=== PATIENT | male | born 1960 | race Caucasian/White ===

== ENCOUNTER → 2017-08-14 10:37 | Outpatient (CLI) | payer MEDICARE, MEDICAID, SELFPAY | PROVIDERS: Family Provider Family Medicine; PCP Family Medicine; Visit Provider Otolaryngology | DX: R05 Cough (principal) ==

== ENCOUNTER → 2017-09-20 09:57 | Outpatient (CLI) | payer MEDICARE, MEDICAID, SELFPAY ==
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
== END ==
PROVIDERS: Family Provider Family Medicine; PCP Family Medicine; Visit Provider Internal Medicine
DX: L98.498 Non-pressure chronic ulcer of skin of other sites with other specified severity (principal); R21 Rash and other nonspecific skin eruption; G82.50 Quadriplegia, unspecified
CPT/HCPCS: 87070; 87075; 87077; 87186; 87205; 99214

== ENCOUNTER → 2017-09-29 09:57 | Outpatient (CLI) | payer MEDICARE, MEDICAID, SELFPAY ==
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
== END ==
PROVIDERS: Family Provider Family Medicine; PCP Family Medicine; Visit Provider Internal Medicine
DX: L98.498 Non-pressure chronic ulcer of skin of other sites with other specified severity (principal); R21 Rash and other nonspecific skin eruption; B96.5 Pseudomonas (aeruginosa) (mallei) (pseudomallei) as the cause of diseases classified elsewhere; G82.50 Quadriplegia, unspecified
CPT/HCPCS: 99213

== ENCOUNTER → 2017-10-19 13:12 | Outpatient (CLI) | payer MEDICARE, MEDICAID, SELFPAY | PROVIDERS: Family Provider Family Medicine; PCP Family Medicine; Visit Provider Physician Assistant | DX: N39.0 Urinary tract infection, site not specified (principal) | CPT/HCPCS: 87086 ==

== ENCOUNTER → 2017-12-15 12:26 | Outpatient (CLI) | payer MEDICARE, MEDICAID, SELFPAY ==
[2017-12-15 13:18] LABS: Add Manual Diff / Slide Review NO; Basophils Percent Auto 0.4 % (0-2); Eosinophils Percent Auto 15.4 % (2-4); Hematocrit 44.5 % (41-53); Hemoglobin 14.8 g/dL (13.5-17.5); Lymphocytes Percent Auto 22.5 % (25-40); Mean Corpuscular HGB Conc 33.3 % (30-36); Mean Corpuscular Hemoglobin 32.2 PG (26-34); Mean Corpuscular Volume 96.4 fL (80-100); Monocytes Percent Auto 12.9 % (3-14); Neutrophils Absolute Auto 3400 /uL (3000-5900); Neutrophils Percent Auto 48.8 % (50-75); Platelet Count 211 X10^3/uL (150-400); Red Blood Cell Count 4.61 X10^6/uL (4.5-5.9); Red Cell Distribution Width 17.8 % (11.6-14.8)
[2017-12-15 13:34] LABS: Alanine Aminotransferase 78 IU/L (21-72); Albumin 4.2 g/dL (3.5-5.0); Albumin Globulin Ratio 1.1 (1.0-2.8); Alkaline Phosphatase 134 U/L (38-126); Aspartate Aminotransferase 58 IU/L (17-59); Bilirubin Total 0.5 mg/dL (0.2-1.3); Blood Urea Nitrogen 15 mg/dL (9-20); Calcium 10.3 mg/dL (8.4-10.2); Carbon Dioxide 34 mmol/L (22-32); Chloride 100 mmol/L (98-107); Cholesterol 191 mg/dL (140-199); Estimated Glomerular Filt Rate > 60.0 mL/min (>60); Glucose 76 mg/dL (70-100); HDL Cholesterol 44 mg/dL (40-60); HEMOLYSIS < 15 (0-50); LDL Cholesterol Calculated 131 mg/dL (<100); Potassium 4.1 mmol/L (3.4-5.1); Sodium 145 mmol/L (137-145); Total Protein 8.2 g/dL (6.3-8.2); Triglycerides 80 mg/dL (35-150)
[2017-12-15 14:03] LABS: Thyroid Stimulating Hormone 1.33 uIU/mL (0.47-4.68)
== END ==
PROVIDERS: Family Provider Family Medicine; PCP Student in an Organized Health Care Education/Training Program; Visit Provider Physician Assistant
DX: R74.9 Abnormal serum enzyme level, unspecified (principal); R79.89 Other specified abnormal findings of blood chemistry; Z13.220 Encounter for screening for lipoid disorders; Z13.6 Encounter for screening for cardiovascular disorders
CPT/HCPCS: 36415; 80053; 80061; 84443; 85025

== ENCOUNTER → 2018-01-15 13:00 | Outpatient (CLI) | payer MEDICARE, MEDICAID, SELFPAY | PROVIDERS: PCP Student in an Organized Health Care Education/Training Program; Visit Provider Family Medicine | DX: G82.50 Quadriplegia, unspecified (principal); L89.323 Pressure ulcer of left buttock, stage 3; L89.612 Pressure ulcer of right heel, stage 2 | CPT/HCPCS: 11042; 97597; 99214 ==

== ENCOUNTER → 2018-01-22 13:08 | Outpatient (CLI) | payer MEDICARE, MEDICAID, SELFPAY | PROVIDERS: Family Provider Family Medicine; PCP Student in an Organized Health Care Education/Training Program; Visit Provider Family Medicine | DX: G82.50 Quadriplegia, unspecified (principal); L89.323 Pressure ulcer of left buttock, stage 3; L89.612 Pressure ulcer of right heel, stage 2 | CPT/HCPCS: 97597 ==

== ENCOUNTER → 2018-01-29 13:18 | Outpatient (CLI) | payer MEDICARE, MEDICAID, SELFPAY | PROVIDERS: Family Provider Family Medicine; PCP Student in an Organized Health Care Education/Training Program; Visit Provider Family Medicine | DX: G82.50 Quadriplegia, unspecified (principal); L89.323 Pressure ulcer of left buttock, stage 3; L89.612 Pressure ulcer of right heel, stage 2 | CPT/HCPCS: 97597 ==

== ENCOUNTER → 2018-02-09 13:00 | Outpatient (CLI) | payer MEDICARE, MEDICAID, SELFPAY | PROVIDERS: Family Provider Family Medicine; PCP Student in an Organized Health Care Education/Training Program; Visit Provider Family Medicine | DX: L89.612 Pressure ulcer of right heel, stage 2 (principal); G82.50 Quadriplegia, unspecified | CPT/HCPCS: 97597 ==

== ENCOUNTER → 2018-02-22 15:40 | Outpatient (CLI) | payer MEDICARE, MEDICAID, SELFPAY | PROVIDERS: Family Provider Family Medicine; PCP Student in an Organized Health Care Education/Training Program; Visit Provider Family Medicine | DX: G82.50 Quadriplegia, unspecified (principal); L89.612 Pressure ulcer of right heel, stage 2; S91.302A Unspecified open wound, left foot, initial encounter | CPT/HCPCS: 97597; 99212; 99214 ==

== ENCOUNTER → 2018-02-28 10:33 | Outpatient (CLI) | payer MEDICARE, MEDICAID, SELFPAY ==
[2018-02-28 11:52] LABS: Add Manual Diff / Slide Review NO; Basophils Percent Auto 0.9 % (0-2); Eosinophils Percent Auto 18.9 % (2-4); Hematocrit 45.8 % (41-53); Lymphocytes Percent Auto 21.5 % (25-40); Mean Corpuscular HGB Conc 32.8 % (30-36); Mean Corpuscular Hemoglobin 31.8 PG (26-34); Monocytes Percent Auto 11.3 % (3-14); Neutrophils Absolute Auto 2600 /uL (3000-5900); Neutrophils Percent Auto 47.4 % (50-75); Platelet Count 341 X10^3/uL (150-400); Red Blood Cell Count 4.72 X10^6/uL (4.5-5.9); White Blood Cell Count 5.4 X10^3/uL (4.5-11.0)
[2018-02-28 12:14] LABS: Alanine Aminotransferase 34 IU/L (21-72); Albumin 4.2 g/dL (3.5-5.0); Alkaline Phosphatase 104 U/L (38-126); Aspartate Aminotransferase 33 IU/L (17-59); Bilirubin Total 0.5 mg/dL (0.2-1.3); Blood Urea Nitrogen 16 mg/dL (9-20); Calcium 9.4 mg/dL (8.4-10.2); Carbon Dioxide 31 mmol/L (22-32); Chloride 97 mmol/L (98-107); Estimated Glomerular Filt Rate > 60.0 mL/min (>60); Globulin 4.1 g/dL (1.7-4.1); Glucose 74 mg/dL (70-100); HEMOLYSIS 42 (0-50); Potassium 4.3 mmol/L (3.4-5.1); Sodium 138 mmol/L (137-145); Total Protein 8.3 g/dL (6.3-8.2)
== END ==
PROVIDERS: PCP Student in an Organized Health Care Education/Training Program; Visit Provider Student in an Organized Health Care Education/Training Program
DX: R41.82 Altered mental status, unspecified (principal)
CPT/HCPCS: 36415; 80053; 82140; 85025

== ENCOUNTER → 2018-03-01 13:36 | Outpatient (CLI) | payer MEDICARE, MEDICAID, SELFPAY | PROVIDERS: Family Provider Family Medicine; PCP Student in an Organized Health Care Education/Training Program; Visit Provider Family Medicine | DX: G82.50 Quadriplegia, unspecified (principal); L89.612 Pressure ulcer of right heel, stage 2; S91.302A Unspecified open wound, left foot, initial encounter | CPT/HCPCS: 97597 ==

== ENCOUNTER → 2018-03-09 13:10 | Outpatient (CLI) | payer MEDICARE, MEDICAID, SELFPAY | PROVIDERS: Family Provider Family Medicine; PCP Student in an Organized Health Care Education/Training Program; Visit Provider Family Medicine | DX: Z48.817 Encounter for surgical aftercare following surgery on the skin and subcutaneous tissue (principal) | CPT/HCPCS: 99212 ==

== ENCOUNTER 2018-09-11 15:55 | Inpatient (IN) | payer MEDICARE, MEDICAID, SELFPAY ==
[2018-09-11] VITALS (11 sets, daily range): BP systolic 106–166; BP diastolic 73–92; PULSE 59–122; RESP 14–19; TEMP 36.2–36.7; O2SAT 96–99; BMI 31.7
--- NOTE | 2018-09-11 15:59 | DI.RAD.S_ITS ---
PROCEDURE: XR CHEST 1V INDICATIONS: tachycardia, short of breath TECHNIQUE: One view of the chest was acquired. COMPARISON: [facility], , CHEST 1 VIEW, 04/26/2017, 13:58. FINDINGS: Surgical changes and devices: Thoracolumbar fusion hardware is present. Lungs and pleura: Mild patchy opacity within the bilateral lung bases. No pleural effusions or pneumothorax. Mediastinum: Mediastinal contours appear normal. Heart size is normal. Bones and chest wall: No suspicious bony lesions. Overlying soft tissues appear unremarkable. IMPRESSION: Mild bibasilar pneumonia. Dictated by: Beth Rosenbaum M.D. on 09/11/2018 at 15:29 Approved by: Beth Rosenbaum M.D. on 09/11/2018 at 15:29
[2018-09-11 16:34] LABS: Add Manual Diff / Slide Review NO; Basophils Absolute Auto 100 /uL (0-100); Basophils Percent Auto 0.7 % (0-2); Eosinophils Absolute Auto 700 /uL (0-450); Eosinophils Percent Auto 9.1 % (2-4); Hematocrit 38.4 % (41-53); Hemoglobin 12.8 g/dL (13.5-17.5); Lymphocytes Absolute Auto 1600 /uL (1100-4500); Lymphocytes Percent Auto 19.8 % (25-40); Mean Corpuscular HGB Conc 33.4 % (30-36); Mean Corpuscular Hemoglobin 29.5 PG (26-34); Mean Corpuscular Volume 88.2 fL (80-100); Monocytes Absolute Auto 900 /uL (0-900); Monocytes Percent Auto 10.8 % (3-14); Neutrophils Absolute Auto 4700 /uL (1500-7000); Neutrophils Percent Auto 59.6 % (50-75); Platelet Count 513 X10^3/uL (150-400); Red Blood Cell Count 4.36 X10^6/uL (4.5-5.9); Red Cell Distribution Width 16.9 % (11.6-14.8); White Blood Cell Count 7.9 X10^3/uL (4.5-11.0)
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
[2018-09-11 16:47] LABS: PTT Partial Thromboplastin Tim 44 SECONDS (26.4-36.2)
[2018-09-11 16:49] LABS: Blood Urea Nitrogen 18 mg/dL (9-20); Calcium 9.7 mg/dL (8.4-10.2); Carbon Dioxide 28 mmol/L (22-32); Chloride 100 mmol/L (98-107); Estimated Glomerular Filt Rate > 60.0 mL/min (>60); Glucose 102 mg/dL (70-100); HEMOLYSIS < 15 (0-50); Potassium 4.6 mmol/L (3.4-5.1); Sodium 136 mmol/L (137-145)
[2018-09-11 17:00] LABS: B Type Natriuretic Peptide 128 (<100); Troponin I < 0.012 ng/mL (0.01-0.034)
--- NOTE | 2018-09-11 17:36 | DI.CT.S_ITS ---
PROCEDURE: CT ANGIO CHEST PE PROTOCOL INDICATIONS: tachycardia, CP, SOB, paraplegic, no anticoagulation TECHNIQUE: After the administration of intravenous contrast, 2 mm thick sections acquired from the pulmonary apices to the posterior costophrenic angles. 3-dimensional maximum intensity projection (MIP) coronal and sagittal reformats were then acquired through the thorax. For radiation dose reduction, the following was used: automated exposure control, adjustment of mA and/or kV according to patient size. COMPARISON: [facility], CT, T-SPINE WITHOUT CONTRAST, 07/06/2017, 11:17. [facility], CR, XR CHEST 1V, 09/11/2018, 16:03. FINDINGS: Image quality: Excellent. Pulmonary arteries: Pulmonary arteries are normal in size, and demonstrate no intraluminal filling defects to suggest central pulmonary embolism. Lungs and pleura: Masslike consolidation is present within the posterior right lower lobe measuring approximately 3 cm. Scattered bibasilar atelectasis. Subpleural presumed consolidation with nodular appearance seen in the left lung base measuring 1 cm. Chronic left upper rib deformities Mediastinum: Heart size is enlarged, without pericardial effusion. No mediastinal or hilar adenopathy. Thoracic aorta is normal in caliber and enhancement. Esophagus is normal in caliber, without hiatal hernia. Bones and chest wall: No suspicious bony lesions. Ribs and thoracic spine appear intact throughout. Partially visualized posterior spinal instrumentation Thyroid gland negative. No axillary or supraclavicular adenopathy. Abdomen: Visualized upper abdominal solid organs appear normal in the early arterial phase of enhancement. IMPRESSION: No evidence of pulmonary embolism or aortic dissection. Subpleural masslike consolidations seen within both lower lobes, right greater than left as above. This could represent aspiration/rounded atelectasis versus pneumonia. Please correlate clinically. Given the absence of any relevant prior studies, followup with noncontrast chest CT after treatment in 3 months to document improvement/resolution and exclude underlying neoplasm. Cardiomegaly. Dictated by: Nima Hoff M.D. on 09/11/2018 at 18:29 Approved by: Nima Hoff M.D. on 09/11/2018 at 18:36
[2018-09-11] MEDS: DILTIAZEM 125 MG/125 ML PIGGYBACK IV (18:27)
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
[2018-09-11 20:40] LABS: Magnesium 1.8 mg/dL (1.6-2.3)
[2018-09-11 21:12] LABS: Thyroid Stimulating Hormone 1.45 uIU/mL (0.47-4.68)
[2018-09-11] MEDS: HEPARIN 5,000 UNIT/ML VIAL 5000 UNIT SUBCUT (21:18)
[2018-09-11] MEDS: SODIUM CHLORIDE 0.9% 1,000 ML 1000 ML IV (21:18)
[2018-09-11 21:31] LABS: Lactate (Lactic Acid) 1.1 mmol/L (0.7-2.1)
--- NOTE | 2018-09-11 21:39 | DI.ECHO.S_ITS ---
[facility]---------+ [facility] +---------+ : : [address] : : : [place], [place] : : : : [id number] : : : : Phone: [phone] Echocardiogram Report + + :Name: NICOLAS WINSTON Study Date: 09/12/2018 Height: 78 in : :[facility] Exam Location: [facility] Weight: 274 lb : : Gender: Male BSA: 2.6 m2 : :: 1960 Age: 58 yrs BP: 131/76 mmHg: :Reason For Study: AFIB : : Performed By: Humberto Martinez : :Referring: SYLVESTER REINA : + + Interpretation Summary Left ventricular systolic function is mild to moderately reduced with the ejection fraction visually estimated to be 45-50% with mild global hypokinesis with a significant dyssynchronous contraction pattern, consistent with a conduction abnormality but no obvious focal wall motion abnormalities. There is mild concentric left ventricular hypertrophy. Diastolic function could not be accurately assessed due to atrial fibrillation. The right ventricle is not well visualized but is likely mildly dilated with mildly reduced systolic function. The right ventricular systolic pressure is estimated to be at least 29 mmHg based on an estimated right atrial pressure of 3 mm Hg. The atria are not well visualized. There is probable mild to moderate mitral regurgitation but no other significant valvular heart disease. The patient was in atrial fibrillation with heart rates between 72-118 bpm during the exam. Procedure: A two-dimensional transthoracic echocardiogram with color flow and Doppler was performed. The study quality was technically difficult. There is no prior echocardiogram noted for this patient. A contrast injection of Definity was performed to improve assessment of LV function. The patient was in atrial fibrillation with heart rates between 72-118 bpm during the exam. Left Ventricle: The left ventricle is normal in size. There is mild concentric left ventricular hypertrophy. Left ventricular systolic function is mild to moderately reduced. The ejection fraction is estimated to be 45-50%. There is mild global hypokinesis of the left ventricle. There is a significant dyssynchronous contraction pattern, consistent with a conduction abnormality. There are no focal wall motion abnormalities. Diastolic function could not be accurately assessed due to atrial fibrillation. Right Ventricle: The right ventricle is not well visualized. The right ventricle is mildly dilated. Right ventricular systolic function is mildly reduced. Atria: The left atrium is not well visualized. Right atrium not well visualized. The interatrial septum is intact with no evidence for an atrial septal defect. Mitral Valve: The mitral valve leaflets appear borderline thickened, but open well. There is mild to moderate mitral regurgitation. Aortic Valve: The aortic valve is trileaflet. The aortic valve opens well. There is trace aortic regurgitation. Tricuspid Valve: The tricuspid valve is normal in structure and function. There is trace tricuspid regurgitation. The right ventricular systolic pressure is estimated to be at least 29 mmHg based on an estimated right atrial pressure of 3 mm Hg. Pulmonic Valve: The pulmonic valve is normal in structure and function. There is trace pulmonic regurgitation. There is no other significant valvular heart disease. Great Vessels: The aortic root is normal size. The dimensions of the ascending aorta are normal. The pulmonary artery is normal size. The IVC is of normal diameter and collapses greater than 50% with a sniff. This suggests a low right atrial pressure of 3 mm Hg. Pericardium/ Pleura There is no pericardial effusion. There is no pleural effusion. MMode/2D Measurements & Calculations LVIDd: 4.3 cm LVOT diam: 2.2 cm LVIDs: 3.5 cm Ao root diam: 3.3 cm FS: 19.2 % Aortic Jxn: 2.4 cm EPSS: 0.50 cm asc Aorta Diam: 3.1 cm IVSd: 1.1 cm LVPWd: 1.1 cm LV ferrera. diameter/BSA (cm/m^2): 1.7 LV sys. diameter/BSA (cm/m^2): 1.4 LA dimension: 2.7 cm IVC diam: 0.92 cm Doppler Measurements & Calculations Ao V2 max: 59.2 cm/sec LVOT Max Cameron: 56.1 cm/sec Ao V2 mean: 42.5 cm/sec LV V1 max P.3 mmHg Ao max P.5 mmHg LV V1 VTI: 11.7 cm Ao mean P.86 mmHg TAINA(I,D): 4.5 cm2 Ao V2 VTI: 9.8 cm TAINA(V,D): 3.5 cm2 sev ratio: 1.2 TAINA indexed to BSA (cm^2/m^2): 1.7 MV E max cameron: 57.2 cm/sec TR max cameron: 254.4 cm/sec MV A max cameron: 0.80 cm/sec TR max P.9 mmHg MV E/A: 71.8 PA V2 max: 40.9 cm/sec Med Peak E' Cameron: 8.9 cm/sec PA V2 mean: 32.3 cm/sec E/E' med: 6.4 PA mean P.44 mmHg Lat Peak E' Cameron: 8.9 cm/sec PA pr(Accel): 46.6 mmHg E/E' lat: 6.4 PA Accel Time: 0.06 sec E/e' average: 6.4 MV dec time: 0.11 sec SV(LVOT): 43.7 ml Reading Physician:KALEIGH
[2018-09-11 21:52] LABS: Procalcitonin < 0.05 ng/mL (<0.5)
[2018-09-11 21:59] LABS: Bacteria Urine None Seen; RBC Urine None Seen (0-5/HPF); WBC Urine None Seen (0-5/HPF)
--- NOTE | 2018-09-11 21:59 | PC.NURSE ---
Patient admitted to room 106. Brought over on stretcher by nursing staff. Transferred to bed using slider board. Alert and oriented with pleasant affect. Denies pain at this time. Diltiazem gtt running at 10 per protocol. RAMP SUPERVISOR in to see patient. Brother at bedside. Patient straight cathed per orders. Brother states that patient's allergy to latex is only a little irritation after prolonged skin contact and that they have used catheters with latex in the past without issues. RAMP SUPERVISOR notified of this and states that it is fine to straight cath with what we have and to have family bring in his own supplies when they come back in. Patient tolerated straight cath very well.
[2018-09-11 22:03] LABS: Appearance Urine UA CLEAR; Bilirubin Urine UA NEGATIVE (NEGATIVE); Color Urine UA YELLOW; Glucose Urine UA NEGATIVE (Negative); Ketones Urine UA NEGATIVE (NEGATIVE); Leukocyte Esterase Urine UA TRACE (NEGATIVE); Nitrite Urine UA NEGATIVE (Negative); Occult Blood Urine UA NEGATIVE (Negative); Protein Urine UA NEGATIVE (Negative)
[2018-09-11 22:12] LABS: Squamous Epithelial Cell Urine 0-1 /HPF (0-5/HPF)
[2018-09-11 22:13] LABS: Culture Indicated Urine Cult Not Indicated
[2018-09-12] VITALS (12 sets, daily range): BP systolic 117–151; BP diastolic 56–85; PULSE 59–118; RESP 11–17; TEMP 36.1–36.7; O2SAT 96–99
[2018-09-12 05:09] LABS: Add Manual Diff / Slide Review NO; Basophils Absolute Auto 0 /uL (0-100); Basophils Percent Auto 0.6 % (0-2); Eosinophils Absolute Auto 700 /uL (0-450); Eosinophils Percent Auto 9.6 % (2-4); Hematocrit 36.9 % (41-53); Hemoglobin 11.9 g/dL (13.5-17.5); Lymphocytes Absolute Auto 1600 /uL (1100-4500); Mean Corpuscular HGB Conc 32.4 % (30-36); Mean Corpuscular Hemoglobin 29.2 PG (26-34); Mean Corpuscular Volume 90.1 fL (80-100); Monocytes Absolute Auto 800 /uL (0-900); Monocytes Percent Auto 11.4 % (3-14); Neutrophils Absolute Auto 3900 /uL (1500-7000); Neutrophils Percent Auto 55.4 % (50-75); Platelet Count 438 X10^3/uL (150-400); Red Cell Distribution Width 16.5 % (11.6-14.8)
[2018-09-12 05:17] LABS: BUN Creatinine Ratio 37.5 (6-22); Blood Urea Nitrogen 15 mg/dL (9-20); Calcium 9.5 mg/dL (8.4-10.2); Carbon Dioxide 30 mmol/L (22-32); Chloride 102 mmol/L (98-107); Estimated Glomerular Filt Rate > 60.0 mL/min (>60); Glucose 100 mg/dL (70-100); HEMOLYSIS < 15 (0-50); Magnesium 1.7 mg/dL (1.6-2.3); Potassium 4.6 mmol/L (3.4-5.1); Sodium 138 mmol/L (137-145)
--- NOTE | 2018-09-12 06:32 | PC.NURSE ---
Diltiazem gtt has remained of since 2299, patient remains in A-flutter with controlled rate 60-80s at rest, briefly becomes tachycardic to 110-120, but resolves quickly, BP stable, see vital trends, denies chest pain, palpitations, or dyspnea, slept with his own C=
--- NOTE | 2018-09-12 06:35 | PC.NURSE ---
Diltiazem gtt has been off since 2299, rhythm remains A-flutter, rate controlled 60s-80s at rest, becomes tachycardic to 110-120s briefly with activity but resolves quickly, denies chest pain, palpitations, or dyspnea. Slept with his own C-pap on, SpO2 >95%, has intermittent non-productive loose cough. Straight cath in am for 650ml clear albina urine, NS bolus started as ordered, awaiting Mg+ sulfate infusion from pharmacy.
[2018-09-12] MEDS: SODIUM CHLORIDE 0.9% 500 ML IV (06:50)
[2018-09-12] MEDS: SODIUM CHLORIDE 0.9% 1,000 ML 100 ML IV (06:51)
[2018-09-12] MEDS: dilTIAZem CD 120 MG CAP PO (08:35)
[2018-09-12] MEDS: DOCUSATE 100 MG CAPSULE PO ×2 (08:35→20:53)
[2018-09-12] MEDS: MAGNESIUM SULFATE 2 GM/50 ML PIGGYBACK IV (08:36)
[2018-09-12] MEDS: NYSTATIN POWDER 30 GM 1 APPLIC TOP (08:36)
[2018-09-12] MEDS: levoFLOXacin 250 MG TABLET 750 MG PO (08:36)
[2018-09-12] MEDS: SENNOSIDES 8.6 MG TABLET 17.2 MG PO ×2 (08:37→20:52)
[2018-09-12] MEDS: HEPARIN 5,000 UNIT/ML VIAL 5000 UNIT SUBCUT ×2 (09:07→20:52)
[2018-09-12] MEDS: SODIUM CHLORIDE 0.9% FLUSH 10 ML IV ×2 (09:09→20:53)
[2018-09-12] MEDS: dilTIAZem 5 MG/ML SDV 10 MG IV (11:00)
[2018-09-12] MEDS: dilTIAZem 30 MG TABLET PO ×2 (13:12→17:27)
--- NOTE | 2018-09-12 13:35 | PC.NURSE ---
Day Shift Note Atrial flutter up to the 110-120s noted at 0820 and sustained for >15 min, pt at rest. Dr. Cardenas updated and and order for PO diltiazem received and administered. HR remained unchanged other than brief periods down to the 80-90s - 10 mg IV diltiazem administered per MD order bringing HR down to 70-80s. New PO diltiazem orders received - see MAY. Duoderm to left buttock is C/D/I, no drainage noted, free of erythema. Per Sid (pt's brother and POA) dressing being changed at home every 2-3 days or when soiled - reviewed with Dr. Cardenas and orders updated to reflect home regimen. Wound clinic called and notified of wound consult order. Pt straight cathed at 1030 with 900 ml out without issue in addition to an unmeasured/incontinent void. Turning every 2 hours to offload pressure. Call light within reach, using appropriately to make needs known.
--- NOTE | 2018-09-12 14:18 | DIET.PN ---
[address] consult for 12 Abdirahman score Ht: 198cm Wt: 122.9kg BMI: 31.3 (obese) Assessment: Consulted c nurse as pt was sleeping. 58y M admitted for A Fib. Pt has two pressure sores, one mostly resolved, one level 2 complicated by paraplegia. Consuming 100% nourishments Regular Diet. Nutrition Diagnosis: Inadequate protein intake r/t increased needs to heal wounds aeb two current pressure sores complicated by paraplegia. Intervention: Recc ONS [place] BID to aid wound healing providing 16.5 g PRO and 95 kcal twice daily. This supp will provide arginine and PRO for wounds w/o excess calories. Monitoring/Evaluation: RD will follow up 09/13/18 to interview pt once awake to assess protein intake at home.
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
--- NOTE | 2018-09-12 17:12 | PC.NURSE ---
Addendum entered by Maura Gamble R.N. 09/14/18 07:40: Patient has a PI Stage 3 not a PI Stage 2. This is a full thickness wound with slough at the base. Dr. Cardenas notified. Original Note: Wound Ostomy Nurse Consult Note Mr. Matthews awake in bed, getting ready to eat dinner. He is not new to me as [facility]. With help from the nursing staff we turned Mr. Matthews to visualize his Stage II Pressure Injury on his Left Buttock which measures 1.3 x 1.5 x 0.2cm. The wound base has slough, the ja-wound is intact without redness or induration. I asked Mr. Matthews how long this PI had been there and he said for months on and off. He had had a hydrocolloid over the wound. After removing the hydrocolloid I cleaned the wound and placed another hydrocolloid. The nursing staff has been turning him and repositioning Mr. Matthews every two hours. I would recommend that they continue with this turning and positioning schedule as his cardiac status will tolerate. If his is unable to be repositioned, I would recommend a low air low mattress. As far as a dressing for the wound, I recommend using a hydrocolloid changing every 7 days or as needed.
[2018-09-12] MEDS: BISACODYL 10 MG SUPP PR (18:52)
--- NOTE | 2018-09-12 20:13 | PC.NURSE ---
1830-Nursing assessment entered by vocational nursing instructor reviewed and I agree with assessment.
[2018-09-12] MEDS: MUPIROCIN 22 GM OINT 1 APPLIC TOP (20:52)
--- NOTE | 2018-09-12 22:48 | PC.NURSE ---
2044 - Straight cath per pt routine. Pericare following rectal disimpaction. Small results. Able to take po meds without difficulty. Intermittent cough. Encouraged I.S. use. Repositioned to right side lying. Duoderm to buttock CDI. RA 93%, pt reports not yet time for C-pap, Call light in reach.
[2018-09-13] VITALS (9 sets, daily range): BP systolic 90–127; BP diastolic 53–90; PULSE 62–116; RESP 14–20; TEMP 36–37.1; O2SAT 94–99
[2018-09-13] MEDS: dilTIAZem 30 MG TABLET PO ×2 (00:01→06:01)
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
--- NOTE | 2018-09-13 08:08 | PC.NURSE ---
Pt is A&Ox3, pt has some aphagia when speaking but he is easily understandable. Pt does have a wound on his L.inner buttocks with duoderm dressing in place. Will turn patient to see wound and get him repositioned every 2 hours. He has heel protectors on that go just below knee. Pt has 2+ edema to lower extremities and pitting. Pt will be straight cathed around 0830 and then turned. VSS.
[2018-09-13] MEDS: levoFLOXacin 250 MG TABLET 750 MG PO (09:31)
[2018-09-13] MEDS: MUPIROCIN 22 GM OINT 1 APPLIC TOP ×2 (09:32→21:00)
[2018-09-13] MEDS: SODIUM CHLORIDE 0.9% FLUSH 10 ML IV ×2 (09:32→21:01)
[2018-09-13] MEDS: DOCUSATE 100 MG CAPSULE PO ×2 (09:33→21:00)
[2018-09-13] MEDS: HEPARIN 5,000 UNIT/ML VIAL 5000 UNIT SUBCUT (09:33)
[2018-09-13] MEDS: RIVAROXABAN 10 MG TABLET 20 MG PO (09:33)
[2018-09-13 10:10] LABS: Blood Urea Nitrogen 14 mg/dL (9-20); Calcium 9.3 mg/dL (8.4-10.2); Carbon Dioxide 30 mmol/L (22-32); Chloride 100 mmol/L (98-107); Estimated Glomerular Filt Rate > 60.0 mL/min (>60); Glucose 103 mg/dL (70-100); HEMOLYSIS < 15 (0-50); Magnesium 1.8 mg/dL (1.6-2.3); Potassium 4.3 mmol/L (3.4-5.1); Sodium 138 mmol/L (137-145)
[2018-09-13] MEDS: SENNOSIDES 8.6 MG TABLET 17.2 MG PO ×2 (10:21→20:59)
--- NOTE | 2018-09-13 11:24 | PM.CHAP ---
patient requested a call from the health system. Called contact at [facility].
--- NOTE | 2018-09-13 11:30 | PM.CHAP ---
[facility] contact called. They will be in on [id number] I will advise patient today.
[2018-09-13] MEDS: METOPROLOL IR 25 MG TABLET PO ×2 (11:59→21:00)
[2018-09-13] MEDS: ACETAMINOPHEN 325 MG TABLET 650 MG PO ×2 (12:40→23:48)
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
--- NOTE | 2018-09-13 15:00 | PC.NURSE ---
Am shift Pt continues with total care, turning to offload pressure to coccyx. HR irregular, Afib on tele, VSS since addition of Beta rivas. Pt has c/o R shoulder pain this shift, APAP given. Duoderm to L buttock intact
--- NOTE | 2018-09-13 15:46 | CM.DPC ---
DCP: continued: met this afternoon with pt and his POA brother Sid Matthews as planned after EMR review and morning discussion of case in Team R[employer]. Introduced self and role. Pt and Sid report that pt has an excellent support situation at home, we feel truly blessed and that his primary caregiver Liana is there Monday through Monday and at times on weekend. She is a [employer] provider and the only pd caregiver for pt. Sasha assists pt with his basic care needs as well as providing supportive care in terms of exercise (he uses his manual w/c for a rehab session daily to increase his upper body abilities. He goes for outings with her in his electric w/c, in the neighborhood. They play word games and have a schedule that pt says he very much enjoys. Pt gets around town and to other destinations in a large bus set up as a w/c van. Pt says we call it the [employer]. It has a large Mermaid painted on the side of it and people often ask to take pictures of themselves in front of it. Pt says he greatly enjoys this. Asked about HH and went over the wound care consult from Maura Gamble as Sid was not present when she was there to do her assessment (see her note: 09/12 at 1712.) Sid says they have been going to the wound care clinc for some time and that it seems to work best if the care is managed at home by himself and Liana in collaboration with the clinic. Sid does say that pt sleeps on his side in bed and that he has a specialized air bed which supports his overall needs. Both say they are hopeful that pt will be ready for d/c in next day or 2 and he will be going home via our [employer] bus. Will check in tomorrow and follow prn.
[2018-09-13] MEDS: MAGNESIUM CHLORIDE 64 MG TABLET PO (16:48)
--- NOTE | 2018-09-13 17:19 | RT ---
Called [facility] and left message with Debbi to call us about cough assist set up.
--- NOTE | 2018-09-13 17:54 | PC.NURSE ---
Addendum entered by Sabina Lora R.N. 09/13/18 22:48: 2245 - Review persistent mild tachycardia with [employer] MAKERCali. Reviewed current medications. Monitor. Addendum entered by Sabina Lora R.N. 09/13/18 21:20: 2100 - Able to take po meds without difficulty, HS care, teeth brushed. No results from suppository, No stool present in rectal vault. Brief changed. Reposition. Nystatin to folds. Call light in reach. Addendum entered by Sabina Lora R.N. 09/13/18 20:28: 1830 - Dr. Cardenas notified of increased tachycardia, Monitor, notify [facility]PN if persistent. 1930 - Pt inc of urine, pericare and brief changed. Suppository given as ordered. Straight cath for 650cc. Pt declines to lay right side lying r/t rib pain pt experienced during the night I didn't sleep at all. He reports the pain resolved at this time, but is fearful of pain returning with right side lying. Educated to pain control and alternative therapies, pt verbalized understanding and declines need for intervention at this time. Call light in reach. Original Note: 1600 - Pt bp 90/53 at rest, hr 71, at time of telemetery reading HR 58, Reviewed VS with Dr. Cardenas, also reviewed Metoprolol orders. New orders obtained. 1730 - Pt sitting in high amlonte's for meal. Hr tachycardic while eating 110's. Intermittent weak, moist cough. Reinforced aspiration precautions. Sats 97% on RA. Monitor.
[2018-09-13] MEDS: BISACODYL 10 MG SUPP PR (19:33)
[2018-09-13] MEDS: NYSTATIN POWDER 30 GM 1 APPLIC TOP (20:59)
[2018-09-14] VITALS (10 sets, daily range): BP systolic 98–132; BP diastolic 55–82; PULSE 83–123; RESP 12–23; TEMP 36.3–37.2; O2SAT 96–98
--- NOTE | 2018-09-14 03:18 | PC.NURSE ---
When awake and moving has more elevated HR in 90's to 110's of more A-fib, with sats in the high 90's on RA. When sleeping tonight HR drops to 60's to 80's in a controlled A-flutter with sats in again the high 90's. However intermittently having bursts of A-fib to low 100's and dropping sats into mid 80's with a rapid recovery within a minute, and dropping HR down.
[2018-09-14 05:13] LABS: BUN Creatinine Ratio 47.5 (6-22); Blood Urea Nitrogen 19 mg/dL (9-20); Calcium 9.5 mg/dL (8.4-10.2); Carbon Dioxide 28 mmol/L (22-32); Chloride 104 mmol/L (98-107); Estimated Glomerular Filt Rate > 60.0 mL/min (>60); Glucose 88 mg/dL (70-100); HEMOLYSIS < 15 (0-50); Magnesium 1.8 mg/dL (1.6-2.3); Potassium 4.2 mmol/L (3.4-5.1); Sodium 138 mmol/L (137-145)
[2018-09-14] MEDS: DOCUSATE 100 MG CAPSULE PO ×2 (09:19→20:08)
[2018-09-14] MEDS: levoFLOXacin 250 MG TABLET 750 MG PO (09:20)
[2018-09-14] MEDS: MAGNESIUM CHLORIDE 64 MG TABLET 128 MG PO (09:20)
[2018-09-14] MEDS: MUPIROCIN 22 GM OINT 1 APPLIC TOP ×2 (09:21→20:10)
[2018-09-14] MEDS: METOPROLOL ER 50 MG TABLET PO (09:21)
[2018-09-14] MEDS: SENNOSIDES 8.6 MG TABLET 17.2 MG PO ×2 (09:22→20:07)
[2018-09-14] MEDS: RIVAROXABAN 10 MG TABLET 20 MG PO (09:22)
[2018-09-14] MEDS: SODIUM CHLORIDE 0.9% FLUSH 10 ML IV ×2 (09:23→20:09)
[2018-09-14] MEDS: METOPROLOL ER 25 MG TABLET PO ×2 (10:51→20:07)
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
[2018-09-14] MEDS: METOPROLOL TARTRATE 5 MG/5 ML INJ IV (15:35)
[2018-09-14] MEDS: BISACODYL 10 MG SUPP PR (19:18)
--- NOTE | 2018-09-14 21:59 | PC.NURSE ---
2100- Extra dose of antiarrythmic given per MD order. Patient will increase dose with AM medication. MD aware of uncontrolled AFlutter. No further orders to address rate tonight.
--- NOTE | 2018-09-14 22:30 | PC.NURSE ---
2200- Assessment reviewed and I agree with what is charted.
[2018-09-15] VITALS (7 sets, daily range): BP systolic 101–121; BP diastolic 60–80; PULSE 68–121; RESP 15–18; TEMP 36.3–36.7; O2SAT 92–97
[2018-09-15 05:39] LABS: Add Manual Diff / Slide Review NO; Basophils Absolute Auto 100 /uL (0-100); Basophils Percent Auto 0.8 % (0-2); Eosinophils Absolute Auto 700 /uL (0-450); Eosinophils Percent Auto 10.1 % (2-4); Hematocrit 39.4 % (41-53); Hemoglobin 12.7 g/dL (13.5-17.5); Lymphocytes Absolute Auto 1600 /uL (1100-4500); Lymphocytes Percent Auto 22.4 % (25-40); Mean Corpuscular HGB Conc 32.4 % (30-36); Mean Corpuscular Volume 89.7 fL (80-100); Monocytes Absolute Auto 1000 /uL (0-900); Monocytes Percent Auto 13.7 % (3-14); Neutrophils Absolute Auto 3800 /uL (1500-7000); Platelet Count 496 X10^3/uL (150-400); Red Blood Cell Count 4.39 X10^6/uL (4.5-5.9); Red Cell Distribution Width 17.3 % (11.6-14.8); White Blood Cell Count 7.2 X10^3/uL (4.5-11.0)
[2018-09-15 06:00] LABS: Alanine Aminotransferase 30 IU/L (21-72); Albumin 3.4 g/dL (3.5-5.0); Albumin Globulin Ratio 0.9 (1.0-2.8); Alkaline Phosphatase 143 U/L (38-126); Aspartate Aminotransferase 22 IU/L (17-59); Bilirubin Total 0.5 mg/dL (0.2-1.3); Blood Urea Nitrogen 26 mg/dL (9-20); Calcium 9.6 mg/dL (8.4-10.2); Carbon Dioxide 27 mmol/L (22-32); Chloride 104 mmol/L (98-107); Estimated Glomerular Filt Rate > 60.0 mL/min (>60); Globulin 3.8 g/dL (1.7-4.1); Glucose 88 mg/dL (70-100); HEMOLYSIS < 15 (0-50); Potassium 4.7 mmol/L (3.4-5.1); Sodium 139 mmol/L (137-145); Total Protein 7.2 g/dL (6.3-8.2)
[2018-09-15 06:11] LABS: Magnesium 1.8 mg/dL (1.6-2.3)
--- NOTE | 2018-09-15 06:30 | PC.NURSE ---
At midnight patient's HR 110-120s A-flutter, decreased to 80s average when asleep and maintained under 100 except during activity. Slept with his own C-pap on, SpO2 97%, minimal coughing. Incontinent large amounts of urine with smears of loose stool. Straight cath done at 0500 for 100ml clear albina urine.
[2018-09-15] MEDS: RIVAROXABAN 10 MG TABLET 20 MG PO (08:17)
[2018-09-15] MEDS: MUPIROCIN 22 GM OINT 1 APPLIC TOP ×2 (08:17→19:45)
[2018-09-15] MEDS: levoFLOXacin 250 MG TABLET 750 MG PO (08:17)
[2018-09-15] MEDS: MAGNESIUM SULFATE 2 GM/50 ML PIGGYBACK IV (08:18)
[2018-09-15] MEDS: DOCUSATE 100 MG CAPSULE PO ×2 (08:18→19:45)
[2018-09-15] MEDS: SENNOSIDES 8.6 MG TABLET 17.2 MG PO ×2 (08:19→19:45)
[2018-09-15] MEDS: SODIUM CHLORIDE 0.9% FLUSH 10 ML IV ×2 (08:19→19:46)
[2018-09-15] MEDS: METOPROLOL ER 50 MG TABLET PO (09:11)
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
[2018-09-15] MEDS: METOPROLOL IR 25 MG TABLET PO (12:54)
--- NOTE | 2018-09-15 14:47 | CM.DPC ---
DCP Cont: Patient will be here another day, his Metropolol will be changing, and will see how he does. Confirmed with Bianka in ICU that brother, primary caregiver, was here visiting earlier. Patient also has BALWINDER caregiver that comes in to the home. Patient alert and oriented, and compliant with care. P: DCP to continue to follow closely. Patient could be discharged tomorrow home, if he is medically stable. Has transportation with his van. Josiane Harkins RN/[employer]
[2018-09-15] MEDS: METOPROLOL IR 50 MG TABLET PO ×2 (17:19→23:48)
[2018-09-15] MEDS: BISACODYL 10 MG SUPP PR (19:45)
[2018-09-16] VITALS (7 sets, daily range): BP systolic 92–115; BP diastolic 50–72; PULSE 58–94; RESP 13–19; TEMP 35.7–36.7; O2SAT 94–99
[2018-09-16 05:51] LABS: Blood Urea Nitrogen 18 mg/dL (9-20); Calcium 7.3 mg/dL (8.4-10.2); Carbon Dioxide 22 mmol/L (22-32); Chloride 111 mmol/L (98-107); Estimated Glomerular Filt Rate > 60.0 mL/min (>60); Glucose 65 mg/dL (70-100); HEMOLYSIS 16 (0-50); Magnesium 1.4 mg/dL (1.6-2.3); Potassium 3.6 mmol/L (3.4-5.1); Sodium 139 mmol/L (137-145)
[2018-09-16] MEDS: METOPROLOL IR 50 MG TABLET PO (06:34)
--- NOTE | 2018-09-16 07:14 | PC.NURSE ---
NOC shift: Pt paraplegic with Afib RVR. Currently responding to Metroprolol dose. Heart rate 59 to 60's when asleep, as high as 94 when awake w/activity. Pleasant, w/o complaint. VSS, blood pressure also stable. Using home CPAP at bedside. No loose stools overnight, straight cathed x2 per home routine.
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
[2018-09-16] MEDS: NYSTATIN POWDER 30 GM 1 APPLIC TOP (09:02)
[2018-09-16] MEDS: MUPIROCIN 22 GM OINT 1 APPLIC TOP ×2 (09:02→20:21)
[2018-09-16] MEDS: RIVAROXABAN 10 MG TABLET 20 MG PO (09:02)
[2018-09-16] MEDS: SENNOSIDES 8.6 MG TABLET 17.2 MG PO ×2 (09:03→20:19)
[2018-09-16] MEDS: DOCUSATE 100 MG CAPSULE PO ×2 (09:03→20:19)
[2018-09-16] MEDS: SODIUM CHLORIDE 0.9% FLUSH 10 ML IV ×2 (09:03→20:21)
[2018-09-16] MEDS: METOPROLOL IR 50 MG TABLET 75 MG PO ×2 (09:04→20:20)
[2018-09-16] MEDS: MAGNESIUM SULFATE 2 GM/50 ML PIGGYBACK IV (09:04)
[2018-09-16] MEDS: POTASSIUM CHLORIDE 20 MEQ TAB 40 MEQ PO (09:04)
--- NOTE | 2018-09-16 15:14 | PC.NURSE ---
Addendum entered by Adrianna Ambrocio R.N. 09/16/18 15:24: prepared pt for transfer to [facility] and full report given to robin mattson Original Note: pt denies pain continues to have intermittent incontinent episode with q 4-6 hour I/O cath - full bath given and brushed his teeth- turned q 2h and duoderm changed yesterday and remains intact with no noted drainage- rx changed to 75mg metoprolol xl bid and this has maintained his atrial flutter rate i nthe 80s
[2018-09-16] MEDS: BISACODYL 10 MG SUPP PR (20:24)
[2018-09-17 04:24] VITALS: BP 122/78; PULSE 63; RESP 18; TEMP 35.7; O2SAT 97
[2018-09-17 05:37] LABS: Add Manual Diff / Slide Review NO; Basophils Absolute Auto 100 /uL (0-100); Eosinophils Absolute Auto 700 /uL (0-450); Eosinophils Percent Auto 9.7 % (2-4); Hematocrit 39.8 % (41-53); Hemoglobin 13.1 g/dL (13.5-17.5); Lymphocytes Absolute Auto 1700 /uL (1100-4500); Lymphocytes Percent Auto 22.7 % (25-40); Mean Corpuscular HGB Conc 32.9 % (30-36); Mean Corpuscular Hemoglobin 29.4 PG (26-34); Mean Corpuscular Volume 89.5 fL (80-100); Monocytes Absolute Auto 900 /uL (0-900); Monocytes Percent Auto 11.9 % (3-14); Neutrophils Absolute Auto 4200 /uL (1500-7000); Neutrophils Percent Auto 54.7 % (50-75); Platelet Count 457 X10^3/uL (150-400); Red Blood Cell Count 4.44 X10^6/uL (4.5-5.9); Red Cell Distribution Width 17.8 % (11.6-14.8); White Blood Cell Count 7.7 X10^3/uL (4.5-11.0)
[2018-09-17 05:43] LABS: Blood Urea Nitrogen 24 mg/dL (9-20); Calcium 9.4 mg/dL (8.4-10.2); Carbon Dioxide 29 mmol/L (22-32); Chloride 102 mmol/L (98-107); Estimated Glomerular Filt Rate > 60.0 mL/min (>60); Glucose 87 mg/dL (70-100); HEMOLYSIS < 15 (0-50); Potassium 4.5 mmol/L (3.4-5.1); Sodium 138 mmol/L (137-145)
[2018-09-17 07:20] VITALS: BP 122/70; PULSE 59; RESP 16; TEMP 36.3; O2SAT 98
[2018-09-17] MEDS: SENNOSIDES 8.6 MG TABLET 17.2 MG PO (08:48)
[2018-09-17] MEDS: MUPIROCIN 22 GM OINT 1 APPLIC TOP (08:48)
[2018-09-17] MEDS: RIVAROXABAN 10 MG TABLET 20 MG PO (08:49)
[2018-09-17] MEDS: SODIUM CHLORIDE 0.9% FLUSH 10 ML IV (08:49)
[2018-09-17] MEDS: DOCUSATE 100 MG CAPSULE PO (08:49)
[2018-09-17] MEDS: METOPROLOL IR 50 MG TABLET 75 MG PO (08:49)
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
--- NOTE | 2018-09-17 11:41 | PC.NURSE ---
Discharge Pt denies pain. Did have smear of stool this AM. 450 ml of yellow urine from straight cath. d/c instructions provided to pt, pt's brother and caregiver. aware to f/u with pcp and cardiology and pulmonology. rx faxed to [facility] per family request. PIV removed without issue prior to d/c. pt left in his w/c with BARGAIN TABLE CLERK escort. pt took all belongings with him including computer and CPAP.
--- NOTE | 2018-09-17 11:55 | CM.DPC ---
DCP: continued: case again received, discussed in Team Rounds. Dr. Jackson noted that pt was stable today for d/c to his home setting. Checked in with pt, his brother and his caregiver now. They were just getting pt settled with help of lift into his chair. All are smiling and say they are eager to get home. Pt's specialized bus is waiting for him at the ER entrance. Pt left for home as per his plan and with services to resume as per prior notes.
--- NOTE | 2018-09-17 14:17 | PM.PFT.1 ---
Pulmonary Function Test Referral & Results Date Patient Seen: 09/14/18 Requesting provider: Sarah Kaba Indication: Bedside spirometry Results: The spirometry demonstrates an FVC of 2.21 L which is 35% of predicted. The FEV1 was measured at 1.58 L which is 33% of predicted. The FEV1/FVC ratio was 72 which is 92% of predicted. Interpretation: Patient's bedside spirometry indicates severe obstructive lung disease with an FEV1 of only 33% of predicted, although his total long volumes appear to be decreased as well and his ratio (FEV1/FVC) is actually at 92% of predicted. Clinical correlation suggested
== END 2018-09-17 11:40 | disposition home or self-care (01) | DRG 308 ==
LOC: ED 16:23 → AC 19:05 → ICU 09-12 06:59 → AC 09-17 10:05 → ICU 09-17 10:05
PROVIDERS: Internal Medicine; Nurse Practitioner Gerontology; Admitting Provider Internal Medicine; Emergency Provider Emergency Medicine; Family Provider Family Medicine; PCP Family Medicine; Visit Provider Internal Medicine
DX: I48.91 Unspecified atrial fibrillation (principal); L89.323 Pressure ulcer of left buttock, stage 3; G82.50 Quadriplegia, unspecified; K59.2 Neurogenic bowel, not elsewhere classified; N39.0 Urinary tract infection, site not specified; I48.92 Unspecified atrial flutter; N31.9 Neuromuscular dysfunction of bladder, unspecified; B96.89 Other specified bacterial agents as the cause of diseases classified elsewhere; Z99.3 Dependence on wheelchair; Z22.322 Carrier or suspected carrier of Methicillin resistant Staphylococcus aureus; I42.8 Other cardiomyopathies; G47.33 Obstructive sleep apnea (adult) (pediatric); R91.8 Other nonspecific abnormal finding of lung field
CPT/HCPCS: 36415; 71045; 71275; 80048; 80053; 81001; 83605; 83735; 83880; 84145; 84443; 84484; 85025; 85730; 87040; 87797; 93005; 93041; 93306; 94010; 94760; 94762; 96365; 99284; J1644; Q9957

== ENCOUNTER → 2018-10-18 14:45 | Outpatient (CLI) | payer MEDICARE, MEDICAID, SELFPAY ==
[2018-09-11 19:43] VITALS: BMI 31.7
== END ==
PROVIDERS: Family Provider Family Medicine; PCP Family Medicine; Visit Provider Family Medicine
DX: L89.323 Pressure ulcer of left buttock, stage 3 (principal); G82.50 Quadriplegia, unspecified
CPT/HCPCS: 11042; 99212; 99214

== ENCOUNTER → 2018-11-01 14:19 | Outpatient (CLI) | payer MEDICARE, MEDICAID, SELFPAY ==
[2018-09-11 19:43] VITALS: BMI 31.7
== END ==
PROVIDERS: Family Provider Family Medicine; PCP Family Medicine; Visit Provider Family Medicine
DX: L89.323 Pressure ulcer of left buttock, stage 3 (principal); G82.50 Quadriplegia, unspecified
CPT/HCPCS: 11042

== ENCOUNTER → 2018-11-08 11:30 | Outpatient (CLI) | payer MEDICARE, MEDICAID, SELFPAY ==
[2018-09-11 19:43] VITALS: BMI 31.7
== END ==
PROVIDERS: Family Provider Family Medicine; PCP Family Medicine; Visit Provider Family Medicine
DX: L89.323 Pressure ulcer of left buttock, stage 3 (principal); G82.50 Quadriplegia, unspecified
CPT/HCPCS: 11042

== ENCOUNTER → 2018-11-14 14:57 | Outpatient (CLI) | payer MEDICARE, MEDICAID, SELFPAY ==
[2018-09-11 19:43] VITALS: BMI 31.7
== END ==
PROVIDERS: Family Provider Family Medicine; PCP Family Medicine; Visit Provider Family Medicine
DX: L89.323 Pressure ulcer of left buttock, stage 3 (principal); G82.50 Quadriplegia, unspecified
CPT/HCPCS: 11042; 99213

== ENCOUNTER → 2018-11-22 12:58 | Outpatient (CLI) | payer MEDICARE, MEDICAID, SELFPAY ==
[2018-09-11 19:43] VITALS: BMI 31.7
== END ==
PROVIDERS: Family Provider Family Medicine; PCP Family Medicine; Visit Provider Family Medicine
DX: L89.323 Pressure ulcer of left buttock, stage 3 (principal); G82.50 Quadriplegia, unspecified
CPT/HCPCS: 97597

== ENCOUNTER → 2018-12-13 12:58 | Outpatient (CLI) | payer MEDICARE, MEDICAID, SELFPAY ==
[2018-09-11 19:43] VITALS: BMI 31.7
== END ==
PROVIDERS: Family Provider Family Medicine; PCP Family Medicine; Visit Provider Family Medicine
DX: L89.323 Pressure ulcer of left buttock, stage 3 (principal); G82.50 Quadriplegia, unspecified
CPT/HCPCS: 99212; 99213

== ENCOUNTER 2019-09-25 14:36 | Emergency (ER) | payer MEDICARE, MEDICAID, SELFPAY ==
[2018-09-11 19:43] VITALS: BMI 31.7
[2019-09-25 14:45] VITALS: BP 145/71; PULSE 70; RESP 15; TEMP 36.4; O2SAT 97; BMI 32.3
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
[2019-09-25 15:08] LABS: Appearance Urine UA CLEAR; Bilirubin Urine UA NEGATIVE (NEGATIVE); Color Urine UA YELLOW; Glucose Urine UA NEGATIVE (Negative); Ketones Urine UA NEGATIVE (NEGATIVE); Leukocyte Esterase Urine UA TRACE (NEGATIVE); Nitrite Urine UA NEGATIVE (Negative); Occult Blood Urine UA 3+ (Negative); Protein Urine UA NEGATIVE (Negative); Specific Gravity Urine UA <=1.005 (1.000-1.035); Urobilinogen Urine UA 0.2 E.U./dL (0.2)
[2019-09-25 15:24] LABS: Bacteria Urine Occasional (0-1); Culture Indicated Urine Specimen Cultured; RBC Urine 10-30/HPF (0-5/HPF); Squamous Epithelial Cell Urine 0-1 /HPF (0-5/HPF); WBC Urine 1-5/HPF (0-5/HPF)
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
[2019-09-25 15:57] VITALS: BP 148/74; PULSE 72; RESP 16; O2SAT 97
== END 2019-09-25 15:59 | disposition home or self-care (01) ==
PROVIDERS: Emergency Provider Nurse Practitioner; Family Provider Family Medicine; PCP Student in an Organized Health Care Education/Training Program
DX: N39.0 Urinary tract infection, site not specified (principal); R33.9 Retention of urine, unspecified
CPT/HCPCS: 81001; 87077; 87086; 87186; 99282

== ENCOUNTER 2020-07-18 10:50 | Emergency (ER) | payer MEDICARE, MEDICAID, SELFPAY ==
[2018-09-11 19:43] VITALS: BMI 31.7
[2020-07-18 11:06] VITALS: BP 150/69; PULSE 71; RESP 14; O2SAT 99; BMI 32.9
[2020-07-18] MEDS: SODIUM CHLORIDE 0.9% 1,000 ML 1000 ML IV (11:45)
[2020-07-18 12:06] LABS: INR 1.5 (0.9-1.3); Prothrombin Time 17.2 SECONDS (10.1-12.7)
--- NOTE | 2020-07-18 12:06 | PC.NURSE ---
Pt is a quad/ has frequent catheterizations w/ indwelling at night. Caregivers c/o urinary tract infection. Has had frequent UTIs w/ frequent abx. Pt is at baseline mentation, pink/ w/ slightly delayed skin turger.
[2020-07-18 12:07] LABS: Add Manual Diff / Slide Review NO; Basophils Absolute Auto 0 /uL (0-100); Basophils Percent Auto 0.7 % (0-2); Eosinophils Absolute Auto 900 /uL (0-450); Eosinophils Percent Auto 15.2 % (2-4); Hematocrit 34.6 % (41-53); Hemoglobin 11.5 g/dL (13.5-17.5); Lymphocytes Absolute Auto 800 /uL (1100-4500); Lymphocytes Percent Auto 12.5 % (25-40); Mean Corpuscular HGB Conc 33.3 % (30-36); Mean Corpuscular Hemoglobin 31.4 PG (26-34); Mean Corpuscular Volume 94.2 fL (80-100); Monocytes Absolute Auto 600 /uL (0-900); Monocytes Percent Auto 10.2 % (3-14); Neutrophils Absolute Auto 3800 /uL (1500-7000); Neutrophils Percent Auto 61.4 % (50-75); Platelet Count 242 X10^3/uL (150-400); Red Blood Cell Count 3.67 X10^6/uL (4.5-5.9); White Blood Cell Count 6.1 X10^3/uL (4.5-11.0)
[2020-07-18 12:08] LABS: Lactate (Lactic Acid) 1.1 mmol/L (0.7-2.1)
[2020-07-18 12:09] LABS: Alanine Aminotransferase 24 IU/L (<50); Albumin 3.7 g/dL (3.5-5.0); Alkaline Phosphatase 104 U/L (38-126); Aspartate Aminotransferase 41 IU/L (17-59); BUN Creatinine Ratio 53.6 (6-22); Bilirubin Total 0.4 mg/dL (0.2-1.3); Blood Urea Nitrogen 15 mg/dL (9-20); Calcium 9.6 mg/dL (8.4-10.2); Carbon Dioxide 28 mmol/L (22-32); Chloride 90 mmol/L (98-107); Estimated Glomerular Filt Rate > 60.0 mL/min (>60); Globulin 3.6 g/dL (1.7-4.1); Glucose 97 mg/dL (70-100); Lipase 121 U/L (23-300); PTT Partial Thromboplastin Tim 53 SECONDS (26.4-36.2); Potassium 4.3 mmol/L (3.4-5.1); Sodium 126 mmol/L (137-145); Total Protein 7.3 g/dL (6.3-8.2)
[2020-07-18 12:10] LABS: HEMOLYSIS 81 (0-50)
[2020-07-18 12:11] LABS: Appearance Urine UA SL CLOUDY; Bilirubin Urine UA NEGATIVE (NEGATIVE); Color Urine UA YELLOW; Glucose Urine UA NEGATIVE (Negative); Ketones Urine UA NEGATIVE (NEGATIVE); Leukocyte Esterase Urine UA 2+ (NEGATIVE); Nitrite Urine UA NEGATIVE (Negative); Occult Blood Urine UA 2+ (Negative); Protein Urine UA 1+ (Negative); Urobilinogen Urine UA 0.2 E.U./dL (0.2); pH Urine UA 6.5 (4.5-8.0)
[2020-07-18 12:26] LABS: Procalcitonin 0.04 ng/mL (<0.5)
[2020-07-18 12:29] LABS: Bacteria Urine Occasional (0-1); Culture Indicated Urine Specimen Cultured; RBC Urine 1-5/HPF (0-5/HPF); WBC Urine >100/HPF (0-5/HPF)
[2020-07-18 13:22] VITALS: PULSE 55; O2SAT 99
[2020-07-18 13:24] VITALS: BP 106/73; PULSE 59; O2SAT 99
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
== END 2020-07-18 14:46 | disposition home or self-care (01) ==
PROVIDERS: Emergency Provider Emergency Medicine; Family Provider Family Medicine; PCP Family Medicine
DX: N39.0 Urinary tract infection, site not specified (principal); E87.1 Hypo-osmolality and hyponatremia
CPT/HCPCS: 36415; 51705; 80053; 81001; 83605; 83690; 84145; 85025; 85610; 85730; 87077; 87086; 87186; 96365; 96366; 99284

== ENCOUNTER → 2020-07-22 14:37 | Outpatient (CLI) | payer MEDICARE, MEDICAID, SELFPAY ==
[2018-09-11 19:43] VITALS: BMI 31.7
--- NOTE | 2020-07-22 14:40 | DI.CT.S_ITS ---
PROCEDURE: CT KIDNEY URETER BLADDER (KUB) INDICATIONS: Urinary tract infection, site not specified TECHNIQUE: Noncontrast 5 mm thick sections acquired from the diaphragms to the symphysis. 5 mm thick coronal and sagittal reformats were then performed. For radiation dose reduction, the following was used: automated exposure control, adjustment of mA and/or kV according to patient size. COMPARISON: [facility], CT, L-SPINE WITHOUT CONTRAST, 07/06/2017, 11:17. FINDINGS: ABDOMEN: Lung bases: Partially visualized small to moderate bilateral pleural effusions with adjacent atelectasis, right greater than left. Heart: Pericardial calcification incidentally noted. Liver: Normal. Gallbladder: Grossly unremarkable although partially obscured by streak artifact from spinal fixation hardware. Bile ducts: Normal. Pancreas: Normal. Spleen: Normal. Adrenals: Normal. Kidneys: Bilateral renal cortical scarring . Bilateral renal cysts are seen although there is an exophytic lesion arising off the posterior right renal cortex with greater attenuation than expected for simple cyst. This measures 2.0 cm is seen on image 52/2. There are left parapelvic cysts. No urolithiasis. The ureters appear decompressed. Stomach: Normal. Bowel: Moderate stool. No specific transition point. Other: No free fluid or air. Normal appendix. Abdominal nodes: Normal. Aorta and IVC: Normal in size. Ventral wall: There is diffuse anterior abdominal wall skin thickening and underlying subcutaneous stranding. PELVIS: Bladder: Bladder is largely decompressed. A Patel catheter is present. There is question of circumferential bladder wall thickening raising the possibility of cystitis. Inguinal: No hernia. Pelvic nodes: Shotty bilateral inguinal lymph nodes. Large heterogeneous fluid collection extending from the right anterior superior iliac spine to the subtrochanteric femur, with internal calcification and thick-walled appearance. Similar appearing structure seen on the left , much smaller in size Bones: Diffuse osteopenia which limits evaluation of the osseous structures. There is extensive thoracolumbar spinal fixation hardware with interbody cage grafts at L5-S1, L3-L4 and L2-L3. There is diffuse muscle atrophy. IMPRESSION: No urolithiasis. No evidence of urinary obstruction. Bilateral renal cysts although one of these on the right (as described above) is greater than expected attenuation. This could represent hyperdense or proteinaceous cyst although technically indeterminate and recommend further evaluation with dedicated renal ultrasound, potentially long-term surveillance to exclude solid neoplasm. Circumferential bladder wall thickening suggestive of cystitis. Please correlate clinically and with urinalysis data. Small bilateral pleural effusions with adjacent atelectasis, right greater than left. Left anterior abdominal wall skin thickening and subcutaneous inflammation. Please correlate clinically Diffuse muscle atrophy. Heterotopic ossification and thick-walled fluid collection extending from the right (and left) anterior superior iliac spine to the subtrochanteric femur, technically unknown although given symmetric appearance and chronic calcifications is probably incidental degenerative bursitis or hematoma, technically nonspecific. Dictated by: Nima Hoff M.D. on 07/22/2020 at 15:50 Approved by: Nmia Hoff M.D. on 07/22/2020 at 16:05
== END ==
PROVIDERS: Family Provider Family Medicine; PCP Family Medicine; Referring Provider Urology; Visit Provider Urology
DX: N28.1 Cyst of kidney, acquired (principal); J90 Pleural effusion, not elsewhere classified; J98.11 Atelectasis
CPT/HCPCS: 74176

== ENCOUNTER → 2020-08-05 12:13 | Outpatient (CLI) | payer MEDICARE, MEDICAID, SELFPAY ==
[2018-09-11 19:43] VITALS: BMI 31.7
[2020-08-05] MEDS: COVID-19 VACC #1, MRNA(MOD) 100 MCG/0.5 ML VIAL IM (12:21)
== END ==
PROVIDERS: Family Provider Family Medicine; PCP Family Medicine; Visit Provider Internal Medicine
DX: Z23 Encounter for immunization (principal)
CPT/HCPCS: 0011A; 91301

== ENCOUNTER → 2020-09-04 12:16 | Outpatient (CLI) | payer MEDICARE, SELFPAY ==
[2018-09-11 19:43] VITALS: BMI 31.7
[2020-09-04] MEDS: COVID-19 VACC #2, MRNA(MOD) 100 MCG/0.5 ML VIAL IM (12:23)
== END ==
PROVIDERS: Family Provider Family Medicine; PCP Family Medicine; Visit Provider Internal Medicine
DX: Z23 Encounter for immunization (principal)
CPT/HCPCS: 0012A; 91301

== ENCOUNTER → 2020-10-23 17:49 | Outpatient (CLI) | payer MEDICARE, MEDICAID, SELFPAY ==
[2018-09-11 19:43] VITALS: BMI 31.7
--- NOTE | 2020-10-23 | DI.MRI.S_ITS ---
PROCEDURE: MR HEAD/BRAIN WO CON INDICATIONS: COGNITIVE IMPAIRMENT TECHNIQUE: Non-contrast axial T1 spin echo, axial T2 fast spin echo, sagittal and axial FLAIR, coronal T2 fast spin echo, axial gradient echo, axial diffusion and ADC through the brain. COMPARISON: None. FINDINGS: Image quality: Excellent. CSF spaces: Ventricles appear symmetric in size and shape. Basal cisterns are patent. No extra-axial fluid collections. Brain: The pituitary gland is enlarged, with abnormal signal intensity extending from the pituitary gland parenchyma into the medial aspect of the right cavernous sinus. Findings are suspicious for a pituitary adenoma. Appearance is suggestive of a pituitary adenoma. No intracranial bleeds or mass effects. There is cerebral volume loss for age. There are periventricular and deep white matter chronic small vessel ischemic changes. Brainstem appears normal. Diffusion-weighted images show no acute ischemic insults. No chronic ischemic insults. Normal intravascular flow voids are present. Skull and face: Calvarial bone marrow is normal in signal. Orbits are normal. Sinuses: Sinuses and mastoids are clear. IMPRESSION: Suspected pituitary adenoma with possible invasion of the right cavernous sinus. A repeat study with IV contrast and utilizing pituitary protocol is recommended. Global cerebral volume loss and chronic microvascular ischemic changes. No definite regional or lobar predilection to the volume loss to suggest a specific neuro degenerative diagnosis. Dictated by: Antony Maurer M.D. on 10/24/2020 at 18:52 Approved by: Antony Maurer M.D. on 10/24/2020 at 18:54
== END ==
PROVIDERS: Family Provider Family Medicine; PCP Family Medicine; Referring Provider Specialist; Visit Provider Specialist
DX: R41.89 Other symptoms and signs involving cognitive functions and awareness (principal)
CPT/HCPCS: 70551

== ENCOUNTER → 2020-11-24 16:41 | Outpatient (CLI) | payer MEDICARE, MEDICAID, SELFPAY ==
[2018-09-11 19:43] VITALS: BMI 31.7
[2020-11-24 18:43] LABS: COVID19 -Nasal RAPID POSITIVE (Negative)
== END ==
PROVIDERS: Family Provider Family Medicine; PCP Family Medicine; Visit Provider Physician Assistant
DX: U07.1 COVID-19 (principal)
CPT/HCPCS: 87635; C9803

== ENCOUNTER → 2020-12-04 15:02 | Outpatient (CLI) | payer MEDICARE, MEDICAID, SELFPAY ==
[2018-09-11 19:43] VITALS: BMI 31.7
--- NOTE | 2020-12-04 | DI.MRI.S_ITS ---
PROCEDURE: MR BRAIN (PITUITARY) WWO CON INDICATIONS: PITUITARY MASS TECHNIQUE: Noncontrast sagittal and axial FLAIR, axial gradient echo, axial diffusion and ADC through the brain. Thin-slice sagittal and coronal T1 spin echo, coronal T2 fast spin echo through the pituitary. After the administration contrast, optional dynamic coronal T1 spin echo, thin-slice coronal and sagittal T1 spin echo images through the pituitary fossa; axial T1 spin echo with fat saturation through the brain. COMPARISON: [facility], MR, MR HEAD/BRAIN WO CON, 10/23/2020, 18:35. FINDINGS: Image quality: Excellent. Pituitary Gland: There is again seen an abnormal pituitary mass, which is relatively poorly enhancing. This mass measures 14 mm craniocaudal by 12 mm transversely, with an AP extent of 12 mm. This mass is eccentric to the right, with invasion into the right cavernous sinus, between the distal right internal carotid siphon, as on series 23, image 7. There is a mild degree of mass effect upon the right internal carotid artery itself, deviating it laterally. There is also mild mass effect upon the optic chiasm. On precontrast imaging, the normal T1 hyperintense bright spot can be seen posteriorly. The mass demonstrates restricted diffusion signal, with low signal on ADC map, which is suggestive of a highly cellular focus. CSF Spaces: Ventricles are normal in size and shape. Basal cisterns are patent. No extra-axial fluid collections. Brain: No intracranial mass effects. Note is made of abnormal semen center deposition along the surface of the brain, particularly inferiorly. No abnormal intracranial enhancement. [place]-white matter interface is intact. Diffusion weighted images demonstrate no acute ischemic insults. Brainstem is normal. Normal intravascular flow voids are present. Note is made of age-appropriate brain parenchymal volume loss and chronic small vessel ischemic changes. Skull and face: Calvarial marrow is normal in signal. Orbits appear normal. Sinuses: At least moderate mucosal thickening can be seen involving the maxillary sinuses. Moderate mucosal thickening is seen involving the ethmoid air cells. No abnormal fluid is seen within the mastoid air cells. IMPRESSION: 14 mm mass seen involving the pituitary, which is attributed to a pituitary adenoma. The mass invades into the right cavernous sinus, with lateral deviation of the right cavernous internal carotid artery. There is also mass effect upon the optic chiasm. Please correlate with visual symptoms. There is also hemosiderin deposition seen along the surface of the brain, particularly inferiorly. This is attributed to superficial siderosis. Please correlate with potential causes. Dictated by: Tamir Porter M.D. on 12/04/2020 at 15:57 Approved by: Tamir Porter M.D. on 12/04/2020 at 16:04
[2020-12-04 16:16] LABS: Follicle Stimulating Hormone 6.34 mIU/mL; Luteinizing Hormone 2.95 mIU/mL
[2020-12-04 16:19] LABS: Prolactin 16.3 ng/mL (3.7-17.9)
[2020-12-04 16:20] LABS: Free T3, Triiodothyronine Free 4.11 pg/mL (2.77-5.27)
[2020-12-04 16:34] LABS: Cortisol Random 7.03 ug/dL
[2020-12-05 10:20] LABS: Adrenocorticotropic Hormone 15.5 pg/mL (7.2-63.3)
[2020-12-06 20:10] LABS: IGF-1 110 ng/mL (68-247)
[2020-12-10 08:14] LABS: Percent Free Testosterone 2.24 % (1.50-4.20); Testosterone Free 6.77 ng/dL (5.00-21.00); Testosterone Total 302.1 ng/dL (264.0-916.0)
== END ==
PROVIDERS: Family Provider Family Medicine; PCP Family Medicine; Referring Provider Specialist; Visit Provider Specialist
DX: E23.6 Other disorders of pituitary gland (principal); R41.89 Other symptoms and signs involving cognitive functions and awareness
CPT/HCPCS: 36415; 70553; 82024; 82533; 83001; 83002; 84146; 84305; 84402; 84403; 84481; A9579

== ENCOUNTER → 2021-01-01 09:53 | Outpatient (CLI) | payer MEDICARE, MEDICAID, SELFPAY ==
[2018-09-11 19:43] VITALS: BMI 31.7
== END ==
PROVIDERS: Family Provider Family Medicine; PCP Family Medicine; Referring Provider Family Medicine; Visit Provider Nurse Practitioner Family
DX: L89.322 Pressure ulcer of left buttock, stage 2 (principal); G82.20 Paraplegia, unspecified; Z79.01 Long term (current) use of anticoagulants
CPT/HCPCS: 97597; 99214

== ENCOUNTER → 2021-01-08 11:28 | Outpatient (CLI) | payer MEDICARE, MEDICAID, SELFPAY ==
[2018-09-11 19:43] VITALS: BMI 31.7
== END ==
PROVIDERS: Family Provider Family Medicine; PCP Family Medicine; Referring Provider Family Medicine; Visit Provider Nurse Practitioner Family
DX: L89.322 Pressure ulcer of left buttock, stage 2 (principal); G82.20 Paraplegia, unspecified; Z79.01 Long term (current) use of anticoagulants
CPT/HCPCS: 99213

== ENCOUNTER → 2021-06-25 09:33 | Outpatient (CLI) | payer MEDICARE, MEDICAID, SELFPAY ==
[2018-09-11 19:43] VITALS: BMI 31.7
--- NOTE | 2021-06-25 09:48 | DI.CT.S_ITS ---
PROCEDURE: CT ABDOMEN PELVIS WO CON INDICATIONS: Calculus of kidney TECHNIQUE: Axial sections were acquired from the lung bases to the pubic symphysis. Coronal and sagittal reformats were performed. For radiation dose reduction, the following was used: automated exposure control, adjustment of mA and/or kV according to patient size. COMPARISON: [facility], CT, L-SPINE WITHOUT CONTRAST, 07/06/2017, 11:17. [facility], CT, CT KIDNEY URETER BLADDER (KUB), 07/22/2020, 14:44. FINDINGS: Image quality: There is artifact associated with the metallic hardware. Artifact from the metallic hardware is reduced by metal reconstruction algorithm. Lung bases: Small bilateral pleural effusions are seen, with overlying presumed atelectasis. Heart: No significant findings. URINARY: Right Kidney: Nonobstructing right-sided kidney stones are seen that measure up to 3 mm. There is no hydronephrosis. Along the posterior aspect of the right kidney, there is a water density cyst seen that measures 2.8 cm. Right Ureter: No hydroureter. Left Kidney: A 6 mm nonobstructing left-sided kidney stone is seen. There is no hydronephrosis. Mild fatty stranding and irregularity can be seen along the lateral aspect of the left kidney. Left Ureter: No hydroureter. Bladder: Normal wall thickness. No stones. The bladder demonstrates a and elongated appearance AP. ABDOMEN: Liver: Unremarkable. Gallbladder: Unremarkable. Biliary ducts: Unremarkable. Pancreas: Unremarkable. Spleen: Unremarkable. Incidental note is made of an accessory splenule along the lateral aspect of the primary spleen. Adrenal Glands: Unremarkable. Stomach and Bowel: Stomach, small bowel loops, and colon are unremarkable. A normal appendix is incidentally noted. Peritoneum: No abnormal intraperitoneal fluid. No free air. Ventral Wall: No hernia. Body wall edema can be seen. Abdominal Nodes: No enlarged retroperitoneal or mesenteric lymph nodes. Vessels: Aorta and inferior vena cava are normal in size. PELVIS: Pelvic Organs: Unremarkable. Pelvic Nodes: Unremarkable. Miscellaneous: A right anterior hip thick-walled fluid collection is again seen, with internal calcification. This measures 8.9 x 9.6 cm in greatest axial dimension, with a craniocaudal extent of 15.6 cm. A similar appearing, smaller fluid collection can be seen involving the left anterior hip. Measuring approximately 2.3 x 2.3 cm in greatest axial dimension. Bones: Extensive spinal hardware is seen from the lower thoracic spine through the sacrum. Mild pectus excavatum deformity can be seen. Bony excrescences can be seen involving the regions of the hips. Extensive bony degenerative changes are seen. IMPRESSION: Nonobstructing bilateral renal stones are seen. No hydronephrosis. Small bilateral pleural effusions are seen. Bilateral anterior hip fluid collections are seen, right larger than left, which are similar to the prior examination. A chronic inflammatory process is considered most likely. Mild apparent inflammatory change can be seen along the lateral aspect of the left kidney. Attention should be paid to this focus on any future follow-up studies. Incidental note is made of: Accessory splenule Simple appearing right renal cyst Extensive spinal fixation hardware. Normal appendix Heterotopic calcification Dictated by: Tamir Porter M.D. on 06/25/2021 at 9:08 Approved by: Tamir Porter M.D. on 06/25/2021 at 9:20
== END ==
PROVIDERS: Family Provider Family Medicine; PCP Family Medicine; Referring Provider Urology; Visit Provider Urology
DX: N20.0 Calculus of kidney (principal); J90 Pleural effusion, not elsewhere classified; N28.1 Cyst of kidney, acquired; D73.9 Disease of spleen, unspecified
CPT/HCPCS: 74176

== ENCOUNTER 2021-08-05 10:40 | Emergency (ER) | payer MEDICARE, MEDICAID, SELFPAY ==
[2018-09-11 19:43] VITALS: BMI 31.7
[2021-08-05] VITALS (50 sets, daily range): BP systolic 79–132; BP diastolic 46–68; PULSE 45–101; RESP 10–22; TEMP 33.1–35.4; O2SAT 85–97
--- NOTE | 2021-08-05 | DI.RAD.S_ITS ---
PROCEDURE: XR CHEST 1V INDICATIONS: INTUBATION TECHNIQUE: One view of the chest was acquired. COMPARISON: [facility], CT, CT CHEST W CON, 08/05/2021, 16:01. [facility], CR, XR CHEST 1V, 08/05/2021, 14:34. FINDINGS: Surgical changes and devices: The endotracheal tube tip is 4.2 cm above brannon. There is a right side central line with the tip projecting to the area of SVC. Surgical fusion of the lower thoracic spine. Lungs and pleura: There is large right pleural effusion. Bilateral pulmonary interstitial and airspace infiltrates are present. No pleural effusions or pneumothorax. Mediastinum: Mediastinal contours appear normal. Heart size is normal. Bones and chest wall: No suspicious bony lesions. Overlying soft tissues appear unremarkable. IMPRESSION: 1. The tip of the endotracheal tube is 4.2 cm above brannon. 2. There is a right side central line with the tip in the area of SVC. 3. Large right pleural effusion. 4. Bilateral pulmonary infiltrates compatible with pulmonary edema or pneumonia. Dictated by: Julius Kohler M.D. on 08/05/2021 at 17:19 Approved by: Julius Kohler M.D. on 08/05/2021 at 17:22
--- NOTE | 2021-08-05 11:20 | DI.RAD.S_ITS ---
PROCEDURE: XR CHEST 1V INDICATIONS: suspected sepsis TECHNIQUE: One view of the chest was acquired. COMPARISON: [facility], CR, XR CHEST 1V, 09/11/2018, 16:03. [facility], CT, CT ANGIO CHEST PE PROTOCOL, 09/11/2018, 17:37. FINDINGS: Surgical changes and devices: Postoperative clips are seen adjacent to the aortic arch. Thoracolumbar fixation hardware can be seen. Lungs and pleura: There is a moderate right-sided pleural effusion. A trace left-sided pleural effusion is seen. On the upright image, no pneumothorax is seen. Generalized interstitial prominence can be seen. Mediastinum: Mediastinal contours appear normal. Heart size is moderately enlarged. Bones and chest wall: No suspicious bony lesions. Age-appropriate bony degenerative changes are seen. Overlying soft tissues appear unremarkable. IMPRESSION: There is moderate cardiomegaly and generalized interstitial prominence. Moderate right-sided pleural effusion with a trace left-sided pleural effusion. Please correlate with patient presentation, physical examination findings, and laboratory values for congestive heart failure. Postoperative and degenerative changes are seen. Dictated by: Tamir Porter M.D. on 08/05/2021 at 11:57 Approved by: Tamir Porter M.D. on 08/05/2021 at 11:59
[2021-08-05] MEDS: SODIUM CHLORIDE 0.9% 1,000 ML 1000 ML IV ×3 (11:58→18:45)
[2021-08-05 11:59] LABS: Add Manual Diff / Slide Review NO; Basophils Absolute Auto 0 /uL (0-100); Basophils Percent Auto 0.2 % (0-2); Eosinophils Absolute Auto 200 /uL (0-450); Eosinophils Percent Auto 2.2 % (2-4); Hematocrit 35.2 % (41-53); Hemoglobin 11.6 g/dL (13.5-17.5); Lymphocytes Absolute Auto 400 /uL (1100-4500); Lymphocytes Percent Auto 5.1 % (25-40); Mean Corpuscular HGB Conc 32.9 % (30-36); Mean Corpuscular Volume 88.1 fL (80-100); Monocytes Absolute Auto 500 /uL (0-900); Monocytes Percent Auto 6.6 % (3-14); Neutrophils Absolute Auto 6400 /uL (1500-7000); Neutrophils Percent Auto 85.9 % (50-75); Platelet Count 239 X10^3/uL (150-400); Red Cell Distribution Width 17.7 % (11.6-14.8); White Blood Cell Count 7.4 X10^3/uL (4.5-11.0)
[2021-08-05 12:09] LABS: INR 2.1 (0.9-1.3); Prothrombin Time 23.6 SECONDS (10.1-12.7)
[2021-08-05 12:11] LABS: PTT Partial Thromboplastin Tim 55 SECONDS (26.4-36.2)
--- NOTE | 2021-08-05 12:12 | ED.AMS ---
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 examination findings and patient history.? ? No acute intracranial process is seen.? ? 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 ? ? Dictated by: Tamir Porter M.D. on 08/05/2021 at 12:08 ? ? Chest x-ray: Radiologist's Impression: Nadir mcintyre MR#: [id number] : 1960 Acct:[id number] Age/Sex: 61 / M Date of Service: 08/05/21 Loc: ED Accession Number: [id number] ?? Procedure: XR chest 1V Ordering Provider: Tamar Hunter MD PROCEDURE:? XR CHEST 1V ? INDICATIONS:? suspected sepsis ? TECHNIQUE:? One view of the chest was acquired.? ? COMPARISON:? Merged With [facility], CR, XR CHEST 1V, 09/11/2018, 16:03.? Merged With [facility], CT, CT ANGIO CHEST PE PROTOCOL, 09/11/2018, 17:37. ? FINDINGS:? ? Surgical changes and devices:? Postoperative clips are seen adjacent to the aortic arch.? Thoracolumbar fixation hardware can be seen. ? Lungs and pleura:? There is a moderate right-sided pleural effusion.? A trace left-sided pleural effusion is seen.? On the upright image, no pneumothorax is seen.? Generalized interstitial prominence can be seen. ? Mediastinum:? Mediastinal contours appear normal.? Heart size is moderately enlarged.? ? Bones and chest wall:? No suspicious bony lesions.? Age-appropriate bony degenerative changes are seen. ? Overlying soft tissues appear unremarkable.? ? ? IMPRESSION:? There is moderate cardiomegaly and generalized interstitial prominence.? Moderate right-sided pleural effusion with a trace left-sided pleural effusion.? Please correlate with patient presentation, physical examination findings, and laboratory values for congestive heart failure. ? ? Postoperative and degenerative changes are seen.? ? ? Dictated by: Tamir Porter M.D. on 08/05/2021 at 11:57? CT scan - chest: Radiologist's Impression: Signed Patient: Nadir Matthews MR#: [id number] : 1960 Acct:[id number] Age/Sex: 61 / M Date of Service: 08/05/21 Loc: ED Accession Number: [id number] ?? Procedure: CT chest w con Ordering Provider: Fatmata Gonzalez D.O. PROCEDURE:? CT CHEST W CON ? INDICATIONS:? pleural effusion ? TECHNIQUE:? After the administration of intravenous contrast, 5 mm thick sections acquired from the pulmonary apices to the posterior costophrenic angles.? 1 mm axial lung, 5 mm thick coronal and sagittal reformats and 7 mm axial MIP were acquired.? For radiation dose reduction, the following was used:? automated exposure control, adjustment of mA and/or kV according to patient size.? ? COMPARISON:? Merged With [facility], CT, CT ANGIO CHEST PE PROTOCOL, 09/11/2018, 17:37.? Merged With [facility], CT, CT KIDNEY URETER BLADDER (KUB), 07/22/2020, 14:44.? Merged With [facility], CT, CT ABDOMEN PELVIS WO CON, 06/25/2021, 9:52.? Merged With [facility], CR, XR CHEST 1V, 08/05/2021, 12:37.? Merged With [facility], CR, XR CHEST 1V, 08/05/2021, 14:34. ? FINDINGS:? Image quality:? Excellent.? ? Lungs and pleura:? There is a large right pleural effusion and ycaov-hi-nflvknaf left pleural effusion.? ? There are nodular and ground-glass infiltrates in lungs bilaterally.? Bibasilar compression atelectasis.? No pneumothorax.? Central and peripheral airways are patent and normal in caliber.? ? Mediastinum:? Heart size is normal.? No pericardial effusion.? No mediastinal or hilar adenopathy by size criteria.? Pulmonary arteries are mildly enlarged with the pulmonary outflow tract measures 3.7 cm. Thoracic aorta is normal in size.? Esophagus is normal in caliber.? No hiatal hernia.? ? Bones and chest wall:? No suspicious bony lesions.? No vertebral body compression fractures.? There are postsurgical changes in lower thoracic spine and lumbar spine.? No axillary or supraclavicular adenopathy by size criteria.? Thyroid gland is normal.? Note is made of a central venous catheter with the tip in SVC. ? Abdomen:? Visualized upper abdominal solid organs appear normal.? Upper abdominal bowel loops are normal in caliber.? ? IMPRESSION:? ? 1. Bilateral pleural effusions, large on the right and flvdz-bd-mgutllih on the left. 2. Bilateral nodular and ground-glass infiltrates, suspicious for atypical infection. 3. Bibasilar opacities are most likely compression atelectasis. 4. Enlargement of pulmonary arteries with the main pulmonary outflow tract measures 3.7 cm in diameter.? No definitive central pulmonary emboli, but the examination was not performed is in pulmonary angiogram protocol, therefore, small pulmonary emboli cannot be excluded.? ? ? Dictated by: Julius Kohler M.D. on 08/05/2021 at 16:08 ? ? CXR #2 line placement: Radiologist's Impression: Signed Patient: Nadir Matthews MR#: [id number] : 1960 Acct:[id number] Age/Sex: 61 / M Date of Service: 08/05/21 Loc: 90C-1 Accession Number: [id number] ?? Procedure: XR chest 1V Ordering Provider: Fatmata Gonzalez D.O. PROCEDURE:? XR CHEST 1V ? INDICATIONS:? central line confirmation ? TECHNIQUE:? One view of the chest was acquired.? ? COMPARISON:? [facility], XR CHEST 1V, 08/05/2021, 12:37. ? FINDINGS:? ? Surgical changes and devices:? Right IJ central line.? Left mediastinal region clips. ? Lungs and pleura:? Continued probable large right pleural effusion.? Bilateral infiltrates likely represents pulmonary edema.? Bibasilar atelectasis. ? Mediastinum:? Mediastinal contours appear normal.? Heart size is normal.? ? Bones and chest wall:? No suspicious bony lesions.? Overlying soft tissues appear unremarkable.? ? IMPRESSION:? ? 1. Interval placement of a right IJ line with no evidence of pneumothorax. ? 2. A right pleural effusion is likely large. ? 3. Bilateral pulmonary infiltrates likely represent pulmonary edema. ? ? Dictated by: Aj Rosado M.D. on 08/05/2021 at 14:58 ?? cx #3: Radiologist's Impression: XRay Report Signed Patient: Nadir Matthews MR#: [id number] : 1960 Acct:[id number] Age/Sex: 61 / M Date of Service: 08/05/21 Loc: Accession Number: [id number] ?? Procedure: XR chest 1V Ordering Provider: Fatmata Gonzalez D.O. PROCEDURE:? XR CHEST 1V ? INDICATIONS:? OG confirmation ? TECHNIQUE:? One view of the chest was acquired.? ? COMPARISON:? [facility], XR CHEST 1V, 08/05/2021, 17:49. ? FINDINGS:? ? Surgical changes and devices:? Endotracheal tube and right-sided central venous catheter are unchanged.? There is a new linear opacity overlying the superior esophagus.? Surgical fusion is present partially visualized overlying the thoracic ? Lungs and pleura:? Unchanged opacity of the right hemithorax.? Spine.? Patchy opacities are present within the left lobe. ? Mediastinum:? Mediastinal contours appear normal.? Heart size is enlarged. ? Bones and chest wall:? No suspicious bony lesions.? Overlying soft tissues appear unremarkable.? ? IMPRESSION:? ? Endotracheal tube and right-sided central venous catheter are unchanged.? There is a linear opacity overlying the expected region of the upper esophagus.? This could represent a nasogastric tube which would require further advancement.? Otherwise nasogastric tube is not definitively identified.? Multiple overlying wires and tubes possibly oxygen tubing is present.? Recommend removal of overlying tubes and repeat chest x-ray for further evaluation. ? Unchanged appearance of bilateral pulmonary opacities likely related to prominent right effusion and bilateral pneumonia. ? ? Dictated by: Felicity Mercado M.D. on 08/05/2021 at 19:02 ? ? Approved by: Felicity Mercado M.D. on 08/05/2021 at 19:06 ? ECG Data Interpretation: ATRIAL FLUTTER RATE [address] CHANGES MDM Narrative Medical decision making narrative: CONCERNING FOR SEPTIC SHOCK INITIALLY HYPOTENSIVE WITH PROBABLE UTI he is started on IV fluids normal saline that. Concern for intracranial hemorrhage with patient on Xarelto. Fortunately head CT is negative. Sodium returns at 111. 12:15 Dr. Ellis, school examiner is consult in regards to fluid resuscitation and hyponatremia. Does not recommend hypertonic saline at this time. Recommends hydrating patient with either LR or normal saline. The patient is a started on a fluid resuscitation for septic shock. Records from you would of have been reviewed. Antibiotics vancomycin meropenem and Levaquin or started based on previous culture is which actually mostly pansensitive (see print out) Reflexed from urinalysis.Culture?Abnormal?>100,000 Col/mL Escherichia coli ?Abnormal?>100,000 Col/mL Proteus species ?Abnormal?1,000 to 10,000 Col/mL Citrobacter koseri(diversus) Susceptibility test(s) performed by physician request.- Previously issued as a Final Report on: 05/20/21 Providers, see link for important guidelines regarding the interpretation of susceptibility reports: http://[email or web address].[email or web address].edu/[email or web address] test was developed and its performance characteristics determined by the [facility] Department of Laboratory Medicine and Pathology. It has not been cleared or approved by the US Food and Drug Administration. This laboratory is certified under the Clinical Laboratory Improvement Amendments (CLIA) as qualified to perform high complexity clinical laboratory testing. This test is used for clinical purposes. It should not be regarded as investigational or for research. [facility] Dept of Lab [email or web address] Soto the hospitalist here at [facility] who did agree to admission but wanted CT chest 1st worried about pleural effusion. CT shows bilateral pleural effusions large on the right and small on the left. Patient's mental status continues to decrease. Sleeping more difficult to arouse. Concern for airway protection. Patient is intubated for airway protection. Patient is becoming were complicated needs higher level of care. Sodium is measured every 2-3 hours. Initially was stable around 111 and now seems to be increasing to 114. Baseline sodium is 125-126. He was maintaining pressure and map however after intubation needed Levophed. Patient is complicated with septic shock with UTI, hyponatremia, pleural effusion. Brother is at bedside and continues to say he is full code. Multiple hospitals called 7:30 Dr. Benavidez school examiner at [facility], has been updated patient's symptoms test results and kindly accepts patient Patient will be air lifted brother in agreeance. Critical Care Time Critical Care Time Critical Care Time: Yes Total Critical Care Time: 77 Attestation: The high probability of a clinically significant, sudden or life threatening deterioration of the [cardiovascular] system(s) required my full and direct attention, intervention and personal management. The aggregate critical care time was 77 minutes. This time is in addition to time spent performing reported procedures but includes the following: [x] Data Review and interpretation [x] Patient assessment and monitoring of vital signs [x] Documentation [x] Medication orders and management Discharge Plan Departure Patient Disposition: [facility] Clinical Impression: Septic shock, Acute hyponatremia, Pleural effusion Prescriptions: No Action Overnight oximetry See Rx Instructions .ROUTE .COMPLEX Qty: 1 0RF Rx Instructions: Diagnostic overnight oximetry testing for home O2 use. albuterol sulfate [Ventolin HFA] 90 MCG/PUFF HFA aerosol inhaler 2 puff INH Q4HP PRNQty: 1 5RF Label Comments: not on home med list provided 09/11 (DME) [14 romanian bautista cath] 0 .Route .MEDSUPPLY Qty: 1 3RF Dose Instruction: As directed Rx Instructions: As directed, 2 Bautista's per month, 12 Czech silicone, 100 in and out caths per month, 2 bedside bags per month, 2 leg bags per month, 2 Bautista cath kits per month loratadine-pseudoephedrine 10-240 mg tablet extended release 24 hr 1 tab PO DAILY PRN (Reason: Allergy Symptoms) 0RF coenzyme Q10 [CoQ-10] 100 mg Capsule 100 - 200 mg PO DAILY 0RF Beef Gelatin 4 cap PO QAM 0RF Beef Gelatin 2 cap PO 1400 0RF Cider Vinegar 30 ml PO QAM 0RF Fish Oil 1,400 MG 1 cap PO DAILY 0RF Probiotic 1 dose PO DAILY 0RF Rx Instructions: PRESCRIBED Stool Softener 1 cap PO DAILY PRN (Reason: Constipation) 0RF Rx Instructions: may take more if needed. flaxseed oil 1,400 MG 1 cap PO DAILY 0RF Aero Chamber 1 / INH SEE INSTRUCTIONS 0RF [CPAP Machine] 1 / miscellaneous HS 0RF [compression stocking] 1 / miscellaneous SEE INSTRUCTIONS 0RF [electric wheelchair] 1 ea miscellaneous PRN PRN (Reason: DIRECTED) 0RF [bautista collection bag] 1 ea miscellaneous SEE INSTRUCTIONS 0RF [wheelchair repairs] 1 ea miscellaneous PRN PRN (Reason: DIRECTED) 0RF nystatin 100,000 unit/gram powder 1 applictn TOP DAILY PRN (Reason: DIRECTED) 0RF Label Comments: not on home medication list provided. mecobalamin (vitamin B12) 1,000 mcg tablet,disintegrating 1,000 mcg SL DAILY 0RF vitamin E (dl, acetate) 400 unit capsule 400 unit PO DAILY 0RF Prostrate + Health Complex 1 tab PO DAILY 0RF cranberry extract 300 mg tablet 600 mg PO DAILY 0RF Chlorofresh 2 cap PO DAILY 0RF Referrals: Bandar Mckay MD [Primary Care Provider] -
[2021-08-05 12:13] LABS: Alanine Aminotransferase 25 IU/L (<50); Albumin 3.7 g/dL (3.5-5.0); Albumin Globulin Ratio 0.9 (1.0-2.8); Alkaline Phosphatase 137 U/L (38-126); Aspartate Aminotransferase 37 IU/L (17-59); BUN Creatinine Ratio 41.9 (6-22); Bilirubin Total 0.6 mg/dL (0.2-1.3); Blood Urea Nitrogen 18 mg/dL (9-20); Calcium 8.6 mg/dL (8.4-10.2); Carbon Dioxide 27 mmol/L (22-32); Chloride 79 mmol/L (98-107); Estimated Glomerular Filt Rate > 60 mL/min (>60); Glucose 78 mg/dL (80-110); HEMOLYSIS 16 (0-50); Lipase 48 U/L (23-300); Total Protein 7.7 g/dL (6.3-8.2)
[2021-08-05 12:14] LABS: Lactate (Lactic Acid) 1.3 mmol/L (0.7-2.1)
[2021-08-05 12:15] LABS: Sodium 111 mmol/L (137-145)
[2021-08-05 12:30] LABS: Procalcitonin 1.36 ng/mL (<0.5)
--- NOTE | 2021-08-05 12:39 | PC.NURSE ---
Javan lift utilized to transfer pt from wheelchair to stretcher.
--- NOTE | 2021-08-05 12:43 | DI.CT.S_ITS ---
PROCEDURE: CT HEAD/BRAIN WO CON INDICATIONS: decreased mental status on xeralto and low Na TECHNIQUE: Noncontrast 4.5 mm thick angled axial sections acquired from the foramen magnum to the vertex, with coronal and sagittal reformats. For radiation dose reduction, the following was used: automated exposure control, adjustment of mA and/or kV according to patient size. COMPARISON: [facility], MR, MR HEAD/BRAIN WO CON, 10/23/2020, 18:35. [facility], MR, MR BRAIN (PITUITARY) WWO CON, 12/04/2020, 15:34. FINDINGS: Image quality: Excellent. CSF spaces: Basal cisterns are patent. No extra-axial fluid collections. The ventricles are symmetric in size and shape. Brain: No intracranial bleeds or masses. There is cerebral volume loss for age, with resultant ventricular and sulcal prominence. There are periventricular and deep white matter chronic small vessel ischemic changes. There is intracranial internal carotid artery atherosclerosis. 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 Skull and face: Focal high density can be seen involving the right parietal scalp, without an associated fracture, as on series 6, image 20 and on series 4, image 39. Calvarium and visualized facial bones appear intact, without suspicious lesions. Sinuses: Visualized sinuses and mastoids are clear. IMPRESSION: No acute intracranial hemorrhage is seen. Focal high density seen involving the right parietal scalp, which may be related to hematoma. Please correlate with physical examination findings and patient history. No acute intracranial process is seen. 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 Dictated by: Tamir Porter M.D. on 08/05/2021 at 12:08 Approved by: Tamir Porter M.D. on 08/05/2021 at 12:12
[2021-08-05] MEDS: VANCOMYCIN 2,000 MG/400 ML PIGGYBACK 200 MG IV (12:53)
--- NOTE | 2021-08-05 13:17 | PC.NURSE ---
Dr. Gonzalez asked me to get her in touch with the [facility] physician. I immediately placed a call at [address] Guillermo Moulton and connected him with Dr. Gonzalez.
[2021-08-05 13:36] LABS: Appearance Urine UA CLOUDY; Bilirubin Urine UA NEGATIVE (NEGATIVE); Color Urine UA YELLOW; Glucose Urine UA NEGATIVE (Negative); Ketones Urine UA NEGATIVE (NEGATIVE); Leukocyte Esterase Urine UA 3+ (NEGATIVE); Nitrite Urine UA NEGATIVE (Negative); Occult Blood Urine UA 3+ (Negative); Protein Urine UA 2+ (Negative); Specific Gravity Urine UA 1.015 (1.000-1.035)
[2021-08-05 13:40] LABS: RBC Urine 5-10/HPF (0-5/HPF); WBC Urine 30-100/HPF (0-5/HPF)
[2021-08-05 13:41] LABS: Bacteria Urine Many (>30); Culture Indicated Urine Specimen Cultured; Squamous Epithelial Cell Urine 1-5 /HPF (0-5/HPF)
[2021-08-05] MEDS: MEROPENEM 1,000 MG in SODIUM CHLORIDE 0.9% 100 ML 200 MG IV (13:42)
[2021-08-05] MEDS: LACTATED RINGERS 1,000 ML 1000 ML IV (13:43)
--- NOTE | 2021-08-05 13:54 | PC.NURSE ---
Unable to obtain temperature on pt r/t unable to close mouth on command and thermometer not picking up axillary. Temperature sensing catheter attached to monitor and temperature 91.6, Dr. Gonzalez notified and orders received to put Tashi Cansecoer on pt. Tashi Hugger set up at approximately 1340.
[2021-08-05 13:55] LABS: Sodium Urine Random 7 mmol/L (30-90)
--- NOTE | 2021-08-05 14:01 | PC.NURSE ---
Pt stuck multiple times, difficult stick, only able to obtain documented PIV. DI Nurse notified and unable to place verbally ordered PICC r/t time constraint. Dr. Gonzalez aware of single access.
[2021-08-05 14:20] LABS: Carbon Dioxide 25 mmol/L (22-32); Chloride 80 mmol/L (98-107)
[2021-08-05 14:21] LABS: HEMOLYSIS 109 (0-50)
[2021-08-05 14:22] LABS: Sodium 110 mmol/L (137-145)
--- NOTE | 2021-08-05 14:29 | DI.RAD.S_ITS ---
PROCEDURE: XR CHEST 1V INDICATIONS: central line confirmation TECHNIQUE: One view of the chest was acquired. COMPARISON: [facility], CR, XR CHEST 1V, 08/05/2021, 12:37. FINDINGS: Surgical changes and devices: Right IJ central line. Left mediastinal region clips. Lungs and pleura: Continued probable large right pleural effusion. Bilateral infiltrates likely represents pulmonary edema. Bibasilar atelectasis. Mediastinum: Mediastinal contours appear normal. Heart size is normal. Bones and chest wall: No suspicious bony lesions. Overlying soft tissues appear unremarkable. IMPRESSION: 1. Interval placement of a right IJ line with no evidence of pneumothorax. 2. A right pleural effusion is likely large. 3. Bilateral pulmonary infiltrates likely represent pulmonary edema. Dictated by: Aj Rosado M.D. on 08/05/2021 at 14:58 Approved by: Aj Rosado M.D. on 08/05/2021 at 15:00
[2021-08-05] MEDS: levoFLOXacin 750 MG/150 ML PIGGYBACK 100 MG IV (14:38)
[2021-08-05 14:54] LABS: Thyroid Stimulating Hormone 1.43 uIU/mL (0.47-4.68)
[2021-08-05 15:10] LABS: COVID19 -Nasal RAPID Negative (Negative)
[2021-08-05] MEDS: SODIUM CHLORIDE 0.9% 1,000 ML 150 ML IV (15:35)
--- NOTE | 2021-08-05 15:35 | DI.CT.S_ITS ---
PROCEDURE: CT CHEST W CON INDICATIONS: pleural effusion TECHNIQUE: After the administration of intravenous contrast, 5 mm thick sections acquired from the pulmonary apices to the posterior costophrenic angles. 1 mm axial lung, 5 mm thick coronal and sagittal reformats and 7 mm axial MIP were acquired. For radiation dose reduction, the following was used: automated exposure control, adjustment of mA and/or kV according to patient size. COMPARISON: [facility], CT, CT ANGIO CHEST PE PROTOCOL, 09/11/2018, 17:37. [facility], CT, CT KIDNEY URETER BLADDER (KUB), 07/22/2020, 14:44. [facility], CT, CT ABDOMEN PELVIS WO CON, 06/25/2021, 9:52. [facility], CR, XR CHEST 1V, 08/05/2021, 12:37. [facility], CR, XR CHEST 1V, 08/05/2021, 14:34. FINDINGS: Image quality: Excellent. Lungs and pleura: There is a large right pleural effusion and vxzlt-lo-uuramhqg left pleural effusion. There are nodular and ground-glass infiltrates in lungs bilaterally. Bibasilar compression atelectasis. No pneumothorax. Central and peripheral airways are patent and normal in caliber. Mediastinum: Heart size is normal. No pericardial effusion. No mediastinal or hilar adenopathy by size criteria. Pulmonary arteries are mildly enlarged with the pulmonary outflow tract measures 3.7 cm. Thoracic aorta is normal in size. Esophagus is normal in caliber. No hiatal hernia. Bones and chest wall: No suspicious bony lesions. No vertebral body compression fractures. There are postsurgical changes in lower thoracic spine and lumbar spine. No axillary or supraclavicular adenopathy by size criteria. Thyroid gland is normal. Note is made of a central venous catheter with the tip in SVC. Abdomen: Visualized upper abdominal solid organs appear normal. Upper abdominal bowel loops are normal in caliber. IMPRESSION: 1. Bilateral pleural effusions, large on the right and ibjac-om-dnosujvj on the left. 2. Bilateral nodular and ground-glass infiltrates, suspicious for atypical infection. 3. Bibasilar opacities are most likely compression atelectasis. 4. Enlargement of pulmonary arteries with the main pulmonary outflow tract measures 3.7 cm in diameter. No definitive central pulmonary emboli, but the examination was not performed is in pulmonary angiogram protocol, therefore, small pulmonary emboli cannot be excluded. Dictated by: Julius Kohler M.D. on 08/05/2021 at 16:08 Approved by: Julius Kohler M.D. on 08/05/2021 at 16:16
[2021-08-05 16:45] LABS: Carbon Dioxide 26 mmol/L (22-32); Chloride 80 mmol/L (98-107); HEMOLYSIS < 15 (0-50); Lactate (Lactic Acid) 0.7 mmol/L (0.7-2.1); Potassium 4.3 mmol/L (3.4-5.1)
[2021-08-05 16:48] LABS: Potassium 5.4 mmol/L (3.4-5.1)
[2021-08-05 16:50] LABS: Sodium 111 mmol/L (137-145)
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
[2021-08-05] MEDS: NOREPINEPHRINE BITARTRATE/D5W 4 MG/250 ML PLAST..BAG 30 MG IV (18:06)
--- NOTE | 2021-08-05 18:10 | PC.NURSE ---
1755 etomidate 15mg iv and kwame 150mg iv for intubation, ett 8 at 27 teeth line. RT x 2 at bedside. verified with portable cxr.
[2021-08-05] MEDS: propofoL 1,000 MG/100 ML VIAL 8.301 MG IV ×2 (18:20→21:08)
[2021-08-05] MEDS: ETOMIDATE 2 MG/ML 10 ML VIAL 15 MG IV (18:29)
[2021-08-05] MEDS: ROCURONIUM 100 MG/10 ML VIAL 150 MG IV (18:34)
--- NOTE | 2021-08-05 18:40 | DI.RAD.S_ITS ---
PROCEDURE: XR CHEST 1V INDICATIONS: OG confirmation TECHNIQUE: One view of the chest was acquired. COMPARISON: [facility], CR, XR CHEST 1V, 08/05/2021, 17:49. FINDINGS: Surgical changes and devices: Endotracheal tube and right-sided central venous catheter are unchanged. There is a new linear opacity overlying the superior esophagus. Surgical fusion is present partially visualized overlying the thoracic Lungs and pleura: Unchanged opacity of the right hemithorax. Spine. Patchy opacities are present within the left lobe. Mediastinum: Mediastinal contours appear normal. Heart size is enlarged. Bones and chest wall: No suspicious bony lesions. Overlying soft tissues appear unremarkable. IMPRESSION: Endotracheal tube and right-sided central venous catheter are unchanged. There is a linear opacity overlying the expected region of the upper esophagus. This could represent a nasogastric tube which would require further advancement. Otherwise nasogastric tube is not definitively identified. Multiple overlying wires and tubes possibly oxygen tubing is present. Recommend removal of overlying tubes and repeat chest x-ray for further evaluation. Unchanged appearance of bilateral pulmonary opacities likely related to prominent right effusion and bilateral pneumonia. Dictated by: Felicity Mercado M.D. on 08/05/2021 at 19:02 Approved by: Felicity Mercado M.D. on 08/05/2021 at 19:06
[2021-08-05] MEDS: fentaNYL 1,000 MCG in DEXTROSE 5% IN WATER 230 ML 24.211 MCG IV (18:41)
--- NOTE | 2021-08-05 19:10 | PC.NURSE ---
Provider Dr. Gonzalez asked me to try to find this patient a place to transfer. I called [facility] at [address] this patient on their transfer list. I called [facility] at [address] this patient on their list and they denied placing any patient on the list due to the current list being too long. I called [facility] at 1836 and placed this patient on their list. I called [facility] at 1841 and placed this patient on their list. I called [facility] at 1842 and placed this patient on their list. I called [facility] at 1856 and placed this patient on their list.
--- NOTE | 2021-08-05 19:29 | DI.RAD.S_ITS ---
PROCEDURE: XR CHEST 1V INDICATIONS: og placement TECHNIQUE: One view of the chest was acquired. COMPARISON: [facility], CR, XR CHEST 1V, 08/05/2021, 18:40. FINDINGS: Surgical changes and devices: Presumed nasogastric tube is present projecting below the left hemidiaphragm in appropriate position. Endotracheal tube and right-sided central venous catheter are unchanged. Lungs and pleura: Bilateral pulmonary opacities as well as retrocardiac opacities are present, unchanged, right greater than left. Mediastinum: Mediastinal contours appear normal. Heart size is normal. Bones and chest wall: No suspicious bony lesions. Overlying soft tissues appear unremarkable. IMPRESSION: Nasogastric tube placement as above. Dictated by: Felicity Mercado M.D. on 08/05/2021 at 19:49 Approved by: Felicity Mercado M.D. on 08/05/2021 at 19:50
[2021-08-05 19:32] LABS: Carbon Dioxide 24 mmol/L (22-32); Chloride 84 mmol/L (98-107); HEMOLYSIS < 15 (0-50)
[2021-08-05 19:35] LABS: Sodium 114 mmol/L (137-145)
[2021-08-05 19:37] LABS: Fractionated Inspired Oxygen 60; HCO3 ABG 26 mmol/L (22-26); Oxygen Saturation ABG 99 % (95-100); PCO2 ABG 32.2 mmHg (35-45); PO2 ABG 106 mmHg (80-100); TCO2 ABG 26 mmol/L (21-31); pH ABG 7.51 (7.35-7.45)
[2021-08-05] MEDS: LACTATED RINGERS 1,000 ML 150 ML IV (19:53)
--- NOTE | 2021-08-05 21:10 | PC.NURSE ---
Patient leaving with propfol, fentanyl, and levophed drip infusing.
--- NOTE | 2021-08-05 21:23 | PC.NURSE ---
OG tube inserted at [address] and confirmed by CXR.
--- NOTE | 2021-08-05 21:44 | PC.NURSE ---
Report called to Antonio L[facility] at [facility], .
[2021-08-06 15:44] LABS: Osmolality, Serum 242 mOsmol/kg (275-295)
[2021-08-06 15:44] LABS: Osmolality Urine 327 mOsmol/kg (.)
== END 2021-08-05 21:19 | disposition short-term general hospital (02) ==
LOC: ED 11:59 → AC 14:51 → ED 20:18
PROVIDERS: Family Medicine; Emergency Provider Emergency Medicine; Family Provider Family Medicine; PCP Family Medicine; Referring Provider Emergency Medicine
DX: A41.9 Sepsis, unspecified organism (principal); R65.21 Severe sepsis with septic shock; N39.0 Urinary tract infection, site not specified; E87.1 Hypo-osmolality and hyponatremia; J90 Pleural effusion, not elsewhere classified; I95.9 Hypotension, unspecified; Z20.822 Contact with and (suspected) exposure to COVID-19; Z79.01 Long term (current) use of anticoagulants
CPT/HCPCS: 31500; 36415; 36569; 36600; 70450; 71045; 71260; 80051; 80053; 81001; 82805; 83605; 83690; 83930; 83935; 84145; 84300; 84443; 85025; 85610; 85730; 87040; 87077; 87086; 87186; 87635; 93005; 94799; 96361; 96365; 96366; 96367; 96368; 96375; 99285; 99291; 99292; C9803; J1956; J2185; J2704; J3010; Q9967

== ENCOUNTER → 2021-08-20 11:48 | Outpatient (CLI) | payer MEDICARE, MEDICAID, SELFPAY ==
[2018-09-11 19:43] VITALS: BMI 31.7
[2021-08-05 19:24] VITALS: PULSE 49; RESP 16; O2SAT 92
[2021-08-20 13:45] LABS: Albumin 3.8 g/dL (3.5-5.0); BUN Creatinine Ratio 35.8 (6-22); Blood Urea Nitrogen 19 mg/dL (9-20); Calcium 9.6 mg/dL (8.4-10.2); Carbon Dioxide 33 mmol/L (22-32); Chloride 97 mmol/L (98-107); Estimated Glomerular Filt Rate > 60 mL/min (>60); Glucose 74 mg/dL (80-110); HEMOLYSIS < 15 (0-50); Phosphorous 3.8 mg/dL (2.3-3.7); Potassium 4.4 mmol/L (3.4-5.1); Sodium 136 mmol/L (137-145)
== END ==
PROVIDERS: Family Provider Family Medicine; PCP Family Medicine; Referring Provider Internal Medicine Endocrinology, Diabetes & Metabolism; Visit Provider Internal Medicine Endocrinology, Diabetes & Metabolism
DX: E22.2 Syndrome of inappropriate secretion of antidiuretic hormone (principal)
CPT/HCPCS: 36415; 80069

== ENCOUNTER 2021-08-25 14:00 | Emergency (ER) | payer MEDICARE, MEDICAID, SELFPAY ==
[2018-09-11 19:43] VITALS: BMI 31.7
[2021-08-05 19:24] VITALS: PULSE 49; RESP 16; O2SAT 92
[2021-08-25] VITALS (15 sets, daily range): BP systolic 113–144; BP diastolic 64–87; PULSE 65–107; RESP 18; TEMP 36.6; O2SAT 91–100; BMI 32.9
--- NOTE | 2021-08-25 14:43 | DI.RAD.S_ITS ---
PROCEDURE: XR CHEST 1V INDICATIONS: shortness of breath TECHNIQUE: One view of the chest was acquired. COMPARISON: [facility], CR, XR CHEST 1V, 08/05/2021, 19:26. FINDINGS: Surgical changes and devices: Surgical clips are seen in left hilar region. Surgical hardware is seen in visualized lower thoracic and upper lumbar spine. Lungs and pleura: There is pulmonary edema and pulmonary vascular congestion. Right greater than left bilateral pleural effusion and bilateral mid to lower lung field infiltrate/atelectasis is seen. No gross pneumothorax. Mediastinum: Mediastinal contours appear normal. Heart size is enlarged. Bones and chest wall: No suspicious bony lesions. Overlying soft tissues appear unremarkable. IMPRESSION: CHF changes, cannot rule out underlying bilateral lower lobe infiltrates. No gross pneumothorax. Right greater than left bilateral pleural effusion. Dictated by: Jean-Claude Joyner M.D. on 08/25/2021 at 15:13 Approved by: Jean-Claude Joyner M.D. on 08/25/2021 at 15:19
[2021-08-25 16:04] LABS: Add Manual Diff / Slide Review NO; Basophils Absolute Auto 0 /uL (0-100); Basophils Percent Auto 1.3 % (0-2); Eosinophils Absolute Auto 600 /uL (0-450); Eosinophils Percent Auto 17.3 % (2-4); Hematocrit 33.9 % (41-53); Hemoglobin 11.1 g/dL (13.5-17.5); Lymphocytes Absolute Auto 700 /uL (1100-4500); Lymphocytes Percent Auto 19.8 % (25-40); Mean Corpuscular HGB Conc 32.8 % (30-36); Mean Corpuscular Hemoglobin 29.1 PG (26-34); Mean Corpuscular Volume 88.7 fL (80-100); Monocytes Absolute Auto 600 /uL (0-900); Monocytes Percent Auto 17.9 % (3-14); Neutrophils Absolute Auto 1500 /uL (1500-7000); Neutrophils Percent Auto 43.7 % (50-75); Platelet Count 289 X10^3/uL (150-400); Red Blood Cell Count 3.83 X10^6/uL (4.5-5.9); Red Cell Distribution Width 18.7 % (11.6-14.8); White Blood Cell Count 3.3 X10^3/uL (4.5-11.0)
[2021-08-25 16:50] LABS: Lactate (Lactic Acid) 1.7 mmol/L (0.7-2.1)
[2021-08-25 16:51] LABS: Alanine Aminotransferase 25 IU/L (<50); Albumin 3.7 g/dL (3.5-5.0); Albumin Globulin Ratio 0.9 (1.0-2.8); Alkaline Phosphatase 120 U/L (38-126); Aspartate Aminotransferase 28 IU/L (17-59); BUN Creatinine Ratio 34.4 (6-22); Bilirubin Total 0.3 mg/dL (0.2-1.3); Blood Urea Nitrogen 22 mg/dL (9-20); Calcium 9.1 mg/dL (8.4-10.2); Carbon Dioxide 33 mmol/L (22-32); Chloride 98 mmol/L (98-107); Estimated Glomerular Filt Rate > 60 mL/min (>60); Glucose 72 mg/dL (80-110); HEMOLYSIS < 15 (0-50); Potassium 4.4 mmol/L (3.4-5.1); Sodium 134 mmol/L (137-145); Total Protein 7.7 g/dL (6.3-8.2)
[2021-08-25 16:58] LABS: NT-proBNP (BNP-Adult 18+) 1140 pg/mL (<125)
[2021-08-25 17:27] LABS: Appearance Urine UA CLEAR; Bilirubin Urine UA NEGATIVE (NEGATIVE); Color Urine UA YELLOW; Glucose Urine UA NEGATIVE (Negative); Ketones Urine UA NEGATIVE (NEGATIVE); Leukocyte Esterase Urine UA NEGATIVE (NEGATIVE); Nitrite Urine UA NEGATIVE (Negative); Occult Blood Urine UA TRACE-INTACT (Negative); Protein Urine UA 2+ (Negative); Specific Gravity Urine UA 1.015 (1.000-1.035); Urobilinogen Urine UA 0.2 E.U./dL (0.2); pH Urine UA 5.5 (4.5-8.0)
[2021-08-25 17:35] LABS: INR 2.8 (0.9-1.3); Prothrombin Time 32.6 SECONDS (10.1-12.7)
[2021-08-25 17:41] LABS: RBC Urine 0-1/HPF (0-5/HPF); WBC Urine 0-1/HPF (0-5/HPF)
[2021-08-25 17:42] LABS: Bacteria Urine Occasional (0-1); Culture Indicated Urine Cult Not Indicated; Squamous Epithelial Cell Urine 0-1 /HPF (0-5/HPF)
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
[2021-08-25 18:27] LABS: Creatine Kinase < 20 U/L (55-170)
[2021-08-25 18:39] LABS: Troponin I < 0.012 ng/mL (0.01-0.034)
[2021-08-25 18:46] LABS: COVID19 -Nasal RAPID Negative (Negative)
[2021-08-25] MEDS: FUROSEMIDE 40 MG/4 ML VIAL IV (19:47)
== END 2021-08-25 20:06 | disposition home or self-care (01) ==
PROVIDERS: Emergency Medicine; Emergency Provider Emergency Medicine; Family Provider Family Medicine; PCP Family Medicine
DX: R06.00 Dyspnea, unspecified (principal); I50.33 Acute on chronic diastolic (congestive) heart failure; G82.50 Quadriplegia, unspecified; G82.20 Paraplegia, unspecified; Z20.822 Contact with and (suspected) exposure to COVID-19
CPT/HCPCS: 36415; 71045; 80053; 81001; 82550; 83605; 83880; 84484; 85025; 85610; 87635; 93005; 96374; 99284; C9803; J1940

== ENCOUNTER → 2021-08-26 11:50 | Outpatient (CLI) | payer MEDICARE, MEDICAID, SELFPAY ==
[2018-09-11 19:43] VITALS: BMI 31.7
[2021-08-05 19:24] VITALS: PULSE 49; RESP 16; O2SAT 92
== END ==
PROVIDERS: Family Provider Family Medicine; PCP Family Medicine; Referring Provider Internal Medicine Endocrinology, Diabetes & Metabolism; Visit Provider Internal Medicine Endocrinology, Diabetes & Metabolism
DX: D35.2 Benign neoplasm of pituitary gland (principal)

== ENCOUNTER → 2021-09-21 15:55 | Outpatient (CLI) | payer MEDICARE, MEDICAID, SELFPAY ==
[2021-09-16 08:50] VITALS: PULSE 49; RESP 16; O2SAT 92; BMI 31.7
--- NOTE | 2021-09-21 | DI.MRI.S_ITS ---
PROCEDURE: MR BRAIN (PITUITARY) O CON INDICATIONS: Benign neoplasm of pituitary gland TECHNIQUE: Noncontrast sagittal and axial FLAIR, axial gradient echo, axial diffusion and ADC through the brain. Thin-slice sagittal and coronal T1 spin echo, coronal T2 fast spin echo through the pituitary. After the administration contrast, optional dynamic coronal T1 spin echo, thin-slice coronal and sagittal T1 spin echo images through the pituitary fossa; axial and coronal and sagittal T1 spin echo with fat saturation through the brain. COMPARISON: [facility], MR, MR BRAIN (PITUITARY) O CON, 12/04/2020, 15:34. [facility], MR, MR HEAD/BRAIN WO CON, 10/23/2020, 18:35. FINDINGS: Image quality: Excellent. Pituitary Gland: Enhancing sellar/suprasellar mass is stable in size and contour compared to December 04, 2020. Mass extends into the right cavernous sinus with surrounding approximately 50% of the cavernous segment of the right internal carotid artery. Suprasellar spine portion of the mass abuts and displaces the optic chiasm. CSF Spaces: Ventricles are normal in size and shape. Basal cisterns are patent. No extra-axial fluid collections. Brain: No intracranial bleeds or mass effects. There is diffuse, cerebral volume loss. There is mild periventricular and subcortical white matter chronic microvascular ischemic change. Small areas of encephalomalacia with surrounding gliosis noted in the medial aspect of the occipital lobes bilaterally which are stable compared to the prior exam. No abnormal intracranial enhancement. [place]-white matter interface is intact. Diffusion weighted images demonstrate no acute ischemic insults. Brainstem is normal. Hemosiderin deposition at the surface of the cerebellar hemispheres hemispheres, the brainstem and the cerebral hemispheres particularly along the sylvian fissures is stable compared to the prior examination. Normal intravascular flow voids are present. Skull and face: Calvarial marrow is normal in signal. Orbits appear normal. Sinuses: Sinuses and mastoids are clear. IMPRESSION: 1. 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 2. Superficial siderosis is stable compared to the prior exam. 3. Small areas of encephalomalacia with surrounding gliosis involving the occipital lobes are stable compared to the prior examination. Dictated by: Naima Riddle MD, PhD on 09/22/2021 at 11:19 Approved by: Naima Riddle MD, PhD on 09/22/2021 at 11:27
== END ==
PROVIDERS: Family Provider Family Medicine; PCP Family Medicine; Referring Provider Internal Medicine Endocrinology, Diabetes & Metabolism; Visit Provider Internal Medicine Endocrinology, Diabetes & Metabolism
DX: D35.2 Benign neoplasm of pituitary gland (principal); E87.1 Hypo-osmolality and hyponatremia; G93.89 Other specified disorders of brain
CPT/HCPCS: 70553; A9579

== ENCOUNTER → 2021-10-06 09:39 | Outpatient (CLI) | payer MEDICARE, MEDICAID, SELFPAY ==
[2021-09-16 08:50] VITALS: PULSE 49; RESP 16; O2SAT 92; BMI 31.7
== END ==
PROVIDERS: Family Provider Family Medicine; PCP Family Medicine; Referring Provider Family Medicine; Visit Provider Family Medicine
DX: L89.524 Pressure ulcer of left ankle, stage 4 (principal); G82.20 Paraplegia, unspecified; R60.0 Localized edema; I50.9 Heart failure, unspecified; I27.20 Pulmonary hypertension, unspecified; Z79.01 Long term (current) use of anticoagulants; Z99.3 Dependence on wheelchair
CPT/HCPCS: 11043; 99213; 99214

== ENCOUNTER → 2021-10-12 10:39 | Outpatient (CLI) | payer MEDICARE, MEDICAID, SELFPAY ==
[2021-09-16 08:50] VITALS: PULSE 49; RESP 16; O2SAT 92; BMI 31.7
== END ==
PROVIDERS: Family Provider Family Medicine; PCP Family Medicine; Visit Provider Urology
DX: K59.2 Neurogenic bowel, not elsewhere classified (principal); N20.0 Calculus of kidney; I50.9 Heart failure, unspecified; R30.0 Dysuria; N39.0 Urinary tract infection, site not specified; R33.9 Retention of urine, unspecified; N31.2 Flaccid neuropathic bladder, not elsewhere classified; G82.50 Quadriplegia, unspecified; G82.20 Paraplegia, unspecified; Z98.1 Arthrodesis status; Z86.74 Personal history of sudden cardiac arrest; Z86.79 Personal history of other diseases of the circulatory system; Z86.69 Personal history of other diseases of the nervous system and sense organs
CPT/HCPCS: 81002; 87077; 87086; 87147; 87185; 87186; 99215

== ENCOUNTER → 2021-10-25 11:46 | Outpatient (CLI) | payer MEDICARE, MEDICAID, SELFPAY ==
[2021-09-16 08:50] VITALS: PULSE 49; RESP 16; O2SAT 92; BMI 31.7
== END ==
PROVIDERS: Family Provider Family Medicine; PCP Family Medicine; Referring Provider Family Medicine; Visit Provider Family Medicine
DX: L89.524 Pressure ulcer of left ankle, stage 4 (principal); G82.21 Paraplegia, complete; Z79.01 Long term (current) use of anticoagulants
CPT/HCPCS: 11042

== ENCOUNTER → 2021-11-01 12:57 | Outpatient (CLI) | payer MEDICARE, MEDICAID, SELFPAY ==
[2021-09-16 08:50] VITALS: PULSE 49; RESP 16; O2SAT 92; BMI 31.7
== END ==
PROVIDERS: Family Provider Family Medicine; PCP Family Medicine; Referring Provider Family Medicine; Visit Provider Family Medicine
DX: L89.524 Pressure ulcer of left ankle, stage 4 (principal); G82.21 Paraplegia, complete; Z79.01 Long term (current) use of anticoagulants; L08.9 Local infection of the skin and subcutaneous tissue, unspecified
CPT/HCPCS: 87070; 87075; 87077; 87186; 87205; 99213

== ENCOUNTER → 2021-11-15 14:03 | Outpatient (CLI) | payer MEDICARE, MEDICAID, SELFPAY ==
[2021-09-16 08:50] VITALS: PULSE 49; RESP 16; O2SAT 92; BMI 31.7
== END ==
PROVIDERS: Family Provider Family Medicine; PCP Family Medicine; Referring Provider Family Medicine; Visit Provider Family Medicine
DX: S81.011A Laceration without foreign body, right knee, initial encounter (principal); B95.2 Enterococcus as the cause of diseases classified elsewhere; G82.21 Paraplegia, complete; Z79.01 Long term (current) use of anticoagulants; R00.0 Tachycardia, unspecified; F41.0 Panic disorder [episodic paroxysmal anxiety]; R31.9 Hematuria, unspecified
CPT/HCPCS: 11042; 99214

== ENCOUNTER → 2021-11-25 14:36 | Outpatient (CLI) | payer MEDICARE, MEDICAID, SELFPAY ==
[2021-09-16 08:50] VITALS: PULSE 49; RESP 16; O2SAT 92; BMI 31.7
== END ==
PROVIDERS: Family Provider Family Medicine; PCP Family Medicine; Referring Provider Family Medicine; Visit Provider Family Medicine
DX: S81.011A Laceration without foreign body, right knee, initial encounter (principal)
CPT/HCPCS: 99213

== ENCOUNTER → 2021-12-06 11:19 | Outpatient (CLI) | payer MEDICARE, MEDICAID, SELFPAY ==
[2021-09-16 08:50] VITALS: PULSE 49; RESP 16; O2SAT 92; BMI 31.7
== END ==
PROVIDERS: Family Provider Family Medicine; PCP Family Medicine; Referring Provider Family Medicine; Visit Provider Family Medicine
DX: L89.524 Pressure ulcer of left ankle, stage 4 (principal); S81.011A Laceration without foreign body, right knee, initial encounter; G82.21 Paraplegia, complete; Z79.01 Long term (current) use of anticoagulants; I27.0 Primary pulmonary hypertension
CPT/HCPCS: 99212; 99213

== ENCOUNTER → 2021-12-16 15:30 | Outpatient (CLI) | payer MEDICARE, MEDICAID, SELFPAY ==
[2021-09-16 08:50] VITALS: PULSE 49; RESP 16; O2SAT 92; BMI 31.7
[2021-12-16 16:28] LABS: Hematocrit 37.1 % (41-53); Hemoglobin 12.1 g/dL (13.5-17.5); Mean Corpuscular HGB Conc 32.6 % (30-36); Mean Corpuscular Hemoglobin 29.3 PG (26-34); Mean Corpuscular Volume 89.8 fL (80-100); Platelet Count 251 X10^3/uL (150-400); Red Blood Cell Count 4.14 X10^6/uL (4.5-5.9); White Blood Cell Count 7.5 X10^3/uL (4.5-11.0)
[2021-12-16 16:48] LABS: Alanine Aminotransferase 53 IU/L (<50); Albumin Globulin Ratio 0.9 (1.0-2.8); Alkaline Phosphatase 162 U/L (38-126); Aspartate Aminotransferase 43 IU/L (17-59); Bilirubin Total 0.3 mg/dL (0.2-1.3); Blood Urea Nitrogen 30 mg/dL (9-20); Calcium 9.6 mg/dL (8.4-10.2); Carbon Dioxide 28 mmol/L (22-32); Chloride 102 mmol/L (98-107); Cholesterol 175 mg/dL (140-199); Estimated Glomerular Filt Rate > 60 mL/min (>60); Globulin 4.5 g/dL (1.7-4.1); Glucose 66 mg/dL (80-110); HDL Cholesterol 41 mg/dL (40-60); HEMOLYSIS < 15 (0-50); LDL Cholesterol Calculated 115 mg/dL (<100); Sodium 139 mmol/L (137-145); Total Protein 8.5 g/dL (6.3-8.2); Triglycerides 93 mg/dL (35-150)
[2021-12-16 18:17] LABS: Red Cell Distribution Width 22.8 % (11.6-14.8)
== END ==
PROVIDERS: Family Provider Family Medicine; PCP Internal Medicine; Referring Provider Internal Medicine; Visit Provider Internal Medicine
DX: E78.2 Mixed hyperlipidemia (principal); E87.1 Hypo-osmolality and hyponatremia; I48.20 Chronic atrial fibrillation, unspecified
CPT/HCPCS: 36415; 80053; 80061; 84443; 85027

== ENCOUNTER → 2021-12-21 11:06 | Outpatient (CLI) | payer MEDICARE, MEDICAID, SELFPAY ==
[2021-09-16 08:50] VITALS: PULSE 49; RESP 16; O2SAT 92; BMI 31.7
== END ==
PROVIDERS: Family Provider Family Medicine; PCP Internal Medicine; Referring Provider Internal Medicine; Visit Provider Family Medicine
DX: L89.524 Pressure ulcer of left ankle, stage 4 (principal); G82.21 Paraplegia, complete; Z79.01 Long term (current) use of anticoagulants; I27.20 Pulmonary hypertension, unspecified; S81.001D Unspecified open wound, right knee, subsequent encounter
CPT/HCPCS: 97597

== ENCOUNTER → 2022-01-04 13:22 | Outpatient (CLI) | payer MEDICARE, MEDICAID, SELFPAY ==
[2021-09-16 08:50] VITALS: PULSE 49; RESP 16; O2SAT 92; BMI 31.7
== END ==
PROVIDERS: Family Provider Family Medicine; PCP Internal Medicine; Referring Provider Internal Medicine; Visit Provider Family Medicine
DX: L89.524 Pressure ulcer of left ankle, stage 4 (principal); G82.21 Paraplegia, complete; Z79.01 Long term (current) use of anticoagulants
CPT/HCPCS: 99212; 99213

== ENCOUNTER → 2022-01-14 12:52 | Outpatient (CLI) | payer MEDICARE, MEDICAID, SELFPAY ==
[2021-09-16 08:50] VITALS: PULSE 49; RESP 16; O2SAT 92; BMI 31.7
[2022-01-14 13:16] LABS: Appearance Urine UA CLOUDY; Bilirubin Urine UA NEGATIVE (NEGATIVE); Color Urine UA YELLOW; Glucose Urine UA NEGATIVE (Negative); Ketones Urine UA NEGATIVE (NEGATIVE); Leukocyte Esterase Urine UA 3+ (NEGATIVE); Nitrite Urine UA NEGATIVE (Negative); Occult Blood Urine UA 2+ (Negative); Protein Urine UA 2+ (Negative); Urobilinogen Urine UA 0.2 E.U./dL (0.2); pH Urine UA 7.5 (4.5-8.0)
[2022-01-14 13:29] LABS: RBC Urine 5-10/HPF (0-5/HPF); Squamous Epithelial Cell Urine 0-1 /HPF (0-5/HPF); WBC Urine 10-30/HPF (0-5/HPF)
[2022-01-14 13:30] LABS: Amorphous Sediment Urine 1+; Bacteria Urine Moderate (10-30); Culture Indicated Urine Specimen Cultured
[2022-01-14 13:51] LABS: BUN Creatinine Ratio 39.7 (6-22); Blood Urea Nitrogen 25 mg/dL (9-20); Calcium 9.7 mg/dL (8.4-10.2); Carbon Dioxide 34 mmol/L (22-32); Chloride 100 mmol/L (98-107); Estimated Glomerular Filt Rate > 60 mL/min (>60); Glucose 84 mg/dL (80-110); HEMOLYSIS < 15 (0-50); Potassium 4.9 mmol/L (3.4-5.1); Sodium 141 mmol/L (137-145)
== END ==
PROVIDERS: Family Provider Family Medicine; PCP Internal Medicine; Referring Provider Internal Medicine; Visit Provider Internal Medicine
DX: N39.0 Urinary tract infection, site not specified (principal); E87.1 Hypo-osmolality and hyponatremia
CPT/HCPCS: 36415; 80048; 81001; 87077; 87086; 87185; 87186

== ENCOUNTER → 2022-01-18 13:06 | Outpatient (CLI) | payer MEDICARE, MEDICAID, SELFPAY ==
[2021-09-16 08:50] VITALS: PULSE 49; RESP 16; O2SAT 92; BMI 31.7
== END ==
PROVIDERS: Family Provider Family Medicine; PCP Internal Medicine; Referring Provider Internal Medicine; Visit Provider Family Medicine
DX: L89.524 Pressure ulcer of left ankle, stage 4 (principal); G82.21 Paraplegia, complete; Z79.01 Long term (current) use of anticoagulants
CPT/HCPCS: 99212; 99213

== ENCOUNTER 2022-02-04 12:13 | Emergency (ER) | payer MEDICARE, MEDICAID, SELFPAY ==
[2021-09-16 08:50] VITALS: PULSE 49; RESP 16; O2SAT 92; BMI 31.7
[2022-02-04 12:19] VITALS: BP 100/53; PULSE 98; RESP 16; O2SAT 92; BMI 32.9
--- NOTE | 2022-02-04 12:32 | DI.RAD.S_ITS ---
PROCEDURE: XR CHEST 1V INDICATIONS: suspected sepsis TECHNIQUE: One view of the chest was acquired. COMPARISON: [facility], CR, XR CHEST 1V, 08/25/2021, 14:48. [facility], CR, XR CHEST 1V, 08/05/2021, 19:26. FINDINGS: Surgical changes and devices: Surgical clips near the aortic arch, spine fusion surgery at the low thoracic spine extending below the imaging margin. Lungs and pleura: Lungs are mildly edematous, chronically. No pleural effusions or pneumothorax. Mediastinum: Mediastinal contours appear normal. Heart size is at or just above the upper limits of normal. Bones and chest wall: No suspicious bony lesions. Overlying soft tissues appear unremarkable. IMPRESSION: No definite focal pneumonia, chronic CHF pattern. Postsurgical change as discussed. Dictated by: Jose Raul Grimes M.D. on 02/04/2022 at 13:08 Approved by: Jose Raul Grimes M.D. on 02/04/2022 at 13:09
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
[2022-02-04 13:06] LABS: Add Manual Diff / Slide Review NO; Basophils Absolute Auto 0 /uL (0-100); Basophils Percent Auto 0.7 % (0-2); Eosinophils Absolute Auto 700 /uL (0-450); Eosinophils Percent Auto 13.9 % (2-4); Hematocrit 34.5 % (41-53); Hemoglobin 11.3 g/dL (13.5-17.5); Lymphocytes Absolute Auto 700 /uL (1100-4500); Lymphocytes Percent Auto 13.8 % (25-40); Mean Corpuscular HGB Conc 32.6 % (30-36); Mean Corpuscular Hemoglobin 29.3 PG (26-34); Mean Corpuscular Volume 89.9 fL (80-100); Monocytes Absolute Auto 500 /uL (0-900); Monocytes Percent Auto 9.6 % (3-14); Neutrophils Absolute Auto 3300 /uL (1500-7000); Platelet Count 213 X10^3/uL (150-400); Red Blood Cell Count 3.84 X10^6/uL (4.5-5.9); Red Cell Distribution Width 21.4 % (11.6-14.8); White Blood Cell Count 5.4 X10^3/uL (4.5-11.0)
[2022-02-04] MEDS: SODIUM CHLORIDE 0.9% 1,000 ML 1000 ML IV ×2 (13:07→14:57)
[2022-02-04 13:12] LABS: INR 2.9 (0.9-1.3); Prothrombin Time 33.9 SECONDS (10.1-12.7)
[2022-02-04 13:29] LABS: Alanine Aminotransferase 55 IU/L (<50); Albumin 3.8 g/dL (3.5-5.0); Albumin Globulin Ratio 0.8 (1.0-2.8); Alkaline Phosphatase 204 U/L (38-126); Aspartate Aminotransferase 57 IU/L (17-59); Bilirubin Total 0.7 mg/dL (0.2-1.3); Blood Urea Nitrogen 33 mg/dL (9-20); Calcium 9.3 mg/dL (8.4-10.2); Carbon Dioxide 30 mmol/L (22-32); Chloride 101 mmol/L (98-107); Estimated Glomerular Filt Rate > 60 mL/min (>60); Globulin 4.7 g/dL (1.7-4.1); Glucose 77 mg/dL (80-110); Lipase 137 U/L (23-300); Sodium 138 mmol/L (137-145); Total Protein 8.5 g/dL (6.3-8.2)
[2022-02-04 13:30] LABS: Lactate (Lactic Acid) 1.6 mmol/L (0.7-2.1); PTT Partial Thromboplastin Tim 72 SECONDS (26-36)
[2022-02-04 13:31] LABS: HEMOLYSIS 113 (0-50); Potassium 4.8 mmol/L (3.4-5.1)
[2022-02-04 13:46] LABS: Procalcitonin 0.06 ng/mL (<0.5)
[2022-02-04 13:49] VITALS: BP 105/56
[2022-02-04 14:06] LABS: Anisocytosis 1+; Target Cells 1+
[2022-02-04] MEDS: CIPROFLOXACIN 250 MG TABLET 750 MG PO (14:57)
[2022-02-04 14:59] LABS: Appearance Urine UA SL CLOUDY; Bilirubin Urine UA NEGATIVE (NEGATIVE); Color Urine UA YELLOW; Glucose Urine UA NEGATIVE (Negative); Ketones Urine UA NEGATIVE (NEGATIVE); Leukocyte Esterase Urine UA 2+ (NEGATIVE); Nitrite Urine UA POSITIVE (Negative); Occult Blood Urine UA 1+ (Negative); Protein Urine UA NEGATIVE (Negative); Specific Gravity Urine UA 1.015 (1.000-1.035); Urobilinogen Urine UA 0.2 E.U./dL (0.2); pH Urine UA 5.5 (4.5-8.0)
[2022-02-04 15:05] VITALS: BP 110/57; PULSE 90; RESP 16; O2SAT 97
[2022-02-04 15:30] LABS: Amorphous Sediment Urine 1+; Bacteria Urine Moderate (10-30); Mucus Urine 1+ (Negative); RBC Urine 1-5/HPF (0-5/HPF); Squamous Epithelial Cell Urine 1-5 /HPF (0-5/HPF); WBC Urine 30-100/HPF (0-5/HPF)
[2022-02-04 15:31] LABS: Culture Indicated Urine Specimen Cultured
--- NOTE | 2022-02-04 16:06 | PC.NURSE ---
Patient reports frequent urinary infections/colonizations. Sees urology for this and he is instructed to not be treated with antibiotics unless his caregivers notice decline in cognition and/or blood pressure.
[2022-02-04 16:13] VITALS: BP 91/63; PULSE 88; RESP 18; O2SAT 98
[2022-02-04 18:10] VITALS: BP 148/67; PULSE 82; RESP 18; O2SAT 100
== END 2022-02-04 18:11 | disposition home or self-care (01) ==
PROVIDERS: Emergency Provider Emergency Medicine; Family Provider Family Medicine; PCP Internal Medicine
DX: N39.0 Urinary tract infection, site not specified (principal); G82.50 Quadriplegia, unspecified; E86.0 Dehydration; R21 Rash and other nonspecific skin eruption
CPT/HCPCS: 36415; 71045; 80053; 81001; 83605; 83690; 84145; 85025; 85610; 85730; 87040; 87077; 87086; 87186; 96360; 96361; 99284

== ENCOUNTER → 2022-03-07 13:34 | Outpatient (CLI) | payer MEDICARE, MEDICAID, SELFPAY ==
[2021-09-16 08:50] VITALS: PULSE 49; RESP 16; O2SAT 92; BMI 31.7
[2022-03-07 14:34] LABS: BUN Creatinine Ratio 40.6 (6-22); Blood Urea Nitrogen 28 mg/dL (9-20); Calcium 9.9 mg/dL (8.4-10.2); Carbon Dioxide 34 mmol/L (22-32); Chloride 99 mmol/L (98-107); Estimated Glomerular Filt Rate > 60 mL/min (>60); Glucose 91 mg/dL (80-110); HEMOLYSIS < 15 (0-50); Potassium 4.1 mmol/L (3.4-5.1); Sodium 140 mmol/L (137-145)
== END ==
PROVIDERS: Family Provider Family Medicine; PCP Internal Medicine; Referring Provider Internal Medicine; Visit Provider Internal Medicine
DX: E87.1 Hypo-osmolality and hyponatremia (principal)
CPT/HCPCS: 36415; 80048

== ENCOUNTER → 2022-03-16 17:09 | Outpatient (CLI) | payer MEDICARE, MEDICAID, SELFPAY ==
[2021-09-16 08:50] VITALS: PULSE 49; RESP 16; O2SAT 92; BMI 31.7
[2022-03-16 19:04] LABS: Bilirubin Urine UA NEGATIVE (NEGATIVE); Color Urine UA YELLOW; Glucose Urine UA NEGATIVE (Negative); Ketones Urine UA NEGATIVE (NEGATIVE); Leukocyte Esterase Urine UA 3+ (NEGATIVE); Nitrite Urine UA NEGATIVE (Negative); Occult Blood Urine UA 3+ (Negative); Protein Urine UA TRACE (Negative); Specific Gravity Urine UA 1.015 (1.000-1.035); Urobilinogen Urine UA 0.2 E.U./dL (0.2)
[2022-03-16 19:08] LABS: Appearance Urine UA Slightly Cloudy
[2022-03-16 19:24] LABS: Amorphous Sediment Urine 1+; Bacteria Urine Moderate (10-30); Culture Indicated Urine Specimen Cultured; RBC Urine 10-30/HPF (0-5/HPF); Squamous Epithelial Cell Urine 1-5 /HPF (0-5/HPF); WBC Urine 30-100/HPF (0-5/HPF)
== END ==
PROVIDERS: Family Provider Family Medicine; PCP Internal Medicine; Referring Provider Internal Medicine; Visit Provider Internal Medicine
DX: N39.0 Urinary tract infection, site not specified (principal)
CPT/HCPCS: 81001; 87077; 87086; 87147; 87185; 87186

== ENCOUNTER → 2022-03-31 13:15 | Outpatient (CLI) | payer MEDICARE, MEDICAID, SELFPAY ==
[2021-09-16 08:50] VITALS: PULSE 49; RESP 16; O2SAT 92; BMI 31.7
== END ==
PROVIDERS: Family Provider Family Medicine; PCP Internal Medicine; Referring Provider Family Medicine; Visit Provider Surgery
DX: L89.523 Pressure ulcer of left ankle, stage 3 (principal); G82.50 Quadriplegia, unspecified
CPT/HCPCS: 99213

== ENCOUNTER → 2022-07-06 15:59 | Outpatient (CLI) | payer MEDICARE, MEDICAID, SELFPAY ==
[2022-06-24 11:54] VITALS: PULSE 49; RESP 16; O2SAT 92; BMI 31.7
[2022-07-06 17:19] LABS: Appearance Urine UA CLEAR; Bilirubin Urine UA NEGATIVE (NEGATIVE); Color Urine UA YELLOW; Glucose Urine UA NEGATIVE (Negative); Ketones Urine UA NEGATIVE (NEGATIVE); Leukocyte Esterase Urine UA 1+ (NEGATIVE); Nitrite Urine UA NEGATIVE (Negative); Occult Blood Urine UA NEGATIVE (Negative); Protein Urine UA NEGATIVE (Negative); Urobilinogen Urine UA 0.2 E.U./dL (0.2)
[2022-07-06 17:31] LABS: Bacteria Urine Occasional (0-1); Culture Indicated Urine Cult Not Indicated; RBC Urine 0-1/HPF (0-5/HPF); Squamous Epithelial Cell Urine None Seen (0-5/HPF); WBC Urine 0-1/HPF (0-5/HPF)
[2022-07-06 17:57] LABS: Hematocrit 41.1 % (41-53); Hemoglobin 13.7 g/dL (13.5-17.5); Mean Corpuscular HGB Conc 33.4 % (30-36); Mean Corpuscular Hemoglobin 31.8 PG (26-34); Mean Corpuscular Volume 95.2 fL (80-100); Platelet Count 158 X10^3/uL (150-400); Red Blood Cell Count 4.32 X10^6/uL (4.5-5.9); Red Cell Distribution Width 19.8 % (11.6-14.8); White Blood Cell Count 4.7 X10^3/uL (4.5-11.0)
[2022-07-06 18:56] LABS: HEMOLYSIS 445 (0-50)
== END ==
PROVIDERS: Family Provider Family Medicine; PCP Internal Medicine; Referring Provider Internal Medicine; Visit Provider Internal Medicine
DX: R31.9 Hematuria, unspecified (principal); R39.9 Unspecified symptoms and signs involving the genitourinary system; E87.1 Hypo-osmolality and hyponatremia; R41.82 Altered mental status, unspecified
CPT/HCPCS: 36415; 80048; 81001; 85027

== ENCOUNTER → 2022-07-07 10:00 | Outpatient (CLI) | payer MEDICARE, MEDICAID, SELFPAY ==
[2022-06-24 11:54] VITALS: PULSE 49; RESP 16; O2SAT 92; BMI 31.7
[2022-07-07 11:23] LABS: BUN Creatinine Ratio 49.3 (6-22); Blood Urea Nitrogen 35 mg/dL (9-20); Calcium 10.2 mg/dL (8.4-10.2); Carbon Dioxide 33 mmol/L (22-32); Chloride 100 mmol/L (98-107); Estimated Glomerular Filt Rate > 60 mL/min (>60); Glucose 74 mg/dL (80-110); HEMOLYSIS < 15 (0-50); Potassium 4.3 mmol/L (3.4-5.1); Sodium 140 mmol/L (137-145)
== END ==
PROVIDERS: Family Provider Family Medicine; PCP Internal Medicine; Referring Provider Internal Medicine; Visit Provider Internal Medicine
DX: D72.829 Elevated white blood cell count, unspecified (principal); E87.1 Hypo-osmolality and hyponatremia
CPT/HCPCS: 36415; 80048

== ENCOUNTER → 2022-09-21 11:42 | Outpatient (CLI) | payer MEDICARE, MEDICAID, SELFPAY ==
[2022-06-24 11:54] VITALS: PULSE 49; RESP 16; O2SAT 92; BMI 31.7
[2022-09-21 11:56] LABS: Appearance Urine UA CLEAR; Bilirubin Urine UA NEGATIVE (NEGATIVE); Color Urine UA YELLOW; Glucose Urine UA NEGATIVE (Negative); Ketones Urine UA NEGATIVE (NEGATIVE); Leukocyte Esterase Urine UA 3+ (NEGATIVE); Nitrite Urine UA NEGATIVE (Negative); Occult Blood Urine UA 3+ (Negative); Protein Urine UA 2+ (Negative)
[2022-09-21 12:05] LABS: Bacteria Urine Moderate (10-30); RBC Urine 10-30/HPF (0-5/HPF); Squamous Epithelial Cell Urine 5-10 /HPF (0-5/HPF); WBC Urine >100/HPF (0-5/HPF)
[2022-09-21 12:06] LABS: Culture Indicated Urine Specimen Cultured
== END ==
PROVIDERS: Family Provider Family Medicine; PCP Internal Medicine; Referring Provider Internal Medicine; Visit Provider Internal Medicine
DX: R30.0 Dysuria (principal)
CPT/HCPCS: 81001; 87077; 87086; 87186

== ENCOUNTER → 2022-11-08 09:13 | Outpatient (CLI) | payer MEDICARE, MEDICAID, SELFPAY ==
[2022-11-07 17:53] VITALS: PULSE 49; RESP 16; O2SAT 92; BMI 31.7
[2022-11-08 11:08] LABS: Appearance Urine UA CLOUDY; Bilirubin Urine UA NEGATIVE (NEGATIVE); Color Urine UA YELLOW; Glucose Urine UA NEGATIVE (Negative); Ketones Urine UA NEGATIVE (NEGATIVE); Leukocyte Esterase Urine UA 3+ (NEGATIVE); Nitrite Urine UA NEGATIVE (Negative); Occult Blood Urine UA 3+ (Negative); Protein Urine UA 1+ (Negative)
[2022-11-08 11:23] LABS: Bacteria Urine Moderate (10-30); Culture Indicated Urine Specimen Cultured; RBC Urine 10-30/HPF (0-5/HPF); Squamous Epithelial Cell Urine 5-10 /HPF (0-5/HPF); Transitional Epi Cells Urine 1-5/HPF (0-5/HPF); WBC Urine 30-100/HPF (0-5/HPF)
== END ==
PROVIDERS: Family Provider Family Medicine; PCP Internal Medicine; Referring Provider Internal Medicine; Visit Provider Internal Medicine
DX: N39.0 Urinary tract infection, site not specified (principal); R33.9 Retention of urine, unspecified
CPT/HCPCS: 81001; 87077; 87086; 87186

== ENCOUNTER → 2022-11-17 09:29 | Outpatient (CLI) | payer MEDICARE, MEDICAID, SELFPAY ==
[2022-11-07 17:53] VITALS: PULSE 49; RESP 16; O2SAT 92; BMI 31.7
[2022-11-17 09:39] LABS: Appearance Urine UA CLEAR; Bilirubin Urine UA NEGATIVE (NEGATIVE); Color Urine UA YELLOW; Glucose Urine UA NEGATIVE (Negative); Ketones Urine UA NEGATIVE (NEGATIVE); Leukocyte Esterase Urine UA 3+ (NEGATIVE); Nitrite Urine UA NEGATIVE (Negative); Occult Blood Urine UA 2+ (Negative); Protein Urine UA TRACE (Negative); Urobilinogen Urine UA 0.2 E.U./dL (0.2)
[2022-11-17 09:53] LABS: Bacteria Urine Moderate (10-30); RBC Urine 5-10/HPF (0-5/HPF); Squamous Epithelial Cell Urine 5-10 /HPF (0-5/HPF); Transitional Epi Cells Urine 1-5/HPF (0-5/HPF); WBC Urine >100/HPF (0-5/HPF); White Blood Cell Casts Urine 5-10/LPF
[2022-11-17 09:54] LABS: Culture Indicated Urine Specimen Cultured
== END ==
PROVIDERS: Family Provider Family Medicine; PCP Internal Medicine; Referring Provider Internal Medicine; Visit Provider Internal Medicine
DX: N39.0 Urinary tract infection, site not specified (principal); R82.90 Unspecified abnormal findings in urine
CPT/HCPCS: 81001; 87077; 87086; 87186

== ENCOUNTER → 2022-12-13 12:02 | Outpatient (CLI) | payer MEDICARE, MEDICAID, SELFPAY ==
[2022-11-07 17:53] VITALS: PULSE 49; RESP 16; O2SAT 92; BMI 31.7
--- NOTE | 2022-12-13 | DI.US.S_ITS ---
PROCEDURE: US RENAL COMPLETE INDICATIONS: urinary calculi TECHNIQUE: Real-time scanning was performed of the kidneys and bladder, with image documentation. COMPARISON: None. FINDINGS: Kidneys: Kidneys are normal in size. Right kidney measures 9.0 cm long; left kidney measures 11.2 cm long. Right renal cortical thickness is 1.5 cm; left renal cortical thickness is 1.4 cm. Nonobstructing right renal calculi measures up to 8 mm. No hydronephrosis. Small right renal cortical cysts measures to 1.8 cm. Several left renal calculi are also noted without hydronephrosis, largest measures 5 mm. No suspicious solid mass lesions. Bladder: Unremarkable. Miscellaneous: No free pelvic fluid. IMPRESSION: Nonobstructing bilateral renal calculi without hydronephrosis. Approved by: Finn Gutierrez M.D. on 12/13/2022 at 17:02
== END ==
PROVIDERS: Family Provider Family Medicine; PCP Internal Medicine; Referring Provider Urology; Visit Provider Urology
DX: Z87.442 Personal history of urinary calculi (principal); N20.0 Calculus of kidney
CPT/HCPCS: 76770

== ENCOUNTER → 2022-12-28 16:05 | Outpatient (CLI) | payer MEDICARE, MEDICAID, SELFPAY ==
[2022-11-07 17:53] VITALS: PULSE 49; RESP 16; O2SAT 92; BMI 31.7
[2022-12-28 16:49] LABS: Hematocrit 43.1 % (41-53); Hemoglobin 14.4 g/dL (13.5-17.5); Mean Corpuscular HGB Conc 33.5 % (30-36); Mean Corpuscular Hemoglobin 33.3 PG (26-34); Mean Corpuscular Volume 99.3 fL (80-100); Platelet Count 257 X10^3/uL (150-400); Red Blood Cell Count 4.33 X10^6/uL (4.5-5.9); Red Cell Distribution Width 16.3 % (11.6-14.8); White Blood Cell Count 5.1 X10^3/uL (4.5-11.0)
[2022-12-28 17:26] LABS: Alanine Aminotransferase 43 IU/L (<50); Albumin 4.1 g/dL (3.5-5.0); Alkaline Phosphatase 104 U/L (38-126); Aspartate Aminotransferase 37 IU/L (17-59); BUN Creatinine Ratio 49.3 (6-22); Bilirubin Total 0.5 mg/dL (0.2-1.3); Blood Urea Nitrogen 35 mg/dL (9-20); Calcium 9.9 mg/dL (8.4-10.2); Carbon Dioxide 26 mmol/L (22-32); Chloride 104 mmol/L (98-107); Cholesterol 188 mg/dL (140-199); Estimated Glomerular Filt Rate > 60 mL/min (>60); Globulin 4.2 g/dL (1.7-4.1); Glucose 136 mg/dL (80-110); HDL Cholesterol 43 mg/dL (40-60); HEMOLYSIS < 15 (0-50); LDL Cholesterol Calculated 120 mg/dL (<100); Potassium 3.5 mmol/L (3.4-5.1); Sodium 141 mmol/L (137-145); Total Protein 8.3 g/dL (6.3-8.2); Triglycerides 126 mg/dL (35-150)
[2022-12-28 17:56] LABS: Prostate Specific Antigen Scrn 1.24 ng/mL (0.1-4.0)
== END ==
PROVIDERS: Family Provider Family Medicine; PCP Internal Medicine; Referring Provider Internal Medicine; Visit Provider Internal Medicine
DX: E78.2 Mixed hyperlipidemia (principal); I10 Essential (primary) hypertension; Z12.5 Encounter for screening for malignant neoplasm of prostate
CPT/HCPCS: 80053; 80061; 85027; G0103

== ENCOUNTER → 2022-12-29 09:39 | Outpatient (CLI) | payer MEDICARE, MEDICAID, SELFPAY ==
[2022-11-07 17:53] VITALS: PULSE 49; RESP 16; O2SAT 92; BMI 31.7
[2022-12-29 11:04] LABS: Appearance Urine UA SL CLOUDY; Bilirubin Urine UA NEGATIVE (NEGATIVE); Color Urine UA YELLOW; Glucose Urine UA NEGATIVE (Negative); Ketones Urine UA NEGATIVE (NEGATIVE); Leukocyte Esterase Urine UA 3+ (NEGATIVE); Nitrite Urine UA POSITIVE (Negative); Occult Blood Urine UA 2+ (Negative); Protein Urine UA 2+ (Negative)
[2022-12-29 11:15] LABS: Bacteria Urine Many (>30); Culture Indicated Urine Specimen Cultured; RBC Urine 30-100/HPF (0-5/HPF); Squamous Epithelial Cell Urine 1-5 /HPF (0-5/HPF); Transitional Epi Cells Urine 1-5/HPF (0-5/HPF); Urine Comments Low Volume (<10mL); WBC Urine >100/HPF (0-5/HPF)
== END ==
PROVIDERS: Family Provider Family Medicine; PCP Internal Medicine; Referring Provider Internal Medicine; Visit Provider Internal Medicine
DX: N39.0 Urinary tract infection, site not specified (principal)
CPT/HCPCS: 81001; 87077; 87086; 87186

== ENCOUNTER 2023-01-23 10:13 | Inpatient (IN) | payer MEDICARE, MEDICAID, SELFPAY ==
[2022-11-07 17:53] VITALS: PULSE 49; RESP 16; O2SAT 92; BMI 31.7
[2023-01-23] VITALS (97 sets, daily range): BP systolic 69–185; BP diastolic 36–114; PULSE 91–109; RESP 16–29; TEMP 34.6–36.8; O2SAT 92–98; BMI 35.6
--- NOTE | 2023-01-23 10:47 | DI.RAD.S_ITS ---
PROCEDURE: XR CHEST 1V INDICATIONS: sepsis TECHNIQUE: One view of the chest was acquired. COMPARISON: [facility], CR, XR CHEST 1V, 02/04/2022, 12:46. FINDINGS: Surgical changes and devices: Thoracolumbar fixation rods are partially visualized. Lungs and pleura: Hazy appearance of bibasilar opacities with blunting of the costophrenic angles, left greater than right. Mediastinum: Mediastinal contours appear normal. Heart size is enlarged. Bones and chest wall: No suspicious bony lesions. Overlying soft tissues appear unremarkable. IMPRESSION: Hazy appearance of bibasilar opacities suggestive of mild effusions. Underlying areas of edema and/or atelectasis or developing pneumonia cannot be definitively excluded. Dictated by: Felicity Mercado M.D. on 01/23/2023 at 11:47 Approved by: Felicity Mercado M.D. on 01/23/2023 at 11:49
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
[2023-01-23] MEDS: SODIUM CHLORIDE 0.9% 1,000 ML 1000 ML IV ×3 (11:30→15:05)
[2023-01-23 11:41] LABS: Add Manual Diff / Slide Review NO; Basophils Absolute Auto 0 /uL (0-100); Basophils Percent Auto 0.1 % (0-2); Eosinophils Absolute Auto 0 /uL (0-450); Eosinophils Percent Auto 0.2 % (2-4); Hematocrit 42.6 % (41-53); Lymphocytes Absolute Auto 100 /uL (1100-4500); Lymphocytes Percent Auto 1.4 % (25-40); Mean Corpuscular HGB Conc 32.9 % (30-36); Mean Corpuscular Hemoglobin 33.3 PG (26-34); Monocytes Absolute Auto 200 /uL (0-900); Monocytes Percent Auto 1.6 % (3-14); Neutrophils Absolute Auto 9400 /uL (1500-7000); Neutrophils Percent Auto 96.7 % (50-75); Platelet Count 196 X10^3/uL (150-400); Red Blood Cell Count 4.22 X10^6/uL (4.5-5.9); Red Cell Distribution Width 16.2 % (11.6-14.8); White Blood Cell Count 9.8 X10^3/uL (4.5-11.0)
--- NOTE | 2023-01-23 11:46 | PC.NURSE ---
Addendum entered by Beto Velasco R.N. 01/23/23 12:05: Provider asked this RN to pressure bag last bag and it was completed and patient blood pressure dropped. This RN informed provider and received another 1000ml bag order to pressure bag. Second bag started 1203. 1st bag stopped 1158. Original Note: Due to patient low blood pressures provider asked for 1000ml bag at 1000ml/hr. Unable to record in MAR at this time due to computer error. Fluid started at 1130.
[2023-01-23 11:48] LABS: INR 2.6 (0.9-1.3); Prothrombin Time 30.4 SECONDS (10.1-12.7)
[2023-01-23 11:54] LABS: Alanine Aminotransferase 47 IU/L (<50); Albumin 3.7 g/dL (3.5-5.0); Alkaline Phosphatase 94 U/L (38-126); Aspartate Aminotransferase 46 IU/L (17-59); BUN Creatinine Ratio 31.7 (6-22); Bilirubin Total 0.8 mg/dL (0.2-1.3); Blood Urea Nitrogen 33 mg/dL (9-20); Calcium 10.1 mg/dL (8.4-10.2); Carbon Dioxide 25 mmol/L (22-32); Chloride 102 mmol/L (98-107); Creatine Kinase 20 U/L (55-170); Estimated Glomerular Filt Rate > 60 mL/min (>60); Globulin 3.8 g/dL (1.7-4.1); Glucose 87 mg/dL (80-110); HEMOLYSIS < 15 (0-50); Potassium 3.4 mmol/L (3.4-5.1); Sodium 135 mmol/L (137-145); Total Protein 7.5 g/dL (6.3-8.2)
[2023-01-23 11:56] LABS: Lactate (Lactic Acid) 3.3 mmol/L (0.7-2.1)
[2023-01-23 12:04] LABS: PTT Partial Thromboplastin Tim 49 SECONDS (26-36)
[2023-01-23 12:06] LABS: NT-proBNP (BNP-Adult 18+) 1050 pg/mL (<125); Troponin I < 0.012 ng/mL (0.01-0.034)
[2023-01-23 12:09] LABS: COVID19 -Nasal RAPID Negative (Negative)
[2023-01-23 12:11] LABS: Procalcitonin 10.4 ng/mL (<0.5)
--- NOTE | 2023-01-23 12:44 | PC.NURSE ---
Patient moved rooms to Room one at 1235.
[2023-01-23] MEDS: HYDROCORTISONE 100 MG/2 ML VIAL IV (12:45)
[2023-01-23] MEDS: NOREPINEPHRINE BITARTRATE/D5W 4 MG/250 ML PLAST..BAG 52.56 MG IV (12:45)
[2023-01-23] MEDS: levoFLOXacin 750 MG/150 ML PIGGYBACK 100 MG IV (12:45)
--- NOTE | 2023-01-23 13:21 | PC.NURSE ---
Patient blood pressure was 131/98 due to the norepinephrine. Discussed with provider and titrated down to 0.08mcg/kg/min. Patient rate changed to 42ml/hr and changed in the MAR.
[2023-01-23 13:35] LABS: Amorphous Sediment Urine 2+; Appearance Urine UA CLOUDY; Bacteria Urine Moderate (10-30); Color Urine UA YELLOW; RBC Urine 5-10/HPF (0-5/HPF); Renal Epithelial Cells Urine 0-1/HPF (0-1/HPF); Squamous Epithelial Cell Urine 5-10 /HPF (0-5/HPF); Transitional Epi Cells Urine 5-10/HPF (0-5/HPF); WBC Urine >100/HPF (0-5/HPF); White Blood Cell Casts Urine 5-10/LPF
[2023-01-23 13:35] LABS: Reflexed Lactate in 2 Hours Y
[2023-01-23 13:36] LABS: Culture Indicated Urine Specimen Cultured
[2023-01-23 13:37] LABS: Urine Comments Low Volume (<10mL)
--- NOTE | 2023-01-23 13:42 | DI.CT.S_ITS ---
PROCEDURE: CT ABDOMEN PELVIS WO CON (CT KUB) INDICATIONS: DECREASED URINE, HX RENAL STONES TECHNIQUE: Noncontrast 5 mm thick sections acquired from the diaphragms to the symphysis. 5 mm coronal and sagittal reformats were then performed. For radiation dose reduction, the following was used: automated exposure control, adjustment of mA and/or kV according to patient size. COMPARISON: [facility], CT, CT KUB, 01/03/2023, 14:25. , CT, CT ABDOMEN PELVIS WO CON, 06/25/2021, 9:52. FINDINGS: Image quality: Excellent. ABDOMEN: Lung bases: [id number] bilateral pleural effusions and compressive bibasilar atelectasis. Heart size is normal. Right kidney: 3 mm nonobstructing right renal stone. No hydronephrosis. Right ureter: Unremarkable. Left kidney: 3 mm nonobstructing renal stone. No hydronephrosis. Left ureter: Unremarkable. Bladder: A Patel is in place, decompressing the bladder. Other solid organs: Liver is normal in size. Gallbladder is unremarkable. . Pancreas is normal in contours. Question remote splenectomy with splenosis. No adrenal nodules. Peritoneum and bowel: Unenhanced bowel loops demonstrate normal wall thickness and caliber. No free fluid or air. Nodes and vessels: No retroperitoneal or mesenteric adenopathy by size criteria. Aorta and inferior vena cava are normal in caliber. Miscellaneous: No ventral hernias. PELVIS: Genitourinary: A Patel catheter decompresses the bladder. Miscellaneous: No inguinal hernias or adenopathy. Again noted is a large thick-walled fluid collection extending from the inferior aspect of the top of the right iliac bone down anterior to the proximal shaft of right femur. It has some calcification within it. 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 It is unchanged over an extended period of time. Bones: Extensive orthopedic fixation of the thoracolumbar spine, with fixation screws extending from T9 through the sacrum as well as SI joint screws. No obvious evidence of hardware failure or loosening. No suspicious bony lesions. No vertebral body compression fractures. Calcifications or ossifications within the thecal sac. This is not significantly changed. IMPRESSION: 1. There are small bilateral nonobstructing renal stones. There is no hydronephrosis. 2. No acute abdominal process identified. 3. [id number] bilateral pleural effusions and compressive bibasilar atelectasis. 4. Incidental longstanding tubular thick-walled fluid collection extending from the right iliac wing to the right hip, likely representing sequelae of remote trauma or bursitis. Dictated by: Aj Rosado M.D. on 01/23/2023 at 15:04 Approved by: Aj Rosado M.D. on 01/23/2023 at 15:18
--- NOTE | 2023-01-23 14:07 | DI.RAD.S_ITS ---
PROCEDURE: XR CHEST FOR PICC 1V INDICATIONS: line placement COMPARISON: [facility], CR, XR CHEST 1V, 01/23/2023, 11:11. FINDINGS: PICC was placed by the intravenous therapy team from the left side. Fluoroscopic spot film demonstrates the tip of PICC projecting to the area of distal SVC. Extensive bilateral pulmonary infiltrates are unchanged. IMPRESSION: Tip of PICC projects to the area of distal SVC. Dictated by: Aj Rosado M.D. on 01/23/2023 at 15:03 Approved by: Aj Rosado M.D. on 01/23/2023 at 15:03
[2023-01-23 14:20] LABS: Lactate 2HR (Lactic Acid Rflx) 3.6 mmol/L (0.7-2.1)
--- NOTE | 2023-01-23 14:54 | PC.NURSE ---
Patient has had 40 years of straight catheter by caregivers. 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 Caregiver informed us that it is known and has been that way for years. Provider informed.
--- NOTE | 2023-01-23 15:14 | PC.NURSE ---
This nurse informed provider of low urinary output since catheter placement. Provider ordered abdomen and pelvis CT. Strict I&O have been recorded thus far for this patient.
[2023-01-23 16:05] LABS: Lactate (Lactic Acid) 3.1 mmol/L (0.7-2.1)
[2023-01-23 17:53] LABS: Reflexed Lactate in 2 Hours Y
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
[2023-01-23] MEDS: NOREPINEPHRINE BITARTRATE/D5W 4 MG/250 ML PLAST..BAG 36.792 MG IV (18:41)
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
[2023-01-23 18:45] LABS: Lactate 2HR (Lactic Acid Rflx) 1.8 mmol/L (0.7-2.1)
[2023-01-23] MEDS: VANCOMYCIN 1,250 MG/250 ML PIGGYBACK 250 MG IV (18:55)
--- NOTE | 2023-01-23 19:49 | PC.NURSE ---
Admit: Pt admitted to room 228 at approximately 1715, norepineprine drip as documented (See MAR). Pt alert to self, situation, unsure of date or year. Admission assessment completed with help of caregiver and sister in law. Tachycardic, BP stable on norepi. Call light within reach and pt able to use. Alarm active. Care ongoing.
[2023-01-23] MEDS: AMIODARONE 150 MG/100 ML PIGGYBACK 600 MG IV (20:29)
[2023-01-23] MEDS: AMIODARONE 360 MG/200 ML PIGGYBACK 33.333 MG IV (20:31)
--- NOTE | 2023-01-23 20:44 | PC.NURSE ---
Addendum entered by Hannah Baltazar R.N. 01/23/23 20:45: sacral skin tear; surrounding skin blanchable; allevyn dressing applied Original Note:
[2023-01-23] MEDS: PIPERACILLIN/TAZO 3.375 GM in SODIUM CHLORIDE 0.9% 100 ML IV (21:43)
[2023-01-24] VITALS (122 sets, daily range): BP systolic 78–138; BP diastolic 46–97; PULSE 88–174; RESP 13–31; TEMP 35.1–37; O2SAT 90–96
[2023-01-24] MEDS: NOREPINEPHRINE BITARTRATE/D5W 4 MG/250 ML PLAST..BAG 31.536 MG IV (01:22)
[2023-01-24 01:23] LABS: MRSA (Nasal) PCR Not Detected (Not Detect)
[2023-01-24] MEDS: AMIODARONE 360 MG/200 ML PIGGYBACK 16.667 MG IV ×2 (02:11→13:44)
[2023-01-24] MEDS: VANCOMYCIN 1,250 MG/250 ML PIGGYBACK 250 MG IV ×3 (03:02→18:23)
[2023-01-24] MEDS: PIPERACILLIN/TAZO 3.375 GM in SODIUM CHLORIDE 0.9% 100 ML IV ×3 (05:21→20:40)
[2023-01-24 05:44] LABS: INR 2.7 (0.9-1.3); Prothrombin Time 30.9 SECONDS (10.1-12.7)
[2023-01-24 05:48] LABS: Blood Urea Nitrogen 32 mg/dL (9-20); Calcium 9.5 mg/dL (8.4-10.2); Carbon Dioxide 23 mmol/L (22-32); Chloride 102 mmol/L (98-107); Estimated Glomerular Filt Rate > 60 mL/min (>60); Glucose 97 mg/dL (80-110); HEMOLYSIS < 15 (0-50); Potassium 3.9 mmol/L (3.4-5.1); Sodium 134 mmol/L (137-145)
[2023-01-24 05:57] LABS: NT-proBNP (BNP-Adult 18+) 1600 pg/mL (<125)
--- NOTE | 2023-01-24 06:58 | PC.NURSE ---
Pt has had a restful night; he has been on his home cpap which he tolerates well; he is currently on norepinephrine at 0.06mcg/kg/min and amiodarone at 16.7ml/hr
[2023-01-24 08:53] LABS: Magnesium 1.7 mg/dL (1.6-2.3)
[2023-01-24] MEDS: NOREPINEPHRINE BITARTRATE/D5W 4 MG/250 ML PLAST..BAG 21.024 MG IV (09:03)
[2023-01-24] MEDS: FUROSEMIDE 40 MG/4 ML VIAL IV ×2 (09:08→15:24)
[2023-01-24] MEDS: AMIODARONE 150 MG/100 ML PIGGYBACK 600 MG IV (09:08)
--- NOTE | 2023-01-24 09:15 | CM.DANOTE ---
Patient is a 62 yo male who was admitted on 01/23/23 for confusion/fever. Pt has [facility] for [facility] and his PCP is Dr. Arnie Gomez. EMR was reviewed. Per MD, pt has a hx of paraplegia and w/c bound at baseline and admitted for UTI, sepsis, bilateral PEs. Pt has home CPAP at baseline. Pt currently getting IV-Abx and seems to be improving. SW met bedside with pt and explained role and pt somewhat difficult to understand due to a slight slurring of words at baseline but pt able to confirm he lives in [place] with brother/KASHMIR Ponce and has [facility] CGs each day for breakfast time and dinner time to assist him by preparing meals and pt is able to feed himself. Pt states he is able to do transfers to and from his w/c by himself as well and they use a bus for transportation to appointments. Pt denies any current HH services in place and cannot remember his [facility] CM name. SW called [facility] office [phone] and confirmed pt's [facility] CM is Wen Paul and faxed H&P to [facility] to review for pt's admission to the hospital. Plan: SW to follow closely to confirm safe plan of d/c back home with brother support and [facility] CGs and any further identified discharge planning needs. ITALO Ford Discharge Planning/Care Management CM Discharge Assessment Start: 01/24/23 09:12 Freq: Status: Active Protocol: Document 01/24/23 09:12 BF (Rec: 01/24/23 09:14 [id number]) Discharge Planning Assessment Assigned Car Electronics Installer ITALO Mercado/Assigned Designee Name brother Kris Contact Information [phone] Advance Directives? No Advance Directives on File No History Provided By Patient,Family Member,Medical Record Has Patient been admitted in last 30 No days? Prior Living Arrangements House Household Members family Type of transporation used prior to Relies on Others admit Independent with ADL's No: paraplegia Is patient alert and oriented? Yes Needs Assistance With Bathing,Meal Prep,Managing Medications,Home Chores / Shopping Caregiver for Another No Comment Has [facility] C[facility] DME Already Rented / Owned Wheelchair Patient/Family Preference Home with Home Health Comment r/o HH Barriers to Discharge No Discharge Plan Home Transportation Arrangement Likely brother or CG Additional Comment r/o HH Whiteboard Updated in Patient Room with Yes name and ext. # of Car Electronics Installer Review Status In Process Please Provide Date Initial DC 01/24/23 Assessment Was Performed Next Review Type Continued Stay Review
[2023-01-24] MEDS: MAGNESIUM SULFATE 2 GM/50 ML PIGGYBACK IV (10:17)
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
--- NOTE | 2023-01-24 14:32 | PC.NURSE ---
Addendum entered by Ana Giang R.N. 01/24/23 16:55: Called tele-ICU provider mid-afternoon due to no labs ordered for tomorrow am except PT/INR. Tele-ICU provider gave verbal orders for CBC, BMP, and Mg. Also ordered another 40mg lasix IV dose since pt was still edematous, has good urine output and appropriate kidney function. After reading tele-mule spinner note which included TTE and checking orders, clarified that provider wanted TTE (non had been ordered). Original Note: In am, pt went into Afib RVR, HR up to 170s, Pt asymptomatic. Tele ICU provider ordered amio bolus, which brought HR back to 90s SR. Called tele mule spinner about continuing the amio infusion 16.7ml/hr around 1230 and ICU provider said to keep it going for another 24h.
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
--- NOTE | 2023-01-24 16:48 | DI.ECHO.S_ITS ---
[facility] +---------+ Hospital +---------+ : : [address] : [place] : : : : [id number] : : : : Phone: [phone] Echocardiogram Report + + :Name: NICOLAS WINSTON Study Date: 01/25/2023 Height: 78 in : :[facility] ReadingLocation: Weight: 309 lb : : Gender: Male BSA: 2.7 m2 : :: 1960 Age: 62 yrs BP: 131/61 mmHg: :Reason For Study: ATRIAL FIBRILLATION : :Ordering Physician: LYNN, : :RICHARD Performed By: Mayra Nagel : :Referring: RICHARD BAILEY : + + Interpretation Summary The ejection fraction is estimated to be 60-65%. Diastolic function could not be accurately assessed due to unobtainable data. The left atrium is small. Suspect external compression of the left atrium. The right ventricle is not well visualized. There is mild tricuspid regurgitation. The right ventricular systolic pressure is estimated to be at least 38 mmHg based on an estimated right atrial pressure of 8 mm Hg. Result discussed with Dr. Wang. Procedure: A two-dimensional transthoracic echocardiogram with color flow and Doppler was performed. Comparison is made with the echocardiogram of 09/12/2018. The study quality was technically difficult. A contrast injection of Definity was performed to improve assessment of LV function. The heart rate ranged between 90-91 bpm during the study. Left Ventricle: The left ventricle is normal in size and wall thickness. The ejection fraction is estimated to be 60-65%. Diastolic function could not be accurately assessed due to unobtainable data. Right Ventricle: The right ventricle is not well visualized. Atria: The left atrium is not well visualized. The left atrium is small. Echo lucency near the left atrium. Right atrium not well visualized. Mitral Valve: The mitral valve leaflets appear borderline thickened, but open well. There is trace mitral regurgitation. Aortic Valve: The aortic valve is trileaflet. The aortic valve opens well. There is no aortic valve stenosis. No aortic regurgitation is present. Tricuspid Valve: The tricuspid valve is not well visualized, but is grossly normal. There is mild tricuspid regurgitation. The right ventricular systolic pressure is estimated to be at least 38 mmHg based on an estimated right atrial pressure of 8 mm Hg. Pulmonic Valve: The pulmonic valve is not well seen, but is grossly normal. There is no pulmonic valvular regurgitation. Great Vessels: The aortic root is normal size. The ascending aorta could not be visualized. The IVC is of normal diameter and collapses less than 50% with a sniff. This suggests a right atrial pressure of 8 mm Hg. Pericardium/ Pleura There is no pericardial effusion. There is no pleural effusion. MMode/2D Measurements & Calculations LVIDd: 4.5 cm LVOT diam: 2.2 cm LVIDs: 3.1 cm Ao root diam: 3.3 cm FS: 31.5 % IVSd: 1.2 cm LVPWd: 1.0 cm LV ferrera. diameter/BSA (cm/m^2): 1.6 LV sys. diameter/BSA (cm/m^2): 1.1 IVC diam: 1.8 cm Doppler Measurements & Calculations Ao V2 max: 82.3 cm/sec LVOT Max Cameron: 61.7 cm/sec Ao V2 mean: 60.1 cm/sec LV V1 max P.5 mmHg Ao max P.7 mmHg LV V1 VTI: 9.7 cm Ao mean P.6 mmHg TAINA(I,D): 2.4 cm2 Ao V2 VTI: 15.3 cm TAINA(V,D): 2.8 cm2 sev ratio: 0.63 TAINA indexed to BSA (cm^2/m^2): 0.87 Med Peak E' Cameron: 8.5 cm/sec TR max cameron: 274.1 cm/sec Lat Peak E' Cameron: 9.1 cm/sec TR max P.0 mmHg MVA(VTI): 1.9 cm2 PA V2 max: 74.1 cm/sec PA V2 mean: 51.7 cm/sec PA mean P.2 mmHg PA pr(Accel): 51.6 mmHg MV V2 mean: 65.1 cm/sec SV(LVOT): 35.9 ml MV mean P.1 mmHg MV V2 VTI: 18.6 cm Reading Physician:11:57 AM
--- NOTE | 2023-01-24 19:42 | PM.ICURNDS ---
- :: This patient was seen via real time interactive two-way audiovisual telecommunication. Note: Off levo since 4 pm, comfortable in bed, on amio drip with HR controlled, good UOP, on RA. No changes in the plan of care.
[2023-01-24 19:47] LABS: Vancomycin Trough 20.7 ug/mL (10-20)
[2023-01-24 21:22] LABS: Vancomycin Peak 32.3 ug/mL (20-40)
[2023-01-25] VITALS (26 sets, daily range): BP systolic 62–138; BP diastolic 43–87; PULSE 89–96; RESP 13–22; TEMP 34.6–36.1; O2SAT 90–99
[2023-01-25] MEDS: AMIODARONE 360 MG/200 ML PIGGYBACK 16.667 MG IV (01:11)
[2023-01-25] MEDS: VANCOMYCIN 1,250 MG/250 ML PIGGYBACK 250 MG IV (03:15)
[2023-01-25] MEDS: PIPERACILLIN/TAZO 3.375 GM in SODIUM CHLORIDE 0.9% 100 ML IV (05:22)
[2023-01-25 05:40] LABS: Blood Urea Nitrogen 37 mg/dL (9-20); Calcium 9.3 mg/dL (8.4-10.2); Carbon Dioxide 23 mmol/L (22-32); Chloride 102 mmol/L (98-107); Estimated Glomerular Filt Rate > 60 mL/min (>60); Glucose 83 mg/dL (80-110); HEMOLYSIS 41 (0-50); Magnesium 1.9 mg/dL (1.6-2.3); Potassium 3.1 mmol/L (3.4-5.1); Sodium 134 mmol/L (137-145)
[2023-01-25 06:42] LABS: Add Manual Diff / Slide Review NO; Basophils Absolute Auto 0 /uL (0-100); Eosinophils Absolute Auto 200 /uL (0-450); Eosinophils Percent Auto 1.1 % (2-4); Hematocrit 36.6 % (41-53); Hemoglobin 12.3 g/dL (13.5-17.5); Lymphocytes Absolute Auto 500 /uL (1100-4500); Lymphocytes Percent Auto 3.5 % (25-40); Mean Corpuscular HGB Conc 33.6 % (30-36); Mean Corpuscular Hemoglobin 33.1 PG (26-34); Mean Corpuscular Volume 98.5 fL (80-100); Monocytes Absolute Auto 500 /uL (0-900); Monocytes Percent Auto 3.4 % (3-14); Neutrophils Absolute Auto 14000 /uL (1500-7000); Platelet Count 159 X10^3/uL (150-400); Red Blood Cell Count 3.71 X10^6/uL (4.5-5.9); White Blood Cell Count 15.2 X10^3/uL (4.5-11.0)
[2023-01-25] MEDS: FUROSEMIDE 40 MG/4 ML VIAL IV (09:22)
[2023-01-25] MEDS: cefTRIAXone 2,000 MG in SODIUM CHLORIDE 0.9% 100 ML 200 MG IV (09:22)
[2023-01-25] MEDS: POTASSIUM CHLORIDE 20 MEQ TAB 40 MEQ PO ×2 (09:24→17:09)
--- NOTE | 2023-01-25 09:36 | PM.PN.EICU ---
Subjective Subjective IF CAMERA ACTIVATED, patient seen via real-time interactive audiovisual communication: Camera activated Consent obtained for tele-senior quality manager care: Yes Patient Location: ICU Provider location (State): [place] Other participants/roles: Bedside RN Interval history: No acute issues overnight Off levophed Converted back to SR On amiodarone gtt Current Medications Current Medications Medications: Home Medications [14 maldivian bautista cath] #1 ea 12/21/17 [Rx Confirmed 01/23/23] Overnight oximetry See Rx Instructions .Route .COMPLEX #1 day 01/04/18 [Rx Confirmed 01/23/23] Chlorofresh 2 cap PO DAILY 07/04/18 [History Confirmed 01/23/23] Prostrate + Health Complex 1 tab PO DAILY 07/04/18 [History Confirmed 01/23/23] cranberry extract 300 mg tablet 600 mg PO DAILY 07/04/18 [History Confirmed 01/23/23] mecobalamin (vitamin B12) 1,000 mcg disintegrating tablet,sublingual 1,000 mcg sublingual DAILY 07/04/18 [History Confirmed 01/23/23] vitamin E (dl, acetate) 180 mg (400 unit) capsule 400 unit PO DAILY 07/04/18 [History Confirmed 01/23/23] Cider Vinegar 30 ml PO QAM 09/11/18 [History Confirmed 01/23/23] Fish Oil 1 cap PO DAILY 09/11/18 [History Confirmed 01/23/23] Probiotic 1 dose PO DAILY 09/11/18 [History Confirmed 01/23/23] [CPAP Machine] 1 / miscellaneous HS 09/11/18 [History Confirmed 01/23/23] [compression stocking] 1 / miscellaneous SEE INSTRUCTIONS 09/11/18 [History Confirmed 01/23/23] [electric wheelchair] 1 ea miscellaneous PRN PRN DIRECTED 09/11/18 [History Confirmed 01/23/23] [bautista collection bag] 1 ea miscellaneous SEE INSTRUCTIONS 09/11/18 [History Confirmed 01/23/23] [wheelchair repairs] 1 ea miscellaneous PRN PRN DIRECTED 09/11/18 [History Confirmed 01/23/23] coenzyme Q10 100 mg capsule (CoQ-10) 100 - 200 mg PO DAILY 09/11/18 [History Confirmed 01/23/23] flaxseed oil 1 cap PO DAILY 09/11/18 [History Confirmed 01/23/23] triamcinolone acetonide 0.1 % topical cream 1 applic topical BID 10/11/21 [History Confirmed 01/23/23] furosemide 20 mg tablet 20 mg PO DAILY 12/16/21 [History Confirmed 01/23/23] Hospital Bed #1 ea 02/21/22 [Rx Confirmed 01/23/23] metoprolol succinate 50 mg tablet,extended release 24 hr 50 mg PO BID 05/19/22 [History Confirmed 01/23/23] Wheelchair Height Adjustment #1 ea 06/29/22 [Rx Confirmed 01/23/23] loratadine-pseudoephedrine ER 10 mg-240 mg tablet,extended [id number] 1 tab PO DAILY PRN Allergy Symptoms #30 tabs 08/01/22 [Rx Confirmed 01/23/23] Low Air Loss Mattress with a pump supplies #1 ea 08/12/22 [Rx Confirmed 01/23/23] rivaroxaban 20 mg tablet (Xarelto) 20 mg PO DAILY #90 tabs 12/14/22 [Rx Confirmed 01/23/23] hydrocortisone 2.5 % topical cream 1 applic topical DAILY 12/28/22 [History Confirmed 01/23/23] ketoconazole 2 % topical cream 1 applic topical DAILY 12/28/22 [History Confirmed 01/23/23] sennosides 8.6 mg tablet (senna) 8.6 mg PO BEDTIME PRN Constipation 01/23/23 [History Confirmed 01/23/23] Visit Medications (administered) Generic Name Dose Route Start Last Admin Trade Name Heather PRN Reason Stop Dose Admin Furosemide 40 mg 01/24/23 09:00 01/25/23 09:22 Furosemide 40 Mg/4 Ml Vial IV 40 mg DAILY LAMBERTO Administration Amiodarone HCl/Dextrose 360 mg in 200 mls @ 16.7 mls/hr 01/24/23 01:30 01/25/23 01:11 Nexterone IV 01/25/23 14:00 0.5 mg/min CONT LAMBERTO 16.667 mls/hr Administration Protocol Ceftriaxone Sodium 2,000 mg/ 100 mls @ 200 mls/hr 01/25/23 09:00 01/25/23 09:22 Sodium Chloride IV 200 mls/hr Q24H LAMBERTO Administration Potassium Chloride 40 meq 11/01/23 09:15 01/25/23 09:24 Potassium Chloride 20 Meq Tab PO 01/25/23 15:16 40 meq Q6H LAMBERTO Administration Objective Labs 01/25/23 05:15 01/25/23 05:15 Labs: Laboratory Results - last 24 hr 01/24/23 01/24/23 01/25/23 18:45 20:45 05:15 WBC 15.2 H D RBC 3.71 L Hgb 12.3 L Hct 36.6 L MCV 98.5 MCH 33.1 MCHC 33.6 RDW 16.0 H Plt Count 159 Neut % (Auto) 92.0 H Lymph % (Auto) 3.5 L [place] % (Auto) 3.4 Eos % (Auto) 1.1 L Baso % (Auto) 0.0 Neut # (Auto) 05513 H Lymph # (Auto) 500 L [place] # (Auto) 500 Eos # (Auto) 200 Baso # (Auto) 0 Sodium 134 L Potassium 3.1 L Chloride 102 Carbon Dioxide 23 BUN 37 H Creatinine 0.86 Estimated GFR > 60 BUN/Creatinine Ratio 43.0 H Glucose 83 Calcium 9.3 Magnesium 1.9 Vancomycin Peak 32.3 Vancomycin Trough 20.7 H* Exam Vital Signs (past 8 hours): - 01/25/23 02:00 01/25/23 02:00 01/25/23 03:00 Temperature 94.8 F L 94.8 F L Pulse Rate 91 H 90 Respiratory Rate 15 17 Blood Pressure 103/56 L Pulse Oximetry 96 96 Oxygen Flow Rate 0 0 01/25/23 03:01 01/25/23 03:01 01/25/23 03:02 Temperature 94.6 F L 94.6 F L Pulse Rate 90 90 Respiratory Rate 18 16 Blood Pressure 62/43 L Pulse Oximetry 96 97 Oxygen Flow Rate 01/25/23 03:02 01/25/23 04:00 01/25/23 04:01 Temperature 94.6 F L 94.5 F L Pulse Rate 89 89 Respiratory Rate 16 13 Blood Pressure 104/61 Pulse Oximetry 95 95 Oxygen Flow Rate 0 01/25/23 04:01 01/25/23 05:00 01/25/23 05:01 Temperature 94.5 F L Pulse Rate 90 Respiratory Rate 20 Blood Pressure 118/55 L 96/57 L Pulse Oximetry 94 Oxygen Flow Rate 0 01/25/23 05:01 01/25/23 06:00 01/25/23 06:00 Temperature 96.3 F L 94.6 F L Pulse Rate 90 90 Respiratory Rate 18 14 Blood Pressure 91/70 Pulse Oximetry 94 98 Oxygen Flow Rate 0 0 0 01/25/23 07:01 01/25/23 08:00 01/25/23 09:00 Temperature 94.6 F L 94.6 F L 96.5 F L Pulse Rate 90 89 Respiratory Rate 17 15 Blood Pressure 109/62 107/60 Pulse Oximetry 97 98 Oxygen Flow Rate Oxygen Delivery Method Room Air Oxygen Flow Rate 0 Narrative Exam Narrative: NAD Assessment & Plan Assessment & Plan narrative: NEURO: -- Seek PT/OT and OOB as tolerated RESP: -- On room air -- Encourage IS -- Seek early mobility CVS: # A fib w/ RVR -- Converted back to SR -- On amidoarone gtt -- Recommend stopping amio gtt -- Restart oral metoprolol once BP stable -- Need systemic AC # Shock -- REsolved -- MAP goal > 65 ID: # Proteus/E.coli UTI -- On ceftriaxone ENDO: -- Goal BS < 180 Okay to DG to med surg tele once off amiodarone gtt Time Spent With Patient Time with patient: 30 to 49 minutes with 50% spent counseling/coordinating care
[2023-01-25 11:38] LABS: INR 1.8 (0.9-1.3); Prothrombin Time 20.2 SECONDS (10.1-12.7)
--- NOTE | 2023-01-25 12:12 | DI.CT.S_ITS ---
PROCEDURE: CT CHEST W CON INDICATIONS: echo with possible compresion of atrium TECHNIQUE: After the administration of intravenous contrast, 5 mm thick sections acquired from the pulmonary apices to the posterior costophrenic angles. 1 mm axial lung, 5 mm thick coronal and sagittal reformats and 7 mm axial MIP were acquired. For radiation dose reduction, the following was used: automated exposure control, adjustment of mA and/or kV according to patient size. COMPARISON: [facility], CT, CT ANGIO CHEST PE, 05/13/2022, 16:10. [facility], CR, XR CHEST FOR PICC 1V, 01/23/2023, 14:04. [facility], CT, CT CHEST W CON, 08/05/2021, 16:01. FINDINGS: Image quality: Excellent. Lungs and pleura: Small nodular ground-glass opacities are present within the upper lobes unchanged compared to 05/13/2022. Bibasilar atelectasis and moderate-sized bilateral pleural effusions. Central and peripheral airways are patent and normal in caliber. Mediastinum: Heart size is normal. Pectus excavatum is noted with a Kassandra index of 5.4 (transverse diameter 29.6 cm and narrowest AP length 5.5 cm). Significant pectus excavatum is considered patient's within index greater than 3.25. No pericardial effusion. No mediastinal adenopathy by size criteria. Thoracic aorta and central pulmonary arteries are normal in size. Esophagus is normal in caliber. No hiatal hernia. Bones and chest wall: No suspicious bony lesions. Multilevel pedicular screw and stefanie fixation of the thoracolumbar spine. No axillary or supraclavicular adenopathy by size criteria. Thyroid gland is normal. Abdomen: Limited visualization of the upper abdomen shows no acute abnormality. IMPRESSION: 1. Severe pectus excavatum, likely responsible for compression of the atrium on echocardiogram. 2. Bibasilar atelectasis and moderate pleural effusions. Dictated by: Noam Higuera M.D. on 01/25/2023 at 14:40 Approved by: Noam Higuera M.D. on 01/25/2023 at 14:51
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
[2023-01-25] MEDS: AMIODARONE 200 MG TABLET PO (17:09)
[2023-01-25] MEDS: METOPROLOL ER 50 MG TABLET PO ×2 (18:10→20:21)
[2023-01-26] VITALS (23 sets, daily range): BP systolic 100–129; BP diastolic 61–81; PULSE 93–97; RESP 13–22; TEMP 35.6–36.4; O2SAT 92–96
[2023-01-26 05:15] LABS: Hematocrit 37.8 % (41-53); Hemoglobin 12.8 g/dL (13.5-17.5); Mean Corpuscular HGB Conc 33.8 % (30-36); Mean Corpuscular Volume 97.7 fL (80-100); Platelet Count 201 X10^3/uL (150-400); Red Blood Cell Count 3.87 X10^6/uL (4.5-5.9); Red Cell Distribution Width 16.4 % (11.6-14.8); White Blood Cell Count 13.3 X10^3/uL (4.5-11.0)
[2023-01-26 05:24] LABS: BUN Creatinine Ratio 47.5 (6-22); Blood Urea Nitrogen 38 mg/dL (9-20); Calcium 9.8 mg/dL (8.4-10.2); Carbon Dioxide 27 mmol/L (22-32); Chloride 104 mmol/L (98-107); Estimated Glomerular Filt Rate > 60 mL/min (>60); Glucose 82 mg/dL (80-110); HEMOLYSIS < 15 (0-50); Potassium 3.5 mmol/L (3.4-5.1); Sodium 138 mmol/L (137-145)
[2023-01-26 05:29] LABS: Magnesium 1.9 mg/dL (1.6-2.3)
[2023-01-26] MEDS: FUROSEMIDE 40 MG/4 ML VIAL IV (08:49)
[2023-01-26] MEDS: cefTRIAXone 2,000 MG in SODIUM CHLORIDE 0.9% 100 ML 200 MG IV (08:55)
[2023-01-26] MEDS: METOPROLOL ER 50 MG TABLET PO (08:57)
[2023-01-26] MEDS: RIVAROXABAN 10 MG TABLET 20 MG PO (08:58)
[2023-01-26] MEDS: AMIODARONE 200 MG TABLET PO (08:58)
[2023-01-26] MEDS: POTASSIUM CHLORIDE 20 MEQ TAB 40 MEQ PO (10:33)
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
--- NOTE | 2023-01-26 12:59 | PC.NURSE ---
Addendum entered by Ana Giang R.N. 01/26/23 16:03: Pt brief changed, wound supplies given to caregiver, and bautista collection bag changed before discharge. Pt VSS, pt met discharge criteria. Addendum entered by Ana Giang R.N. 01/26/23 14:13: During am med pass, dean for student affairs scanned meds that were administered and RN closely supervised medical assembly - all meds scanned and administered correctly. Original Note: Patient met discharge criteria, hemostasis met - PICC and IVs removed. Pt VSS. Pt has chronic bautista/caregiver and family member cath - pt going home with Bautista, caregiver/family member have been educated on care, follow-up, supplies. Pt received Bautista and ja care but declines CHG bath due to sensitivity.
--- NOTE | 2023-01-26 13:07 | CM.DPNOTE ---
DC Note Patient discharged today. Spoke w/patient initially to review plan, patient is difficult to understand and this [facility] unsure what patient is understanding so spoke w/ RN Ana who recommended contact with DPOA and brother, Sid Matthews. Placed call to Sid to review discharge plan; patient will be picked up by caregiver Dionne using patient's privately owned wheelchair van. Discussed services, patient already has an RN that works with his [employer] caregiver(s). Sid plans to schedule patient at the wound care center at , patient is already established there, to assess the newly developed pressure ulcer in patient's sacral area. According to Sid, patient's air mattress deflated at home right before he developed the pressure ulcer. Sid denies needs from this [facility]. Plan: Discharge home w/supportive family, [employer] cg via private wheelchair van. Close outpatient follow up. [facility]
== END 2023-01-26 15:25 | disposition home or self-care (01) | DRG 698 ==
LOC: ED 10:41 → AC 16:43 → ICU 17:31
PROVIDERS: Internal Medicine Critical Care Medicine; Admitting Provider Internal Medicine; Emergency Provider Emergency Medicine; Family Provider Family Medicine; PCP Internal Medicine; Referring Provider Emergency Medicine; Visit Provider Internal Medicine
DX: T83.511A Infection and inflammatory reaction due to indwelling urethral catheter, initial encounter (principal); A41.9 Sepsis, unspecified organism; G93.41 Metabolic encephalopathy; R65.21 Severe sepsis with septic shock; J96.00 Acute respiratory failure, unspecified whether with hypoxia or hypercapnia; G82.20 Paraplegia, unspecified; J90 Pleural effusion, not elsewhere classified; N39.0 Urinary tract infection, site not specified; G47.33 Obstructive sleep apnea (adult) (pediatric); B96.20 Unspecified Escherichia coli [E. coli] as the cause of diseases classified elsewhere; B96.4 Proteus (mirabilis) (morganii) as the cause of diseases classified elsewhere; I10 Essential (primary) hypertension; Z99.3 Dependence on wheelchair; Z79.01 Long term (current) use of anticoagulants; Z11.52 Encounter for screening for COVID-19
CPT/HCPCS: 36415; 36592; 71045; 71260; 74176; 80048; 80053; 80202; 81001; 82550; 83605; 83735; 83880; 84145; 84484; 85025; 85027; 85610; 85730; 87040; 87077; 87086; 87186; 87635; 87797; 93005; 93306; 96365; 96366; 96375; 99233; 99285; 99291; 99292; C9803; J0282; J0696; J1720; J1940; J1956; J2543; J3475; Q9957; Q9967

== ENCOUNTER 2023-02-01 21:47 | Emergency (ER) | payer MEDICARE, MEDICAID, SELFPAY ==
[2023-01-30 08:15] VITALS: PULSE 49; RESP 16; O2SAT 92; BMI 35.6
[2023-02-01] VITALS (9 sets, daily range): BP systolic 124–144; BP diastolic 59–88; PULSE 51–90; RESP 11–19; TEMP 33.3–34; O2SAT 85–98; BMI 38.0
[2023-02-01 22:45] LABS: Add Manual Diff / Slide Review YES; Hematocrit 39.7 % (41-53); Hemoglobin 13.5 g/dL (13.5-17.5); Mean Corpuscular HGB Conc 34.2 % (30-36); Mean Corpuscular Hemoglobin 33.4 PG (26-34); Mean Corpuscular Volume 97.9 fL (80-100); Platelet Count 254 X10^3/uL (150-400); Red Blood Cell Count 4.05 X10^6/uL (4.5-5.9); Red Cell Distribution Width 16.1 % (11.6-14.8); White Blood Cell Count 7.7 X10^3/uL (4.5-11.0)
[2023-02-01 22:55] LABS: Alanine Aminotransferase 31 IU/L (<50); Albumin 3.9 g/dL (3.5-5.0); Albumin Globulin Ratio 0.9 (1.0-2.8); Alkaline Phosphatase 117 U/L (38-126); Aspartate Aminotransferase 28 IU/L (17-59); Bilirubin Total 0.6 mg/dL (0.2-1.3); Blood Urea Nitrogen 26 mg/dL (9-20); Calcium 10.1 mg/dL (8.4-10.2); Carbon Dioxide 32 mmol/L (22-32); Chloride 96 mmol/L (98-107); Creatine Kinase < 20 U/L (55-170); Estimated Glomerular Filt Rate > 60 mL/min (>60); Globulin 4.3 g/dL (1.7-4.1); Glucose 82 mg/dL (80-110); HEMOLYSIS < 15 (0-50); Lactate (Lactic Acid) 1.4 mmol/L (0.7-2.1); Potassium 3.9 mmol/L (3.4-5.1); Sodium 136 mmol/L (137-145); Total Protein 8.2 g/dL (6.3-8.2)
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
[2023-02-01 23:03] LABS: Appearance Urine UA CLEAR; Bilirubin Urine UA NEGATIVE (NEGATIVE); Color Urine UA YELLOW; Glucose Urine UA NEGATIVE (Negative); Ketones Urine UA NEGATIVE (NEGATIVE); Leukocyte Esterase Urine UA NEGATIVE (NEGATIVE); Nitrite Urine UA NEGATIVE (Negative); Occult Blood Urine UA TRACE-INTACT (Negative); Protein Urine UA TRACE (Negative); Urobilinogen Urine UA 0.2 E.U./dL (0.2)
[2023-02-01 23:06] LABS: Troponin I < 0.012 ng/mL (0.01-0.034)
[2023-02-01 23:12] LABS: Neutrophils Absolute Manual 4466 /uL (3000-5900); Total Cells Counted 100
[2023-02-01 23:14] LABS: Macrocytosis 1+
[2023-02-01 23:22] LABS: Bacteria Urine Occasional (0-1); Culture Indicated Urine Cult Not Indicated; RBC Urine 0-1/HPF (0-5/HPF); Squamous Epithelial Cell Urine 0-1 /HPF (0-5/HPF); WBC Urine 0-1/HPF (0-5/HPF)
[2023-02-01 23:34] LABS: Influenza A - CEPHEID Flu A NEGATIVE (NEGATIVE); Influenza B - CEPHEID Flu B NEGATIVE (NEGATIVE); Respiratory Syncytial Virus Negative (Negative)
[2023-02-01 23:41] LABS: COVID-19 CEPHEID 4-PLEX PCR Negative (Negative)
[2023-02-02] VITALS: BP 115/56; PULSE 83; RESP 12; TEMP 34.2; O2SAT 94
--- NOTE | 2023-02-02 00:12 | DI.RAD.S_ITS ---
PROCEDURE: XR CHEST 1V INDICATIONS: fever TECHNIQUE: One view of the chest was acquired. COMPARISON: [facility], CR, XR CHEST FOR PICC 1V, 01/23/2023, 14:04. FINDINGS: Surgical changes and devices: Fusion hardware in lower thoracic spine and lumbar spine is seen. Surgical clips are noted in left hilar region.. Lungs and pleura: Chronic emphysematous changes are seen. Mild pulmonary vascular congestion is noted. No definite focal infiltrate. No pleural effusions or pneumothorax. Mediastinum: Mediastinal contours appear normal. Heart size is enlarged. Bones and chest wall: No suspicious bony lesions. Overlying soft tissues appear unremarkable. IMPRESSION: Cardiomegaly and mild congestion. No definite focal infiltrate. No pleural effusion or pneumothorax. Dictated by: Jean-Claude Joyner M.D. on 02/02/2023 at 1:06 Approved by: Jean-Claude Joyner M.D. on 02/02/2023 at 1:07
[2023-02-02 00:30] VITALS: BP 117/60; PULSE 82; RESP 14; TEMP 34.5; O2SAT 94
[2023-02-02 01:00] VITALS: BP 112/70; PULSE 89; RESP 14; TEMP 34.4; O2SAT 94
[2023-02-02 01:30] VITALS: BP 118/65; PULSE 85; RESP 14; TEMP 35; O2SAT 95
== END 2023-02-02 02:00 | disposition home or self-care (01) ==
PROVIDERS: Emergency Provider Emergency Medicine; PCP Internal Medicine
DX: T68.XXXA Hypothermia, initial encounter (principal); G82.20 Paraplegia, unspecified; R07.9 Chest pain, unspecified; Z20.822 Contact with and (suspected) exposure to COVID-19
CPT/HCPCS: 0241U; 36415; 71045; 80053; 81001; 82550; 83605; 84145; 84484; 85007; 85025; 87040; 93005; 99284

== ENCOUNTER → 2023-02-03 10:43 | Outpatient (CLI) | payer MEDICARE, MEDICAID, SELFPAY ==
[2023-01-30 08:15] VITALS: PULSE 49; RESP 16; O2SAT 92; BMI 35.6
== END ==
PROVIDERS: PCP Internal Medicine; Referring Provider Internal Medicine; Visit Provider Physician Assistant
DX: G82.20 Paraplegia, unspecified (principal); Z99.3 Dependence on wheelchair; I11.0 Hypertensive heart disease with heart failure; I50.9 Heart failure, unspecified; E78.5 Hyperlipidemia, unspecified
CPT/HCPCS: 99213; 99214

== ENCOUNTER 2023-02-25 12:38 | Emergency (ER) | payer MEDICARE, MEDICAID, SELFPAY ==
[2023-01-30 08:15] VITALS: PULSE 49; RESP 16; O2SAT 92; BMI 35.6
[2023-02-25 12:44] VITALS: BP 95/59; PULSE 85; RESP 14; TEMP 35.3; O2SAT 94; BMI 34.7
[2023-02-25 12:58] VITALS: BP 113/72; PULSE 89; O2SAT 94
[2023-02-25 13:00] VITALS: BP 112/71; PULSE 85; RESP 16; O2SAT 96
--- NOTE | 2023-02-25 13:13 | DI.RAD.S_ITS ---
PROCEDURE: XR CHEST 1V INDICATIONS: Eval for pneumonia TECHNIQUE: One view of the chest was acquired. COMPARISON: [facility], CR, XR CHEST 1V, 02/02/2023, 0:27. [facility], CR, XR CHEST FOR PICC 1V, 01/23/2023, 14:04. FINDINGS: Surgical changes and devices: Surgical fusion of the thoracolumbar spine. Lungs and pleura: Hazy bibasilar airspace opacities, right greater than left. Mediastinum: Mediastinal contours appear normal. Heart size is normal. Bones and chest wall: No suspicious bony lesions. Overlying soft tissues appear unremarkable. IMPRESSION: Hazy bibasilar airspace opacities, right greater than left. Infection is suspected. Dictated by: Grey Fernandez M.D. on 02/25/2023 at 13:09 Approved by: Grey Fernandez M.D. on 02/25/2023 at 13:09
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
[2023-02-25 13:58] LABS: Adenovirus Not Detected (Not Detect); B. parapertussis Not Detected (Not Detecte); Bordetella pertussis Not Detected (Not Detect); Chlamydophila pneumoniae Not Detected (Not Detect); Coronavirus 229E Not Detected (Not Detect); Coronavirus HKU1 Not Detected (Not Detect); Coronavirus NL 63 Not Detected (Not Detect); Coronavirus OC43 Not Detected (Not Detect); Human Metapneumovirus Not Detected (Not Detect); Human Rhinovirus/Enterovirus Not Detected (Not Detect); Influenza A Not Detected (Not Detect); Influenza B Not Detected (Not Detect); Mycoplasma pneumoniae Not Detected (Not Detect); Parainfluenza Virus 1 Not Detected (Not Detect); Parainfluenza Virus 2 Not Detected (Not Detect); Parainfluenza Virus 3 Not Detected (Not Detect); Parainfluenza Virus 4 Not Detected (Not Detect); Respiratory Syncytial Virus Not Detected (Not Detect); SARS- CoV-2 Not Detected (Not Detecte)
== END 2023-02-25 14:44 | disposition home or self-care (01) ==
PROVIDERS: Emergency Provider Emergency Medicine; PCP Internal Medicine
DX: J18.9 Pneumonia, unspecified organism (principal)
CPT/HCPCS: 71045; 87633; 99283

== ENCOUNTER → 2023-03-15 13:55 | Outpatient (CLI) | payer MEDICARE, MEDICAID, SELFPAY ==
[2023-01-30 08:15] VITALS: PULSE 49; RESP 16; O2SAT 92; BMI 35.6
[2023-03-15 14:23] LABS: Appearance Urine UA CLEAR; Bilirubin Urine UA NEGATIVE (NEGATIVE); Color Urine UA YELLOW; Glucose Urine UA NEGATIVE (Negative); Ketones Urine UA NEGATIVE (NEGATIVE); Leukocyte Esterase Urine UA 1+ (NEGATIVE); Nitrite Urine UA NEGATIVE (Negative); Occult Blood Urine UA 2+ (Negative); Protein Urine UA NEGATIVE (Negative); Urobilinogen Urine UA 0.2 E.U./dL (0.2)
[2023-03-15 14:39] LABS: Bacteria Urine Few (2-10); Culture Indicated Urine Specimen Cultured; RBC Urine 10-30/HPF (0-5/HPF); Squamous Epithelial Cell Urine 1-5 /HPF (0-5/HPF); WBC Urine 1-5/HPF (0-5/HPF)
== END ==
PROVIDERS: PCP Internal Medicine; Referring Provider Internal Medicine; Visit Provider Internal Medicine
DX: N39.0 Urinary tract infection, site not specified (principal); R33.9 Retention of urine, unspecified
CPT/HCPCS: 81001; 87086

== ENCOUNTER → 2023-04-04 09:30 | Outpatient (CLI) | payer MEDICARE, MEDICAID, SELFPAY ==
[2023-01-30 08:15] VITALS: PULSE 49; RESP 16; O2SAT 92; BMI 35.6
[2023-04-04 10:00] LABS: Appearance Urine UA CLEAR; Bilirubin Urine UA NEGATIVE (NEGATIVE); Color Urine UA YELLOW; Glucose Urine UA NEGATIVE (Negative); Ketones Urine UA NEGATIVE (NEGATIVE); Leukocyte Esterase Urine UA 1+ (NEGATIVE); Nitrite Urine UA POSITIVE (Negative); Occult Blood Urine UA NEGATIVE (Negative); Protein Urine UA NEGATIVE (Negative); Specific Gravity Urine UA 1.015 (1.000-1.035); Urobilinogen Urine UA 0.2 E.U./dL (0.2)
[2023-04-04 10:14] LABS: Bacteria Urine Many (>30); Culture Indicated Urine Specimen Cultured; RBC Urine 0-1/HPF (0-5/HPF); Squamous Epithelial Cell Urine None Seen (0-5/HPF); WBC Urine 5-10/HPF (0-5/HPF)
== END ==
LOC: LAB 09:31
PROVIDERS: PCP Internal Medicine; Referring Provider Internal Medicine; Visit Provider Internal Medicine
DX: N39.0 Urinary tract infection, site not specified (principal)
CPT/HCPCS: 81001; 87077; 87086; 87186

== ENCOUNTER → 2023-05-03 15:24 | Outpatient (CLI) | payer MEDICARE, MEDICAID, SELFPAY ==
[2023-01-30 08:15] VITALS: PULSE 49; RESP 16; O2SAT 92; BMI 35.6
[2023-05-03 17:51] LABS: Hematocrit 42.1 % (41-53); Hemoglobin 14.4 g/dL (13.5-17.5); Mean Corpuscular HGB Conc 34.1 % (30-36); Mean Corpuscular Hemoglobin 33.8 PG (26-34); Platelet Count 279 X10^3/uL (150-400); Red Blood Cell Count 4.26 X10^6/uL (4.5-5.9); Red Cell Distribution Width 16.6 % (11.6-14.8); White Blood Cell Count 4.3 X10^3/uL (4.5-11.0)
[2023-05-03 18:08] LABS: Alanine Aminotransferase 25 IU/L (<50); Albumin 4.4 g/dL (3.5-5.0); Albumin Globulin Ratio 0.9 (1.0-2.8); Alkaline Phosphatase 110 U/L (38-126); Aspartate Aminotransferase 30 IU/L (17-59); BUN Creatinine Ratio 46.2 (6-22); Bilirubin Total 0.7 mg/dL (0.2-1.3); Blood Urea Nitrogen 30 mg/dL (9-20); Carbon Dioxide 28 mmol/L (22-32); Chloride 99 mmol/L (98-107); Estimated Glomerular Filt Rate > 60 mL/min (>60); Glucose 59 mg/dL (80-110); HEMOLYSIS < 15 (0-50); Potassium 4.1 mmol/L (3.4-5.1); Sodium 136 mmol/L (137-145); Total Protein 9.4 g/dL (6.3-8.2)
== END ==
PROVIDERS: PCP Internal Medicine; Referring Provider Internal Medicine; Visit Provider Internal Medicine
DX: N39.0 Urinary tract infection, site not specified (principal); I50.32 Chronic diastolic (congestive) heart failure
CPT/HCPCS: 36415; 80053; 85027

== ENCOUNTER → 2023-05-11 09:39 | Outpatient (CLI) | payer MEDICARE, MEDICAID, SELFPAY ==
[2023-01-30 08:15] VITALS: PULSE 49; RESP 16; O2SAT 92; BMI 35.6
[2023-05-11 10:41] LABS: Appearance Urine UA CLEAR; Bilirubin Urine UA NEGATIVE (NEGATIVE); Color Urine UA YELLOW; Glucose Urine UA NEGATIVE (Negative); Ketones Urine UA NEGATIVE (NEGATIVE); Leukocyte Esterase Urine UA 1+ (NEGATIVE); Nitrite Urine UA NEGATIVE (Negative); Occult Blood Urine UA TRACE-INTACT (Negative); Protein Urine UA NEGATIVE (Negative); Urobilinogen Urine UA 0.2 E.U./dL (0.2)
[2023-05-11 11:05] LABS: Bacteria Urine None Seen; Culture Indicated Urine Specimen Cultured; RBC Urine 1-5/HPF (0-5/HPF); Squamous Epithelial Cell Urine 1-5 /HPF (0-5/HPF); Urine Volume 10mL (spun); WBC Urine 1-5/HPF (0-5/HPF)
== END ==
PROVIDERS: PCP Internal Medicine; Referring Provider Internal Medicine Infectious Disease; Visit Provider Internal Medicine Infectious Disease
DX: N39.0 Urinary tract infection, site not specified (principal)
CPT/HCPCS: 81001; 87086

== ENCOUNTER 2023-05-12 13:35 | Inpatient (IN) | payer MEDICARE, MEDICAID, SELFPAY ==
[2023-01-30 08:15] VITALS: PULSE 49; RESP 16; O2SAT 92; BMI 35.6
[2023-05-12] VITALS (103 sets, daily range): BP systolic 83–134; BP diastolic 50–93; PULSE 87–97; RESP 11–28; TEMP 33.9–36.7; O2SAT 89–100; BMI 33.7; BMI 35.5
[2023-05-12] MEDS: SODIUM CHLORIDE 0.9% 1,000 ML 1000 ML IV ×2 (14:56→16:08)
[2023-05-12 14:57] LABS: Add Manual Diff / Slide Review NO; Basophils Absolute Auto 0 /uL (0-100); Eosinophils Absolute Auto 0 /uL (0-450); Eosinophils Percent Auto 0.3 % (2-4); Hematocrit 40.6 % (41-53); Hemoglobin 13.4 g/dL (13.5-17.5); Lymphocytes Absolute Auto 300 /uL (1100-4500); Lymphocytes Percent Auto 1.6 % (25-40); Mean Corpuscular HGB Conc 33.1 % (30-36); Mean Corpuscular Hemoglobin 32.7 PG (26-34); Mean Corpuscular Volume 98.8 fL (80-100); Monocytes Absolute Auto 700 /uL (0-900); Monocytes Percent Auto 3.9 % (3-14); Neutrophils Absolute Auto 16000 /uL (1500-7000); Neutrophils Percent Auto 94.2 % (50-75); Platelet Count 194 X10^3/uL (150-400); Red Blood Cell Count 4.11 X10^6/uL (4.5-5.9); Red Cell Distribution Width 16.9 % (11.6-14.8)
--- NOTE | 2023-05-12 15:09 | PC.NURSE ---
This RN informed provider of hypotension and provider gave verbal order for 1000ml normal saline bolus. Order placed and medication started.
[2023-05-12 15:14] LABS: Lactate (Lactic Acid) 3.1 mmol/L (0.7-2.1)
[2023-05-12 15:15] LABS: Alanine Aminotransferase 54 IU/L (<50); Albumin Globulin Ratio 0.9 (1.0-2.8); Alkaline Phosphatase 107 U/L (38-126); Aspartate Aminotransferase 58 IU/L (17-59); BUN Creatinine Ratio 39.8 (6-22); Bilirubin Total 0.9 mg/dL (0.2-1.3); Blood Urea Nitrogen 35 mg/dL (9-20); Calcium 10.2 mg/dL (8.4-10.2); Carbon Dioxide 29 mmol/L (22-32); Chloride 97 mmol/L (98-107); Estimated Glomerular Filt Rate > 60 mL/min (>60); Globulin 4.6 g/dL (1.7-4.1); Glucose 60 mg/dL (80-110); HEMOLYSIS 27 (0-50); Potassium 3.4 mmol/L (3.4-5.1); Sodium 137 mmol/L (137-145); Total Protein 8.6 g/dL (6.3-8.2)
[2023-05-12 15:31] LABS: Procalcitonin 0.88 ng/mL (<0.5)
--- NOTE | 2023-05-12 15:37 | DI.CT.S_ITS ---
PROCEDURE: CT CHEST ABD PEL W CON INDICATIONS: sepsis TECHNIQUE: After the administration of intravenous contrast, 5 mm thick sections acquired from the lung apices to the symphysis. 5 mm coronal and sagittal reformats were performed, with additional 7 mm MIP reformats through the lungs. For radiation dose reduction, the following was used: automated exposure control, adjustment of mA and/or kV according to patient size. COMPARISON: [facility], CT, CT ABDOMEN PELVIS WO CON, 01/23/2023, 14:28. [facility], CT, CT KUB, 05/10/2023, 12:19. [facility], CT, CT CHEST W CON, 01/25/2023, 14:05. FINDINGS: Image quality: Excellent. CHEST: Lower Neck: No enlarged lymph nodes. Thyroid: No thyroid nodules which require sonographic follow up, per consensus guidelines. Axillae: No enlarged lymph nodes. Chest Wall: Severe pectus excavatum. Lungs and Pleura: Peripheral nodular infiltrate in lungs bilaterally. There are small pleural effusions bilaterally with bibasilar consolidation or atelectasis. No pneumothorax. Heart: Heart size is normal. No pericardial effusion. Thoracic Vessels: The aorta and pulmonary arteries demonstrate normal size. Mediastinum and Hayley: No enlarged lymph nodes. Esophagus: No wall thickening. Small hiatal hernia. ABDOMEN: Liver: No solid mass. Mild hepatic steatosis. Gallbladder: No radiopaque gallstones or wall thickening. Biliary ducts: No biliary dilation. Pancreas: No ductal dilation. Spleen: Spleen is absent. There is a 4.9 x 5.7 cm soft tissue structure in the left upper abdomen, which could be the remnant spleen. Adrenal Glands: No adrenal nodules. Kidneys and Ureters: No hydronephrosis. No solid mass. No complex renal cystic lesion which requires follow up. Stomach and Bowel: Normal bowel caliber, without significant wall thickening. There is a large amount of stool in colon. Peritoneum: No abnormal intraperitoneal fluid. No free air. Ventral Wall: No significant ventral hernia. Abdominal Nodes: No retroperitoneal or mesenteric adenopathy by size criteria. Vessels: Aorta and inferior vena cava are normal in size. PELVIS: Pelvic Organs: Unremarkable. Bladder: Mild bladder wall thickening and perivesical stranding suspicious cystitis. No bladder stones. Pelvic Nodes: No enlarged lymph nodes. Miscellaneous: No inguinal hernias are seen. There is a large thick-walled fluid collection in the anterior upper thigh abutting the greater trochanter measuring 9.3 x 9.2 cm, unchanged in size. There is a 1.9 cm calcified body within the collection. There is a small thick-walled fluid collection is noted anterior to the left thigh measuring 1.9 x 4.3 cm. Both fluid collections are unchanged. There is severe atrophy of the paraspinous muscles in the lower lumbar spine area. Bones: Severe osteopenia. Extensive degenerative and postsurgical changes in lumbar spine. There are old iliac fractures. IMPRESSION: 1. Nodular opacities bilaterally, right greater than left, suspicious for atypical pneumonia. 2. Small pleural effusions bilaterally with bibasilar consolidation or atelectasis. Overall, the finding is unchanged. 3. Unchanged thick-walled fluid collections in anterior thighs bilaterally, right greater than left. Differential diagnoses for the fluid collections include synovial cysts, infected bursal fluid related to greater trochanteric bursa or chronic walled-off abscesses. 4. Mild bladder wall thickening with perivesical stranding suspicious for cystitis. 5. Severe pectus excavatum. 6. Severe osteopenia with extensive postsurgical changes. Because of metallic artifacts and osteopenia, evaluation of spine is severely limited. Dictated by: Julius Kohler M.D. on 05/12/2023 at 16:41 Approved by: Julius Kohler M.D. on 05/12/2023 at 17:05
--- NOTE | 2023-05-12 15:57 | ED.GENADULT ---
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 anterior thighs bilaterally, right greater than left. Differential diagnoses for the fluid collections include synovial cysts, infected bursal fluid related to greater trochanteric bursa or chronic walled-off abscesses. 4. Mild bladder wall thickening with perivesical stranding suspicious for cystitis. 5. Severe pectus excavatum. 6. Severe osteopenia with extensive postsurgical changes. Because of metallic artifacts and osteopenia, evaluation of spine is severely limited. Dictated by: Julius Kohler M.D. on 05/12/2023 at 16:41 Approved by: Julius Kohler M.D. on 05/12/2023 at 17:05 MDM Narrative Medical decision making narrative: Patient here with caregiver, knows patient very well. Has been on antibiotics multiple times since February 2023 for UTI. Patient sees primary care at [facility]. Patient recently on Macrobid and developed a rash which worsened. Patient was switched over to Levaquin which he has had in the past. Has multiple multiple allergies to antibiotics. Blood pressure on arrival 129/80. Is now 84/51. Heart rate 90. Patient is afebrile. Not toxic appearing. IV fluids 1 L has been given already. However judicious IV fluids to be given due to history pulmonary edema. Patient is on restricted 1500 mL daily restriction of fluids. However given patient's possible sepsis, fluids do need to be given. Patient has had decreased urine output as well as decreased bowel movements and he states he feels his abdomen is very distended. After history and exam IV fluid CBC CMP lactic acid blood culture procalcitonin CT abdomen pelvis chest vancomycin urinalysis [facility] CC: Low blood pressure/abdominal pain Complicating co-morbidities: Chronic UTI Data collected from: Patient and caregiver Medical records reviewed: Patient seen by infectious disease Dr. Horvath, [facility] May 05, 2023. Recommended vancomycin and Levaquin. Differential considered: Includes but not limited to sepsis UTI urosepsis pyelonephritis Exam documented above, pertinent findings include: Rash/distended abdomen Lab Test results independently reviewed as above. Pertinent findings: WBC 17.0 hemoglobin 13 sodium 137 potassium 3.4 BUN 35 GFR greater than 60 glucose 60 procalcitonin 0.88 lactic acid 3.1 Imaging studies independently reviewed: CT chest abdomen pelvis, please see notes above Consultations: 5:[address] Amato, hospitalist, who agrees for admission to ICU. PICC line team has been called to come in. Treatments: Normal saline/vancomycin, patient already on Levaquin, Levophed for vasopressor has been ordered Re-evaluations: 5:00 p.m.. No new changes. Levophed has been ordered., PICC team has been paged to come in for placement Discussion: Appropriate for admission for early sepsis/UTI needs IV antibiotics and IV Levaquin Diagnosis: Sepsis/UTI Critical Care Time Critical Care Time Attestation: Critical Care Time 35 minutes: Critical care time is separate from other billable procedures. This critical care time includes consultation with family and other consulting doctors, review of records, and interpretation of data from labs, EKGs, imaging, etc. Discharge Plan Departure Patient Disposition: Admitted As Inpatient Clinical Impression: Sepsis Qualifiers: Sepsis type: sepsis due to unspecified organism Sepsis acute organ dysfunction status: unspecified Qualified Code(s): A41.9 - Sepsis, unspecified organism Admit Date/Time: 05/12/23 17:05 Admit Provider: David Amato
[2023-05-12] MEDS: VANCOMYCIN 2,000 MG/400 ML PIGGYBACK 200 MG IV (16:22)
[2023-05-12 16:35] LABS: Reflexed Lactate in 2 Hours Y
[2023-05-12] MEDS: LIDOCAINE 2% (GLYDO) 6 ML GEL TOP (16:36)
[2023-05-12] MEDS: NOREPINEPHRINE BITARTRATE/D5W 4 MG/250 ML PLAST..BAG 48.478 MG IV (17:11)
[2023-05-12 17:34] LABS: Lactate 2HR (Lactic Acid Rflx) 2.1 mmol/L (0.7-2.1)
--- NOTE | 2023-05-12 17:36 | PC.NURSE ---
Patient started at 35.6ml due to patient BMI > 30. Per protocol it states patient is to start at [place] weight if over BMI > 30. 95kg determined closest setting on infusion rate grid for patient ideal body weight of 210lbs per weight, height and age.
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
--- NOTE | 2023-05-12 17:57 | PC.NURSE ---
Patient titrated down to 0.06 on norepinephrine per ideal body weight. Rate is 21.4ml/hr.
--- NOTE | 2023-05-12 19:23 | DI.RAD.S_ITS ---
PROCEDURE: XR CHEST FOR PICC 1V INDICATIONS: PICC placement COMPARISON: [facility], , XR CHEST 1V, 02/25/2023, 13:27. FINDINGS: PICC was placed by the intravenous therapy team from the right side. Fluoroscopic spot film demonstrates the tip of PICC projecting to the area of mid SVC. IMPRESSION: Tip of PICC projects to the area of mid SVC. Dictated by: Ariana Abraham M.D. on 05/12/2023 at 21:09 Approved by: Ariana Abraham M.D. on 05/12/2023 at 21:11
[2023-05-12] MEDS: levoFLOXacin 750 MG/150 ML PIGGYBACK 100 MG IV (21:34)
[2023-05-12] MEDS: FAMOTIDINE 20 MG/2 ML VIAL IV (21:34)
[2023-05-12] MEDS: HEPARIN 5,000 UNIT/ML VIAL 5000 UNIT SUBCUT (21:34)
[2023-05-12] MEDS: AZTREONAM 2 GM in SODIUM CHLORIDE 0.9% 100 ML IV (21:36)
[2023-05-12] MEDS: SODIUM CHLORIDE 0.9% 1,000 ML 50 ML IV (21:36)
[2023-05-12 23:17] LABS: MRSA (Nasal) PCR DETECTED (Not Detect)
[2023-05-13] VITALS (61 sets, daily range): BP systolic 87–159; BP diastolic 53–89; PULSE 92–188; RESP 13–25; TEMP 35.8–37; O2SAT 74–100
[2023-05-13] MEDS: AZTREONAM 2 GM in SODIUM CHLORIDE 0.9% 100 ML IV ×3 (02:45→20:01)
[2023-05-13] MEDS: VANCOMYCIN 2,000 MG/400 ML PIGGYBACK 200 MG IV ×2 (04:03→17:35)
[2023-05-13 05:09] LABS: Add Manual Diff / Slide Review NO; Basophils Absolute Auto 0 /uL (0-100); Basophils Percent Auto 0.2 % (0-2); Eosinophils Absolute Auto 0 /uL (0-450); Eosinophils Percent Auto 0.5 % (2-4); Hematocrit 37.5 % (41-53); Hemoglobin 12.6 g/dL (13.5-17.5); Lymphocytes Absolute Auto 500 /uL (1100-4500); Lymphocytes Percent Auto 4.5 % (25-40); Mean Corpuscular HGB Conc 33.5 % (30-36); Mean Corpuscular Hemoglobin 32.7 PG (26-34); Mean Corpuscular Volume 97.7 fL (80-100); Monocytes Absolute Auto 500 /uL (0-900); Monocytes Percent Auto 5.2 % (3-14); Neutrophils Absolute Auto 9300 /uL (1500-7000); Neutrophils Percent Auto 89.6 % (50-75); Platelet Count 205 X10^3/uL (150-400); Red Blood Cell Count 3.84 X10^6/uL (4.5-5.9); White Blood Cell Count 10.4 X10^3/uL (4.5-11.0)
[2023-05-13 05:19] LABS: BUN Creatinine Ratio 41.7 (6-22); Blood Urea Nitrogen 30 mg/dL (9-20); Calcium 9.3 mg/dL (8.4-10.2); Carbon Dioxide 23 mmol/L (22-32); Chloride 102 mmol/L (98-107); Estimated Glomerular Filt Rate > 60 mL/min (>60); Glucose 107 mg/dL (80-110); HEMOLYSIS < 15 (0-50); Potassium 3.6 mmol/L (3.4-5.1); Sodium 136 mmol/L (137-145)
[2023-05-13] MEDS: NOREPINEPHRINE BITARTRATE/D5W 4 MG/250 ML PLAST..BAG 19.391 MG IV (05:40)
[2023-05-13] MEDS: METOPROLOL TARTRATE 5 MG/5 ML INJ IV (08:43)
[2023-05-13] MEDS: SODIUM CHLORIDE 0.9% 1,000 ML 1000 ML IV (08:43)
[2023-05-13] MEDS: HEPARIN 5,000 UNIT/ML VIAL 5000 UNIT SUBCUT ×2 (09:09→20:05)
[2023-05-13] MEDS: FAMOTIDINE 20 MG/2 ML VIAL IV ×2 (09:09→20:05)
[2023-05-13] MEDS: SODIUM CHLORIDE 0.9% 1,000 ML 150 ML IV ×2 (10:25→17:35)
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
--- NOTE | 2023-05-13 12:01 | CM.DANOTE ---
DCP: Case received, EMR reviewed and met with patient. Introduced self and role. Was able to obtain information from patient, as well as last visit here in January, to complete patient's assessment. DCP assessment completed with information currently available. Patient is a 63 year old male who admitted yesterday evening to the care of the hospitalist team. PCP: Dr. Gomez. Payer: confirmed: Medicare/Medicaid. Patient came to the hospital via private vehicle and wheelchair with his caregiver secondary to having a worsened rash. Notes indicate that patient has been on multiple antibiotics, secondary to UTI. Patient has had multiple allergies to several antibiotics. Patient is affiliated with Dr. Dao, as [facility]. Patient's blood pressure had decreased. In the ER, notes indicate, patient was hypothermic, started with bear hugger, and peripheral norepinephrine, and PICC placement. Patient was admitted for septic shock requiring pressors, and pyelonephritis. Patient is a paraplegic, is wheel-chair bound and has a caregiver. Met with patient in his room. Confirmed that he resides in [place], has a caregiver named Dionne, is his bushing press operator caregiver, and his son, Kris, is his DPOA. Notes from last visit in January, confirm that his caregiver is through [employer], and his [facility] transplant case manager is Wen Paul. Patient is able to do transfers to and from his wheelchair according to recent notes, as well. P: DCP to follow closely for needs. May need home IV ABO, uncertain at this time as of yet. Does have a following provider, Dr. Dao, who has been managing his home ABO, and also has a primary provider, Dr. Gomez. Will see if he needs any type of home health services. Patient most likely will go home when deemed medically stable. Josiane Harkins RN/Senior Facilities Manager Discharge Planning/Care Management Discharge Assessment Start: 05/13/23 11:56 Freq: Status: Active Protocol: Document 05/13/23 11:56 (Rec: 05/13/23 12:00 [id number]) Discharge Planning Assessment Assigned Cardiac Nurse Practitioner Josiane Harkins RN/Senior Facilities Manager Advance Directives? Yes Advance Directives on File No History Provided By Patient,Medical Record Prior Living Arrangements House Household Members family,caregiver Type of transporation used prior to Relies on Others admit Independent with ADL's No Is patient alert and oriented? Yes Needs Assistance With Bathing,Meal Prep,Toileting, Home Chores / Shopping Caregiver for Another No DME Already Rented / Owned Bath Bench,Wheelchair Patient/Family Preference Home with Home Health Comment Uncertain if patient is under home health services at this time. Barriers to Discharge No Discharge Plan Home Transportation Arrangement Likely brother or CG Referrals Initiated Other Additional Comment Will have to see how patient progresses here in the hospital, has Medicare, home health can be an option. Whiteboard Updated in Patient Room with Yes name and ext. # of Cardiac Nurse Practitioner Review Status In Process Next Review Type Continued Stay Review
[2023-05-13] MEDS: levoFLOXacin 750 MG/150 ML PIGGYBACK 100 MG IV (20:02)
[2023-05-14] VITALS (21 sets, daily range): BP systolic 91–156; BP diastolic 53–100; PULSE 93–104; RESP 12–22; TEMP 34.9–36.9; O2SAT 92–99
[2023-05-14] MEDS: SODIUM CHLORIDE 0.9% 1,000 ML 150 ML IV ×2 (01:47→09:47)
[2023-05-14] MEDS: AZTREONAM 2 GM in SODIUM CHLORIDE 0.9% 100 ML IV ×2 (01:54→09:47)
[2023-05-14] MEDS: VANCOMYCIN TROUGH 1 REQUEST MISC (04:30)
[2023-05-14 04:38] LABS: Add Manual Diff / Slide Review NO; Basophils Absolute Auto 0 /uL (0-100); Basophils Percent Auto 0.3 % (0-2); Eosinophils Absolute Auto 400 /uL (0-450); Eosinophils Percent Auto 6.5 % (2-4); Hematocrit 36.8 % (41-53); Hemoglobin 12.3 g/dL (13.5-17.5); Lymphocytes Absolute Auto 700 /uL (1100-4500); Lymphocytes Percent Auto 12.3 % (25-40); Mean Corpuscular HGB Conc 33.3 % (30-36); Mean Corpuscular Hemoglobin 32.6 PG (26-34); Mean Corpuscular Volume 97.9 fL (80-100); Monocytes Absolute Auto 500 /uL (0-900); Monocytes Percent Auto 8.8 % (3-14); Neutrophils Absolute Auto 3900 /uL (1500-7000); Neutrophils Percent Auto 72.1 % (50-75); Platelet Count 182 X10^3/uL (150-400); Red Blood Cell Count 3.76 X10^6/uL (4.5-5.9); Red Cell Distribution Width 17.2 % (11.6-14.8); White Blood Cell Count 5.4 X10^3/uL (4.5-11.0)
[2023-05-14 04:44] LABS: BUN Creatinine Ratio 39.4 (6-22); Blood Urea Nitrogen 26 mg/dL (9-20); Calcium 9.3 mg/dL (8.4-10.2); Carbon Dioxide 21 mmol/L (22-32); Chloride 107 mmol/L (98-107); Estimated Glomerular Filt Rate > 60 mL/min (>60); Glucose 79 mg/dL (80-110); HEMOLYSIS < 15 (0-50); Potassium 3.6 mmol/L (3.4-5.1); Sodium 139 mmol/L (137-145)
[2023-05-14 05:19] LABS: Vancomycin Trough 25.2 ug/mL (10-20)
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
[2023-05-14] MEDS: FAMOTIDINE 20 MG/2 ML VIAL IV (08:47)
[2023-05-14] MEDS: HEPARIN 5,000 UNIT/ML VIAL 5000 UNIT SUBCUT (08:47)
[2023-05-14] MEDS: dilTIAZem 30 MG TABLET PO (09:14)
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
--- NOTE | 2023-05-14 14:58 | CM.DPNOTE ---
DCP Note LEAD CYTOGENETIC TECHNOLOGIST reviewed EMR. Per provider, pt to dc home today with family support. Oral abx. no obvious CM needs. LEAD CYTOGENETIC TECHNOLOGIST met with pt in room. Pt resting in bed. Pt gave permission for this LEAD CYTOGENETIC TECHNOLOGIST to contact brother about the dcp. Reports no CM needs. Reports eager to go home. LEAD CYTOGENETIC TECHNOLOGIST gave pt copy of IMM. LEAD CYTOGENETIC TECHNOLOGIST spoke with brother Sid on the phone. Agreeable to taking pt home today. Reports he's been doing this with his brother for awhile and has no CM needs. Plan: home with brother/[employer] CG support today. Oral abx. No CM needs. CM team will follow as needed. ITALO Schwartz
== END 2023-05-14 17:32 | disposition home or self-care (01) | DRG 871 ==
LOC: ED 16:06 → AC 17:06 → ICU 17:20
PROVIDERS: Admitting Provider Hospitalist; Emergency Provider Emergency Medicine; PCP Internal Medicine; Referring Provider Emergency Medicine; Visit Provider Hospitalist
DX: A41.9 Sepsis, unspecified organism (principal); J18.9 Pneumonia, unspecified organism; R65.21 Severe sepsis with septic shock; G82.20 Paraplegia, unspecified; I50.32 Chronic diastolic (congestive) heart failure; I47.10 Supraventricular tachycardia, unspecified; T68.XXXA Hypothermia, initial encounter; G47.33 Obstructive sleep apnea (adult) (pediatric); I48.91 Unspecified atrial fibrillation; Z88.0 Allergy status to penicillin; Z88.1 Allergy status to other antibiotic agents; Z79.01 Long term (current) use of anticoagulants
CPT/HCPCS: 36415; 36592; 71260; 74177; 80048; 80053; 80202; 81001; 82962; 83605; 84145; 85025; 87040; 87086; 87797; 93005; 93010; 96365; 96366; 99284; 99291; S0073; J1644; J1956; Q9967

== ENCOUNTER → 2023-05-26 16:50 | Outpatient (CLI) | payer MEDICARE, MEDICAID, SELFPAY ==
[2023-01-30 08:15] VITALS: PULSE 49; RESP 16; O2SAT 92
[2023-05-12 19:49] VITALS: BMI 35.5
[2023-05-26 18:06] LABS: Appearance Urine UA CLEAR; Bilirubin Urine UA NEGATIVE (NEGATIVE); Color Urine UA YELLOW; Glucose Urine UA NEGATIVE (Negative); Ketones Urine UA NEGATIVE (NEGATIVE); Leukocyte Esterase Urine UA 2+ (NEGATIVE); Nitrite Urine UA POSITIVE (Negative); Occult Blood Urine UA 1+ (Negative); Protein Urine UA NEGATIVE (Negative); Urobilinogen Urine UA 0.2 E.U./dL (0.2)
[2023-05-26 18:23] LABS: RBC Urine 1-5/HPF (0-5/HPF); Urine Volume 10mL (spun); WBC Urine 10-30/HPF (0-5/HPF)
[2023-05-26 18:24] LABS: Bacteria Urine Many (>30); Culture Indicated Urine Specimen Cultured; Squamous Epithelial Cell Urine 0-1 /HPF (0-5/HPF)
== END ==
LOC: LAB 16:51
PROVIDERS: PCP Internal Medicine; Referring Provider Internal Medicine; Visit Provider Internal Medicine
DX: N39.0 Urinary tract infection, site not specified (principal); R30.0 Dysuria
CPT/HCPCS: 81001; 87077; 87086; 87186

== ENCOUNTER 2023-06-21 14:46 | Inpatient (IN) | payer MEDICARE, MEDICAID, SELFPAY ==
[2023-06-05 10:22] VITALS: PULSE 49; RESP 16; O2SAT 92; BMI 35.5
[2023-06-21] VITALS (23 sets, daily range): BP systolic 111–141; BP diastolic 57–94; PULSE 100–102; RESP 10–31; TEMP 32–36.6; O2SAT 92–98; BMI 34.0
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
[2023-06-21 15:32] LABS: Lactate (Lactic Acid) 1.3 mmol/L (0.7-2.1)
[2023-06-21 15:33] LABS: Alanine Aminotransferase 22 IU/L (<50); Albumin Globulin Ratio 0.8 (1.0-2.8); Alkaline Phosphatase 128 U/L (38-126); Aspartate Aminotransferase 26 IU/L (17-59); BUN Creatinine Ratio 28.4 (6-22); Blood Urea Nitrogen 21 mg/dL (9-20); Calcium 9.7 mg/dL (8.4-10.2); Carbon Dioxide 34 mmol/L (22-32); Chloride 101 mmol/L (98-107); Creatine Kinase 24 U/L (55-170); Estimated Glomerular Filt Rate > 60 mL/min (>60); Globulin 4.9 g/dL (1.7-4.1); Glucose 91 mg/dL (80-110); HEMOLYSIS < 15 (0-50); Potassium 4.1 mmol/L (3.4-5.1); Sodium 138 mmol/L (137-145); Total Protein 8.9 g/dL (6.3-8.2)
[2023-06-21 15:33] LABS: pH ABG 7.37 (7.35-7.45)
[2023-06-21 15:34] LABS: Allen Test for ABG Passed? Yes, Passed; Blood Gas Collection Site Left Radial; Fractionated Inspired Oxygen 50; HCO3 ABG 29 mmol/L (23-27); Oxygen Saturation ABG 96 % (95-100); PCO2 ABG 50.6 mmHg (35-45); PO2 ABG 85 mmHg (80-100); TCO2 ABG 31 mmol/L (23-27)
[2023-06-21 15:43] LABS: Add Manual Diff / Slide Review NO; Basophils Absolute Auto 0 /uL (0-100); Basophils Percent Auto 0.2 % (0-2); Eosinophils Absolute Auto 1000 /uL (0-450); Eosinophils Percent Auto 7.2 % (2-4); Hematocrit 45.4 % (41-53); Hemoglobin 15.1 g/dL (13.5-17.5); Lymphocytes Absolute Auto 600 /uL (1100-4500); Lymphocytes Percent Auto 4.5 % (25-40); Mean Corpuscular HGB Conc 33.4 % (30-36); Mean Corpuscular Hemoglobin 33.4 PG (26-34); Mean Corpuscular Volume 99.9 fL (80-100); Monocytes Absolute Auto 1700 /uL (0-900); Monocytes Percent Auto 11.9 % (3-14); Neutrophils Absolute Auto 10900 /uL (1500-7000); Neutrophils Percent Auto 76.2 % (50-75); Platelet Count 238 X10^3/uL (150-400); Red Blood Cell Count 4.54 X10^6/uL (4.5-5.9); White Blood Cell Count 14.3 X10^3/uL (4.5-11.0)
[2023-06-21 15:44] LABS: NT-proBNP (BNP-Adult 18+) 592 pg/mL (<125); Troponin I 0.016 ng/mL (0.01-0.034)
[2023-06-21 15:49] LABS: Procalcitonin 0.09 ng/mL (<0.5)
[2023-06-21 16:07] LABS: Adenovirus Not Detected (Not Detect); B. parapertussis Not Detected (Not Detecte); Bordetella pertussis Not Detected (Not Detect); Chlamydophila pneumoniae Not Detected (Not Detect); Coronavirus 229E Not Detected (Not Detect); Coronavirus HKU1 Not Detected (Not Detect); Coronavirus NL 63 Not Detected (Not Detect); Coronavirus OC43 Not Detected (Not Detect); Human Metapneumovirus Not Detected (Not Detect); Human Rhinovirus/Enterovirus Detected (Not Detect); Influenza A Not Detected (Not Detect); Influenza B Not Detected (Not Detect); Mycoplasma pneumoniae Not Detected (Not Detect); Parainfluenza Virus 1 Not Detected (Not Detect); Parainfluenza Virus 2 Not Detected (Not Detect); Parainfluenza Virus 3 Not Detected (Not Detect); Parainfluenza Virus 4 Not Detected (Not Detect); Respiratory Syncytial Virus Not Detected (Not Detect); SARS- CoV-2 Not Detected (Not Detecte)
[2023-06-21] MEDS: levoFLOXacin 750 MG/150 ML PIGGYBACK 100 MG IV (16:42)
[2023-06-21 17:02] LABS: Appearance Urine UA SL CLOUDY; Bilirubin Urine UA NEGATIVE (NEGATIVE); Color Urine UA YELLOW; Glucose Urine UA NEGATIVE (Negative); Ketones Urine UA NEGATIVE (NEGATIVE); Leukocyte Esterase Urine UA 2+ (NEGATIVE); Nitrite Urine UA POSITIVE (Negative); Occult Blood Urine UA 2+ (Negative); Protein Urine UA 1+ (Negative); Specific Gravity Urine UA 1.015 (1.000-1.035); Urobilinogen Urine UA 0.2 E.U./dL (0.2); pH Urine UA 5.5 (4.5-8.0)
[2023-06-21 17:11] LABS: Bacteria Urine Many (>30); Culture Indicated Urine Specimen Cultured; RBC Urine 1-5/HPF (0-5/HPF); Squamous Epithelial Cell Urine None Seen (0-5/HPF); Urine Volume 10mL (spun); WBC Urine 30-100/HPF (0-5/HPF)
[2023-06-21] MEDS: FUROSEMIDE 40 MG/4 ML VIAL IV (17:42)
--- NOTE | 2023-06-21 17:42 | PC.NURSE ---
Per RT, pt was taken off bipap approx 20 mins ago. Pt is on Oxygen at 4l/nasal cannula. spo2 95 percent
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
--- NOTE | 2023-06-21 20:46 | DI.ECHO.S_ITS ---
[facility] +---------+ : : [address] : [place] : : : : [id number] : : : : Phone: [phone]+ Echocardiogram Report + + :Name: NICOLAS WINSTON Study Date: 06/22/2023 Height: 78 in : :[facility] ReadingLocation: Weight: 294 lb : : Gender: Male BSA: 2.7 m2 : :: 1960 Age: 63 yrs BP: 102/62 mmHg: :Reason For Study: CONGSTIVE HEART FAILURE : :Ordering Physician: LUIS, : :KEVIN COREA Performed By: Mayra Nagel : :Referring: KEVIN SMITH : + + Interpretation Summary 1) Normal left ventricular size, wall motion, and systolic function (EF 60- 65%). 2) Borderline enlarged right ventricle with normal function. 3) The left atrium is small. Suspect external compression of the left atrium. 4) No significant valvular abnormalities. 5) The right ventricular systolic pressure is estimated to be at least 51 mmHg based on an estimated right atrial pressure of 8 mm Hg. 6) There is a moderate left-sided pleural effusion. 7) Compared to the Echo done 01/25/2023, left pleural effusion is present on this study. Procedure: A two-dimensional transthoracic echocardiogram with color flow and Doppler was performed. The study quality was technically adequate. Comparison is made with the echocardiogram of 01/25/2023. The heart rate ranged between 95-105 bpm during the study. Left Ventricle: The left ventricle is normal in size. There is mild concentric left ventricular hypertrophy. Proximal septal thickening is noted. The ejection fraction is estimated to be 60-65%. Septal bounce present. Diastolic function could not be accurately assessed due to unobtainable data. Right Ventricle: The right ventricle is not well visualized. Borderline right ventricular enlargement. Systolic function appears grossly normal. Atria: The left atrium is small. Right atrium not well visualized. Mitral Valve: The mitral valve leaflets appear borderline thickened, but open well. There is trace mitral regurgitation. Aortic Valve: The aortic valve is trileaflet. The aortic valve opens well. There is no aortic valve stenosis. There is trace aortic regurgitation. Tricuspid Valve: The tricuspid valve is normal in structure and function. There is mild tricuspid regurgitation. The right ventricular systolic pressure is estimated to be at least 51 mmHg based on an estimated right atrial pressure of 8 mm Hg. Pulmonic Valve: The pulmonic valve leaflets are thin and pliable; valve motion is normal. There is trace pulmonic regurgitation. Great Vessels: The aortic root is normal size. The dimensions of the ascending aorta are normal. The IVC is of normal diameter and collapses less than 50% with a sniff. This suggests a right atrial pressure of 8 mm Hg. Pericardium/ Pleura There is no pericardial effusion. There is a moderate left-sided pleural effusion. MMode/2D Measurements & Calculations LVIDd: 3.5 cm LVOT diam: 2.0 cm LVIDs: 2.6 cm Ao root diam: 3.1 cm FS: 26.8 % asc Aorta Diam: 3.0 cm IVSd: 1.3 cm LVPWd: 1.1 cm LV ferrera. diameter/BSA (cm/m^2): 1.3 LV sys. diameter/BSA (cm/m^2): 0.96 IVC diam: 1.2 cm Doppler Measurements & Calculations Ao V2 max: 88.1 cm/sec LVOT Max Cameron: 56.4 cm/sec Ao V2 mean: 66.5 cm/sec LV V1 max P.3 mmHg Ao max P.1 mmHg LV V1 VTI: 7.6 cm Ao mean P.9 mmHg TAINA(I,D): 1.7 cm2 Ao V2 VTI: 14.3 cm TAINA(V,D): 2.0 cm2 sev ratio: 0.53 TAINA indexed to BSA (cm^2/m^2): 0.62 MV E max cameron: 60.5 cm/sec TR max cameron: 330.7 cm/sec MV A max cameron: 33.1 cm/sec TR max P.7 mmHg MV E/A: 1.8 PA V2 max: 72.1 cm/sec Med Peak E' Cameron: 7.1 cm/sec PA V2 mean: 49.5 cm/sec E/E' med: 8.5 PA mean P.1 mmHg Lat Peak E' Cameron: 10.0 cm/sec PA pr(Accel): 53.3 mmHg E/E' lat: 6.1 E/e' average: 7.3 MV dec time: 0.17 sec SV(LVOT): 23.7 ml Reading Physician:12:41 PM
[2023-06-21] MEDS: MEROPENEM 1 GM in SODIUM CHLORIDE 0.9% 100 ML IV (22:34)
[2023-06-22] VITALS (59 sets, daily range): BP systolic 102–118; BP diastolic 54–85; PULSE 48–195; RESP 14–32; TEMP 35.9–37; O2SAT 78–100
[2023-06-22 04:56] LABS: Add Manual Diff / Slide Review NO; Basophils Absolute Auto 0 /uL (0-100); Basophils Percent Auto 0.2 % (0-2); Eosinophils Absolute Auto 500 /uL (0-450); Eosinophils Percent Auto 3.1 % (2-4); Hematocrit 43.3 % (41-53); Hemoglobin 14.6 g/dL (13.5-17.5); Lymphocytes Absolute Auto 500 /uL (1100-4500); Lymphocytes Percent Auto 3.5 % (25-40); Mean Corpuscular HGB Conc 33.7 % (30-36); Mean Corpuscular Hemoglobin 33.6 PG (26-34); Mean Corpuscular Volume 99.7 fL (80-100); Monocytes Absolute Auto 1700 /uL (0-900); Monocytes Percent Auto 10.9 % (3-14); Neutrophils Absolute Auto 12800 /uL (1500-7000); Neutrophils Percent Auto 82.3 % (50-75); Platelet Count 201 X10^3/uL (150-400); Red Blood Cell Count 4.34 X10^6/uL (4.5-5.9); Red Cell Distribution Width 16.7 % (11.6-14.8); White Blood Cell Count 15.5 X10^3/uL (4.5-11.0)
[2023-06-22 05:41] LABS: MRSA (Nasal) PCR DETECTED (Not Detect)
[2023-06-22] MEDS: MEROPENEM 1 GM in SODIUM CHLORIDE 0.9% 100 ML IV ×3 (05:52→20:43)
[2023-06-22 05:58] LABS: Alanine Aminotransferase 19 IU/L (<50); Albumin 3.8 g/dL (3.5-5.0); Albumin Globulin Ratio 0.8 (1.0-2.8); Alkaline Phosphatase 127 U/L (38-126); Aspartate Aminotransferase 32 IU/L (17-59); BUN Creatinine Ratio 39.3 (6-22); Bilirubin Total 1.1 mg/dL (0.2-1.3); Blood Urea Nitrogen 24 mg/dL (9-20); Calcium 9.8 mg/dL (8.4-10.2); Carbon Dioxide 32 mmol/L (22-32); Chloride 99 mmol/L (98-107); Estimated Glomerular Filt Rate > 60 mL/min (>60); Globulin 4.6 g/dL (1.7-4.1); Glucose 86 mg/dL (80-110); HEMOLYSIS 24 (0-50); Magnesium 1.7 mg/dL (1.6-2.3); Potassium 3.8 mmol/L (3.4-5.1); Sodium 136 mmol/L (137-145); Total Protein 8.4 g/dL (6.3-8.2)
--- NOTE | 2023-06-22 06:44 | PC.NURSE ---
Patient arrived to unit around 2029. Tolerating 2L NC, VSS, afebrile. Baseline orientation, brother at bedside. Gross motor intact to BUE, Paraplegic, no movement to BLE. Erythema to sacrum with small blister, brother reports baseline. L 3rd toe, small black spot. Scattered scratches, scabs, and bruises. Patient slept on home Trilogy device. Reports no pain. Call light within reach, uses appropriately. Turned q2. Continuing plan of care.
[2023-06-22] MEDS: FUROSEMIDE 40 MG/4 ML VIAL IV ×2 (08:59→18:02)
[2023-06-22] MEDS: METOPROLOL ER 50 MG TABLET PO ×2 (09:08→20:44)
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
[2023-06-22] MEDS: MAGNESIUM CHLORIDE 64 MG TABLET 128 MG PO (11:11)
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
[2023-06-23] VITALS (65 sets, daily range): BP systolic 75–134; BP diastolic 46–92; PULSE 99–194; RESP 13–44; TEMP 36.1–36.6; O2SAT 80–100
[2023-06-23] MEDS: MEROPENEM 1 GM in SODIUM CHLORIDE 0.9% 100 ML IV ×3 (04:10→21:10)
[2023-06-23 05:05] LABS: Alanine Aminotransferase 18 IU/L (<50); Albumin 3.8 g/dL (3.5-5.0); Albumin Globulin Ratio 0.8 (1.0-2.8); Alkaline Phosphatase 137 U/L (38-126); Aspartate Aminotransferase 27 IU/L (17-59); Blood Urea Nitrogen 30 mg/dL (9-20); Calcium 9.7 mg/dL (8.4-10.2); Carbon Dioxide 31 mmol/L (22-32); Chloride 98 mmol/L (98-107); Estimated Glomerular Filt Rate > 60 mL/min (>60); Globulin 4.7 g/dL (1.7-4.1); Glucose 76 mg/dL (80-110); HEMOLYSIS 40 (0-50); Magnesium 1.8 mg/dL (1.6-2.3); Potassium 4.4 mmol/L (3.4-5.1); Sodium 138 mmol/L (137-145); Total Protein 8.5 g/dL (6.3-8.2)
[2023-06-23 05:06] LABS: Add Manual Diff / Slide Review NO; Basophils Absolute Auto 0 /uL (0-100); Basophils Percent Auto 0.2 % (0-2); Eosinophils Absolute Auto 300 /uL (0-450); Eosinophils Percent Auto 2.7 % (2-4); Hematocrit 41.8 % (41-53); Hemoglobin 13.9 g/dL (13.5-17.5); Lymphocytes Absolute Auto 800 /uL (1100-4500); Lymphocytes Percent Auto 6.7 % (25-40); Mean Corpuscular HGB Conc 33.3 % (30-36); Mean Corpuscular Hemoglobin 33.2 PG (26-34); Mean Corpuscular Volume 99.8 fL (80-100); Monocytes Absolute Auto 1900 /uL (0-900); Monocytes Percent Auto 15.7 % (3-14); Neutrophils Absolute Auto 9100 /uL (1500-7000); Neutrophils Percent Auto 74.7 % (50-75); Platelet Count 200 X10^3/uL (150-400); Red Blood Cell Count 4.18 X10^6/uL (4.5-5.9); Red Cell Distribution Width 16.8 % (11.6-14.8); White Blood Cell Count 12.1 X10^3/uL (4.5-11.0)
[2023-06-23] MEDS: METOPROLOL ER 50 MG TABLET PO ×2 (08:21→21:11)
[2023-06-23] MEDS: FUROSEMIDE 40 MG/4 ML VIAL IV ×2 (08:21→17:17)
[2023-06-23] MEDS: ENOXAPARIN 40 MG/0.4 ML SYRINGE SUBCUT (08:21)
--- NOTE | 2023-06-23 09:40 | DI.RAD.S_ITS ---
PROCEDURE: XR CHEST 1V INDICATIONS: reassess effusion TECHNIQUE: One view of the chest was acquired. COMPARISON: [facility], CT, CT CHEST ABD PEL W CON, 05/12/2023, 15:58. [facility], CR, XR CHEST 1V, 06/21/2023, 15:44. FINDINGS: Surgical changes and devices: Clips overlying the chest. Thoracolumbar spine hardware. Lungs and pleura: Coarsened pulmonary markings. No significant pleural effusion. No pneumothorax. Mediastinum: Mediastinal contours appear normal. Heart size is enlarged. Bones and chest wall: No suspicious bony lesions. Overlying soft tissues appear unremarkable. IMPRESSION: Left pleural effusion appears resolved. Prominent pulmonary markings. This could be due to pulmonary vasculature engorgement. Dictated by: Rufus Fernando M.D. on 06/23/2023 at 11:21 Approved by: Rufus Fernando M.D. on 06/23/2023 at 11:24
[2023-06-23 10:21] LABS: INR 2.7 (0.9-1.3); Prothrombin Time 31.7 SECONDS (9.4-12.5)
[2023-06-23 10:30] LABS: PTT Partial Thromboplastin Tim 61 SECONDS (25.1-36.5)
[2023-06-23] MEDS: dilTIAZem 5 MG/ML SDV 10 MG IV (13:02)
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
[2023-06-23] MEDS: dilTIAZem CD 120 MG CAP PO (13:24)
--- NOTE | 2023-06-23 13:44 | PC.NURSE ---
Pt reported heart palpitations with this RN at bedside. HR 180's sustained on telemetry. BP stable, denies chest pain, SOB, discomfort. Provider notified. New orders received. HR now 101 after ordered medication (see MAR). BP continues to be stable, care ongoing, will continue to monitor.
--- NOTE | 2023-06-23 15:13 | CM.DPC ---
DCP Cont. Reviewed EMR and team rounds for status updates. Cultures remain pending, however Dr. Soto feels that he will need additional home IV ABO's at d/c. Referral sent to [facility], it's not yet known how many days or type of antibiotic, this will need to be confirmed and coordinated. No home health referral at this time. Cont. to assist over next few days.
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
[2023-06-23] MEDS: RIVAROXABAN 10 MG TABLET 20 MG PO (17:17)
[2023-06-23] MEDS: SODIUM CHLORIDE 0.9% FLUSH 10 ML IV (21:10)
[2023-06-24] VITALS (57 sets, daily range): BP systolic 102–134; BP diastolic 53–82; PULSE 65–108; RESP 11–24; TEMP 35.8–36.7; O2SAT 75–97
--- NOTE | 2023-06-24 00:12 | PC.NURSE ---
Patient oriented to self, birthdate, place and situation. Stated age incorrectly but when told year was able to correctly state his age. Speech is poorly articulated, slow in responses and soft spoken making it difficult to understand. Breath sounds diminished but CTA with RA sat of 92%; is on continuous oximetry. Home trilogy applied for night by RT. HR irregular w/telemetry reading of aflutter and rate of 104. Denied nausea. BT present and abdomen is soft; incontinent of stool. Indwelling catheter in place and urine is clear, yellow. Needing to be repositioned q2h as unable to turn himself. Is gotten out of bed with mechanical lift related to chronic paraplegia. Allevyn dressing to coccyx is intact. Bilateral buttocks, perinueum and left groin with erythema and excoriation; zinc cream applied. Denieds pain. Wearing bilateral calf SCD's. On droplet precautions related to being positive for rhinovirus and added contact precautions as was + for MRSA in nares. Fall risk score is high and bed alarm is activated.
[2023-06-24] MEDS: MEROPENEM 1 GM in SODIUM CHLORIDE 0.9% 100 ML IV (05:18)
[2023-06-24] MEDS: SODIUM CHLORIDE 0.9% FLUSH 10 ML IV ×4 (05:18→21:04)
[2023-06-24 06:51] LABS: Add Manual Diff / Slide Review NO; Basophils Absolute Auto 0 /uL (0-100); Basophils Percent Auto 0.6 % (0-2); Eosinophils Absolute Auto 900 /uL (0-450); Eosinophils Percent Auto 11.7 % (2-4); Hematocrit 42.4 % (41-53); Hemoglobin 14.3 g/dL (13.5-17.5); Lymphocytes Absolute Auto 1200 /uL (1100-4500); Lymphocytes Percent Auto 15.8 % (25-40); Mean Corpuscular HGB Conc 33.7 % (30-36); Mean Corpuscular Hemoglobin 33.3 PG (26-34); Mean Corpuscular Volume 98.9 fL (80-100); Monocytes Absolute Auto 1400 /uL (0-900); Neutrophils Absolute Auto 3900 /uL (1500-7000); Neutrophils Percent Auto 52.9 % (50-75); Platelet Count 246 X10^3/uL (150-400); Red Blood Cell Count 4.29 X10^6/uL (4.5-5.9); White Blood Cell Count 7.4 X10^3/uL (4.5-11.0)
[2023-06-24 07:06] LABS: Alanine Aminotransferase 19 IU/L (<50); Albumin 3.8 g/dL (3.5-5.0); Albumin Globulin Ratio 0.8 (1.0-2.8); Alkaline Phosphatase 129 U/L (38-126); Aspartate Aminotransferase 24 IU/L (17-59); BUN Creatinine Ratio 49.3 (6-22); Bilirubin Total 0.6 mg/dL (0.2-1.3); Blood Urea Nitrogen 37 mg/dL (9-20); Calcium 10.3 mg/dL (8.4-10.2); Carbon Dioxide 37 mmol/L (22-32); Chloride 99 mmol/L (98-107); Estimated Glomerular Filt Rate > 60 mL/min (>60); Globulin 4.6 g/dL (1.7-4.1); Glucose 90 mg/dL (80-110); HEMOLYSIS < 15 (0-50); Magnesium 1.8 mg/dL (1.6-2.3); Potassium 4.2 mmol/L (3.4-5.1); Sodium 140 mmol/L (137-145); Total Protein 8.4 g/dL (6.3-8.2)
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
[2023-06-24] MEDS: METOPROLOL ER 50 MG TABLET PO ×2 (08:40→21:04)
[2023-06-24] MEDS: dilTIAZem CD 120 MG CAP PO (08:40)
[2023-06-24] MEDS: FUROSEMIDE 40 MG/4 ML VIAL IV ×2 (08:41→17:11)
[2023-06-24] MEDS: ERTAPENEM 1 GM in SODIUM CHLORIDE 0.9% 100 ML IV (13:13)
--- NOTE | 2023-06-24 14:23 | CM.DPC ---
Addendum entered by ITALO Ford 06/24/23 15:14: ADD: Return call from [facility] RN Sheree stating that unfortunately they do not have an RN over the weekend for teach and providing supplies and their team cannot confirm if any out of pocket cost until 06/26/23 but she will leave a note requesting their team run the insurance amanda Mon AM. BRIE spoke to pt's brother/KASHMIR Ponce and explained [facility] and he confirms pt needed home IV-Abx about 1-2 years ago and does not think he had any out of pocket expense. BRIE explained cannot confirm if fully covered until billing dept runs insurance on Mon. SW explained outpt infusion clinic for once a day infusion and brother states he is the only caregiver this week and does not feel he can get pt once a day for infusion outpt at this time and feels home infusion the best option due to pt's mobility and assist needs. BF Original Note: DCP IV-Abx infusion planning Per MD and Pharmacist, plan is to switch pt to Ertapenem 1gram Q24 for total of 7 days and once set up then pt could discharge the hospital. BRIE called [facility] answering service and return call from RN and updated on the new IV-Abx. Confirmed Medicare will cover the med but not the supplies but sometimes Medicaid will cover the supplies and they will contact their Pharmacist to run the med through insurance to determine if any out of pocket cost. BRIE met bedside with pt and explained the once a day IV-Abx and possible option of home with home infusion through [facility] and unclear yet if any out of pocket cost vs home with outpt infusion once a day through [facility]. Pt currently does not have a preference but wants to make sure if any out of pocket cost for home infusion. Pt states they have a transport van so coming in once a day would not necessarily be a barrier and he believes between his brother and his caregiver they could assist pt either option. BRIE attempted to call brother to confirm and no answer. BRIE faxed [facility] the updated med list with Ertapenem and waiting for a call back. BRIE faxed new referral to [facility] as this likely the best option for timely discharge but the Provider Order sheet will need to be completed by MD. Plan: BRIE to follow closely for return call from [facility] on insurance coverage and return call from brother to confirm outpt infusion clinic an option for getting pt into the clinic once a day. ITALO Ford
[2023-06-24] MEDS: RIVAROXABAN 10 MG TABLET 20 MG PO (17:11)
[2023-06-25] VITALS (34 sets, daily range): BP systolic 115–132; BP diastolic 58–80; PULSE 54–110; RESP 10–37; TEMP 35.9–36.2; O2SAT 88–99
--- NOTE | 2023-06-25 01:19 | PC.NURSE ---
Patient is alert to self and able to state birthday, place and situation. Breath sounds with expiratory wheezes at bilateral bases but is on RA at 93% and using home trilogy; on continuous oximetry. No coughing noted tonight. HR irregular with telemetry reading of aflutter with rate of 106. Denied nausesa. BT present and has fecal incontinence. Indwelling catheter is patent and urine is clear yellow. Is unable to move himself although does help so staff is repositioning him q2h. He does have erythema/excoriation of bilateral buttocks and left groin; allevyn dressing (changed on previous shift) is CDI; zinc oxide barrier cream is being used to excoriated skin. Not out of bed this shift so unknown if he has been up but would need mechanical lift for transfers as patient does have LE paraplegia. Trace edema in bilateral LE/feet. Feet are reddened but blanchable and heels are being floated. Is wearing bilateral calf SCD's. Denied pain. Fall risk score is high and bed alarm is activated. Remains on contact/droplet precautions.
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
[2023-06-25] MEDS: METOPROLOL ER 50 MG TABLET PO ×2 (09:00→21:38)
[2023-06-25] MEDS: dilTIAZem CD 120 MG CAP PO (09:00)
[2023-06-25] MEDS: FUROSEMIDE 40 MG/4 ML VIAL IV ×2 (09:00→16:46)
[2023-06-25] MEDS: SODIUM CHLORIDE 0.9% FLUSH 10 ML IV ×2 (09:02→21:39)
[2023-06-25] MEDS: ERTAPENEM 1 GM in SODIUM CHLORIDE 0.9% 100 ML IV (12:26)
--- NOTE | 2023-06-25 14:16 | DI.RAD.S_ITS ---
PROCEDURE: XR CHEST 1V INDICATIONS: check for line placement TECHNIQUE: One view of the chest was acquired. COMPARISON: [facility], CR, XR CHEST 1V, 06/23/2023, 10:12. [facility], CR, XR CHEST 1V, 06/21/2023, 15:44. FINDINGS: Surgical changes and devices: Interval placement of right PICC. The tip appears to project over the superior vena cava. Thoracolumbar spinal hardware. Surgical clips projecting over the mediastinum. Lungs and pleura: Prominent pulmonary markings are redemonstrated.. No pleural effusions or pneumothorax. Mediastinum: Mediastinal contours appear normal. Heart size is enlarged, stable. Bones and chest wall: No suspicious bony lesions. Overlying soft tissues appear unremarkable. IMPRESSION: 1. Right PICC with tip projecting over the superior vena cava. 2. Prominent interstitial markings are redemonstrated, may be secondary to pulmonary edema. Dictated by: Nigel Richardson M.D. on 06/25/2023 at 14:31 Approved by: Nigel Richardson M.D. on 06/25/2023 at 14:32
--- NOTE | 2023-06-25 14:29 | CM.DPC ---
DCP Cont. Reviewed EMR and team rounds for status updates. Per Hospitalist, pt will not need continued IV ABO's after d/c home. He will have his last dose of IV ABO on Sunday 06/25, then will be medically cleared to return home with his brother. No need for Home Health.
[2023-06-25] MEDS: RIVAROXABAN 10 MG TABLET 20 MG PO (16:46)
[2023-06-26] VITALS (19 sets, daily range): BP systolic 100–114; BP diastolic 57–75; PULSE 55–109; RESP 15–43; TEMP 35.8–36.4; O2SAT 93–99
[2023-06-26] MEDS: SODIUM CHLORIDE 0.9% FLUSH 10 ML IV ×2 (08:02→21:19)
[2023-06-26] MEDS: FUROSEMIDE 40 MG/4 ML VIAL IV ×2 (08:02→17:28)
[2023-06-26] MEDS: METOPROLOL ER 50 MG TABLET PO ×2 (08:03→21:13)
[2023-06-26] MEDS: dilTIAZem CD 120 MG CAP PO (08:12)
[2023-06-26 11:10] LABS: Alanine Aminotransferase 18 IU/L (<50); Albumin 3.8 g/dL (3.5-5.0); Albumin Globulin Ratio 0.8 (1.0-2.8); Alkaline Phosphatase 124 U/L (38-126); Aspartate Aminotransferase 25 IU/L (17-59); BUN Creatinine Ratio 58.5 (6-22); Bilirubin Total 0.7 mg/dL (0.2-1.3); Blood Urea Nitrogen 38 mg/dL (9-20); Calcium 10.2 mg/dL (8.4-10.2); Carbon Dioxide 36 mmol/L (22-32); Chloride 96 mmol/L (98-107); Estimated Glomerular Filt Rate > 60 mL/min (>60); Glucose 99 mg/dL (80-110); HEMOLYSIS 15 (0-50); Magnesium 1.8 mg/dL (1.6-2.3); Potassium 3.4 mmol/L (3.4-5.1); Sodium 137 mmol/L (137-145); Total Protein 8.8 g/dL (6.3-8.2)
[2023-06-26 11:12] LABS: Hematocrit 42.6 % (41-53); Hemoglobin 14.4 g/dL (13.5-17.5); Mean Corpuscular HGB Conc 33.7 % (30-36); Mean Corpuscular Hemoglobin 33.2 PG (26-34); Mean Corpuscular Volume 98.3 fL (80-100); Platelet Count 299 X10^3/uL (150-400); Red Blood Cell Count 4.33 X10^6/uL (4.5-5.9); Red Cell Distribution Width 16.4 % (11.6-14.8); White Blood Cell Count 8.6 X10^3/uL (4.5-11.0)
[2023-06-26 11:17] LABS: Add Manual Diff / Slide Review YES
[2023-06-26 11:48] LABS: Neutrophils Absolute Manual 5332 /uL (3000-5900); RBC Morphology Normal Morphology; Total Cells Counted 100
[2023-06-26] MEDS: POTASSIUM CHLORIDE 20 MEQ TAB 40 MEQ PO (12:27)
[2023-06-26] MEDS: ERTAPENEM 1 GM in SODIUM CHLORIDE 0.9% 100 ML IV (12:34)
--- NOTE | 2023-06-26 13:30 | CM.DPC ---
DCP Cont: Per MD, waiting on labs to confirm if pt's last IV-Abx dose will be today or tomorrow and then pt can d/c on PO meds. SW met bedside with pt and RN and discussed this information and pt confirms he is feeling much better today and is hopeful to d/c home with brother but aware he may need one more dose of IV-Abx due to his comorbidities before discharge. Pt denies any HH needs at this time. SW updated [facility] on plan for d/c on PO meds and they cancelled the referral for infusion clinic. Plan: SW to follow for likely plan of discharge home with brother tomorrow Tu06/26 after final IV-Abx dose. Jess Graves MSW
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
[2023-06-26] MEDS: RIVAROXABAN 10 MG TABLET 20 MG PO (17:28)
[2023-06-27] VITALS (18 sets, daily range): BP systolic 89–129; BP diastolic 51–79; PULSE 61–109; RESP 13–29; TEMP 35.9–36.6; O2SAT 92–99
[2023-06-27 04:30] LABS: BUN Creatinine Ratio 58.6 (6-22); Blood Urea Nitrogen 41 mg/dL (9-20); Carbon Dioxide 38 mmol/L (22-32); Chloride 96 mmol/L (98-107); Estimated Glomerular Filt Rate > 60 mL/min (>60); Glucose 87 mg/dL (80-110); HEMOLYSIS < 15 (0-50); Sodium 137 mmol/L (137-145)
--- NOTE | 2023-06-27 05:23 | PC.NURSE ---
track manager: Patient is alert & oriented to self & place, pleasant, cooperative w/ care. Denies pain, nausea, SOB. On RA while awake, sleeps w/ home CPAP machine. VSS. On tele showing Aflutter. Patel in place draining yellow/albina urine. PICC line on CORNELL heparin locked. Open area noted on coccyx, allevyn drsg placed, skin care performed, Q2 turning & waffle cushion in place. Oriented to call-light. Plan of care ongoing.
[2023-06-27] MEDS: METOPROLOL ER 50 MG TABLET PO (09:15)
[2023-06-27] MEDS: FUROSEMIDE 40 MG/4 ML VIAL IV (09:15)
[2023-06-27] MEDS: dilTIAZem CD 120 MG CAP PO (09:19)
[2023-06-27] MEDS: SODIUM CHLORIDE 0.9% FLUSH 10 ML IV (09:19)
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
--- NOTE | 2023-06-27 13:53 | CM.DPC ---
DCP Discharge Home Per MD, pt had last dose of IV-Abx this morning and medically stable to discharge home today with outpt f/u and no identified barriers to discharge. Per RN, pt remains agreeable to discharge home today and no concerns noted. Plan: Patient to discharge home via brother POV and PO meds and no further SW needs at this time, pt plans to follow up with PCP. ITAOL Ford
--- NOTE | 2023-06-27 14:13 | PC.NURSE ---
Patient discharge note: Patient teaching done at bedside with patient and brother (palliative care physician) at bedside. Patient understands to f/u with cardiology regarding cardiac medication. Patient also understands to f/u with PCP with in 7-10days. Encouraged patient to cont. to use Incentive Spirometer and encouraged deep breathing and coughing exercises. Confirmed with Dr. Soto that it is okay for patient to d/c with Patel Cath in placed. Family member reports a f/u with urology in 5 days. PICC line was removed with no difficulty and a pressure drg. was applied to arm. Patient d/c in stable condition, VSS, escorted down to private vehicle in personal motorized wheelchair.
== END 2023-06-27 14:42 | disposition home or self-care (01) | DRG 291 ==
LOC: ED 15:04 → AC 17:35 → ICU 17:44
PROVIDERS: Hospitalist; Admitting Provider Internal Medicine; Emergency Provider Emergency Medicine; PCP Internal Medicine; Referring Provider Emergency Medicine; Visit Provider Internal Medicine
DX: I11.0 Hypertensive heart disease with heart failure (principal); I50.33 Acute on chronic diastolic (congestive) heart failure; J18.9 Pneumonia, unspecified organism; J96.21 Acute and chronic respiratory failure with hypoxia; G82.20 Paraplegia, unspecified; N30.00 Acute cystitis without hematuria; Z16.11 Resistance to penicillins; Z16.19 Resistance to other specified beta lactam antibiotics; J96.12 Chronic respiratory failure with hypercapnia; B97.89 Other viral agents as the cause of diseases classified elsewhere; N30.20 Other chronic cystitis without hematuria; G47.33 Obstructive sleep apnea (adult) (pediatric); R33.9 Retention of urine, unspecified; B96.20 Unspecified Escherichia coli [E. coli] as the cause of diseases classified elsewhere; I48.0 Paroxysmal atrial fibrillation; Z79.01 Long term (current) use of anticoagulants
CPT/HCPCS: 36415; 36569; 36592; 36600; 71045; 80048; 80053; 81001; 82550; 82805; 83605; 83735; 83880; 84145; 84484; 85007; 85025; 85610; 85730; 87040; 87077; 87086; 87186; 87633; 87797; 93005; 93306; 94660; 94762; 96365; 96366; 96375; 99285; J1335; J1642; J1650; J1940; J1956; J2185

== ENCOUNTER → 2023-07-10 09:47 | Outpatient (CLI) | payer MEDICARE, MEDICAID, SELFPAY ==
[2023-06-21 15:02] VITALS: PULSE 101; RESP 25; O2SAT 96
[2023-06-21 17:36] VITALS: BMI 34.0
== END ==
PROVIDERS: PCP Internal Medicine; Referring Provider Family Medicine; Visit Provider Surgery
DX: Z09 Encounter for follow-up examination after completed treatment for conditions other than malignant neoplasm (principal); Z87.2 Personal history of diseases of the skin and subcutaneous tissue; L89.309 Pressure ulcer of unspecified buttock, unspecified stage; G82.20 Paraplegia, unspecified
CPT/HCPCS: 99213

== ENCOUNTER → 2023-07-10 14:24 | Outpatient (CLI) | payer MEDICARE, MEDICAID, SELFPAY ==
[2023-06-21 15:02] VITALS: PULSE 101; RESP 25; O2SAT 96
[2023-06-21 17:36] VITALS: BMI 34.0
[2023-07-10 16:00] LABS: BUN Creatinine Ratio 45.3 (6-22); Blood Urea Nitrogen 29 mg/dL (9-20); Calcium 10.2 mg/dL (8.4-10.2); Carbon Dioxide 31 mmol/L (22-32); Chloride 107 mmol/L (98-107); Estimated Glomerular Filt Rate > 60 mL/min (>60); Glucose 98 mg/dL (80-110); HEMOLYSIS 26 (0-50); Potassium 3.5 mmol/L (3.4-5.1); Sodium 143 mmol/L (137-145)
[2023-07-10 16:09] LABS: NT-proBNP (BNP-Adult 18+) 472 pg/mL (<125)
== END ==
PROVIDERS: PCP Internal Medicine; Referring Provider Nurse Practitioner; Visit Provider Nurse Practitioner
DX: I50.32 Chronic diastolic (congestive) heart failure (principal); Z09 Encounter for follow-up examination after completed treatment for conditions other than malignant neoplasm; Z87.2 Personal history of diseases of the skin and subcutaneous tissue; L89.309 Pressure ulcer of unspecified buttock, unspecified stage; G82.20 Paraplegia, unspecified
CPT/HCPCS: 36415; 80048; 83880; 99213

== ENCOUNTER → 2023-09-21 13:57 | Outpatient (CLI) | payer MEDICARE, MEDICAID, SELFPAY ==
[2023-06-21 15:02] VITALS: PULSE 101; RESP 25; O2SAT 96
[2023-06-21 17:36] VITALS: BMI 34.0
--- NOTE | 2023-09-21 13:58 | DI.US.S_ITS ---
PROCEDURE: US ABDOMEN LIMITED INDICATIONS: right hip swelling TECHNIQUE: Real-time focused scanning was performed of the right upper thigh, with image documentation. COMPARISON: [facility], CT, CT CHEST ABD PEL W CON, 05/12/2023, 15:58. FINDINGS: At the area of clinical concern at the right upper thigh, there is a thick-walled complex fluid collection measuring 13.4 x 9.7 x 7.9 cm. No central vascularity is seen. Internal calcified loose bodies present. The size is similar compared to the CT from 05/12/2023 given differences in modality in measuring technique. IMPRESSION: Thick-walled fluid collection with internal echoes is seen in the right upper anterior thigh, which does not appear significantly changed in size when compared to the CT from 05/12/2023. Internal calcified loose body is present. No suspicious solid component. Approved by: Dhaval Barnett M.D. on 09/21/2023 at 22:03
== END ==
PROVIDERS: Family Provider Internal Medicine; PCP Internal Medicine; Referring Provider Internal Medicine; Visit Provider Internal Medicine
DX: R93.5 Abnormal findings on diagnostic imaging of other abdominal regions, including retroperitoneum (principal)
CPT/HCPCS: 76705

== ENCOUNTER → 2023-09-25 14:54 | Outpatient (CLI) | payer MEDICARE, MEDICAID, SELFPAY ==
[2023-06-21 15:02] VITALS: PULSE 101; RESP 25; O2SAT 96
[2023-06-21 17:36] VITALS: BMI 34.0
--- NOTE | 2023-09-25 | DI.MRI.S_ITS ---
PROCEDURE: MR BRAIN (PITUITARY) [facility] INDICATIONS: Benign neoplasm of pituitary gland TECHNIQUE: Noncontrast sagittal and axial FLAIR, axial gradient echo, axial diffusion and ADC through the brain. Thin-slice sagittal and coronal T1 spin echo, coronal T2 fast spin echo through the pituitary. After the administration contrast, optional dynamic coronal T1 spin echo, thin-slice coronal and sagittal T1 spin echo images through the pituitary fossa; axial and coronal and sagittal T1 spin echo with fat saturation through the brain. COMPARISON: [facility], MR, MR BRAIN (PITUITARY) [facility], 09/21/2021, 16:23. [facility], MR, MR BRAIN (PITUITARY) O CON, 12/04/2020, 15:34. FINDINGS: Image quality: Excellent. Pituitary Gland: Redemonstration of enhancing sellar/suprasellar mass measuring approximately 2.1 x 1.4 x 1.5 cm (TV by AP by cc). Redemonstration of extension into the right cavernous sinus, mildly progressed compared to prior. This lesion previously measured 1.9 x 1.4 x 1.5 cm (TV by AP by cc). Redemonstration of suprasellar extension abutting and displacing the optic chiasm. CSF Spaces: Ventricles are normal in size and shape. Basal cisterns are patent. No extra-axial fluid collections. Brain: Redemonstration of areas of encephalomalacia within the occipital lobes. No intracranial bleeds or mass effects. No abnormal intracranial enhancement. [place]-white matter interface is intact. Age-appropriate global volume loss and chronic microvascular ischemic changes. Asymmetric atrophy of the cerebellum is redemonstrated. Diffusion weighted images demonstrate no acute ischemic insults. Brainstem is normal. Normal intravascular flow voids are present. Redemonstration of superficial siderosis. Skull and face: Calvarial marrow is normal in signal. Orbits appear normal. Sinuses: Sinuses and mastoids are clear. IMPRESSION: Redemonstration of enhancing sellar/suprasellar macroadenoma. There appears to be mildly increased extension into the right cavernous sinus. Otherwise, the macroadenoma is similar in size compared to prior. Dictated by: Nigel Richardson M.D. on 09/25/2023 at 16:11 Approved by: Nigel Richardson M.D. on 09/25/2023 at 16:19
== END ==
PROVIDERS: Family Provider Internal Medicine; PCP Internal Medicine; Referring Provider Internal Medicine; Visit Provider Internal Medicine
DX: G93.89 Other specified disorders of brain (principal); G93.1 Anoxic brain damage, not elsewhere classified; M47.14 Other spondylosis with myelopathy, thoracic region; D35.2 Benign neoplasm of pituitary gland; R41.89 Other symptoms and signs involving cognitive functions and awareness
CPT/HCPCS: 70553; A9579

== ENCOUNTER → 2023-10-05 08:42 | Outpatient (CLI) | payer MEDICARE, MEDICAID, SELFPAY ==
[2023-06-21 15:02] VITALS: PULSE 101; RESP 25; O2SAT 96
[2023-06-21 17:36] VITALS: BMI 34.0
[2023-10-05 10:53] LABS: Prolactin 14.5 ng/mL (3.7-17.9)
[2023-10-05 10:54] LABS: Free T4, Direct Thyroxine 1.55 ng/dL (0.78-2.19)
[2023-10-05 11:06] LABS: Cortisol AM (Before 10AM) 9.22 ug/dL (4.46-22.7)
== END ==
LOC: LAB 08:44
PROVIDERS: Family Provider Internal Medicine; PCP Internal Medicine; Referring Provider Internal Medicine; Visit Provider Internal Medicine
DX: G93.1 Anoxic brain damage, not elsewhere classified (principal); D35.2 Benign neoplasm of pituitary gland; M47.14 Other spondylosis with myelopathy, thoracic region; R41.89 Other symptoms and signs involving cognitive functions and awareness
CPT/HCPCS: 36415; 82533; 84146; 84439; 84443

== ENCOUNTER → 2023-10-30 16:49 | Outpatient (CLI) | payer MEDICARE, MEDICAID, SELFPAY ==
[2023-06-21 15:02] VITALS: PULSE 101; RESP 25; O2SAT 96
[2023-06-21 17:36] VITALS: BMI 34.0
[2023-10-30 17:27] LABS: Appearance Urine UA CLEAR; Bilirubin Urine UA NEGATIVE (NEGATIVE); Color Urine UA YELLOW; Glucose Urine UA NEGATIVE (Negative); Ketones Urine UA NEGATIVE (NEGATIVE); Leukocyte Esterase Urine UA 3+ (NEGATIVE); Nitrite Urine UA POSITIVE (Negative); Occult Blood Urine UA 1+ (Negative); Protein Urine UA NEGATIVE (Negative); Specific Gravity Urine UA 1.015 (1.000-1.035); Urobilinogen Urine UA 0.2 E.U./dL (0.2); pH Urine UA 5.5 (4.5-8.0)
[2023-10-30 17:37] LABS: Bacteria Urine Many (>30); RBC Urine 10-30/HPF (0-5/HPF); Urine Volume 10mL (spun); WBC Urine 30-100/HPF (0-5/HPF)
[2023-10-30 17:38] LABS: Culture Indicated Urine Specimen Cultured; Mucus Urine 1+ (Negative); Squamous Epithelial Cell Urine 10-30 /HPF (0-5/HPF)
== END ==
PROVIDERS: Family Provider Internal Medicine; PCP Internal Medicine; Referring Provider Internal Medicine Infectious Disease; Visit Provider Internal Medicine Infectious Disease
DX: N39.0 Urinary tract infection, site not specified (principal)
CPT/HCPCS: 81001; 87077; 87086

== ENCOUNTER → 2023-11-22 16:14 | Outpatient (CLI) | payer MEDICARE, MEDICAID, SELFPAY ==
[2023-06-21 15:02] VITALS: PULSE 101; RESP 25; O2SAT 96
[2023-06-21 17:36] VITALS: BMI 34.0
[2023-11-22 16:59] LABS: Appearance Urine UA CLEAR; Bilirubin Urine UA NEGATIVE (NEGATIVE); Color Urine UA YELLOW; Glucose Urine UA NEGATIVE (Negative); Ketones Urine UA NEGATIVE (NEGATIVE); Leukocyte Esterase Urine UA 2+ (NEGATIVE); Nitrite Urine UA NEGATIVE (Negative); Occult Blood Urine UA NEGATIVE (Negative); Protein Urine UA NEGATIVE (Negative); Urobilinogen Urine UA 0.2 E.U./dL (0.2); pH Urine UA 5.5 (4.5-8.0)
[2023-11-22 17:06] LABS: Bacteria Urine Few (2-10); Culture Indicated Urine Specimen Cultured; RBC Urine 0-1/HPF (0-5/HPF); Squamous Epithelial Cell Urine 0-1 /HPF (0-5/HPF); Urine Volume 10mL (spun); WBC Urine 1-5/HPF (0-5/HPF)
== END ==
PROVIDERS: Family Provider Internal Medicine; PCP Internal Medicine; Referring Provider Internal Medicine Infectious Disease; Visit Provider Internal Medicine Infectious Disease
DX: N39.0 Urinary tract infection, site not specified (principal)
CPT/HCPCS: 81001; 87077; 87086

== ENCOUNTER → 2024-01-13 11:20 | Outpatient (CLI) | payer MEDICARE, MEDICAID, SELFPAY ==
[2023-06-21 15:02] VITALS: PULSE 101; RESP 25; O2SAT 96
[2023-06-21 17:36] VITALS: BMI 34.0
[2024-01-13 12:45] LABS: Color Urine UA YELLOW
[2024-01-13 12:46] LABS: Appearance Urine UA CLOUDY; Glucose Urine UA NEGATIVE (Negative); Protein Urine UA 1+ (Negative); pH Urine UA 7.5 (4.5-8.0)
[2024-01-13 12:47] LABS: Bilirubin Urine UA Negative (NEGATIVE); Ketones Urine UA NEGATIVE (NEGATIVE); Leukocyte Esterase Urine UA 4+ (NEGATIVE); Nitrite Urine UA POSITIVE (Negative); Occult Blood Urine UA 1+ (Negative); Urine Volume 10mL (spun); Urobilinogen Urine UA Normal E.U./dL (0.2)
[2024-01-13 12:48] LABS: Bacteria Urine Many (>30); Culture Indicated Urine Specimen Cultured; RBC Urine 5-10/HPF (0-5/HPF); Squamous Epithelial Cell Urine 0-1 /HPF (0-5/HPF); WBC Urine >100/HPF (0-5/HPF)
== END ==
PROVIDERS: Family Provider Internal Medicine; PCP Internal Medicine; Referring Provider Internal Medicine Infectious Disease; Visit Provider Internal Medicine Infectious Disease
DX: N39.0 Urinary tract infection, site not specified (principal)
CPT/HCPCS: 81001; 87077; 87086; 87186

== ENCOUNTER → 2024-01-30 11:11 | Outpatient (CLI) | payer MEDICARE, MEDICAID, SELFPAY ==
[2023-06-21 15:02] VITALS: PULSE 101; RESP 25; O2SAT 96
[2023-06-21 17:36] VITALS: BMI 34.0
[2024-01-30 13:00] LABS: Hematocrit 43.6 % (41-53); Hemoglobin 14.7 g/dL (13.5-17.5); Mean Corpuscular HGB Conc 33.8 % (30-36); Mean Corpuscular Hemoglobin 33.4 PG (26-34); Mean Corpuscular Volume 98.8 fL (80-100); Platelet Count 306 X10^3/uL (150-400); Red Blood Cell Count 4.41 X10^6/uL (4.5-5.9); Red Cell Distribution Width 15.8 % (11.6-14.8); White Blood Cell Count 6.7 X10^3/uL (4.5-11.0)
[2024-01-30 14:11] LABS: Prostate Specific Antigen Scrn 0.732 ng/mL (0.1-4.0)
[2024-01-30 14:25] LABS: Alanine Aminotransferase 48 IU/L (<50); Albumin 4.3 g/dL (3.5-5.0); Albumin Globulin Ratio 1.1 (1.0-2.8); Alkaline Phosphatase 141 U/L (38-126); Aspartate Aminotransferase 38 IU/L (17-59); BUN Creatinine Ratio 39.1 (6-22); Bilirubin Total 0.6 mg/dL (0.2-1.3); Blood Urea Nitrogen 25 mg/dL (9-20); Calcium 10.1 mg/dL (8.4-10.2); Carbon Dioxide 29 mmol/L (22-32); Chloride 98 mmol/L (98-107); Cholesterol 189 mg/dL (140-199); Estimated Glomerular Filt Rate > 60 mL/min (>60); Glucose 60 mg/dL (80-110); HDL Cholesterol 50 mg/dL (40-60); HEMOLYSIS < 15 (0-50); LDL Cholesterol Calculated 124 mg/dL (<100); Potassium 4.4 mmol/L (3.4-5.1); Sodium 136 mmol/L (137-145); Total Protein 8.3 g/dL (6.3-8.2); Triglycerides 73 mg/dL (35-150)
== END ==
LOC: LAB 11:13
PROVIDERS: Family Provider Internal Medicine; PCP Internal Medicine; Referring Provider Internal Medicine; Visit Provider Internal Medicine
DX: E78.2 Mixed hyperlipidemia (principal); Z12.5 Encounter for screening for malignant neoplasm of prostate; Z79.01 Long term (current) use of anticoagulants; G82.20 Paraplegia, unspecified; Z87.440 Personal history of urinary (tract) infections; R33.9 Retention of urine, unspecified; I48.91 Unspecified atrial fibrillation; I50.32 Chronic diastolic (congestive) heart failure; I11.0 Hypertensive heart disease with heart failure; I25.2 Old myocardial infarction; R13.10 Dysphagia, unspecified; E87.1 Hypo-osmolality and hyponatremia; I87.2 Venous insufficiency (chronic) (peripheral)
CPT/HCPCS: 36415; 80053; 80061; 85027; G0103

== ENCOUNTER 2024-04-16 14:16 | Inpatient (IN) | payer MEDICARE, MEDICAID, SELFPAY ==
[2023-06-21 15:02] VITALS: PULSE 101; RESP 25; O2SAT 96
[2023-06-21 17:36] VITALS: BMI 34.0
[2024-04-16] VITALS (21 sets, daily range): BP systolic 75–124; BP diastolic 51–85; PULSE 90–94; RESP 18; TEMP 35.4–35.7; O2SAT 94–99; BMI 35.6
--- NOTE | 2024-04-16 14:27 | DI.RAD.S_ITS ---
PROCEDURE: XR CHEST 1V INDICATIONS: chest pain TECHNIQUE: One view of the chest was acquired. COMPARISON: [facility], CR, XR CHEST 1 VIEW, 04/02/2024, 18:52. [facility], CR, XR CHEST 1V, 06/25/2023, 14:16. [facility], CR, XR CHEST 1V, 06/23/2023, 10:12. FINDINGS: Surgical changes and devices: Spinal fixation hardware is partially visualized. Lungs and pleura: Prominent tissue markings bilaterally. Small bilateral pleural effusions. Mediastinum: Mediastinal contours appear normal. Heart size is enlarged. Bones and chest wall: No suspicious bony lesions. Overlying soft tissues appear unremarkable. IMPRESSION: Cardiomegaly with increased interstitial markings and small bilateral pleural effusions. Findings are concerning for congestive heart failure. Dictated by: Nigel Richardson M.D. on 04/16/2024 at 15:03 Approved by: Nigel Richardson M.D. on 04/16/2024 at 15:04
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
[2024-04-16 17:24] LABS: Add Manual Diff / Slide Review NO; Basophils Absolute Auto 100 /uL (0-100); Basophils Percent Auto 1.4 % (0-2); Eosinophils Absolute Auto 400 /uL (0-450); Eosinophils Percent Auto 9.9 % (2-4); Hematocrit 40.7 % (41-53); Hemoglobin 13.3 g/dL (13.5-17.5); Lymphocytes Absolute Auto 500 /uL (1100-4500); Lymphocytes Percent Auto 12.5 % (25-40); Mean Corpuscular HGB Conc 32.6 % (30-36); Mean Corpuscular Hemoglobin 32.5 PG (26-34); Mean Corpuscular Volume 99.6 fL (80-100); Monocytes Absolute Auto 400 /uL (0-900); Monocytes Percent Auto 8.3 % (3-14); Neutrophils Absolute Auto 2900 /uL (1500-7000); Neutrophils Percent Auto 67.9 % (50-75); Platelet Count 338 X10^3/uL (150-400); Red Blood Cell Count 4.09 X10^6/uL (4.5-5.9); Red Cell Distribution Width 16.1 % (11.6-14.8); White Blood Cell Count 4.3 X10^3/uL (4.5-11.0)
[2024-04-16 17:30] LABS: Bilirubin Urine UA NEGATIVE (NEGATIVE); Color Urine UA YELLOW; Glucose Urine UA NEGATIVE (Negative); Ketones Urine UA NEGATIVE (NEGATIVE); Leukocyte Esterase Urine UA 1+ (NEGATIVE); Nitrite Urine UA NEGATIVE (Negative); Occult Blood Urine UA 1+ (Negative); Protein Urine UA TRACE (Negative); Urobilinogen Urine UA 0.2 E.U./dL (0.2); pH Urine UA 5.5 (4.5-8.0)
[2024-04-16] MEDS: ERTAPENEM 1 GM in SODIUM CHLORIDE 0.9% 100 ML IV (17:30)
[2024-04-16 17:33] LABS: Appearance Urine UA SL CLOUDY
[2024-04-16 17:38] LABS: Alanine Aminotransferase 43 IU/L (<50); Alkaline Phosphatase 147 U/L (38-126); Aspartate Aminotransferase 44 IU/L (17-59); BUN Creatinine Ratio 32.1 (6-22); Bilirubin Total 0.4 mg/dL (0.2-1.3); Blood Urea Nitrogen 27 mg/dL (9-20); Calcium 9.9 mg/dL (8.4-10.2); Carbon Dioxide 33 mmol/L (22-32); Chloride 96 mmol/L (98-107); Creatine Kinase < 20 U/L (55-170); Estimated Glomerular Filt Rate > 60 mL/min (>60); Globulin 4.1 g/dL (1.7-4.1); Glucose 108 mg/dL (80-110); HEMOLYSIS < 15 (0-50); Lipase 112 U/L (23-300); Magnesium 2.3 mg/dL (1.6-2.3); Potassium 4.4 mmol/L (3.4-5.1); Sodium 132 mmol/L (137-145); Total Protein 8.1 g/dL (6.3-8.2)
[2024-04-16 17:38] LABS: Bacteria Urine Many (>30); RBC Urine 5-10/HPF (0-5/HPF); Squamous Epithelial Cell Urine 1-5 /HPF (0-5/HPF); Urine Volume 10mL (spun); WBC Urine 10-30/HPF (0-5/HPF)
[2024-04-16 17:39] LABS: Culture Indicated Urine Specimen Cultured
[2024-04-16 17:39] LABS: Lactate (Lactic Acid) 1.9 mmol/L (0.7-2.1)
[2024-04-16 17:48] LABS: INR 2.5 (0.9-1.3); Prothrombin Time 27.4 SECONDS (9.4-12.5)
[2024-04-16 17:50] LABS: NT-proBNP (BNP-Adult 18+) 387 pg/mL (<125); Troponin I 0.013 ng/mL (0.01-0.034)
--- NOTE | 2024-04-16 17:52 | EKG_ITS ---
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
[2024-04-16 17:55] LABS: Procalcitonin 0.075 ng/mL (<0.5)
[2024-04-16 17:58] LABS: PTT Partial Thromboplastin Tim 78 SECONDS (25.1-36.5)
[2024-04-16] MEDS: SODIUM CHLORIDE 0.9% 1,000 ML 1000 ML IV (18:10)
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
[2024-04-17] VITALS (8 sets, daily range): BP systolic 103–123; BP diastolic 67–88; PULSE 90–97; RESP 16–19; TEMP 35.6–35.9; O2SAT 94–98
[2024-04-17] MEDS: SODIUM CHLORIDE 0.9% 1,000 ML 100 ML IV (01:49)
[2024-04-17 05:29] LABS: Add Manual Diff / Slide Review NO; Basophils Absolute Auto 100 /uL (0-100); Eosinophils Absolute Auto 500 /uL (0-450); Eosinophils Percent Auto 13.2 % (2-4); Hematocrit 40.5 % (41-53); Hemoglobin 13.4 g/dL (13.5-17.5); Lymphocytes Absolute Auto 600 /uL (1100-4500); Lymphocytes Percent Auto 16.1 % (25-40); Mean Corpuscular Hemoglobin 32.5 PG (26-34); Mean Corpuscular Volume 98.3 fL (80-100); Monocytes Absolute Auto 500 /uL (0-900); Monocytes Percent Auto 13.3 % (3-14); Neutrophils Absolute Auto 2000 /uL (1500-7000); Neutrophils Percent Auto 55.4 % (50-75); Platelet Count 364 X10^3/uL (150-400); Red Blood Cell Count 4.12 X10^6/uL (4.5-5.9); Red Cell Distribution Width 16.2 % (11.6-14.8); White Blood Cell Count 3.6 X10^3/uL (4.5-11.0)
[2024-04-17 05:33] LABS: BUN Creatinine Ratio 36.4 (6-22); Blood Urea Nitrogen 24 mg/dL (9-20); Calcium 9.5 mg/dL (8.4-10.2); Carbon Dioxide 31 mmol/L (22-32); Chloride 98 mmol/L (98-107); Estimated Glomerular Filt Rate > 60 mL/min (>60); Glucose 76 mg/dL (80-110); HEMOLYSIS < 15 (0-50); Potassium 4.2 mmol/L (3.4-5.1); Sodium 134 mmol/L (137-145)
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
[2024-04-17] MEDS: METOPROLOL ER 50 MG TABLET PO ×2 (10:38→20:47)
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
[2024-04-17] MEDS: RIVAROXABAN 10 MG TABLET 20 MG PO (18:04)
[2024-04-17] MEDS: ERTAPENEM 1 GM in SODIUM CHLORIDE 0.9% 100 ML IV (18:05)
[2024-04-17] MEDS: SENNOSIDES 8.6 MG TABLET 17.2 MG PO (20:47)
[2024-04-18] VITALS (9 sets, daily range): BP systolic 97–188; BP diastolic 64–88; PULSE 84–96; RESP 14–18; TEMP 35.8–36.6; O2SAT 91–98
[2024-04-18 05:12] LABS: Add Manual Diff / Slide Review NO; Basophils Absolute Auto 100 /uL (0-100); Basophils Percent Auto 1.9 % (0-2); Eosinophils Absolute Auto 500 /uL (0-450); Eosinophils Percent Auto 12.9 % (2-4); Hematocrit 39.6 % (41-53); Hemoglobin 13.2 g/dL (13.5-17.5); Lymphocytes Absolute Auto 600 /uL (1100-4500); Lymphocytes Percent Auto 16.7 % (25-40); Mean Corpuscular HGB Conc 33.4 % (30-36); Mean Corpuscular Hemoglobin 32.9 PG (26-34); Mean Corpuscular Volume 98.5 fL (80-100); Monocytes Absolute Auto 700 /uL (0-900); Monocytes Percent Auto 17.2 % (3-14); Neutrophils Absolute Auto 1900 /uL (1500-7000); Neutrophils Percent Auto 51.3 % (50-75); Platelet Count 336 X10^3/uL (150-400); Red Blood Cell Count 4.02 X10^6/uL (4.5-5.9); White Blood Cell Count 3.8 X10^3/uL (4.5-11.0)
[2024-04-18 05:15] LABS: BUN Creatinine Ratio 29.2 (6-22); Blood Urea Nitrogen 26 mg/dL (9-20); Calcium 9.8 mg/dL (8.4-10.2); Carbon Dioxide 31 mmol/L (22-32); Chloride 100 mmol/L (98-107); Estimated Glomerular Filt Rate > 60 mL/min (>60); Glucose 81 mg/dL (80-110); HEMOLYSIS < 15 (0-50); Potassium 4.6 mmol/L (3.4-5.1); Sodium 133 mmol/L (137-145)
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
[2024-04-18] MEDS: METOPROLOL ER 50 MG TABLET PO ×2 (09:19→20:11)
[2024-04-18] MEDS: RIVAROXABAN 10 MG TABLET 20 MG PO (17:33)
[2024-04-18] MEDS: ERTAPENEM 1 GM in SODIUM CHLORIDE 0.9% 100 ML IV (18:03)
[2024-04-18] MEDS: SENNOSIDES 8.6 MG TABLET 17.2 MG PO (20:12)
[2024-04-19 06:55] VITALS: BP 108/78; PULSE 96; RESP 16; TEMP 35.8; O2SAT 92
[2024-04-19 08:00] VITALS: BP 127/76; PULSE 95; RESP 14; TEMP 35.7; O2SAT 94
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
[2024-04-19 09:04] VITALS: BP 127/76; PULSE 96
[2024-04-19] MEDS: METOPROLOL ER 50 MG TABLET PO (09:04)
[2024-04-19 09:40] VITALS: BP 104/69; PULSE 98
[2024-04-19 10:27] LABS: Hematocrit 39.7 % (41-53); Hemoglobin 13.3 g/dL (13.5-17.5); Mean Corpuscular HGB Conc 33.6 % (30-36); Mean Corpuscular Hemoglobin 33.2 PG (26-34); Mean Corpuscular Volume 98.8 fL (80-100); Platelet Count 356 X10^3/uL (150-400); Red Blood Cell Count 4.01 X10^6/uL (4.5-5.9); White Blood Cell Count 4.9 X10^3/uL (4.5-11.0)
[2024-04-19 10:35] LABS: INR 1.9 (0.9-1.3); Prothrombin Time 21.4 SECONDS (9.4-12.5)
[2024-04-19 12:00] VITALS: BP 99/78; PULSE 99; RESP 14; O2SAT 93
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
--- NOTE | 2024-04-19 14:44 | PC.NURSE ---
Discharge note: IV removed and Patel cath DC'd Instructions given to caregiver (Brother Sid). Hoyered to Pt's wheelchair. Left with all personal belongings.
--- NOTE | 2024-04-19 16:23 | CM.DPNOTE ---
DC Note Patient ready for discharge today. Placed call to patient's brother Sid to review discharge plan. Sid explains he has been following patient's medical course via his portal and has been expecting discharge. Sid will transport patient home and has one of patient's caregivers working this evening to assist. Sid denies any needs from this SW team. Updated Dr Amato with above. Plan: Discharge home w/brother, caregivers, Home O2 thru [employer] via wheelchair accessible van. No HH per brother. JW
== END 2024-04-19 14:44 | disposition home or self-care (01) | DRG 315 ==
LOC: ED 22:06 → AC 22:15
PROVIDERS: Family Medicine; Hospitalist; Admitting Provider Internal Medicine; Emergency Provider Emergency Medicine; Family Provider Internal Medicine; PCP Internal Medicine; Referring Provider Emergency Medicine; Visit Provider Internal Medicine
DX: I95.9 Hypotension, unspecified (principal); G82.20 Paraplegia, unspecified; I50.32 Chronic diastolic (congestive) heart failure; N31.9 Neuromuscular dysfunction of bladder, unspecified; I11.0 Hypertensive heart disease with heart failure; I48.91 Unspecified atrial fibrillation; E78.2 Mixed hyperlipidemia; G47.33 Obstructive sleep apnea (adult) (pediatric); T14.8XXS Other injury of unspecified body region, sequela; V89.2XXS Person injured in unspecified motor-vehicle accident, traffic, sequela; Z86.74 Personal history of sudden cardiac arrest; Z79.01 Long term (current) use of anticoagulants; Z87.820 Personal history of traumatic brain injury; Z87.440 Personal history of urinary (tract) infections; Z87.442 Personal history of urinary calculi
CPT/HCPCS: 36415; 71045; 80048; 80053; 81001; 82550; 83605; 83690; 83735; 83880; 84145; 84484; 85025; 85027; 85610; 85730; 87040; 87086; 93005; 96361; 96365; 99284; J1335; J1642

== ENCOUNTER 2024-05-17 17:25 | Emergency (ER) | payer MEDICARE, SELFPAY ==
[2023-06-21 15:02] VITALS: PULSE 101; RESP 25; O2SAT 96
[2024-04-16 23:28] VITALS: BMI 35.6
[2024-05-17 17:39] VITALS: BP 127/77; PULSE 90; RESP 17; TEMP 36.6; O2SAT 95; BMI 34.7
--- NOTE | 2024-05-17 17:44 | DI.RAD.S_ITS ---
PROCEDURE: XR CHEST 1V INDICATIONS: low O2 sats TECHNIQUE: One view of the chest was acquired. COMPARISON: [facility], CR, XR CHEST 1V, 04/16/2024, 14:36. [facility], CR, XR CHEST 1V, 06/25/2023, 14:16. FINDINGS AND IMPRESSION: Bibasilar moderate consolidations and mild effusions, likely edema. Differential includes infection. Background interstitial prominence could also represent edema. Consider future imaging surveillance to assess for resolution. Cardiomegaly. Degenerative osseous changes. Aortic calcifications. Partially seen thoracolumbar spinal hardware. Dictated by: Warren Ling M.D. on 05/17/2024 at 18:17 Approved by: Warren Ling M.D. on 05/17/2024 at 18:18
[2024-05-17 20:45] VITALS: O2SAT 95
--- NOTE | 2024-05-17 21:27 | PC.NURSE ---
Lengthy discussion with patient and caregiver had at 2044 about their desire to VDC. I again checked SpO2 which showed 95%. Patient is not in respiratory distress and denies any shortness of breath. I printed the chest xray results which show differential diagnoses of pleural effusions vs. pneumonia. Patient has no signs and symptoms of infection. Caregiver reports the patient is on lasix and has been peeing a ton and that swelling in legs is minimal. When reviewing chest xrays over the last eyar it seems that he has ongoing issues with pleural effusions and this is not new. She reports cardiology is aware. Caregiver reports they will continue to monitor his oxygen at home and apply his oxygen concentrator as needed. If he spikes a fever or has discolored sputum they will get seen. They will also call PCP in the morning. VDCed at 2054.
== END 2024-05-17 20:55 | disposition left against medical advice (07) ==
PROVIDERS: Emergency Provider Emergency Medicine; Family Provider Internal Medicine; PCP Internal Medicine
DX: R09.02 Hypoxemia (principal); I51.7 Cardiomegaly; J90 Pleural effusion, not elsewhere classified; I70.0 Atherosclerosis of aorta
CPT/HCPCS: 71045; 99281

== ENCOUNTER → 2024-07-30 11:13 | Outpatient (CLI) | payer MEDICARE, MEDICAID, SELFPAY ==
[2023-06-21 15:02] VITALS: PULSE 101; RESP 25; O2SAT 96
[2024-04-16 23:28] VITALS: BMI 35.6
[2024-07-30 13:25] LABS: Appearance Urine UA CLOUDY; Bilirubin Urine UA NEGATIVE (NEGATIVE); Color Urine UA YELLOW; Glucose Urine UA NEGATIVE (Negative); Ketones Urine UA NEGATIVE (NEGATIVE); Leukocyte Esterase Urine UA 3+ (NEGATIVE); Nitrite Urine UA NEGATIVE (Negative); Occult Blood Urine UA 2+ (Negative); Protein Urine UA NEGATIVE (Negative); Urobilinogen Urine UA 0.2 E.U./dL (0.2)
[2024-07-30 13:39] LABS: Urine Volume 10mL (spun)
[2024-07-30 13:43] LABS: Bacteria Urine Many (>30); Culture Indicated Urine Specimen Cultured; RBC Urine 1-5/HPF (0-5/HPF); Squamous Epithelial Cell Urine None Seen (0-5/HPF); Transitional Epi Cells Urine 1-5/HPF (0-5/HPF); WBC Urine 30-100/HPF (0-5/HPF)
== END ==
LOC: LAB 11:14
PROVIDERS: Family Provider Internal Medicine; PCP Internal Medicine; Referring Provider Internal Medicine Infectious Disease; Visit Provider Internal Medicine Infectious Disease
DX: N39.0 Urinary tract infection, site not specified (principal)
CPT/HCPCS: 81001; 87086

== ENCOUNTER 2024-08-17 11:20 | Inpatient (IN) | payer MEDICARE, MEDICAID, SELFPAY ==
[2023-06-21 15:02] VITALS: PULSE 101; RESP 25; O2SAT 96
[2024-04-16 23:28] VITALS: BMI 35.6
[2024-08-17] VITALS (17 sets, daily range): BP systolic 97–127; BP diastolic 56–73; PULSE 102–107; RESP 16–25; TEMP 36.2–36.9; O2SAT 90–100; BMI 34.5
--- NOTE | 2024-08-17 11:23 | DI.RAD.S_ITS ---
PROCEDURE: XR CHEST 1V INDICATIONS: chest pain TECHNIQUE: One view of the chest was acquired. COMPARISON: [facility], CR, XR CHEST 1 VIEW, 07/04/2024, 19:18. [facility], CR, XR CHEST 1V, 05/17/2024, 17:48. [facility], CR, XR CHEST 1V, 04/16/2024, 14:36. FINDINGS: Surgical changes and devices: Lumbar spinal fusion hardware is present. Metal clips project over the upper mediastinum. Lungs and pleura: Trace right pleural effusion. Right basilar atelectasis or consolidation. No pneumothorax. Mediastinum: Cardiac silhouette is mildly enlarged. Bones and chest wall: No suspicious bony lesions. Overlying soft tissues appear unremarkable. IMPRESSION: Small right pleural effusion with right basilar atelectasis or consolidation. Approved by: Dhaval Barnett M.D. on 08/17/2024 at 11:11
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
--- NOTE | 2024-08-17 11:33 | EKG_ITS ---
[facility] [address] [place] [address] Test Date: 2024-08-17 Pat Name: Nadir Matthews Department: 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
[2024-08-17 11:46] LABS: Add Manual Diff / Slide Review NO; Basophils Absolute Auto 0 /uL (0-100); Basophils Percent Auto 0.2 % (0-2); Eosinophils Absolute Auto 100 /uL (0-450); Eosinophils Percent Auto 0.3 % (2-4); Hematocrit 44.3 % (41-53); Hemoglobin 14.7 g/dL (13.5-17.5); Lymphocytes Absolute Auto 300 /uL (1100-4500); Lymphocytes Percent Auto 1.5 % (25-40); Mean Corpuscular HGB Conc 33.1 % (30-36); Mean Corpuscular Hemoglobin 32.5 PG (26-34); Mean Corpuscular Volume 98.3 fL (80-100); Monocytes Absolute Auto 1600 /uL (0-900); Monocytes Percent Auto 6.6 % (3-14); Neutrophils Absolute Auto 22000 /uL (1500-7000); Neutrophils Percent Auto 91.4 % (50-75); Platelet Count 300 X10^3/uL (150-400); Red Blood Cell Count 4.51 X10^6/uL (4.5-5.9); Red Cell Distribution Width 16.1 % (11.6-14.8)
[2024-08-17 11:59] LABS: Lactate (Lactic Acid) 2.2 mmol/L (0.7-2.1)
[2024-08-17 13:05] LABS: Influenza A - CEPHEID Flu A NEGATIVE (NEGATIVE); Influenza B - CEPHEID Flu B NEGATIVE (NEGATIVE); Respiratory Syncytial Virus Negative (Negative)
[2024-08-17 13:06] LABS: COVID-19 CEPHEID 4-PLEX PCR Negative (Negative)
[2024-08-17 13:25] LABS: Reflexed Lactate in 2 Hours Y
[2024-08-17 13:36] LABS: Appearance Urine UA CLOUDY; Bilirubin Urine UA 1+ (NEGATIVE); Color Urine UA YELLOW; Glucose Urine UA NEGATIVE (Negative); Ketones Urine UA TRACE (NEGATIVE); Leukocyte Esterase Urine UA 3+ (NEGATIVE); Nitrite Urine UA POSITIVE (Negative); Occult Blood Urine UA 3+ (Negative); Protein Urine UA 2+ (Negative); pH Urine UA 5.5 (4.5-8.0)
[2024-08-17 13:53] LABS: Ictotest Urine Negative (Negative); Urine Volume 10mL (spun)
[2024-08-17 13:54] LABS: Alanine Aminotransferase 88 IU/L (<50); Albumin 4.1 g/dL (3.5-5.0); Albumin Globulin Ratio 0.9 (1.0-2.8); Alkaline Phosphatase 148 U/L (38-126); Aspartate Aminotransferase 106 IU/L (17-59); BUN Creatinine Ratio 34.2 (6-22); Bilirubin Total 1.5 mg/dL (0.2-1.3); Blood Urea Nitrogen 26 mg/dL (9-20); Calcium 9.4 mg/dL (8.4-10.2); Carbon Dioxide 25 mmol/L (22-32); Chloride 98 mmol/L (98-107); Creatine Kinase 23 U/L (55-170); Estimated Glomerular Filt Rate > 60 mL/min (>60); Globulin 4.4 g/dL (1.7-4.1); Glucose 78 mg/dL (70-99); HEMOLYSIS 107 (0-50); Lipase 20 U/L (23-300); Sodium 133 mmol/L (137-145); Total Protein 8.5 g/dL (6.3-8.2)
[2024-08-17 13:54] LABS: Bacteria Urine Many (>30); Culture Indicated Urine Specimen Cultured; Mucus Urine 2+ (Negative); RBC Urine 30-100/HPF (0-5/HPF); Squamous Epithelial Cell Urine 0-1 /HPF (0-5/HPF); WBC Urine >100/HPF (0-5/HPF)
[2024-08-17 14:07] LABS: Troponin I 0.032 ng/mL (0.01-0.034)
--- NOTE | 2024-08-17 14:07 | EKG_ITS ---
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
[2024-08-17 14:37] LABS: Lactate 2HR (Lactic Acid Rflx) 2.8 mmol/L (0.7-2.1)
[2024-08-17] MEDS: SODIUM CHLORIDE 0.9% 1,000 ML 1000 ML IV (15:00)
[2024-08-17] MEDS: ERTAPENEM 1 GM in SODIUM CHLORIDE 0.9% 100 ML IV (16:10)
[2024-08-17] MEDS: SODIUM CHLORIDE 0.9% 1,000 ML 100 ML IV (16:56)
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
--- NOTE | 2024-08-17 18:45 | PC.NURSE ---
pictures were taken of Pt pressure injuries located on scrotum and coccyx areas. Multiple nurses tried to upload pics and were not able. We will see if shift production supervisorshift leader is able.
--- NOTE | 2024-08-17 21:50 | PC.WOUNDPHOT ---
Photos taken by Matt Conner RN
--- NOTE | 2024-08-17 23:26 | EKG_ITS ---
[facility] [id number] [place] [address] Test Date: 2024-08-17 Pat Name: Nadir Matthews Department: Room: 225 Gender: Male Value Stream Leader: kaila : 1960 Requested By: Order Number: [id number] Reading MD: Measurements Intervals [place] Rate: 211 P: 92 LA: 64 QRS: -53 QRSD: 82 T: 117 QT: 200 QTc: 375 Interpretive Statements Critical Test Result: High HR , STEMI Undetermined rhythm Indeterminate axis Pulmonary disease pattern ST elevation, consider lateral injury or acute infarct ACUTE AK / STEMI
--- NOTE | 2024-08-17 23:28 | EKG_ITS ---
[facility] [address] [place] [address] Test Date: 2024-08-17 Pat Name: Nadir Matthews Department: Room: 225 Gender: Male Rides Attendant: kaila : 1960 Requested By: Order Number: [id number] Reading MD: David Amato Measurements Intervals [place] Rate: 212 P: [place]: QRS: 88 QRSD: 86 T: 93 QT: 236 QTc: 443 Interpretive Statements Critical Test Result: High HR Supraventricular tachycardia Low voltage QRS ST depression, consider subendocardial injury Electronically Signed On 08-19-2024 7:52:54 PDT by David Amato
--- NOTE | 2024-08-17 23:39 | EKG_ITS ---
[facility] [address] [place] [address] Test Date: 2024-08-17 Pat Name: Nadir Matthews Department: Room: 225 Gender: Male International Trade Manager: kaila : 1960 Requested By: Order Number: [id number] Reading MD: David Amato Measurements Intervals [place] Rate: 106 P: [place]: 188 QRS: 61 QRSD: 94 T: 66 QT: 344 QTc: 456 Interpretive Statements Sinus tachycardia Incomplete right bundle branch block Nonspecific ST abnormality Electronically Signed On 08-19-2024 7:53:05 PDT by David Amato
--- NOTE | 2024-08-17 23:55 | PM.EVENT ---
Event Note Event Note (Rapid Response, Code, or fall): Was notified to by the patient's nurse that the patient's heart rate was in the 200s and systolic blood pressure in the 80s. Patient abruptly did require 6 L of oxygen per facemask from previously 1-2L. In reviewing the chart the patient came in with sepsis with UTI. Lactic acid increased from 2.2 to 2.8. Currently patient is on 100 mL/h of NS. Stat EKG was read as STEMI. However IV fluid bolus was ordered 250 NS x 2 which slows the heart rate down to low 100s and systolic improved to the 1 teens. Repeat EKG stat shows no signs of STEMI. Of note chest x-ray did suggest possible pneumonia. Will broaden antibiotic to vancomycin and azithromycin in addition to current ertapenem. Will get stat troponin as well as repeat lactic acid send it has been more than 4 hours since last check. Will continue to monitor the patient closely and follow-up labs that were ordered. Patient overall status seems to be back to close to baseline per bedside nursing staff. Of note patient is a full code.
[2024-08-17] MEDS: METOPROLOL TARTRATE 5 MG/5 ML INJ IV (23:56)
[2024-08-17] MEDS: AZITHROMYCIN 500 MG in DEXTROSE 5% IN WATER 250 ML 250 MG IV (23:59)
[2024-08-18] VITALS (186 sets, daily range): BP systolic 73–157; BP diastolic 38–80; PULSE 57–205; RESP 13–28; TEMP 36.3–37; O2SAT 72–100
--- NOTE | 2024-08-18 | DI.ECHO.S_ITS ---
[facility] : : [address] : : [place] : : [id number] : : Phone: [phone] Echocardiogram Report + + :Name: NICOLAS WINSTON Study Date: 08/18/2024 Height: 78 in : :[facility] ReadingLocation: Weight: 299 lb : : Gender: Male BSA: 2.7 m2 : :: 1960 Age: 64 yrs BP: 110/56 mmHg: :Reason For Study: SVT : : Performed By: Jaxson Martins : :Referring: NAKIA JORDAN : + + Interpretation Summary Technically difficult study secondary to poor acoustic windows. No intracardiac echo contrast was utilized. 1. The left ventricular contractility is normal. Estimated ejection fraction is greater than 55% with no segmental wall motion abnormalities. Mild concentric LVH. Unable to comment on diastolic function. 2. The right ventricle was not well-visualized. 3. Right and left atrium as well as the right ventricle were not well- visualized. The left ventricular cavity appears to be normal in size. 4. Mild mitral regurgitation. 5. Mild tricuspid regurgitation with estimated pulmonary systolic artery pressures of 58 mmHg. 6. No obvious intracardiac shunts. 7. No obvious intracardiac masses nor thrombi. 8. No hemodynamically significant pericardial effusion. 9. Elevated right-sided filling pressures. Conclusion: Technically difficult study. Normal left ventricular systolic function with mild valvular insufficiencies and elevated pulmonary systolic artery pressures.. When compared with previous echocardiogram, there is increase in the estimated pulmonary systolic artery pressures. Procedure: A two-dimensional transthoracic echocardiogram with color flow and Doppler was performed. Comparison is made with the echocardiogram of 01/25/2023. Technically difficult exam due to body habitus and patient immobility. The heart rate ranged between 68-74 bpm during the study. Left Ventricle: The left ventricle is normal in size. Left ventricular wall thickness is mildly increased. Overall left ventricular systolic function is preserved. The ejection fraction is estimated to be 60-65%. Diastolic function could not be accurately assessed due to unobtainable data. Right Ventricle: The right ventricle is not well visualized. Atria: The left atrium is not well visualized. Right atrium not well visualized. Mitral Valve: Thickening of the mitral valve leaflet tips. The mitral valve leaflets appear to open well. There is mild mitral regurgitation. Aortic Valve: The aortic valve is trileaflet. The aortic valve opens well. There is trace aortic regurgitation. Tricuspid Valve: The tricuspid valve is not well visualized. There is mild tricuspid regurgitation. The right ventricular systolic pressure is estimated to be at least 58 mmHg based on an estimated right atrial pressure of 15 mm Hg. Pulmonic Valve: The pulmonic valve is not well seen, but is grossly normal. There is a trace or physiologic amount of pulmonic regurgitation. Great Vessels: The aortic root is normal size. The ascending aorta is normal in size. The aortic arch could not be visualized. The IVC is dilated (diameter is greater than 2.1 cm) and it collapses less than 50% with a sniff. This suggests a high right atrial pressure of 15 mm Hg. Pericardium/ Pleura There is no pericardial effusion. MMode/2D Measurements & Calculations LVIDd: 4.3 cm LVOT diam: 2.2 cm LVIDs: 2.7 cm Ao root diam: 3.4 cm FS: 37.2 % asc Aorta Diam: 3.2 cm IVSd: 1.3 cm LVPWd: 1.4 cm LV ferrera. diameter/BSA (cm/m^2): 1.6 LV sys. diameter/BSA (cm/m^2): 1.0 IVC diam: 2.1 cm Doppler Measurements & Calculations Ao V2 max: 105.2 cm/sec LVOT Max Cameron: 83.6 cm/sec Ao V2 mean: 77.2 cm/sec LV V1 max P.8 mmHg Ao max P.4 mmHg LV V1 VTI: 13.6 cm Ao mean P.7 mmHg TAINA(I,D): 3.1 cm2 Ao V2 VTI: 17.0 cm TAINA(V,D): 3.1 cm2 sev ratio: 0.80 TAINA indexed to BSA (cm^2/m^2): 1.2 MV E max cameron: 74.2 cm/sec TR max cameron: 331.5 cm/sec MV A max cameron: 32.8 cm/sec TR max P.0 mmHg MV E/A: 2.3 PA pr(Accel): 39.6 mmHg MV dec time: 0.20 sec SV(LVOT): 53.1 ml Reading Physician:PM
[2024-08-18 00:05] LABS: Lactate (Lactic Acid) 2.7 mmol/L (0.7-2.1)
[2024-08-18 00:14] LABS: NT-proBNP (BNP-Adult 18+) 3480 pg/mL (<125)
[2024-08-18 00:18] LABS: Troponin I 0.078 ng/mL (0.01-0.034)
--- NOTE | 2024-08-18 01:22 | PC.NURSE ---
director electronics RN was able to place a indwelling Patel cath per POA and Patient request, Shortly after placing Patel patient had a BM, SOFTWARE WRITER and RN did a brief change and change sacral wound dressing change. Patient was repositioned for comfort.; PHARMACY SPECIALIST came into room notifying RN that heart rate climbed to 150's, sustained for 2 minutes, RN notified MD Dr Pereira of patient's increase in heart rate, Patient Blood pressure was 154/73; shortly after patient's needs for oxygen increased from 1 liter to 6 liters on oximask, and heart rated increased to >210 BPM, MD was called via Cell phone and staff alert was called. ER staff came up and assisted with additional IV line in right AC, fluid Bolus Per Dr Pereira and administration of IV medications, Multiple EKGs done and patient was able to be stabilized with fluid and IV medication. Debrief was done by manager ecommerce, patient being monitored via telemetry and staff, patient is comfortable and home bipap on for sleep.
[2024-08-18 01:26] LABS: Reflexed Lactate in 2 Hours Y
[2024-08-18 04:10] LABS: Hematocrit 43.2 % (41-53); Hemoglobin 14.3 g/dL (13.5-17.5); Mean Corpuscular HGB Conc 33.1 % (30-36); Mean Corpuscular Hemoglobin 32.7 PG (26-34); Mean Corpuscular Volume 98.7 fL (80-100); Platelet Count 211 X10^3/uL (150-400); Red Blood Cell Count 4.37 X10^6/uL (4.5-5.9); Red Cell Distribution Width 16.1 % (11.6-14.8)
[2024-08-18 04:16] LABS: Lactate 2HR (Lactic Acid Rflx) 2.6 mmol/L (0.7-2.1)
[2024-08-18 04:17] LABS: BUN Creatinine Ratio 34.2 (6-22); Blood Urea Nitrogen 27 mg/dL (9-20); Calcium 9.2 mg/dL (8.4-10.2); Carbon Dioxide 24 mmol/L (22-32); Chloride 101 mmol/L (98-107); Estimated Glomerular Filt Rate > 60 mL/min (>60); Glucose 95 mg/dL (70-99); HEMOLYSIS 42 (0-50); Potassium 4.9 mmol/L (3.4-5.1); Sodium 136 mmol/L (137-145)
[2024-08-18 04:21] LABS: Add Manual Diff / Slide Review YES
[2024-08-18 04:27] LABS: Neutrophils Absolute Manual 16380 /uL (3000-5900); Total Cells Counted 100
[2024-08-18 04:28] LABS: Anisocytosis 1+; Macrocytosis 1+
[2024-08-18] MEDS: VANCOMYCIN 2,000 MG/400 ML PIGGYBACK 200 MG IV (07:04)
[2024-08-18 07:22] LABS: Albumin 3.7 g/dL (3.5-5.0); Alkaline Phosphatase 164 U/L (38-126); Bilirubin Total 1.2 mg/dL (0.2-1.3); Bilirubin Unconjugated 0.4 mg/dL (0.0-1.1); Globulin 3.7 g/dL (1.7-4.1); Total Protein 7.4 g/dL (6.3-8.2)
[2024-08-18 07:32] LABS: Alanine Aminotransferase 76 IU/L (<50); Aspartate Aminotransferase 80 IU/L (17-59); HEMOLYSIS 70 (0-50)
[2024-08-18 08:38] LABS: Troponin I 0.071 ng/mL (0.01-0.034)
[2024-08-18] MEDS: METOPROLOL TARTRATE 5 MG/5 ML INJ IV (09:10)
[2024-08-18] MEDS: FUROSEMIDE 40 MG/4 ML VIAL IV (10:25)
--- NOTE | 2024-08-18 10:31 | EKG_ITS ---
[facility] [address] [place] [address] Test Date: 2024-08-18 Pat Name: Nadir Matthews Department: Room: 225 Gender: Male Merchandising Consultant: Dale Perez : 1960 Requested By: Order Number: [id number] Reading MD: David Amato Measurements Intervals [place] Rate: 152 P: [place]: QRS: 79 QRSD: 90 T: 74 QT: 254 QTc: 403 Interpretive Statements Critical Test Result: High HR Atrial fibrillation with rapid ventricular response Low voltage QRS Nonspecific ST and T wave abnormality Electronically Signed On 08-19-2024 7:53:37 PDT by David Amato
--- NOTE | 2024-08-18 10:51 | EKG_ITS ---
[facility] [address] [place] [address] Test Date: 2024-08-18 Pat Name: Nadir Matthews Department: Room: 225 Gender: Male Manager Diesel: : 1960 Requested By: Order Number: [id number] Reading MD: David Amato Measurements Intervals [place] Rate: 207 P: [place]: QRS: 83 QRSD: 96 T: 138 QT: 216 QTc: 401 Interpretive Statements Critical Test Result: High HR Supraventricular tachycardia Low voltage QRS Incomplete right bundle branch block Marked ST abnormality, possible inferior subendocardial injury Electronically Signed On 08-19-2024 7:53:53 PDT by David Amato
[2024-08-18] MEDS: ADENOSINE 6 MG/2 ML VIAL IV (10:57)
[2024-08-18] MEDS: MAGNESIUM SULFATE 2 GM/50 ML PIGGYBACK IV (10:59)
[2024-08-18] MEDS: ADENOSINE 6 MG/2 ML VIAL 12 MG IV (11:01)
[2024-08-18] MEDS: dilTIAZem 125 MG in SODIUM CHLORIDE 0.9% 100 ML IV (11:28)
[2024-08-18] MEDS: ETOMIDATE 2 MG/ML 10 ML VIAL 10 MG IV (11:35)
[2024-08-18 11:39] LABS: Magnesium 2.2 mg/dL (1.6-2.3)
--- NOTE | 2024-08-18 11:43 | EKG_ITS ---
[facility] [address] [place] [id number] Test Date: 2024-08-18 Pat Name: Nadir Matthews Department: Room: 226 Gender: Male Support Clerk: : 1960 Requested By: Order Number: [id number] Reading MD: David Amato Measurements Intervals [place] Rate: 65 P: 62 [place]: 204 QRS: 74 QRSD: 98 T: 43 QT: 398 QTc: 413 Interpretive Statements Sinus rhythm with marked sinus arrhythmia Possible Left atrial enlargement Low voltage QRS Electronically Signed On 08-19-2024 7:26:31 PDT by David Amato
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
[2024-08-18] MEDS: AMIODARONE 360 MG/200 ML PIGGYBACK 33.33 MG IV (11:50)
[2024-08-18] MEDS: DIGOXIN 500 MCG/2 ML AMPUL IV (11:56)
--- NOTE | 2024-08-18 12:21 | PC.NURSE ---
Event Note 0900- Patient with SVT 160-200's per tele, VSS, IV metoprolol given per MD VORB, post IV metoprolol HR in 100's at patient's baseline, other VSS. 1015- Patient with increase HR 150-160 per tele, VSS. HR auscultated by this RN and HR 70's BPM, confirmed via doppler. Zuly LANE and Lucinda RN at bedside. Patient asymptomatic, MD updated and order for STAT EKG. 1030- Patient with increase SVT 200's per tele, HR ausculted and HR matched tele reading. Patient hypotensive and asymptomaitc. MD updated and VORB for STAT EKG. Patient failed vagal maneuvers and VORB for adenosine administration. This RN, Zuly RN, Lucinda RN, Indu DUNN at bedside, ER , Epifanio GRACIA RN and Melida Pharmacist at bedside. 1059- Patient given Adenosine x2 per MAY documentation with success to patient baseline rhythm, VSS. 1110- Patient transferred to ICU. 1128- Patient with increase SVT 200's per tele, confirmed via ausculation and doppler. Patient symptomatic and hypotensive. MD called to bedside and order for cardioversion. ER MD at bedside, this RN, Zuly LANE and Lucinda RN. 1135- Patient medicated per MAY for procedure. 2L NC placed. 1136- Patient successfully cardioverted. VSS. Will continued to monitor. Report given to NURSE EXAMINER.
--- NOTE | 2024-08-18 12:38 | PC.NURSE ---
0850 pt HR on telemetry SVT vs Afib RVR 150's-180's, BP obtained, 103/56 MAP 72, pt symptomatic with palpitations and SOB. Provider notified, new orders received. HR 100's after IV metoprolol. PT denies palpitations/SOB. BP 110's/60's. 1030 (approx.) pt HR on telemetry SVT vs Afib RVR HR 140's-200's, provider at bedside. EKG obtained. 1045 (approx.) HR 180's-200's sustained, this RN and primary RN at bedside. Pt symptomatic, SOB and palpitations. BP 72/37 MAP 51, provider at bedside. Suspected SVT. See MAR for medication documentation. Hospitalist provider and ED provider at bedside, see MAR for medication administration 1110 pt transferred to room 226. 1128 HR 200's on monitor, provider notified. ED provider at bedside. Pt symptomatic w/ SOB and palpitations, hypotension 80/49 (59). Providers determined cardioversion required for unstable narrow complex tachycardia. 1136 successful cardioversion, HR 70's NSR BP 102/50 1145 New orders received. Care ongoing.
--- NOTE | 2024-08-18 13:27 | ED.CONSULT ---
ED Provider Consult/Code Note General Date Patient Seen: 08/18/24 Time Patient Seen: 12:30 Reason for Admission: SVT at 208 Care Provided Description of care provided: Called by hospitalist Dr Griggs for assistance with cardioversion in ICU. Patient admitted with SVT in context of multidrug resistant UTI, on antibiotics, had recurrence of SVT on the floor, unresponsive to adenosine IV push doses, given IV magnesium. Hypotensive. Narrow complex unstable tachycardia, advised cardioversion. Verbal consent from patient. Given 10 mg push IV etomidate sedation. Synchronized cardioversion 200 joules single shock delivered, had immdiate conversion to sinus rhythm. Sinus rhythm seemed to be persisting first minutes, no significant ectopy. Blood pressure improved from preprocedure 78/40 to 102/50 after. Further care via hospitalist/ICU care team, Dr. Griggs aware.
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
--- NOTE | 2024-08-18 14:29 | PM.EVENT ---
Event Note Date Patient Seen: 08/18/24 Time Patient Seen: 10:30 Event Note (Rapid Response, Code, or fall): Within 2 minutes of me leaving patient's bedside, his telemetry increase to 207 as did his pulse. Patient became quite symptomatic and developed hypotension. Vagal maneuvers were ineffective. He received adenosine 6 mg IV which had no effect. He subsequently received magnesium sulfate 2 g IV push. 12 mg adenosine IV was given shortly thereafter with a brief reduction in his heart rate down to the 140 range by telemetry. It then increased back up to the 180s to 190 range. He transferred to the ICU. Blood pressures remained in the systolic 70s to 80 range. Diltiazem infusion was ordered and initiated without bolus dosing. This had no impact on his heart rate. Ultimately, the ER physician was asked to come up for cardioversion for unstable narrow complex tachycardia/atrial fibrillation. I did contact the on-call bottle packing machine cleaner Dr. Joyner at [facility]. His recommendation was for digoxin 0.5 mg IV followed by amiodarone infusion. After I was able to receive the recommendation, I did ask him to review the monitor strips where he would printed out. He felt that this reflected atrial fibrillation/flutter with variable conduction. Upon my return to patient's room, he had been successfully cardioverted and was back in a sinus rhythm. He was initiated on amiodarone infusion without a bolus dose. Additionally, as he has had breakthrough episodes of tachycardia on metoprolol, will trial oral diltiazem holding for low heart rate or blood pressure. Await echocardiogram. Critical care time: 55 minutes
[2024-08-18] MEDS: dilTIAZem 30 MG TABLET PO ×2 (14:31→17:31)
[2024-08-18] MEDS: RIVAROXABAN 10 MG TABLET 20 MG PO (14:31)
[2024-08-18] MEDS: ERTAPENEM 1 GM in SODIUM CHLORIDE 0.9% 100 ML IV (14:31)
[2024-08-18] MEDS: VANCOMYCIN 1,250 MG/250 ML PIGGYBACK 250 MG IV (16:45)
[2024-08-18] MEDS: AMIODARONE 360 MG/200 ML PIGGYBACK 16.7 MG IV (17:13)
[2024-08-18] MEDS: CPAP MACHINE 1 EACH INH (21:00)
[2024-08-18] MEDS: AZITHROMYCIN 500 MG in DEXTROSE 5% IN WATER 250 ML 250 MG IV (23:03)
[2024-08-19] VITALS (42 sets, daily range): BP systolic 103–162; BP diastolic 54–107; PULSE 49–75; RESP 12–21; TEMP 36.5–36.6; O2SAT 56–99
[2024-08-19] MEDS: VANCOMYCIN 1,250 MG/250 ML PIGGYBACK 250 MG IV (00:05)
[2024-08-19] MEDS: dilTIAZem 30 MG TABLET PO ×2 (00:05→13:01)
[2024-08-19] MEDS: AMIODARONE 180 MG/100 ML PIGGYBACK 16.7 MG IV (04:01)
[2024-08-19 05:26] LABS: Add Manual Diff / Slide Review NO; Basophils Absolute Auto 0 /uL (0-100); Basophils Percent Auto 0.4 % (0-2); Eosinophils Absolute Auto 400 /uL (0-450); Eosinophils Percent Auto 3.2 % (2-4); Hematocrit 38.9 % (41-53); Hemoglobin 12.7 g/dL (13.5-17.5); Lymphocytes Absolute Auto 600 /uL (1100-4500); Lymphocytes Percent Auto 5.4 % (25-40); Mean Corpuscular HGB Conc 32.7 % (30-36); Mean Corpuscular Hemoglobin 32.3 PG (26-34); Mean Corpuscular Volume 98.6 fL (80-100); Monocytes Absolute Auto 1100 /uL (0-900); Neutrophils Absolute Auto 9200 /uL (1500-7000); Platelet Count 284 X10^3/uL (150-400); Red Blood Cell Count 3.95 X10^6/uL (4.5-5.9); Red Cell Distribution Width 16.2 % (11.6-14.8); White Blood Cell Count 11.3 X10^3/uL (4.5-11.0)
[2024-08-19 05:35] LABS: BUN Creatinine Ratio 29.9 (6-22); Blood Urea Nitrogen 29 mg/dL (9-20); Calcium 9.1 mg/dL (8.4-10.2); Carbon Dioxide 24 mmol/L (22-32); Chloride 100 mmol/L (98-107); Estimated Glomerular Filt Rate > 60 mL/min (>60); Glucose 106 mg/dL (70-99); HEMOLYSIS < 15 (0-50); Potassium 3.6 mmol/L (3.4-5.1); Sodium 135 mmol/L (137-145)
[2024-08-19] MEDS: VANCOMYCIN TROUGH 1 REQUEST MISC (07:45)
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
[2024-08-19 08:31] LABS: Vancomycin Trough 27.8 ug/mL (10-20)
[2024-08-19] MEDS: RIVAROXABAN 10 MG TABLET 20 MG PO (08:38)
--- NOTE | 2024-08-19 12:00 | DI.US.S_ITS ---
PROCEDURE: US ABDOMEN LIMITED INDICATIONS: transaminitis, R mid/lower abdominal mass TECHNIQUE: Real-time scanning was performed of the abdominal and retroperitoneal organs, with image documentation. COMPARISON: [facility], CT, CT ABDOMEN PELVIS WITHOUT CONTRAST, 04/02/2024, 19:19. [facility], US, US ABDOMEN LIMITED, 09/21/2023, 14:28. FINDINGS: Liver: Liver is normal in size with coarsened echotexture. Liver is suboptimally evaluated due to patient body habitus and posterior acoustic attenuation. Gallbladder: Gallbladder appears contracted with associated gallbladder wall thickening to 5 mm. Sonographic Gamino sign is reportedly positive. No gallstones are seen. Biliary ducts: Intrahepatic bile ducts are non-dilated. Extrahepatic bile duct caliber measures 2.8 mm. Normal is 6-7 mm or less in diameter, or 10 mm or less post-cholecystectomy. Pancreas: Visualized portions of the pancreas are sonographically normal. Miscellaneous: No free abdominal fluid. Right pleural effusion is present. IMPRESSION: 1. Contracted appearance of the gallbladder with gallbladder wall thickening. No gallstones. Sonographic Gamino's sign reportedly positive. Findings may be related to the timing of the most recent meal, but correlation is recommended to exclude acalculous cholecystitis. 2. Liver is normal in size but is not well evaluated due to acoustic attenuation. 3. Right pleural effusion is noted. Approved by: Dhaval Barnett M.D. on 08/19/2024 at 12:38
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
[2024-08-19] MEDS: AMIODARONE 200 MG TABLET 400 MG PO (16:32)
[2024-08-19] MEDS: ERTAPENEM 1 GM in SODIUM CHLORIDE 0.9% 100 ML IV (16:32)
[2024-08-19] MEDS: CPAP MACHINE 1 EACH INH (20:52)
[2024-08-20] VITALS (28 sets, daily range): BP systolic 117–169; BP diastolic 59–94; PULSE 53–67; RESP 11–16; TEMP 35.8–36.6; O2SAT 91–99
[2024-08-20 04:52] LABS: Hematocrit 41.8 % (41-53); Hemoglobin 13.8 g/dL (13.5-17.5); Mean Corpuscular HGB Conc 33.1 % (30-36); Mean Corpuscular Hemoglobin 32.5 PG (26-34); Platelet Count 301 X10^3/uL (150-400); Red Blood Cell Count 4.26 X10^6/uL (4.5-5.9); Red Cell Distribution Width 16.1 % (11.6-14.8); White Blood Cell Count 6.6 X10^3/uL (4.5-11.0)
[2024-08-20 05:02] LABS: Alanine Aminotransferase 61 IU/L (<50); Albumin 3.8 g/dL (3.5-5.0); Albumin Globulin Ratio 0.9 (1.0-2.8); Alkaline Phosphatase 162 U/L (38-126); Aspartate Aminotransferase 39 IU/L (17-59); BUN Creatinine Ratio 42.7 (6-22); Bilirubin Total 0.4 mg/dL (0.2-1.3); Blood Urea Nitrogen 35 mg/dL (9-20); Carbon Dioxide 26 mmol/L (22-32); Chloride 103 mmol/L (98-107); Estimated Glomerular Filt Rate > 60 mL/min (>60); Globulin 4.1 g/dL (1.7-4.1); Glucose 89 mg/dL (70-99); HEMOLYSIS < 15 (0-50); Potassium 3.5 mmol/L (3.4-5.1); Sodium 137 mmol/L (137-145); Total Protein 7.9 g/dL (6.3-8.2)
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
[2024-08-20] MEDS: RIVAROXABAN 10 MG TABLET 20 MG PO (08:50)
[2024-08-20] MEDS: AMIODARONE 200 MG TABLET 400 MG PO ×2 (08:50→17:32)
[2024-08-20] MEDS: POTASSIUM CHLORIDE 20 MEQ TAB 40 MEQ PO (12:20)
[2024-08-20] MEDS: ERTAPENEM 1 GM in SODIUM CHLORIDE 0.9% 100 ML IV (16:06)
--- NOTE | 2024-08-20 16:13 | CM.DPNOTE ---
DCP Note LINE ORDERING CLINICIAN reviewed EMR per provider, will need 14 days Ertapenem. Q24. getting PICC line Mon morning. Haakon ID to follow. per chart, hx of inf rajni. CC Anne kindly agreed to fax referral information. LINE ORDERING CLINICIAN spoke with Garcia, reviewing now. pt to get dose Mon and then have inf rajni start . LINE ORDERING CLINICIAN unable to meet with pt/brother today due to triaging needs. P: anticipate dc tomorrow with inf rajni 14 days IV ertapenem. will continue to follow closely for DCP coordination ITALO Schwartz
[2024-08-20] MEDS: CPAP MACHINE 1 EACH INH (23:03)
[2024-08-21] VITALS (11 sets, daily range): BP systolic 124–134; BP diastolic 65–72; PULSE 52–62; RESP 12–18; TEMP 36.2–36.5; O2SAT 95–96
[2024-08-21 05:00] LABS: Hematocrit 38.2 % (41-53); Mean Corpuscular Hemoglobin 33.2 PG (26-34); Mean Corpuscular Volume 97.6 fL (80-100); Platelet Count 333 X10^3/uL (150-400); Red Blood Cell Count 3.92 X10^6/uL (4.5-5.9); Red Cell Distribution Width 16.2 % (11.6-14.8); White Blood Cell Count 6.9 X10^3/uL (4.5-11.0)
[2024-08-21 05:08] LABS: Alanine Aminotransferase 52 IU/L (<50); Albumin 3.6 g/dL (3.5-5.0); Albumin Globulin Ratio 0.9 (1.0-2.8); Alkaline Phosphatase 133 U/L (38-126); Aspartate Aminotransferase 31 IU/L (17-59); Bilirubin Total 0.3 mg/dL (0.2-1.3); Blood Urea Nitrogen 32 mg/dL (9-20); Calcium 10.1 mg/dL (8.4-10.2); Carbon Dioxide 29 mmol/L (22-32); Chloride 105 mmol/L (98-107); Estimated Glomerular Filt Rate > 60 mL/min (>60); Globulin 3.9 g/dL (1.7-4.1); Glucose 78 mg/dL (70-99); HEMOLYSIS < 15 (0-50); Potassium 4.2 mmol/L (3.4-5.1); Sodium 140 mmol/L (137-145); Total Protein 7.5 g/dL (6.3-8.2)
[2024-08-21] MEDS: AMIODARONE 200 MG TABLET 400 MG PO (08:26)
[2024-08-21] MEDS: RIVAROXABAN 10 MG TABLET 20 MG PO (08:26)
--- NOTE | 2024-08-21 09:49 | DI.RAD.S_ITS ---
PROCEDURE: XR CHEST FOR PICC 1V INDICATIONS: line placement COMPARISON: None. FINDINGS: PICC was placed by the intravenous therapy team from the right side. Fluoroscopic spot film demonstrates the tip of PICC projecting to the area of cavoatrial junction. IMPRESSION: Tip of PICC projects to the area of cavoatrial junction. Dictated by: Naima Riddle MD, PhD on 08/21/2024 at 11:14 Approved by: Naima Riddle MD, PhD on 08/21/2024 at 11:14
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
[2024-08-21] MEDS: ERTAPENEM 1 GM in SODIUM CHLORIDE 0.9% 100 ML IV (10:40)
--- NOTE | 2024-08-21 12:03 | PC.NURSE ---
Discharge teaching done with caregiver and patient at bedside. Caregiver is aware that there needs to be a f/u appt with PCP and cardiology for further eval of medications, labs ect. Pt is d/c'ing on 14 days of antibx. PICC line intact. Home infusions to assist in IV antibx. Pt assisted to personal WC via elyssa lift by aid and nurse. Patient leaves today A&O x3, in stable condition, VSS.
--- NOTE | 2024-08-21 13:43 | CM.DPNOTE ---
DC Note Patient has been discharged home today with the following plan: Home w/family, [employer] CGs, electric WC, 3ltrs O2 at home ([employer]), and [facility] for 14 days IV ertapenem Q24. Dr Horvath to follow outpatient. Emailed Garcia at [facility], [email or web address] : Dr Amato's DC orders for IV ertapenem Q24 and PICC line insertion assessment note. Garcia confirms receipt of orders, states patient is all set and family has been contacted and agreeable with plan. Patient getting a dose of IV erta this morning then will discharge home with family. [facility] to provide dose in patient/family home tomorrow. CO[facility]
== END 2024-08-21 12:08 | disposition home or self-care (01) | DRG 690 ==
LOC: ED 11:24 → AC 15:28 → ICU 08-18 11:20
PROVIDERS: Hospitalist; Internal Medicine; Pharmacist Pharmacist Clinician (PhC)/ Clinical Pharmacy Specialist; Admitting Provider Family Medicine; Emergency Provider Emergency Medicine; Family Provider Internal Medicine; PCP Internal Medicine; Referring Provider Emergency Medicine; Visit Provider Family Medicine
DX: N39.0 Urinary tract infection, site not specified (principal); G82.20 Paraplegia, unspecified; I50.32 Chronic diastolic (congestive) heart failure; K59.2 Neurogenic bowel, not elsewhere classified; I47.10 Supraventricular tachycardia, unspecified; G47.33 Obstructive sleep apnea (adult) (pediatric); R74.01 Elevation of levels of liver transaminase levels; I48.91 Unspecified atrial fibrillation; I11.0 Hypertensive heart disease with heart failure; D35.2 Benign neoplasm of pituitary gland; N20.0 Calculus of kidney; B96.20 Unspecified Escherichia coli [E. coli] as the cause of diseases classified elsewhere; N31.9 Neuromuscular dysfunction of bladder, unspecified; S06.9XAS Unspecified intracranial injury with loss of consciousness status unknown, sequela; V89.2XXS Person injured in unspecified motor-vehicle accident, traffic, sequela; Z87.820 Personal history of traumatic brain injury
CPT/HCPCS: 0241U; 36415; 36569; 71045; 76705; 80048; 80053; 80076; 80202; 81001; 82550; 83605; 83690; 83735; 83880; 84484; 85007; 85025; 85027; 87077; 87086; 87186; 93005; 93306; 96361; 96365; 99283; 99291; J0153; J0282; J1160; J1335; J1938; J3475

== ENCOUNTER 2024-10-03 14:49 | Inpatient (IN) | payer MEDICARE, MEDICAID, SELFPAY ==
[2023-06-21 15:02] VITALS: PULSE 101; RESP 25; O2SAT 96
[2024-08-17 18:34] VITALS: BMI 34.5
[2024-10-03] VITALS (9 sets, daily range): BP systolic 82–134; BP diastolic 51–66; PULSE 62–74; RESP 18; TEMP 36.4; O2SAT 95–98; BMI 34.7; BMI 34.1
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
--- NOTE | 2024-10-03 15:17 | DI.RAD.S_ITS ---
PROCEDURE: XR CHEST 1V INDICATIONS: suspected sepsis TECHNIQUE: One view of the chest was acquired. COMPARISON: [facility], CR, XR CHEST FOR PICC 1V, 08/21/2024, 9:44. [facility], CR, XR CHEST 1V, 08/17/2024, 11:32. FINDINGS AND IMPRESSION: Mild right lung base opacity and trace effusion is suspected. Mildly prominent interstitium could represent mild edema. No dense consolidation elsewhere on this single view study. Cardiomegaly. Aortic calcifications. Degenerative osseous changes. Dictated by: Warren Ling M.D. on 10/03/2024 at 16:33 Approved by: Warren Ling M.D. on 10/03/2024 at 16:34
[2024-10-03 16:42] LABS: Appearance Urine UA CLOUDY; Bilirubin Urine UA 2+ (NEGATIVE); Color Urine UA ORANGE; Glucose Urine UA NEGATIVE (Negative); Ketones Urine UA TRACE (NEGATIVE); Leukocyte Esterase Urine UA 3+ (NEGATIVE); Nitrite Urine UA NEGATIVE (Negative); Occult Blood Urine UA 3+ (Negative); Protein Urine UA 2+ (Negative); Specific Gravity Urine UA 1.010 (1.000-1.035); Urobilinogen Urine UA 1.0 E.U./dL (0.2); pH Urine UA 5.5 (4.5-8.0)
[2024-10-03] MEDS: LACTATED RINGERS 1,000 ML 1000 ML IV (16:53)
[2024-10-03 16:54] LABS: Culture Indicated Urine Specimen Cultured; Ictotest Urine Positive (Negative)
[2024-10-03 17:06] LABS: INR 3.9 (0.9-1.3); Prothrombin Time 42.6 SECONDS (9.4-12.5)
[2024-10-03 17:07] LABS: Add Manual Diff / Slide Review NO; Hematocrit 41.1 % (41-53); Hemoglobin 13.6 g/dL (13.5-17.5); Lymphocytes Absolute Auto 500 /uL (1100-4500); Mean Corpuscular HGB Conc 33.0 % (30-36); Mean Corpuscular Hemoglobin 31.8 PG (26-34); Mean Corpuscular Volume 96.6 fL (80-100); Platelet Count 323 X10^3/uL (150-400)
[2024-10-03 17:08] LABS: PTT Partial Thromboplastin Tim 57 SECONDS (25.1-36.5)
[2024-10-03 17:10] LABS: Alanine Aminotransferase 38 IU/L (<50); Albumin 4.1 g/dL (3.5-5.0); Albumin Globulin Ratio 0.9 (1.0-2.8); Alkaline Phosphatase 135 U/L (38-126); Blood Urea Nitrogen 23 mg/dL (9-20); Calcium 9.8 mg/dL (8.4-10.2); Carbon Dioxide 30 mmol/L (22-32); Chloride 92 mmol/L (98-107); Estimated Glomerular Filt Rate > 60 mL/min (>60); Globulin 4.5 g/dL (1.7-4.1); Glucose 84 mg/dL (70-99); HEMOLYSIS < 15 (0-50); Lactate (Lactic Acid) 1.9 mmol/L (0.7-2.1); Lipase 30 U/L (23-300); Potassium 4.0 mmol/L (3.4-5.1); Sodium 130 mmol/L (137-145); Total Protein 8.6 g/dL (6.3-8.2)
[2024-10-03 17:27] LABS: Procalcitonin 0.546 ng/mL (<0.5)
--- NOTE | 2024-10-03 17:36 | DI.CT.S_ITS ---
PROCEDURE: CT ABDOMEN PELVIS WO CON INDICATIONS: uti / hydro? TECHNIQUE: Axial sections were acquired from the lung bases to the pubic symphysis. Coronal and sagittal reformats were performed. For radiation dose reduction, the following was used: automated exposure control, adjustment of mA and/or kV according to patient size. COMPARISON: [facility], CT, CT ABDOMEN PELVIS WO CON, 01/23/2023, 14:28. [facility], CT, CT ABDOMEN PELVIS WITHOUT CONTRAST, 04/02/2024, 19:19. FINDINGS: Image quality: Diagnostic. Lower Chest: Small bilateral pleural effusions with adjacent atelectasis. URINARY: Right Kidney: Nonobstructing 10 mm right renal stone. No hydronephrosis. Perinephric stranding is present. Right Ureter: No hydroureter. Left Kidney: Nonobstructing punctate stone. No hydronephrosis. Left Ureter: No hydroureter. Bladder: Mild diffuse urinary bladder wall thickening. Small focus of gas, correlate with instrumentation. No renal stones. ABDOMEN: Liver: No contour-deforming solid mass. Gallbladder: No radiopaque gallstones or wall thickening. Biliary ducts: No biliary dilation. Pancreas: No ductal dilation. Spleen: Size is within normal limits. Adrenal Glands: No adrenal nodules. Stomach and Bowel: Normal colonic caliber, without significant wall thickening. Large stool burden with possible incontinence. Peritoneum: No abnormal intraperitoneal fluid. No free air. Ventral Wall: No hernia. Abdominal Nodes: Stable prominent and mildly enlarged retroperitoneal and mesenteric lymph nodes with normal fatty hilum. Vessels: Aorta and inferior vena cava are normal in size. Atherosclerotic vascular calcifications. PELVIS: Pelvic Organs: Unremarkable. Pelvic Nodes: Unremarkable. Miscellaneous: No inguinal hernias are seen. Significant fatty atrophy of the musculature. Bones: Again seen large thick-walled fluid collection along the anterior aspect of the right femoral head and neck measuring approximately 10.3 x 9.4 cm with internal calcifications. Decreased osseous mineralization. Significantly decreased osseous mineralization. Extensive spinal fixation. IMPRESSION: 1. Asymmetric right perinephric stranding, correlate for infection. Mild diffuse urinary bladder wall thickening. 2. Bilateral nonobstructing stones. 3. Large stool burden with possible incontinence. 4. Stable fluid collection adjacent to the right proximal femur, may represent fluid distension of the right iliopsoas bursa with bursitis. 5. Small bilateral pleural effusions with adjacent atelectasis are redemonstrated. 6. Stable prominent and mildly enlarged retroperitoneal and mesenteric lymph nodes with normal fatty hilum. 7. Please see above for additional findings. Dictated by: Nigel Richardson M.D. on 10/03/2024 at 18:31 Approved by: Nigel Richardson M.D. on 10/03/2024 at 18:38
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
--- NOTE | 2024-10-03 18:51 | PC.ADMIT ---
[email or web address] [facility] Admission Note: Pt admitted to room 224 at approximately 1820, A&O to self, situation. Vitals WDL. Care ongoing. The patient,Nadir Matthews,64 y/o, was given written information regarding hospital policies, unit procedures and contact persons. Patient's smoking status: Never smoker. Vital Signs - 8 hr 10/03/24 14:57 10/03/24 15:00 10/03/24 15:00 Temperature Pulse Rate 69 70 Respiratory Rate Blood Pressure 130/55 L Pulse Oximetry 95 97 Oxygen Delivery Method 10/03/24 15:02 10/03/24 15:02 10/03/24 15:04 Temperature 97.6 F Pulse Rate 71 65 Respiratory Rate 18 Blood Pressure 82/53 L 130/55 L Pulse Oximetry 96 97 Oxygen Delivery Method Room Air 10/03/24 15:11 10/03/24 15:11 10/03/24 15:30 Temperature Pulse Rate 67 Respiratory Rate Blood Pressure 105/51 L 103/51 L Pulse Oximetry 98 Oxygen Delivery Method 10/03/24 15:30 10/03/24 16:00 10/03/24 16:01 Temperature Pulse Rate 62 68 Respiratory Rate Blood Pressure 111/52 L Pulse Oximetry 97 95 Oxygen Delivery Method 10/03/24 16:01 Temperature Pulse Rate 67 Respiratory Rate Blood Pressure Pulse Oximetry 97 Oxygen Delivery Method
[2024-10-03] MEDS: ERTAPENEM 1 GM in SODIUM CHLORIDE 0.9% 100 ML IV (23:04)
[2024-10-03] MEDS: SODIUM CHLORIDE 0.9% 1,000 ML 100 ML IV (23:08)
[2024-10-04 05:20] LABS: Add Manual Diff / Slide Review NO; Hematocrit 37.6 % (41-53); Hemoglobin 12.7 g/dL (13.5-17.5); Lymphocytes Absolute Auto 500 /uL (1100-4500); Mean Corpuscular HGB Conc 33.8 % (30-36); Mean Corpuscular Hemoglobin 32.2 PG (26-34); Mean Corpuscular Volume 95.3 fL (80-100); Platelet Count 308 X10^3/uL (150-400)
[2024-10-04 05:36] LABS: Blood Urea Nitrogen 23 mg/dL (9-20); Calcium 9.8 mg/dL (8.4-10.2); Carbon Dioxide 30 mmol/L (22-32); Chloride 95 mmol/L (98-107); Estimated Glomerular Filt Rate > 60 mL/min (>60); Glucose 85 mg/dL (70-99); HEMOLYSIS < 15 (0-50); Potassium 4.5 mmol/L (3.4-5.1); Sodium 132 mmol/L (137-145)
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
[2024-10-04 08:27] VITALS: BP 110/65; PULSE 78; RESP 16; TEMP 35.9; O2SAT 95
[2024-10-04] MEDS: SODIUM CHLORIDE 0.9% 1,000 ML 100 ML IV ×2 (09:26→21:38)
--- NOTE | 2024-10-04 16:03 | CM.DANOTE ---
DCP Assessment Note: Pt is a 64yo male, resident of [place], is admitted for UTI. Pt lives in a house with his brother and sister in law, he also has a BALWINDER Caregiver (Annel Bennett ph# [phone]). Pt's Primary Care Provider is Dr. Arnie Gomez and insurance is [facility] and Medicaid. Reviewed chart and discussed with multidisciplinary team pt's medical status and initial discharge needs. Pt has admitted 08/17-08/21 for similar reason; was discharged home with IV abx for 14 days (Ertapenem Q24H) provided by [facility]. Per hospitalist, pt has 2 IV abx at this time and pending final recs by Infectious Disease. Patient expresses preference to hospitalist for dc home with IV abx if recommended. Per RN, pt has been utilizing straight cath every 6hours; no indwelling catheter placed at this time. DCP met w/patient at bedside; introduced self and role. Patient was found in bed, alert and oriented, cooperative with assessment. Pt confirmed living situation and good support in brother and caregivers. Pt expressed preference in discharge home with IV abx if recommended, he feels comfortable that him and his care team can cover this. Plan: Anticipating dc home with brother on 10/06 or when medically cleared, monitoring for possible home IV abx recommendations. CM team will follow closely for coordination of discharge plans. SHALONDA Antonio Discharge Planning/Care Management CM Discharge Assessment Start: 10/03/24 17:57 Freq: Status: Active Protocol: Document 10/04/24 15:12 MW (Rec: 10/04/24 15:15 MW Desktop) Discharge Planning Assessment Assigned Discharge ITALO Bo Application Development Specialist DPOA/Assigned Brother Ponce Designee Name Contact Information [phone] Advance Directives? Yes: POLST Advance Directives Yes on File History Provided By Patient,Medical Record Has Patient been No admitted in last 30 days? Prior Living House Arrangements Household Members family,caregiver Comment Brother and sister in law are caregivers in the home. Type of Relies on Others transporation used prior to admit Independent with ADL No 's Is patient alert and Yes oriented? Needs Assistance Bathing,Grooming,Meal Prep,Toileting,Managing With Medications,Home Chores / Shopping Caregiver for No Another DME Already Rented / Wheelchair Owned Contact Phone [phone] Comment BALWINDER Ayala Caregiver Patient/Family Home with Home Health Preference Comment Preference for home IV abx if recommended Barriers to No Discharge Discharge Plan Home Transportation Likely brother or CG Arrangement Referrals Initiated Other Additional Comment pending cultures for IV abx, inf rajni and home health can be an option Whiteboard Updated Yes in Patient Room with name and ext. # of Extraction Supervisor Comment [phone] Review Status In Process Please Provide Date 10/04/24 Initial DC Assessment Was Performed Next Review Type Continued Stay Review
[2024-10-04 19:00] VITALS: BP 105/74; PULSE 90; RESP 18; TEMP 35.3; O2SAT 98
[2024-10-04 19:28] LABS: Acinetobacter calcoa-baumannii Not Detected (Not Detect); Bacteroides fragilis Not Detected (Not Detect); CTX-M Resistance Not Detected (Not Detect); Candida auris Not Detected (Not Detect); Candida glabrata Not Detected (Not Detect); Cryptococcus neoformans/gatti Not Detected (Not Detect); Enterobacterales Detected (Not Detect); Enterococcus faecalis Not Detected (Not Detect); Enterococcus faecium Not Detected (Not Detect); IMP Resistance Not Detected (Not Detect); KPC Resistance Not Detected (Not Detect); Klebsiella aerogenes Not Detected (Not Detect); NDM Resistance Not Detected (Not Detect); OXA-48-like Resistance Not Detected (Not Detect); Proteus species Not Detected (Not Detect); Serratia marcescens Detected (Not Detect); Staphylococcus epidermidis Not Detected (Not Detect); Staphylococcus lugdunensis Not Detected (Not Detect); Staphylococcus species Not Detected (Not Detect); Stenotrophomonas maltophilia Not Detected (Not Detect); Streptococcus agalactiae (Gr B Not Detected (Not Detect); Streptococcus pneumonia Not Detected (Not Detect); Streptococcus pyogenes (Gr A) Not Detected (Not Detect); Streptococcus species Not Detected (Not Detect); VIM Resistance Not Detected (Not Detect)
[2024-10-04] MEDS: ERTAPENEM 1 GM in SODIUM CHLORIDE 0.9% 100 ML IV (23:30)
[2024-10-05 05:06] LABS: Add Manual Diff / Slide Review NO; Hematocrit 36.3 % (41-53); Hemoglobin 12.4 g/dL (13.5-17.5); Lymphocytes Absolute Auto 600 /uL (1100-4500); Mean Corpuscular HGB Conc 34.0 % (30-36); Mean Corpuscular Hemoglobin 32.7 PG (26-34); Mean Corpuscular Volume 96.0 fL (80-100); Platelet Count 271 X10^3/uL (150-400)
[2024-10-05 05:28] LABS: Blood Urea Nitrogen 22 mg/dL (9-20); Calcium 9.8 mg/dL (8.4-10.2); Carbon Dioxide 27 mmol/L (22-32); Chloride 102 mmol/L (98-107); Estimated Glomerular Filt Rate > 60 mL/min (>60); Glucose 82 mg/dL (70-99); HEMOLYSIS < 15 (0-50); Sodium 133 mmol/L (137-145)
[2024-10-05 05:37] LABS: Potassium 5.7 mmol/L (3.4-5.1)
[2024-10-05 08:10] VITALS: BP 118/78; PULSE 70; RESP 18; TEMP 36.4; O2SAT 94
[2024-10-05] MEDS: SODIUM CHLORIDE 0.9% 1,000 ML 100 ML IV ×2 (08:59→21:13)
--- NOTE | 2024-10-05 11:56 | PC.NURSE ---
REPORT GIVEN TO ARIANA ADAMS AT 0317
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
[2024-10-05 19:00] VITALS: BP 146/111; PULSE 71; RESP 20; TEMP 35.7; O2SAT 93
[2024-10-05] MEDS: ERTAPENEM 1 GM in SODIUM CHLORIDE 0.9% 100 ML IV (23:30)
[2024-10-06] MEDS: SODIUM CHLORIDE 0.9% 1,000 ML 100 ML IV ×2 (07:46→17:50)
[2024-10-06 07:51] VITALS: BP 131/73; PULSE 66; RESP 18; TEMP 36; O2SAT 94
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
[2024-10-06 14:59] LABS: Blood Urea Nitrogen 21 mg/dL (9-20); Calcium 9.7 mg/dL (8.4-10.2); Carbon Dioxide 26 mmol/L (22-32); Chloride 103 mmol/L (98-107); Estimated Glomerular Filt Rate > 60 mL/min (>60); Glucose 118 mg/dL (70-99); HEMOLYSIS < 15 (0-50); Potassium 3.9 mmol/L (3.4-5.1); Sodium 136 mmol/L (137-145)
[2024-10-06 19:00] VITALS: BP 163/94; PULSE 75; RESP 20; TEMP 36; O2SAT 98
[2024-10-06] MEDS: ERTAPENEM 1 GM in SODIUM CHLORIDE 0.9% 100 ML IV (22:46)
[2024-10-07] MEDS: SODIUM CHLORIDE 0.9% 1,000 ML 100 ML IV ×2 (04:14→13:50)
[2024-10-07 08:00] VITALS: BP 147/84; PULSE 66; RESP 18; TEMP 35.5; O2SAT 97
[2024-10-07] MEDS: LACTULOSE 20 GM/30 ML SOLUTION PO ×2 (14:40→21:57)
--- NOTE | 2024-10-07 16:35 | CM.DPC ---
DCP Cont: Per MD, pt to get his PICC placed and then plan of discharge on 14 days of IV Ertapenem with [facility] to follow. Waiting for cultures to return after 48 hrs () and then pt likely stable to discharge. Per electrical technician instructor, no PICC RN today but will get PICC placed tomorrow 10/08. Spoke with Garcia at [facility] and he confirms that he spoke to pt and son and they have done the home infusion for Ertapenem before and are comfortable with the process and agreeable with plan for discharge. Pharmacist changing pt's middle of the night dosing to a few hours earlier today and then pt will get dose earlier tomorrow 10/08 and can then discharge home and [facility] will give pt his next dose on 10/09 in the home. SW faxed new referral to [facility] as they have worked with pt recently for IV abx and will follow pt after discharge. Jess Graves MSW
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
[2024-10-07] MEDS: ERTAPENEM 1 GM in SODIUM CHLORIDE 0.9% 100 ML IV (18:00)
[2024-10-07 19:00] VITALS: BP 145/88; PULSE 66; RESP 20; TEMP 35.5; O2SAT 97
[2024-10-08] MEDS: SODIUM CHLORIDE 0.9% 1,000 ML 100 ML IV (01:07)
[2024-10-08 07:00] VITALS: BP 118/71; PULSE 74; RESP 18; TEMP 35.8; O2SAT 95
--- NOTE | 2024-10-08 11:11 | CM.DPC ---
DCP Cont. Reviewed EMR and team rounds for pt's status updates. Pt has been medically cleared for home d/c today. [facility] has orders and will f/u with pt tomorrow. His brother will transport him home. No further d/c assistance/resource needs are indicated at this time.
--- NOTE | 2024-10-08 11:26 | DI.RAD.S_ITS ---
PROCEDURE: XR CHEST FOR PICC 1V INDICATIONS: PICC PLACEMENT TECHNIQUE: One view of the chest was acquired. COMPARISON: [facility], CR, XR CHEST FOR PICC 1V, 08/21/2024, 9:44. FINDINGS: Surgical changes and devices: Left PICC is seen with catheter tip projecting over the lower superior vena cava. Prior right PICC has been removed. Surgical clips project over the mediastinum. Thoracolumbar spinal fixation hardware is partially included. Lungs and pleura: Bilateral small pleural effusions with bibasilar atelectasis. Relatively low lung volumes. Evaluation is mildly compromised by portable technique Mediastinum: Cardiac silhouette is enlarged. Bones and chest wall: No suspicious bony lesions. Overlying soft tissues appear unremarkable. IMPRESSION: Left PICC with tip projecting over the lower superior vena cava. Approved by: Dhaval Barnett M.D. on 10/08/2024 at 11:51
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
[2024-10-08] MEDS: ERTAPENEM 1 GM in SODIUM CHLORIDE 0.9% 100 ML IV (15:30)
== END 2024-10-08 16:23 | disposition home health service (06) | DRG 699 ==
LOC: ED 15:04 → AC 17:40
PROVIDERS: Internal Medicine; Admitting Provider Hospitalist; Emergency Provider Family Medicine; Family Provider Internal Medicine; PCP Internal Medicine; Referring Provider Family Medicine; Visit Provider Hospitalist
DX: T83.511A Infection and inflammatory reaction due to indwelling urethral catheter, initial encounter (principal); G82.20 Paraplegia, unspecified; N10 Acute pyelonephritis; I50.32 Chronic diastolic (congestive) heart failure; Z16.11 Resistance to penicillins; G47.33 Obstructive sleep apnea (adult) (pediatric); N20.0 Calculus of kidney; I11.0 Hypertensive heart disease with heart failure; E66.811 Obesity, class 1; D36.7 Benign neoplasm of other specified sites; B96.89 Other specified bacterial agents as the cause of diseases classified elsewhere; N31.9 Neuromuscular dysfunction of bladder, unspecified; K59.00 Constipation, unspecified; I48.91 Unspecified atrial fibrillation; R13.10 Dysphagia, unspecified; Y73.1 Therapeutic (nonsurgical) and rehabilitative gastroenterology and urology devices associated with adverse incidents; Z87.442 Personal history of urinary calculi; Z87.820 Personal history of traumatic brain injury; Z68.34 Body mass index [BMI] 34.0-34.9, adult; Z79.01 Long term (current) use of anticoagulants
CPT/HCPCS: 36415; 36569; 71045; 74176; 80048; 80053; 81001; 83605; 83690; 84145; 85025; 85610; 85730; 87040; 87077; 87086; 87154; 87186; 96360; 99284; J1335

== ENCOUNTER → 2024-10-23 10:15 | Outpatient (CLI) | payer MEDICARE, MEDICAID, SELFPAY ==
[2023-06-21 15:02] VITALS: PULSE 101; RESP 25; O2SAT 96
[2024-10-03 21:35] VITALS: BMI 34.1
[2024-10-23 11:14] LABS: Hematocrit 37.1 % (41-53); Hemoglobin 12.7 g/dL (13.5-17.5); Mean Corpuscular HGB Conc 34.3 % (30-36); Mean Corpuscular Hemoglobin 32.5 PG (26-34); Mean Corpuscular Volume 94.9 fL (80-100); Platelet Count 225 X10^3/uL (150-400)
[2024-10-23 11:27] LABS: Influenza A - CEPHEID Flu A NEGATIVE (NEGATIVE); Influenza B - CEPHEID Flu B NEGATIVE (NEGATIVE)
[2024-10-23 11:28] LABS: COVID-19 CEPHEID 4-PLEX PCR Negative (Negative)
[2024-10-23 11:36] LABS: INR 2.3 (0.9-1.3); Prothrombin Time 25.1 SECONDS (9.4-12.5)
[2024-10-23 12:10] LABS: Alanine Aminotransferase 71 IU/L (<50); Albumin 4.2 g/dL (3.5-5.0); Albumin Globulin Ratio 1.0 (1.0-2.8); Alkaline Phosphatase 236 U/L (38-126); Blood Urea Nitrogen 22 mg/dL (9-20); Calcium 9.4 mg/dL (8.4-10.2); Carbon Dioxide 25 mmol/L (22-32); Chloride 97 mmol/L (98-107); Estimated Glomerular Filt Rate > 60 mL/min (>60); Globulin 4.4 g/dL (1.7-4.1); Glucose 76 mg/dL (70-99); HEMOLYSIS 30 (0-50); Potassium 4.4 mmol/L (3.4-5.1); Sodium 133 mmol/L (137-145); Total Protein 8.6 g/dL (6.3-8.2)
== END ==
PROVIDERS: Family Provider Internal Medicine; PCP Internal Medicine; Visit Provider Internal Medicine
DX: J18.9 Pneumonia, unspecified organism (principal); I48.20 Chronic atrial fibrillation, unspecified
CPT/HCPCS: 36415; 80053; 85027; 85610; 87637

== ENCOUNTER 2024-10-23 20:56 | Inpatient (IN) | payer MEDICARE, MEDICAID, SELFPAY ==
[2023-06-21 15:02] VITALS: PULSE 101; RESP 25; O2SAT 96
[2024-10-03 21:35] VITALS: BMI 34.1
[2024-10-23] VITALS (8 sets, daily range): BP systolic 126–152; BP diastolic 74–87; PULSE 59–67; RESP 14–21; TEMP 36.4; O2SAT 91–99; BMI 35.8
--- NOTE | 2024-10-23 21:14 | DI.CT.S_ITS ---
PROCEDURE: CT HEAD/BRAIN WO CON INDICATIONS: ams TECHNIQUE: Noncontrast 4.5 mm thick angled axial sections acquired from the foramen magnum to the vertex, with coronal and sagittal reformats. For radiation dose reduction, the following was used: automated exposure control, adjustment of mA and/or kV according to patient size. COMPARISON: [facility], CT, CT HEAD/BRAIN WO CON, 08/05/2021, 12:49. FINDINGS: Image quality: Diagnostic. CSF spaces: Basal cisterns are patent. No extra-axial fluid collections. The ventricles are symmetric in size and shape. Brain: No intracranial bleeds or mass effect. There is cerebral volume loss, with resultant ventricular and sulcal prominence. There are periventricular and deep white matter chronic small vessel ischemic changes. There is intracranial internal carotid artery atherosclerosis. Skull and face: Calvarium and visualized facial bones appear intact, without suspicious lesions. Sinuses: Visualized sinuses and mastoids are clear. IMPRESSION: 1. No acute intracranial process. 2. Mild atrophy and chronic microvascular ischemic changes. Dictated by: Felicity Mercado M.D. on 10/23/2024 at 22:19 Approved by: Felicity Mercado M.D. on 10/23/2024 at 22:19
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
[2024-10-23 21:46] LABS: Base Excess VBG 2.5 mmol/L (0-4); HCO3 VBG 31 mmol/L (24-28); Oxygen Saturation VBG 35 % (70-75); PCO2 VBG 60.1 mmHg (45-50); PO2 VBG 23 mmHg (35-45); Total CO2 VBG 30 mmol/L (24-29); pH VBG 7.32 (7.33-7.43)
[2024-10-23 22:12] LABS: Add Manual Diff / Slide Review NO; Hematocrit 39.7 % (41-53); Hemoglobin 13.2 g/dL (13.5-17.5); Lymphocytes Absolute Auto 500 /uL (1100-4500); Mean Corpuscular HGB Conc 33.2 % (30-36); Mean Corpuscular Hemoglobin 31.7 PG (26-34); Mean Corpuscular Volume 95.6 fL (80-100); Platelet Count 234 X10^3/uL (150-400)
[2024-10-23 22:25] LABS: Alanine Aminotransferase 71 IU/L (<50); Albumin 4.2 g/dL (3.5-5.0); Albumin Globulin Ratio 0.9 (1.0-2.8); Alkaline Phosphatase 244 U/L (38-126); Blood Urea Nitrogen 21 mg/dL (9-20); Calcium 9.4 mg/dL (8.4-10.2); Carbon Dioxide 30 mmol/L (22-32); Chloride 94 mmol/L (98-107); Creatine Kinase < 20 U/L (55-170); Estimated Glomerular Filt Rate > 60 mL/min (>60); Globulin 4.7 g/dL (1.7-4.1); Glucose 82 mg/dL (70-99); HEMOLYSIS < 15 (0-50); Lactate (Lactic Acid) 1.1 mmol/L (0.7-2.1); Potassium 4.3 mmol/L (3.4-5.1); Sodium 132 mmol/L (137-145); Total Protein 8.9 g/dL (6.3-8.2)
[2024-10-23 22:38] LABS: Troponin I < 0.012 ng/mL (0.01-0.034)
[2024-10-23 22:41] LABS: Influenza A - CEPHEID Flu A NEGATIVE (NEGATIVE); Influenza B - CEPHEID Flu B NEGATIVE (NEGATIVE)
[2024-10-23 22:42] LABS: Procalcitonin 0.071 ng/mL (<0.5)
[2024-10-23 23:01] LABS: COVID-19 CEPHEID 4-PLEX PCR Negative (Negative)
--- NOTE | 2024-10-23 23:07 | EKG_ITS ---
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
[2024-10-23 23:13] LABS: Bilirubin Urine UA NEGATIVE (NEGATIVE); Color Urine UA YELLOW; Glucose Urine UA NEGATIVE (Negative); Ketones Urine UA NEGATIVE (NEGATIVE); Leukocyte Esterase Urine UA 3+ (NEGATIVE); Nitrite Urine UA NEGATIVE (Negative); Occult Blood Urine UA 2+ (Negative); Protein Urine UA TRACE (Negative); Specific Gravity Urine UA <=1.005 (1.000-1.035); Urobilinogen Urine UA 0.2 E.U./dL (0.2); pH Urine UA 7.0 (4.5-8.0)
[2024-10-23 23:19] LABS: NT-proBNP (BNP-Adult 18+) 298 pg/mL (<125)
[2024-10-23 23:28] LABS: Appearance Urine UA SL CLOUDY
[2024-10-23 23:29] LABS: Culture Indicated Urine Specimen Cultured
[2024-10-24] VITALS (28 sets, daily range): BP systolic 107–144; BP diastolic 68–89; PULSE 50–68; RESP 13–28; TEMP 35.9–36.8; O2SAT 94–99; BMI 35.8; BMI 34.1
--- NOTE | 2024-10-24 00:46 | PC.NURSE ---
Pt moved into hospital bed. Pt's home sling given to brother along with pt's slippers. Pt placed in position of comfort, requested lights off. Pt has call light within reach. NAD, 4LPM O2, breathing even/equal/unlabored at this time. No other needs at this time
[2024-10-24] MEDS: SODIUM CHLORIDE 0.9% 1,000 ML 100 ML IV ×2 (01:45→12:08)
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
[2024-10-24 07:30] LABS: Alanine Aminotransferase 56 IU/L (<50); Albumin 3.6 g/dL (3.5-5.0); Albumin Globulin Ratio 0.9 (1.0-2.8); Alkaline Phosphatase 220 U/L (38-126); Blood Urea Nitrogen 18 mg/dL (9-20); Calcium 8.8 mg/dL (8.4-10.2); Carbon Dioxide 31 mmol/L (22-32); Chloride 99 mmol/L (98-107); Estimated Glomerular Filt Rate > 60 mL/min (>60); Globulin 4.1 g/dL (1.7-4.1); Glucose 72 mg/dL (70-99); HEMOLYSIS < 15 (0-50); Magnesium 2.3 mg/dL (1.6-2.3); Potassium 4.3 mmol/L (3.4-5.1); Sodium 134 mmol/L (137-145); Total Protein 7.7 g/dL (6.3-8.2)
[2024-10-24] MEDS: RIVAROXABAN 10 MG TABLET 20 MG PO (09:12)
[2024-10-24] MEDS: FISH OIL 1,000 MG CAPSULE 1000 MG PO (09:12)
[2024-10-24] MEDS: METOPROLOL IR 25 MG TABLET PO (09:12)
[2024-10-24] MEDS: LORATADINE 10 MG TABLET PO (09:12)
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
[2024-10-24] MEDS: FUROSEMIDE 60 MG in SODIUM CHLORIDE 0.9% 50 ML 112 MG IV (15:47)
--- NOTE | 2024-10-24 15:50 | DI.US.S_ITS ---
PROCEDURE: US ABDOMEN LIMITED INDICATIONS: RUQ GALL STONES? TECHNIQUE: Real-time scanning was performed of the abdominal and retroperitoneal organs, with image documentation. COMPARISON: [facility], CT, CT ABDOMEN PELVIS WO CON, 10/03/2024, 17:39. [facility], US, US ABDOMEN LIMITED, 08/19/2024, 12:36. FINDINGS: Liver: Liver is normal in size and mildly heterogeneous in echotexture. Gallbladder: No gallstones. No wall thickening. No pericholecystic edema. Negative sonographic Gamino's sign. Biliary ducts: Intrahepatic bile ducts are non-dilated. Extrahepatic bile duct caliber measures three mm. Normal is 6-7 mm or less in diameter, or 10 mm or less post-cholecystectomy. Pancreas: Visualized portions of the pancreas are sonographically normal. Miscellaneous: No free abdominal fluid. A right-sided pleural effusion is noted. IMPRESSION: 1. Normal gallbladder. No acute sonographic abnormality. 2. Right-sided pleural effusion is noted. Approved by: Dhaval Barnett M.D. on 10/24/2024 at 17:04
[2024-10-24] MEDS: levoFLOXacin 500 MG/100 ML PIGGYBACK 100 MG IV (22:19)
[2024-10-25] VITALS: BP 119/75; PULSE 54; RESP 18; TEMP 36.2; O2SAT 96
[2024-10-25] MEDS: FUROSEMIDE 40 MG/4 ML VIAL IV ×2 (01:00→12:14)
[2024-10-25 04:00] VITALS: BP 117/77; PULSE 59; RESP 16; TEMP 36.1; O2SAT 95
[2024-10-25 08:00] VITALS: BP 122/68; PULSE 66; RESP 15; TEMP 35.9; O2SAT 98
[2024-10-25] MEDS: FISH OIL 1,000 MG CAPSULE 1000 MG PO (08:24)
[2024-10-25] MEDS: METOPROLOL IR 25 MG TABLET PO (08:25)
[2024-10-25] MEDS: LACTOBACILLUS ACIDOPHILUS TABLET 1 EACH PO (08:25)
[2024-10-25] MEDS: LORATADINE 10 MG TABLET PO (08:25)
[2024-10-25] MEDS: RIVAROXABAN 10 MG TABLET 20 MG PO (08:26)
[2024-10-25 09:25] LABS: Alanine Aminotransferase 51 IU/L (<50); Albumin 4.1 g/dL (3.5-5.0); Albumin Globulin Ratio 1.0 (1.0-2.8); Alkaline Phosphatase 239 U/L (38-126); Blood Urea Nitrogen 22 mg/dL (9-20); Calcium 9.3 mg/dL (8.4-10.2); Carbon Dioxide 30 mmol/L (22-32); Chloride 97 mmol/L (98-107); Estimated Glomerular Filt Rate > 60 mL/min (>60); Globulin 4.3 g/dL (1.7-4.1); Glucose 66 mg/dL (70-99); HEMOLYSIS 16 (0-50); Magnesium 2.1 mg/dL (1.6-2.3); Potassium 4.1 mmol/L (3.4-5.1); Sodium 138 mmol/L (137-145); Total Protein 8.4 g/dL (6.3-8.2)
[2024-10-25 12:00] VITALS: BP 139/90; PULSE 57; RESP 16; TEMP 35.9; O2SAT 96
--- NOTE | 2024-10-25 12:03 | DIET.CONS ---
Addendum entered by Octavia Moody 10/25/24 15:18: Met with pt at bedside. Confirms good appetite and usually doing 3 meals a day outside of hospital. Spoke to nursing staff who confirm pt has been tolerating diet at chopped and bite size with no issues swallowing. Has been using weighted silverware. Original Note: Dietary Consultation Note Admission Date: 10/23/2024 23:48 Assessment: 64 y M admitted for pneumonia. Dietitian screened for MNA score and Abdirahman. EMR reviewed. 50-100% recorded PO intakes, started ordering 1 Ensure daily. Follows chopped and bite size/minced and moist at home. Already coordinated with kitchen. Ht: 198.12 cm Wt: 134 kg BMI: 34.1 UBW: no significant recent weight loss, 135.624 kg on 08/17/24, 139.9 kg on 04/16/24 (-4% loss in 6 months, non-severe) Last BM: 10/25/24 (10/25/24 11:23) MNA: 10 Abdirahman Score: 15 Diet: 10/24/24 Breakfast Heart Healthy Diet Diet Modifications: Nutrition Percent Meal Consumed 100% 10/25/24 11:23 Percent Meal Consumed 50% 10/24/24 20:00 Percent Meal Consumed 50% 10/24/24 18:00 Labs: RBC 4.15 X10^6/uL (4.5-5.9) L 10/23/24 21:40 Hgb 13.2 g/dL (13.5-17.5) L 10/23/24 21:40 Hct 39.7 % (41-53) L 10/23/24 21:40 Creatinine 0.66 mg/dL (0.66-1.25) 10/25/24 08:20 Lactate 1.1 mmol/L (0.7-2.1) 10/23/24 21:40 NT-Pro-B Natriuret Pep 298 pg/mL (<125) H 10/23/24 21:40 Nutrition Diagnosis: none at this time Monitoring/Evaluations: PO intakes Electronically Signed by: Octavia Moody 10/25/24 12:03 Clinical Dietitian [address] [id number]
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
[2024-10-25 16:00] VITALS: BP 138/90; PULSE 61; RESP 15; TEMP 35.9; O2SAT 96
[2024-10-25 16:22] LABS: Appearance Urine UA CLEAR; Bilirubin Urine UA NEGATIVE (NEGATIVE); Color Urine UA YELLOW; Glucose Urine UA NEGATIVE (Negative); Ketones Urine UA NEGATIVE (NEGATIVE); Leukocyte Esterase Urine UA TRACE (NEGATIVE); Nitrite Urine UA NEGATIVE (Negative); Occult Blood Urine UA NEGATIVE (Negative); Protein Urine UA NEGATIVE (Negative); Specific Gravity Urine UA 1.010 (1.000-1.035); Urobilinogen Urine UA 0.2 E.U./dL (0.2); pH Urine UA 6.0 (4.5-8.0)
[2024-10-25 16:31] LABS: Culture Indicated Urine Specimen Cultured
--- NOTE | 2024-10-25 18:18 | PC.NURSE ---
Boots to elevate heels were placed on patient. Airmatress ordered. q2h turning and dig stim completed. UA sent. Family at bedside.
[2024-10-25 20:00] VITALS: BP 139/90; PULSE 68; RESP 17; TEMP 36.1; O2SAT 95
[2024-10-25] MEDS: levoFLOXacin 500 MG/100 ML PIGGYBACK 100 MG IV (20:49)
[2024-10-26] VITALS (8 sets, daily range): BP systolic 116–141; BP diastolic 66–87; PULSE 56–73; RESP 14–20; TEMP 35.7–36.3; O2SAT 91–98
[2024-10-26] MEDS: FUROSEMIDE 40 MG/4 ML VIAL IV ×3 (01:54→18:12)
[2024-10-26 09:06] LABS: Hematocrit 42.4 % (41-53); Hemoglobin 14.2 g/dL (13.5-17.5); Mean Corpuscular HGB Conc 33.5 % (30-36); Mean Corpuscular Hemoglobin 31.7 PG (26-34); Mean Corpuscular Volume 94.8 fL (80-100); Platelet Count 240 X10^3/uL (150-400)
[2024-10-26 09:09] LABS: Add Manual Diff / Slide Review YES
[2024-10-26 09:20] LABS: Alanine Aminotransferase 42 IU/L (<50); Albumin 4.2 g/dL (3.5-5.0); Albumin Globulin Ratio 0.9 (1.0-2.8); Alkaline Phosphatase 225 U/L (38-126); Blood Urea Nitrogen 26 mg/dL (9-20); Calcium 9.4 mg/dL (8.4-10.2); Carbon Dioxide 31 mmol/L (22-32); Chloride 95 mmol/L (98-107); Estimated Glomerular Filt Rate > 60 mL/min (>60); Globulin 4.9 g/dL (1.7-4.1); Glucose 75 mg/dL (70-99); HEMOLYSIS < 15 (0-50); Magnesium 2.1 mg/dL (1.6-2.3); Potassium 3.9 mmol/L (3.4-5.1); Sodium 136 mmol/L (137-145); Total Protein 9.1 g/dL (6.3-8.2)
[2024-10-26 10:14] LABS: Eosinophils Percent Manual 30.0 % (2-4); Lymphocytes Percent Manual 26.0 % (25-45); Monocytes Percent Manual 12.0 % (2-11); Neutrophils Absolute Manual 1632 /uL (3000-5900); RBC Morphology Normal Morphology; Segmented Neutrophils Percent 32.0 % (38-70); Total Cells Counted 100
[2024-10-26] MEDS: LACTOBACILLUS ACIDOPHILUS TABLET 1 EACH PO (10:25)
[2024-10-26] MEDS: FISH OIL 1,000 MG CAPSULE 1000 MG PO (10:25)
[2024-10-26] MEDS: LORATADINE 10 MG TABLET PO (10:26)
[2024-10-26] MEDS: RIVAROXABAN 10 MG TABLET 20 MG PO (10:26)
[2024-10-26] MEDS: METOPROLOL IR 25 MG TABLET PO (10:27)
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
[2024-10-26] MEDS: levoFLOXacin 500 MG/100 ML PIGGYBACK 100 MG IV (20:03)
[2024-10-27] VITALS: BP 115/42; PULSE 70; RESP 16; TEMP 36.2; O2SAT 94
[2024-10-27] MEDS: FUROSEMIDE 40 MG/4 ML VIAL IV ×3 (01:04→17:30)
[2024-10-27 04:00] VITALS: BP 117/77; PULSE 75; RESP 16; TEMP 36.2; O2SAT 93
[2024-10-27 08:00] VITALS: BP 124/85; PULSE 72; RESP 20; TEMP 36.1; O2SAT 98
[2024-10-27] MEDS: RIVAROXABAN 10 MG TABLET 20 MG PO (10:20)
[2024-10-27] MEDS: OXYCODONE IR 5 MG TABLET PO ×3 (10:21→17:29)
[2024-10-27] MEDS: METOPROLOL IR 25 MG TABLET PO (10:21)
[2024-10-27] MEDS: FISH OIL 1,000 MG CAPSULE 1000 MG PO (10:21)
[2024-10-27] MEDS: LACTOBACILLUS ACIDOPHILUS TABLET 1 EACH PO (10:21)
[2024-10-27] MEDS: LORATADINE 10 MG TABLET PO (10:21)
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
--- NOTE | 2024-10-27 11:34 | CM.DPNOTE ---
DCP note ACCESS SPECIALIST reviewed EMR per provider in morning rounds, plan to diuresis has gone well. unlikely to need thoracentesis Monday if continues as is. Chest x-ray tomorrow. no IV abx at dc. here another few days. P: anticipate dc home with brother/caregivers when medically stable. no CM needs likely/identified at this time. will continue to follow closely in case any should arise during admission . ITALO Schwartz
[2024-10-27 11:50] VITALS: BP 108/71; PULSE 75; RESP 19; TEMP 37; O2SAT 97
[2024-10-27] MEDS: ACETAMINOPHEN 325 MG TABLET 650 MG PO (14:18)
[2024-10-27 15:39] VITALS: BP 107/64; PULSE 81; RESP 20; TEMP 36.2; O2SAT 95
--- NOTE | 2024-10-27 19:12 | PC.NURSE ---
Asked the pt if he wanted staff to give change of shift report at his bedside and pt declined the option tonight. This RN explained that he would be introduced to the new nurse for the night and would be able to ask questions if he wanted to. Pt still declined bedside shift change report after pt education was given. Pt stated: I'd rather rest.
[2024-10-27 20:00] VITALS: BP 141/75; PULSE 80; RESP 18; TEMP 37.4; O2SAT 95
[2024-10-27] MEDS: MELATONIN 3 MG TABLET 9 MG PO (20:40)
[2024-10-28] VITALS: BP 125/75; PULSE 82; RESP 17; TEMP 36.3; O2SAT 96
[2024-10-28] MEDS: FUROSEMIDE 40 MG/4 ML VIAL IV ×2 (01:37→09:32)
[2024-10-28 04:00] VITALS: BP 124/76; PULSE 76; RESP 17; TEMP 36.1; O2SAT 96
--- NOTE | 2024-10-28 07:00 | DI.RAD.S_ITS ---
PROCEDURE: XR CHEST 1V INDICATIONS: effusion followup TECHNIQUE: One view of the chest was acquired. COMPARISON: [facility], CR, XR CHEST FOR PICC 1V, 10/08/2024, 11:26. FINDINGS: Surgical changes and devices: Thoracic spine hardware. Lungs and pleura: Lungs are clear. No pleural effusions or pneumothorax. Mediastinum: Mediastinal contours appear normal. Heart size is normal. Bones and chest wall: No suspicious bony lesions. Overlying soft tissues appear unremarkable. IMPRESSION: No acute cardiopulmonary abnormality is seen. Dictated by: Shadi Stewart M.D. on 10/29/2024 at 17:31 Approved by: Shadi Stewart M.D. on 10/29/2024 at 17:34
[2024-10-28 07:12] LABS: Hematocrit 43.6 % (41-53); Hemoglobin 14.9 g/dL (13.5-17.5); Mean Corpuscular HGB Conc 34.2 % (30-36); Mean Corpuscular Hemoglobin 32.2 PG (26-34); Mean Corpuscular Volume 94.2 fL (80-100); Platelet Count 292 X10^3/uL (150-400)
[2024-10-28 07:13] LABS: Add Manual Diff / Slide Review YES
[2024-10-28 07:17] LABS: INR 2.7 (0.9-1.3); Prothrombin Time 29.7 SECONDS (9.4-12.5)
[2024-10-28 07:22] LABS: Alanine Aminotransferase 33 IU/L (<50); Albumin 4.3 g/dL (3.5-5.0); Albumin Globulin Ratio 0.8 (1.0-2.8); Alkaline Phosphatase 199 U/L (38-126); Blood Urea Nitrogen 50 mg/dL (9-20); Calcium 10.5 mg/dL (8.4-10.2); Carbon Dioxide 33 mmol/L (22-32); Chloride 92 mmol/L (98-107); Estimated Glomerular Filt Rate 52 mL/min (>60); Globulin 5.3 g/dL (1.7-4.1); Glucose 93 mg/dL (70-99); HEMOLYSIS < 15 (0-50); Magnesium 2.2 mg/dL (1.6-2.3); Potassium 3.2 mmol/L (3.4-5.1); Sodium 137 mmol/L (137-145); Total Protein 9.6 g/dL (6.3-8.2)
[2024-10-28 08:00] VITALS: BP 131/76; PULSE 84; RESP 18; TEMP 36; O2SAT 95
[2024-10-28 09:17] LABS: Basophils Percent Manual 1.0 % (0-1); Eosinophils Percent Manual 27.0 % (2-4); Lymphocytes Percent Manual 15.0 % (25-45); Monocytes Percent Manual 19.0 % (2-11); Neutrophils Absolute Manual 2736 /uL (3000-5900); Segmented Neutrophils Percent 38.0 % (38-70); Total Cells Counted 100
[2024-10-28 09:18] LABS: RBC Morphology Normal Morphology
[2024-10-28] MEDS: LORATADINE 10 MG TABLET PO (09:32)
[2024-10-28] MEDS: METOPROLOL IR 25 MG TABLET PO (09:32)
[2024-10-28] MEDS: FISH OIL 1,000 MG CAPSULE 1000 MG PO (09:32)
[2024-10-28] MEDS: RIVAROXABAN 10 MG TABLET 20 MG PO (09:32)
[2024-10-28] MEDS: LACTOBACILLUS ACIDOPHILUS TABLET 1 EACH PO (09:32)
--- NOTE | 2024-10-28 11:02 | PC.NURSE ---
Addendum entered by Siria Leon R.N. 10/28/24 11:55: Patient had a small bowel movement. Cleaned up and patient hoyered to the reclining chair with waffle cushion in place. Patient has support stalkings on. He is happy to be up. Original Note: Patient is eating breakfast, lung sounds decreased. Patient does have a cough, no sputum or phlegm noted. He is a parapeligic and has feeling to about waste level. He is aler and oriented x3. Patient has dressings to his coccyx and bottom both mepelex. we will be getting him up to the chair for lunch.
[2024-10-28 12:00] VITALS: BP 126/76; PULSE 82; RESP 16; TEMP 36.5; O2SAT 94
[2024-10-28] MEDS: POTASSIUM CHLORIDE 20 MEQ TAB 40 MEQ PO ×2 (12:34→17:47)
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
--- NOTE | 2024-10-28 15:54 | CM.DPC ---
DCP Cont: Per MD, pt to have further imaging bedside today to determine if his PE is improving or if thoracentesis needed to drain. SW updated pt's assigned HCS arborist Wen and secure emailed updated clinicals to review as she is scheduled to assess him for jail care needs in-home. ITALO Ford
[2024-10-28 16:00] VITALS: BP 127/63; PULSE 85; RESP 18; TEMP 35.9; O2SAT 92
[2024-10-28 20:00] VITALS: BP 120/78; PULSE 80; RESP 18; TEMP 36.1; O2SAT 92
[2024-10-28] MEDS: MELATONIN 3 MG TABLET 9 MG PO (20:35)
[2024-10-29] VITALS: BP 123/73; PULSE 71; RESP 19; TEMP 36.1; O2SAT 96
[2024-10-29 08:20] VITALS: O2SAT 94
[2024-10-29 08:36] LABS: Blood Urea Nitrogen 60 mg/dL (9-20); Calcium 11.0 mg/dL (8.4-10.2); Carbon Dioxide 34 mmol/L (22-32); Chloride 93 mmol/L (98-107); Estimated Glomerular Filt Rate 60 mL/min (>60); Glucose 93 mg/dL (70-99); HEMOLYSIS 38 (0-50); Potassium 4.0 mmol/L (3.4-5.1); Sodium 140 mmol/L (137-145)
[2024-10-29 09:00] VITALS: BP 135/80; PULSE 75; RESP 14; TEMP 35.9; O2SAT 94
[2024-10-29] MEDS: METOPROLOL IR 25 MG TABLET PO (10:20)
[2024-10-29] MEDS: FISH OIL 1,000 MG CAPSULE 1000 MG PO (10:20)
[2024-10-29] MEDS: RIVAROXABAN 10 MG TABLET 20 MG PO (10:20)
[2024-10-29] MEDS: LACTOBACILLUS ACIDOPHILUS TABLET 1 EACH PO (10:21)
[2024-10-29] MEDS: LORATADINE 10 MG TABLET PO (10:21)
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
--- NOTE | 2024-10-29 12:44 | CM.DPC ---
DAWNP Cont. Reviewed EMR and team rounds for pt's status updates. Pt was medically cleared for d/c today. His brother will be coming to transport him home, no further CM d/c needs are identified at this time.
[2024-10-29] MEDS: ACETAMINOPHEN 325 MG TABLET 650 MG PO (14:46)
--- NOTE | 2024-10-29 18:58 | PC.NURSE ---
Discharge: Reviewed d/c instructions with Caregiver. Questions answered. Pt d/c to home with caregiver in his w/c and van.
== END 2024-10-29 17:45 | disposition home or self-care (01) | DRG 291 ==
LOC: ED 23:34 → AC 23:50
PROVIDERS: Admitting Provider Internal Medicine; Emergency Provider Family Medicine; Family Provider Internal Medicine; PCP Internal Medicine; Referring Provider Family Medicine; Visit Provider Internal Medicine
DX: I11.0 Hypertensive heart disease with heart failure (principal); J18.9 Pneumonia, unspecified organism; K65.8 Other peritonitis; G82.20 Paraplegia, unspecified; I48.20 Chronic atrial fibrillation, unspecified; Z16.24 Resistance to multiple antibiotics; I50.32 Chronic diastolic (congestive) heart failure; N20.0 Calculus of kidney; G47.33 Obstructive sleep apnea (adult) (pediatric); D35.2 Benign neoplasm of pituitary gland; E66.811 Obesity, class 1; N31.9 Neuromuscular dysfunction of bladder, unspecified; J40 Bronchitis, not specified as acute or chronic; I27.20 Pulmonary hypertension, unspecified; S06.9XAS Unspecified intracranial injury with loss of consciousness status unknown, sequela; V89.2XXS Person injured in unspecified motor-vehicle accident, traffic, sequela; Z87.820 Personal history of traumatic brain injury; Z79.01 Long term (current) use of anticoagulants; Z68.34 Body mass index [BMI] 34.0-34.9, adult; Z22.39 Carrier of other specified bacterial diseases; Z96.0 Presence of urogenital implants
CPT/HCPCS: 36415; 70450; 71045; 71275; 76705; 80048; 80053; 81001; 82550; 82805; 83605; 83735; 83880; 84145; 84484; 85007; 85025; 85027; 85610; 87040; 87077; 87086; 87186; 87637; 93005; 94762; 96361; 96365; 96366; 99284; A9270; J1938; J1956; Q9967

== ENCOUNTER → 2024-11-05 14:48 | Outpatient (CLI) | payer MEDICARE, MEDICAID, SELFPAY ==
[2024-11-05 14:43] VITALS: PULSE 101; RESP 25; O2SAT 96; BMI 34.1
[2024-11-05 16:34] LABS: Hematocrit 37.7 % (41-53); Hemoglobin 12.8 g/dL (13.5-17.5); Mean Corpuscular HGB Conc 33.9 % (30-36); Mean Corpuscular Hemoglobin 32.1 PG (26-34); Mean Corpuscular Volume 94.5 fL (80-100); Platelet Count 278 X10^3/uL (150-400)
[2024-11-05 16:41] LABS: INR 3.1 (0.9-1.3); Prothrombin Time 33.8 SECONDS (9.4-12.5)
[2024-11-05 16:54] LABS: Alanine Aminotransferase 15 IU/L (<50); Albumin 3.8 g/dL (3.5-5.0); Albumin Globulin Ratio 0.9 (1.0-2.8); Alkaline Phosphatase 128 U/L (38-126); Blood Urea Nitrogen 37 mg/dL (9-20); Calcium 9.7 mg/dL (8.4-10.2); Carbon Dioxide 30 mmol/L (22-32); Chloride 91 mmol/L (98-107); Estimated Glomerular Filt Rate > 60 mL/min (>60); Globulin 4.2 g/dL (1.7-4.1); Glucose 91 mg/dL (70-99); HEMOLYSIS < 15 (0-50); Potassium 3.6 mmol/L (3.4-5.1); Sodium 132 mmol/L (137-145); Total Protein 8.0 g/dL (6.3-8.2)
== END ==
PROVIDERS: Family Provider Internal Medicine; PCP Internal Medicine; Referring Provider Internal Medicine; Visit Provider Internal Medicine
DX: I48.20 Chronic atrial fibrillation, unspecified (principal); Z79.01 Long term (current) use of anticoagulants
CPT/HCPCS: 36415; 80053; 85027; 85610

== ENCOUNTER → 2024-11-14 11:50 | Outpatient (CLI) | payer MEDICARE, MEDICAID, SELFPAY ==
[2024-11-05 14:43] VITALS: PULSE 101; RESP 25; O2SAT 96; BMI 34.1
== END ==
PROVIDERS: Family Provider Internal Medicine; PCP Internal Medicine; Referring Provider Internal Medicine; Visit Provider Nurse Practitioner Family
DX: L89.323 Pressure ulcer of left buttock, stage 3 (principal); G82.20 Paraplegia, unspecified; R23.4 Changes in skin texture; Z79.01 Long term (current) use of anticoagulants; R15.9 Full incontinence of feces
CPT/HCPCS: 11042; 99213

== ENCOUNTER → 2024-11-21 13:05 | Outpatient (CLI) | payer MEDICARE, MEDICAID, SELFPAY ==
[2024-11-05 14:43] VITALS: PULSE 101; RESP 25; O2SAT 96; BMI 34.1
== END ==
PROVIDERS: Family Provider Internal Medicine; PCP Internal Medicine; Referring Provider Internal Medicine; Visit Provider Surgery
DX: L89.323 Pressure ulcer of left buttock, stage 3 (principal); G82.50 Quadriplegia, unspecified; L98.8 Other specified disorders of the skin and subcutaneous tissue; R21 Rash and other nonspecific skin eruption; R15.9 Full incontinence of feces; Z79.01 Long term (current) use of anticoagulants; Z88.0 Allergy status to penicillin; Z88.1 Allergy status to other antibiotic agents; Z88.8 Allergy status to other drugs, medicaments and biological substances
CPT/HCPCS: 11042

== ENCOUNTER → 2024-11-28 13:55 | Outpatient (CLI) | payer MEDICARE, MEDICAID, SELFPAY ==
[2024-11-05 14:43] VITALS: PULSE 101; RESP 25; O2SAT 96; BMI 34.1
== END ==
LOC: WC 13:56
PROVIDERS: Family Provider Internal Medicine; PCP Internal Medicine; Referring Provider Internal Medicine; Visit Provider Physician Assistant
DX: L89.323 Pressure ulcer of left buttock, stage 3 (principal); R21 Rash and other nonspecific skin eruption; G82.50 Quadriplegia, unspecified; R15.9 Full incontinence of feces; Z79.01 Long term (current) use of anticoagulants; Z88.0 Allergy status to penicillin; Z88.1 Allergy status to other antibiotic agents; Z88.2 Allergy status to sulfonamides; Z88.8 Allergy status to other drugs, medicaments and biological substances
CPT/HCPCS: 11042; 99213

== ENCOUNTER → 2024-12-05 14:54 | Outpatient (CLI) | payer MEDICARE, MEDICAID, SELFPAY ==
[2024-11-05 14:43] VITALS: PULSE 101; RESP 25; O2SAT 96; BMI 34.1
[2024-12-05 19:49] LABS: Blood Urea Nitrogen 20 mg/dL (9-20); Calcium 9.6 mg/dL (8.4-10.2); Carbon Dioxide 29 mmol/L (22-32); Chloride 98 mmol/L (98-107); Estimated Glomerular Filt Rate > 60 mL/min (>60); Glucose 78 mg/dL (70-99); HEMOLYSIS < 15 (0-50); Potassium 4.4 mmol/L (3.4-5.1); Sodium 136 mmol/L (137-145)
== END ==
PROVIDERS: Family Provider Internal Medicine; PCP Internal Medicine; Referring Provider Internal Medicine; Visit Provider Internal Medicine
DX: I50.32 Chronic diastolic (congestive) heart failure (principal)
CPT/HCPCS: 36415; 80048

== ENCOUNTER → 2024-12-06 13:27 | Outpatient (CLI) | payer MEDICARE, MEDICAID, SELFPAY ==
[2024-11-05 14:43] VITALS: PULSE 101; RESP 25; O2SAT 96; BMI 34.1
== END ==
LOC: WC 13:27
PROVIDERS: Family Provider Internal Medicine; PCP Internal Medicine; Referring Provider Internal Medicine; Visit Provider Physician Assistant
DX: L89.323 Pressure ulcer of left buttock, stage 3 (principal); R23.4 Changes in skin texture; L98.8 Other specified disorders of the skin and subcutaneous tissue; R21 Rash and other nonspecific skin eruption; G82.50 Quadriplegia, unspecified; E66.9 Obesity, unspecified; Z68.33 Body mass index [BMI] 33.0-33.9, adult; R15.9 Full incontinence of feces; Z79.01 Long term (current) use of anticoagulants; Z88.2 Allergy status to sulfonamides; Z88.1 Allergy status to other antibiotic agents; Z91.040 Latex allergy status
CPT/HCPCS: 11042; 99213

== ENCOUNTER → 2024-12-12 12:49 | Outpatient (CLI) | payer MEDICARE, MEDICAID, SELFPAY ==
[2024-11-05 14:43] VITALS: PULSE 101; RESP 25; O2SAT 96; BMI 34.1
== END ==
LOC: WC 12:49
PROVIDERS: Family Provider Internal Medicine; PCP Internal Medicine; Referring Provider Internal Medicine; Visit Provider Surgery
DX: L89.323 Pressure ulcer of left buttock, stage 3 (principal); G82.50 Quadriplegia, unspecified; R20.8 Other disturbances of skin sensation; R21 Rash and other nonspecific skin eruption
CPT/HCPCS: 11042; 87070; 87075; 87077; 87186; 87205

== ENCOUNTER → 2024-12-19 12:51 | Outpatient (CLI) | payer MEDICARE, MEDICAID, SELFPAY ==
[2024-11-05 14:43] VITALS: PULSE 101; RESP 25; O2SAT 96; BMI 34.1
== END ==
LOC: WC 12:53
PROVIDERS: Family Provider Internal Medicine; PCP Internal Medicine; Referring Provider Internal Medicine; Visit Provider Surgery
DX: L89.323 Pressure ulcer of left buttock, stage 3 (principal); G82.50 Quadriplegia, unspecified; R21 Rash and other nonspecific skin eruption
CPT/HCPCS: 11042

== ENCOUNTER → 2024-12-26 13:57 | Outpatient (CLI) | payer MEDICARE, MEDICAID, SELFPAY ==
[2024-11-05 14:43] VITALS: PULSE 101; RESP 25; O2SAT 96; BMI 34.1
== END ==
LOC: WC 14:00
PROVIDERS: Family Provider Internal Medicine; PCP Internal Medicine; Referring Provider Internal Medicine; Visit Provider Surgery
DX: L89.323 Pressure ulcer of left buttock, stage 3 (principal); G82.50 Quadriplegia, unspecified; R20.8 Other disturbances of skin sensation; R21 Rash and other nonspecific skin eruption
CPT/HCPCS: 11042

== ENCOUNTER → 2025-01-02 13:28 | Outpatient (CLI) | payer MEDICARE, MEDICAID, SELFPAY ==
[2024-11-05 14:43] VITALS: PULSE 101; RESP 25; O2SAT 96; BMI 34.1
== END ==
LOC: WC 13:30
PROVIDERS: Family Provider Internal Medicine; PCP Internal Medicine; Referring Provider Internal Medicine; Visit Provider Surgery
DX: L89.323 Pressure ulcer of left buttock, stage 3 (principal); L89.892 Pressure ulcer of other site, stage 2; G82.50 Quadriplegia, unspecified
CPT/HCPCS: 11042; 99213

== ENCOUNTER → 2025-01-09 14:25 | Outpatient (CLI) | payer MEDICARE, MEDICAID, SELFPAY ==
[2024-11-05 14:43] VITALS: PULSE 101; RESP 25; O2SAT 96; BMI 34.1
== END ==
LOC: WC 14:26
PROVIDERS: PCP Internal Medicine; Referring Provider Internal Medicine; Visit Provider Physician Assistant
DX: L89.323 Pressure ulcer of left buttock, stage 3 (principal); L89.892 Pressure ulcer of other site, stage 2; G82.50 Quadriplegia, unspecified; R15.9 Full incontinence of feces; Z79.01 Long term (current) use of anticoagulants
CPT/HCPCS: 11042; 99213

== ENCOUNTER → 2025-01-16 10:50 | Outpatient (CLI) | payer MEDICARE, MEDICAID, SELFPAY ==
[2024-11-05 14:43] VITALS: PULSE 101; RESP 25; O2SAT 96; BMI 34.1
== END ==
LOC: WC 10:53
PROVIDERS: PCP Internal Medicine; Referring Provider Internal Medicine; Visit Provider Surgery
DX: L89.323 Pressure ulcer of left buttock, stage 3 (principal); L89.892 Pressure ulcer of other site, stage 2; G82.20 Paraplegia, unspecified; Z79.01 Long term (current) use of anticoagulants
CPT/HCPCS: 11042; 97597

== ENCOUNTER → 2025-01-28 11:57 | Outpatient (CLI) | payer MEDICARE, MEDICAID, SELFPAY ==
[2024-11-05 14:43] VITALS: PULSE 101; RESP 25; O2SAT 96; BMI 34.1
[2025-01-28 12:50] LABS: Hematocrit 36.6 % (41-53); Hemoglobin 12.4 g/dL (13.5-17.5); Mean Corpuscular HGB Conc 33.8 % (30-36); Mean Corpuscular Hemoglobin 31.6 PG (26-34); Mean Corpuscular Volume 93.5 fL (80-100); Platelet Count 318 X10^3/uL (150-400)
[2025-01-28 13:42] LABS: TSH w/ Reflex to FT4 1.06 uIU/mL (0.47-4.68)
[2025-01-28 14:18] LABS: Vitamin B12 Reflex MMA if <400 828 pg/mL (239-931)
[2025-01-28 14:35] LABS: Alanine Aminotransferase 26 IU/L (<50); Albumin 4.5 g/dL (3.5-5.0); Albumin Globulin Ratio 1.0 (1.0-2.8); Alkaline Phosphatase 115 U/L (38-126); Blood Urea Nitrogen 25 mg/dL (9-20); Calcium 10.0 mg/dL (8.4-10.2); Carbon Dioxide 23 mmol/L (22-32); Chloride 100 mmol/L (98-107); Cholesterol 205 mg/dL (140-199); Estimated Glomerular Filt Rate > 60 mL/min (>60); Globulin 4.6 g/dL (1.7-4.1); Glucose 58 mg/dL (70-99); HDL Cholesterol 66 mg/dL (40-60); Potassium 4.4 mmol/L (3.4-5.1); Sodium 135 mmol/L (137-145); Total Protein 9.1 g/dL (6.3-8.2); Triglycerides 75 mg/dL (35-150)
[2025-01-28 14:49] LABS: HEMOLYSIS 66 (0-50)
[2025-01-28 15:06] LABS: Prostate Specific Antigen 1.16 ng/mL (0.10-4.00)
== END ==
PROVIDERS: PCP Internal Medicine; Referring Provider Internal Medicine; Visit Provider Internal Medicine
DX: I48.20 Chronic atrial fibrillation, unspecified (principal); E78.2 Mixed hyperlipidemia; N31.2 Flaccid neuropathic bladder, not elsewhere classified; E53.8 Deficiency of other specified B group vitamins
CPT/HCPCS: 36415; 80053; 80061; 82607; 84153; 84443; 85027

== ENCOUNTER → 2025-01-30 13:09 | Outpatient (CLI) | payer MEDICARE, MEDICAID, SELFPAY ==
[2024-11-05 14:43] VITALS: PULSE 101; RESP 25; O2SAT 96; BMI 34.1
== END ==
LOC: WC 13:09
PROVIDERS: PCP Internal Medicine; Referring Provider Internal Medicine; Visit Provider Surgery
DX: L89.323 Pressure ulcer of left buttock, stage 3 (principal); G82.50 Quadriplegia, unspecified; L92.8 Other granulomatous disorders of the skin and subcutaneous tissue; L89.892 Pressure ulcer of other site, stage 2; Z99.3 Dependence on wheelchair
CPT/HCPCS: 97602; 99213

== ENCOUNTER → 2025-02-13 13:06 | Outpatient (CLI) | payer MEDICARE, MEDICAID, SELFPAY ==
[2024-11-05 14:43] VITALS: PULSE 101; RESP 25; O2SAT 96; BMI 34.1
== END ==
LOC: WC 13:06
PROVIDERS: PCP Internal Medicine; Referring Provider Internal Medicine; Visit Provider Surgery
DX: L89.323 Pressure ulcer of left buttock, stage 3 (principal); L89.892 Pressure ulcer of other site, stage 2; G82.50 Quadriplegia, unspecified
CPT/HCPCS: 11042

== ENCOUNTER → 2025-02-27 14:35 | Outpatient (CLI) | payer MEDICARE, MEDICAID, SELFPAY ==
[2024-11-05 14:43] VITALS: PULSE 101; RESP 25; O2SAT 96; BMI 34.1
== END ==
LOC: WC 14:35
PROVIDERS: PCP Internal Medicine; Referring Provider Internal Medicine; Visit Provider Surgery
DX: L89.323 Pressure ulcer of left buttock, stage 3 (principal); L89.892 Pressure ulcer of other site, stage 2; G82.50 Quadriplegia, unspecified; Z99.3 Dependence on wheelchair
CPT/HCPCS: 11042; 99213

== ENCOUNTER → 2025-02-27 14:57 | Outpatient (CLI) | payer MEDICARE, MEDICAID, SELFPAY ==
[2024-11-05 14:43] VITALS: PULSE 101; RESP 25; O2SAT 96; BMI 34.1
--- NOTE | 2025-02-27 14:59 | DI.RAD.S_ITS ---
PROCEDURE: XR FOOT RT MIN 3V INDICATIONS: ulcer of right medial 5th toe TECHNIQUE: 3 views of the foot were acquired. COMPARISON: None. FINDINGS: Bones: No acute fracture. Patient is osteopenic. No destructive osseous process or erosions are identified. Moderate narrowing of the 1st MTP joint. Soft tissues: Soft tissue swelling. No radiopaque foreign bodies or subcutaneous emphysema. IMPRESSION: No acute bony abnormality. 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 Soft tissue swelling. No destructive osseous process concerning for osteomyelitis. If symptoms remain concerning, recommend MRI to evaluate for osteomyelitis. Dictated by: Tami Amato M.D. on 02/28/2025 at 5:56 Approved by: Tami Amato M.D. on 02/28/2025 at 5:57
== END ==
PROVIDERS: PCP Internal Medicine; Referring Provider Internal Medicine; Visit Provider Surgery
DX: L89.893 Pressure ulcer of other site, stage 3 (principal); M19.071 Primary osteoarthritis, right ankle and foot; M79.89 Other specified soft tissue disorders
CPT/HCPCS: 73630

== ENCOUNTER → 2025-03-04 15:36 | Outpatient (CLI) | payer MEDICARE, MEDICAID, SELFPAY ==
[2024-11-05 14:43] VITALS: PULSE 101; RESP 25; O2SAT 96; BMI 34.1
[2025-03-04 16:24] LABS: Bilirubin Urine UA NEGATIVE (NEGATIVE); Color Urine UA YELLOW; Glucose Urine UA NEGATIVE (Negative); Ketones Urine UA NEGATIVE (NEGATIVE); Nitrite Urine UA NEGATIVE (Negative); Occult Blood Urine UA 3+ (Negative); Protein Urine UA TRACE (Negative); Specific Gravity Urine UA <=1.005 (1.000-1.035); Urobilinogen Urine UA 0.2 E.U./dL (0.2); pH Urine UA 6.0 (4.5-8.0)
[2025-03-04 16:26] LABS: Appearance Urine UA Cloudy; Leukocyte Esterase Urine UA 3+ (NEGATIVE)
[2025-03-04 16:29] LABS: Culture Indicated Urine Specimen Cultured
== END ==
PROVIDERS: PCP Internal Medicine; Referring Provider Internal Medicine; Visit Provider Internal Medicine
DX: N39.0 Urinary tract infection, site not specified (principal)
CPT/HCPCS: 81001; 87077; 87086